=== PATIENT | female | born 1950 | race Caucasian/White ===

== ENCOUNTER 2024-07-31 23:57 | Inpatient (IN) | payer OTHER, SELFPAY ==
[2024-07-31 16:47] VITALS: BP 148/82
[2024-07-31 17:56] VITALS: BP 138/76
[2024-07-31 18:16] LABS: % Basophils 0.8 % (0-2); % Immature Granulocytes 0.4 % (0-0.5); % Lymphocytes 12.9 % (20.5-51.1); % Neutrophils 70.9 % (42.2-75.2); Absolute Basophils 0.1 10^3/uL (0-0.2); Absolute Eosinophils 0.1 10^3/uL (0-0.7); Absolute Lymphocytes 1.1 10^3/uL (1.2-3.4); Absolute Monocytes 1.2 10^3/uL (0.1-0.6); Absolute Neutrophils 5.9 10^3/uL (1.4-6.5); Hemoglobin 11.8 g/dL (12.0-16.0); Mean Corp Hgb Conc. 33.7 g/dL (33.0-37.0); Mean Corpuscular Hgb 29.7 pg (27.0-31.0); Mean Corpuscular Volume 88.2 fL (81.0-99.0); Mean Platelet Volume 8.5 fL (7.4-10.4); Nucleated Red Blood Cells % 0 %; Platelet Count 343 10^3/uL (130-400); Red Blood Cell Count 3.97 10^6/uL (4.20-5.40); Red Cell Dist. Width 13.3 % (11.5-14.5); White Blood Cell Count 8.3 10^3/uL (4.8-10.8)
[2024-07-31 18:31] LABS: ALT (SGPT) 24 U/L (0-35); AST (SGOT) 48 U/L (14-36); Albumin 4.3 g/dl (3.5-5.0); Alkaline Phosphatase 66 U/L (38-126); Blood Urea Nitrogen 20 mg/dl (7-17); Calcium 9.6 mg/dl (8.4-10.2); Carbon Dioxide 26 mmol/L (22-30); Chloride 102 mmol/L (98-107); Glucose 104 mg/dl (70-99); Potassium 4.1 mmol/L (3.5-5.1); Sodium 140 mmol/L (135-145); Total Bilirubin 0.6 mg/dl (0.2-1.3); Total Protein 7.7 g/dl (6.3-8.2); eGFR > 60.00
--- NOTE | 2024-07-31 19:35 | ED.GENMED ---
History of Present Illness
General
Chief Complaint: Skin Problem
Source: patient
Time Seen by Provider: 07/31/24 19:13
History of Present Illness
History of Present Illness:
74-year-old female presents to the emergency room complaining of right arm swelling, rash. Patient was sent to the emergency room from her primary care doctor's office. Patient states the right arm swelling began sometime in June. She
thought the swelling initially was related to exposure to poison martir or poison oak but it has not gone away. Patient's noticed some redness extending now onto her chest and into her axilla. Also has some redness of discomfort in the left lower
ankle. Patient denies any fever chills. Patient is right-hand dominant. She takes no prescription medications. She had her tonsils out as a child but denies any other significant surgical history.
Phy Exam
Physical Exam
Physical Exam:
General: Awake, Alert, Oriented X3. No acute distress, appears stated age
Vitals: Mildly tachycardic
Head: Atraumatic
Eyes: Pupils equal, EOMI
Throat: Airway intact, no exudates
Neck: Trachea midline
Lungs: Clear and equal b/l
Heart: Regular rate, no murmurs
Abd: Soft, Nontender, No pulsatile mass
Neuro: Nonfocal
Skin: Warm, dry, no rash
Extremities: pulses equal b/l, no edema, woody induration and erythema noted right upper extremity from the fingers up to the axilla. There is lacy erythema noted around the axilla and right upper chest only. Right lower extremity has a small
healed ulceration noted the ankle region with some surrounding erythema but no significant swelling. Left arm appears completely normal in contrast to the right.
Sepsis
Sepsis Screening
Sepsis Assessment: Sepsis Ruled Out
Sepsis Screen
Sepsis Screen: Sepsis Ruled Out
Date: 08/01/24
Time: 00:49
Course
Orders/Labs/Results
Orders:
Orders
07/31/24 17:56
CBC/With Diff [Complete Blood Count/With Diff] Urgent
Comprehensive Metabolic Panel Urgent
07/31/24 19:33
US Periph Venous UPPER Ext RT Urgent
Comment:
Reason For Exam: swelling, redness pain r arm
07/31/24 19:34
CR Chest - 2 Views Urgent
Comment:
Reason For Exam: right upper ext swelling
07/31/24 21:55
CT Chest With Iv Contrast Urgent
Comment:
Reason For Exam: r effusion, r arm lymphedema
07/31/24 21:56
CeFAZolin 2 GRAM [Ancef] 2 grams in 10 ml IV NOW
Abnormal Lab Results
07/31/24
17:56
RBC 3.97 L 10^6/uL
(4.20-5.40)
Hgb 11.8 L g/dL
(12.0-16.0)
Hct 35.0 L %
(37.0-47.0)
Absolute Lymphs (auto) 1.1 L 10^3/uL
(1.2-3.4)
Absolute Monos (auto) 1.2 H 10^3/uL
(0.1-0.6)
Lymphocytes % 12.9 L %
(20.5-51.1)
Monocytes % 14.0 H %
(1.7-9.3)
BUN 20 H mg/dl
(7-17)
Creatinine 0.5 L mg/dL
(0.6-1.0)
Glucose 104 H mg/dl
(70-99)
AST 48 H U/L
(14-36)
07/31/24 17:56
07/31/24 17:56
Vital Signs
Initial and Last Documented VS:
Initial Vital Signs
Temp Pulse Resp BP Pulse Ox
97.6 F 104 16 148/82 95
07/31/24 16:47 07/31/24 16:47 07/31/24 16:47 07/31/24 16:47 07/31/24 16:47
Last Documented Vital Signs
Temp Pulse Resp BP Pulse Ox
97.9 F 85 20 129/65 96
08/01/24 00:43 08/01/24 00:43 08/01/24 00:43 08/01/24 00:43 08/01/24 00:43
MDM/Problems Addressed
Differential Diagnosis Includes:
cellulitis, lymphedema, upper ext dvt
MDM/Problems Addressed:
Patient presents with significant edema, erythema right arm. Ultrasound shows no evidence of DVT. Given this obstruction of venous flow I suspect there is some obstruction of lymphatic flow. Chest x-ray shows a right pleural effusion. Therefore
CT obtained which shows extensive edema of both the visualized portion of the right arm and chest wall. No significant lymphadenopathy noted. Imaging suggestive of some sort of malignant process. Patient given Ancef for possible cellulitis and
will require hospitalization for further evaluation and delineation of the cause of her symptoms.
*Radiology
Radiology exam reviewed: preliminary read by ED provider (Reperfusion noted on my review of the patient's chest x-ray) and radiology read reviewed
*Pulse Oximetry
Patient hypoxic: no
*Critical Care Note
Total Time (30-74mins, 75-104mins- exclusive of procedures): Not Applicable
ED Attending Note
-
Portions of this chart may have been created with voice recognition software.� Occasional wrong word or��sound alike� substitutions may have occurred due to the inherent limitations of voice recognition software.
Discharge Plan
Departure
Patient Disposition: Admit
Date of Disposition: 07/31/24
Time of Disposition: 23:25
Admit to: Med/Surg
Presentation/result/management discussed w/ accepting MD/DO: Hospitalist
Condition: Fair
Discharge Problem:
Lymphedema of right arm, Cellulitis
Interventions
Interventions:
*Risk Screen - Suicide Last Done: 07/31/24 21:00
*General Assessment Last Done: 07/31/24 21:00
*Neglect/Abuse Screening Last Done: 07/31/24 21:00
ED- Fall Risk Assessment Last Done: 07/31/24 21:00
*ED COVID-19 Vaccine History Last Done: 07/31/24 21:00
ED- Cardiac Assessment Last Done: 07/31/24 21:55
ED- Neurological Assessment Last Done: 07/31/24 21:55
ED- Pulmonary Assessment Last Done: 07/31/24 21:55
ED-Skin Assessment Last Done: 07/31/24 22:43
[2024-07-31 21:00] VITALS: BP 145/77; BP 150/73
[2024-07-31 21:02] VITALS: BP 145/77
[2024-07-31 21:46] VITALS: BP 150/73
[2024-07-31] MEDS: ANCEF 10 IV (22:07)
[2024-07-31 22:45] VITALS: BP 126/81
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
[2024-08-01 00:43] VITALS: BP 129/65
[2024-08-01 02:45] VITALS: BMI 26.3
[2024-08-01] MEDS: ANCEF 10 IV ×3 (05:54→21:46)
[2024-08-01 06:02] VITALS: BP 106/61
[2024-08-01 07:02] LABS: Hematocrit 32.6 % (37.0-47.0); Hemoglobin 10.9 g/dL (12.0-16.0); Mean Corp Hgb Conc. 33.4 g/dL (33.0-37.0); Mean Corpuscular Hgb 30.8 pg (27.0-31.0); Mean Corpuscular Volume 92.1 fL (81.0-99.0); Platelet Count 311 10^3/uL (130-400); Red Blood Cell Count 3.54 10^6/uL (4.20-5.40); Red Cell Dist. Width 13.4 % (11.5-14.5)
[2024-08-01 07:05] LABS: INR 1.08
[2024-08-01 07:15] VITALS: BP 115/66
[2024-08-01 07:35] LABS: Blood Urea Nitrogen 17 mg/dl (7-17); Calcium 9.1 mg/dl (8.4-10.2); Carbon Dioxide 27 mmol/L (22-30); Chloride 104 mmol/L (98-107); Estimated Creatinine Clearance 74 ml/min; Glucose 103 mg/dl (70-99); Potassium 4.4 mmol/L (3.5-5.1); Sodium 139 mmol/L (135-145); eGFR > 60.00
--- NOTE | 2024-08-01 11:49 | CM ---
CM reviewed medical records. Patient lives independently alone. Patient does not have a history of VN at this time. Patient does not have a history of SNF. Patient reports not having seen a PCP is quite some time. Patient has medication coverage,
but not currently on any medications.
PLAN: Home vs. Home with VN
--- NOTE | 2024-08-01 13:58 | W.PN.HOSP.TC ---
Today's Communication/Plan
-
Assessment / Plan
Assessment / Plan
Imaging
DVT study
IMPRESSION:
Limited evaluation of the secondary to extensive edema and skin thickening . Internal jugular vein and cephalic veins appear patent. The additional upper extremity veins are not well visualized.
There is bilateral cervical lymphadenopathy measuring up to 2.9 cm bilaterally.
Incidentally noted 2.0 x 2.0 x 1.2 cm nodule in the right hemithyroid consistent with TI-RADS 3. Recommend nonemergent dedicated thyroid ultrasound for further evaluation.
CXR
IMPRESSION:
Limited evaluation of the secondary to extensive edema and skin thickening . Internal jugular vein and cephalic veins appear patent. The additional upper extremity veins are not well visualized.
There is bilateral cervical lymphadenopathy measuring up to 2.9 cm bilaterally.
Incidentally noted 2.0 x 2.0 x 1.2 cm nodule in the right hemithyroid consistent with TI-RADS 3. Recommend nonemergent dedicated thyroid ultrasound for further evaluation.
Chest CT
IMPRESSION:
1. Significant body wall edema involving the visualized portion of the right upper extremity, right axilla, right chest wall, and right breast.
2. Pathologic lymphadenopathy within the right axilla, left axilla, mediastinum, lower neck, and both supraclavicular regions.
3. Overall, findings may be related to severe cellulitis/infectious process, however given the pronounced lymphadenopathy, findings are more likely to represent malignant process such as lymphoma or metastatic disease.
4. Small right pleural effusion. Mild right basilar airspace consolidation, which may be related to subsegmental atelectasis or pneumonia.
5. Bilateral breast skin thickening, raising concern for infiltrative breast carcinoma. Breasts are incompletely imaged. Mammographic workup is suggested.
6. Right thyroid nodule. Consider further workup with nonemergent thyroid ultrasound.
Physical Exam
NAD, resting comfortably in bed
Scleral anicteric
Moist mucous membranes
No JVD
CTA bilateral
Normal S1-S2 no murmurs
Soft nontender nondistended bowel sounds active
No peripheral pitting edema
RLE erythema
RUE/Chest well erythematous, hard, brawny
Moves extremities spontaneously
AAOx3
Assessment and Plan
RLE cellulitis
-Continue ancef, tgransition to Keflex in the next 24hours, complete 7day course
Adenopathy with RUE/Chest wall swelling
-COnsern for malignacy
-Does not appear to be a rash
-Julio C need lymphnode bx. IR states earliest they can complete is next week, they have recommened it to be done as an outpatient
-Will need mammogram
Both can be done as an outpatient
?Murmur, was not able to elicit, will await 2d echo
-Await Bcx for at least 24hours
-Extremely low clinical suspicion for Endocarditis
--She is not septic, no fever, nontoxic appearing
Anticipated Discharge: Within 24 hours
Subjective/Interval History
-
Date of Service: August 01, 2024
Seen and examined. No new complaints. No acute overnight events.
States right lower extremity erythema improving
Believes right upper extremity chest wall erythema/swelling related to a rash from poison martir that has been ongoing for 1 to 2 months.
Objective Data
-
Labs:
Laboratory Results
08/01/24
05:48
WBC 7.0
Hgb 10.9 L
Hct 32.6 L
Plt Count 311
PT 14.0
INR 1.08
Sodium 139
Potassium 4.4
Chloride 104
Carbon Dioxide 27
BUN 17
Creatinine 0.5 L
Glucose 103 H
Calcium 9.1
Vital Signs:
Vital Signs
Temp Pulse Resp BP Pulse Ox
97.7 F 87 17 115/66 94
08/01/24 07:15 08/01/24 07:15 10/24/24 07:15 08/01/24 07:15 08/01/24 07:15
[2024-08-01 15:59] VITALS: BP 142/75
[2024-08-01] MEDS: LOVENOX 40 MG SC (17:12)
[2024-08-01 23:29] VITALS: BP 111/57
[2024-08-02] MEDS: ANCEF 10 IV (05:15)
[2024-08-02 06:00] VITALS: BMI 26.9
[2024-08-02 07:30] VITALS: BP 123/61
--- NOTE | 2024-08-02 09:14 | PN.CDI ---
CDI
- -
CDI:
Physician Documentation Request
Admit Date: 07/31/24 23:57
Dear Doctor Samir,
Patient admitted for cellulitis.
Selected Entries
08/01/24
13:49 08/01/24
16:32
Is this a pressure-related injury? [Present on admission Bilateral Buttock] Yes Yes
Pressure injury appearance [Present on admission Bilateral Buttock] [place] wound bed
Warm [place] wound bed
Warm
Pressure injury appearance comment [Present on admission Bilateral Buttock] 75% pink 25%
granulation. 75% pink, 25%
granulation
Pressure injury stage [Present on admission Bilateral Buttock] Stage 2 Stage 2
Surrounding Skin - [Present on admission Bilateral Buttock] Local erythema
Warm Local erythema
Warm
Physician documentation of the type and location of wounds is required for compliant documentation. Based on the above clinical findings and your assessment, please provide the following in your progress note:
1. Location of the ulcer/wound, including laterality.
2. Type (etiology) of ulcer/wound:
- Diabetic ulcer
- Arterial (ischemic) ulcer
- Traumatic wound
- Venous stasis ulcer
- Pressure (decubitus) ulcer
- Non-healing surgical wound
- Other
- Unable to determine
3. For a non-pressure ulcer, please indicate the depth/severity:
- Limited to the breakdown of skin
- With fat layer exposed
- With necrosis of muscle
- With necrosis of bone
- Other
- Unable to determine
4. If a pressure ulcer, please also include the stage* of the ulcer:
- Stage 1 - Skin intact, non-blanchable redness
- Stage 2 - Partial thickness loss of dermis, includes intact or open blister
- Stage 3 - Full thickness tissue not including bone, tendon or muscle
- Stage 4 - Full thickness tissue loss, including exposed bone, tendon or muscle
- Unstageable - Full thickness loss in which the base of the ulcer is covered by slough (yellow, taylor, pelletier, green or brown) and/or eschar (taylor, brown or black) in the wound bed.
- Unable to determine
Use of terms such as suspected, likely, concern for, or probable (associated with a specific diagnosis that is being evaluated, monitored, or treated as if it exists) are acceptable and can be coded in the inpatient setting, when documented at the
time of discharge.
Thank you,
Sammi Flynn RN, BSN
CDI Specialist
Available via [place] text
Please use your independent medical judgment in providing your response.
*Source: National Pressure Ulcer Advisory Panel (NPUAP)
--- NOTE | 2024-08-02 13:51 | CM ---
Chart reviewed and patient is for discharge to home today, no needs.
Plan; Home no needs.
[2024-08-02 15:06] VITALS: BP 133/66
--- NOTE | 2024-08-02 15:47 | W.PN.HOSP.TC ---
Today's Communication/Plan
-
dc home
More than 30 minutes spent in discharge including
Final examination of the patient
Summarizing hospital stay
Instructions for continuing care to all relevant caregivers
Preparation of discharge records, prescriptions, and referral forms
Total time spent (in minutes): 42mins
I also called her pcp and provided an updated with ct findings and 2d echo report. infomred her that i spoke with IR. they need a script from the PCP rosio to schedule an appointment for outpatient bx.
Assessment / Plan
Assessment / Plan
Imaging
DVT study
IMPRESSION:
Limited evaluation of the secondary to extensive edema and skin thickening . Internal jugular vein and cephalic veins appear patent. The additional upper extremity veins are not well visualized.
There is bilateral cervical lymphadenopathy measuring up to 2.9 cm bilaterally.
Incidentally noted 2.0 x 2.0 x 1.2 cm nodule in the right hemithyroid consistent with TI-RADS 3. Recommend nonemergent dedicated thyroid ultrasound for further evaluation.
CXR
IMPRESSION:
Limited evaluation of the secondary to extensive edema and skin thickening . Internal jugular vein and cephalic veins appear patent. The additional upper extremity veins are not well visualized.
There is bilateral cervical lymphadenopathy measuring up to 2.9 cm bilaterally.
Incidentally noted 2.0 x 2.0 x 1.2 cm nodule in the right hemithyroid consistent with TI-RADS 3. Recommend nonemergent dedicated thyroid ultrasound for further evaluation.
Chest CT
IMPRESSION:
1. Significant body wall edema involving the visualized portion of the right upper extremity, right axilla, right chest wall, and right breast.
2. Pathologic lymphadenopathy within the right axilla, left axilla, mediastinum, lower neck, and both supraclavicular regions.
3. Overall, findings may be related to severe cellulitis/infectious process, however given the pronounced lymphadenopathy, findings are more likely to represent malignant process such as lymphoma or metastatic disease.
4. Small right pleural effusion. Mild right basilar airspace consolidation, which may be related to subsegmental atelectasis or pneumonia.
5. Bilateral breast skin thickening, raising concern for infiltrative breast carcinoma. Breasts are incompletely imaged. Mammographic workup is suggested.
6. Right thyroid nodule. Consider further workup with nonemergent thyroid ultrasound.
2d echo
CONCLUSIONS
1. Left ventricle: Normal size and function with an estimated ejection
fraction of 55-60%
2. Right ventricle: Normal
3. Atria: Normal
4. Mitral valve: Normal
5. Aortic valve: Normal
6. Tricuspid valve: Mild tricuspid regurgitation with estimated pulmonary
artery systolic pressures of 30-35 mmHg
7. No prior studies for comparison
Physical Exam
NAD, resting comfortably in bed
Scleral anicteric
Moist mucous membranes
No JVD
CTA bilateral
Normal S1-S2 no murmurs
Soft nontender nondistended bowel sounds active
No peripheral pitting edema
RLE erythema
RUE/Chest well erythematous, hard, brawny
Moves extremities spontaneously
AAOx3
Assessment and Plan
RLE cellulitis
-Continue ancef, transition to Keflex, complete 7day course
Adenopathy with RUE/Chest wall swelling
-Concern for malignacy
-Does not appear to be a rash
-Will need lymphnode bx. IR states earliest they can complete is next week, they have recommended it to be done as an outpatient
-Will need mammogram
Both can be done as an outpatient
?Murmur, was not able to elicit
-Bcx NGTD
-2d ehco without evidence of Veg and valves appear normal aprt from osme tricuspid regurg
-No clinical suspicion for Endocarditis
--She is not septic, no fever, nontoxic appearing
Anticipated Discharge: Today
Subjective/Interval History
-
Date of Service: August 02, 2024
seen and examined. no new complaints. no acute overnight events
feeling better
i informed her that i spoke with Dr. Destiney Hoang her PCP. She is aware of the CT results findings including the possiblity for maligancy needing a lymph node bx and mammo.
Objective Data
-
Vital Signs:
Vital Signs
Temp Pulse Resp BP Pulse Ox
98.2 F 89 18 133/66 98
08/02/24 15:06 08/02/24 15:06 08/02/24 15:06 08/02/24 15:06 08/02/24 15:06
I&O
08/01/24 08/02/24 08/03/24
06:59 06:59 06:59
Intake Total 570 / 570
Balance 570 / 570
--- NOTE | 2024-08-04 14:19 | W.DCSUMMARY ---
Addendum entered and electronically signed by Cesario Dawson MD 08/04/24 14:21:
b/l buttock
stage 2 pressure injury
pink wound bed warm
on arrival
Original Note:
Discharge Summary
Discharge Data
Date of Admission: 07/31/24
Date of Discharge: 08/04/24
-
Pending Results: No
Hospital Course
Presented with RLE redness and swelling, started on antibiotics for cellulitis. Also, noted to have right upper extremity and chest wall swelling. CTChest and RUE DVT study obtained, report as below. There is concern that this RUE/Right chest wall
swelling is related to cancer. Biopsy is recommended and an appointment will need to be made with interventional radiology. Additionally, Mammogram is needed. Complete 5more days of antibiotics. Blood cultures thus far no growth.
Outpatient PCP follow up
Outpatient IR follow up for biopsy
CTChest
IMPRESSION:
1. Significant body wall edema involving the visualized portion of the right upper extremity, right axilla, right chest wall, and right breast.
2. Pathologic lymphadenopathy within the right axilla, left axilla, mediastinum, lower neck, and both supraclavicular regions.
3. Overall, findings may be related to severe cellulitis/infectious process, however given the pronounced lymphadenopathy, findings are more likely to represent malignant process such as lymphoma or metastatic disease.
4. Small right pleural effusion. Mild right basilar airspace consolidation, which may be related to subsegmental atelectasis or pneumonia.
5. Bilateral breast skin thickening, raising concern for infiltrative breast carcinoma. Breasts are incompletely imaged. Mammographic workup is suggested.
6. Right thyroid nodule. Consider further workup with nonemergent thyroid ultrasound.
CXR
IMPRESSION:
Small/moderate right pleural effusion with adjacent airspace opacity, likely atelectasis however pneumonia with parapneumonic effusion could appear similar
RUE DVT Study
IMPRESSION:
Limited evaluation of the secondary to extensive edema and skin thickening . Internal jugular vein and cephalic veins appear patent. The additional upper extremity veins are not well visualized.
There is bilateral cervical lymphadenopathy measuring up to 2.9 cm bilaterally.
Incidentally noted 2.0 x 2.0 x 1.2 cm nodule in the right hemithyroid consistent with TI-RADS 3. Recommend nonemergent dedicated thyroid ultrasound for further evaluation.
2d echo
CONCLUSIONS
1. Left ventricle: Normal size and function with an estimated ejection
fraction of 55-60%
2. Right ventricle: Normal
3. Atria: Normal
4. Mitral valve: Normal
5. Aortic valve: Normal
6. Tricuspid valve: Mild tricuspid regurgitation with estimated pulmonary
artery systolic pressures of 30-35 mmHg
7. No prior studies for comparison
Discharge Plan
-
Patient Disposition: Home (Routine Discharge)
Discharge Diagnosis/Procedures: Right lower extremity cellulitis
Diet: As tolerated
Activity: As tolerated
Activity Restrictions/Additional Instructions:
Presented with RLE redness and swelling, started on antibiotics for cellulitis. Also, noted to have right upper extremity and chest wall swelling. CTChest and RUE DVT study obtained, report as below. There is concern that this RUE/Right chest wall
swelling is related to cancer. Biopsy is recommended and an appointment will need to be made with interventional radiology. Additionally, Mammogram is needed. Complete 5more days of antibiotics. Blood cultures thus far no growth.
Outpatient PCP follow up
Outpatient IR follow up for biopsy
CTChest
IMPRESSION:
1. Significant body wall edema involving the visualized portion of the right upper extremity, right axilla, right chest wall, and right breast.
2. Pathologic lymphadenopathy within the right axilla, left axilla, mediastinum, lower neck, and both supraclavicular regions.
3. Overall, findings may be related to severe cellulitis/infectious process, however given the pronounced lymphadenopathy, findings are more likely to represent malignant process such as lymphoma or metastatic disease.
4. Small right pleural effusion. Mild right basilar airspace consolidation, which may be related to subsegmental atelectasis or pneumonia.
5. Bilateral breast skin thickening, raising concern for infiltrative breast carcinoma. Breasts are incompletely imaged. Mammographic workup is suggested.
6. Right thyroid nodule. Consider further workup with nonemergent thyroid ultrasound.
CXR
IMPRESSION:
Small/moderate right pleural effusion with adjacent airspace opacity, likely atelectasis however pneumonia with parapneumonic effusion could appear similar
RUE DVT Study
IMPRESSION:
Limited evaluation of the secondary to extensive edema and skin thickening . Internal jugular vein and cephalic veins appear patent. The additional upper extremity veins are not well visualized.
There is bilateral cervical lymphadenopathy measuring up to 2.9 cm bilaterally.
Incidentally noted 2.0 x 2.0 x 1.2 cm nodule in the right hemithyroid consistent with TI-RADS 3. Recommend nonemergent dedicated thyroid ultrasound for further evaluation.
2d echo
CONCLUSIONS
1. Left ventricle: Normal size and function with an estimated ejection
fraction of 55-60%
2. Right ventricle: Normal
3. Atria: Normal
4. Mitral valve: Normal
5. Aortic valve: Normal
6. Tricuspid valve: Mild tricuspid regurgitation with estimated pulmonary
artery systolic pressures of 30-35 mmHg
7. No prior studies for comparison
Instructions: Cellulitis (skin infection) in adults - Discharge instructions
Referrals:
Destiney Hoang MD [Family Provider] -
Prescriptions:
New
cephalexin 500 mg capsule
500 mg PO QID 5 Days Qty: 20 0RF
Discharge Orders:
Discharge Patient (As Directed); Ordered 08/02/24
Ordered By: Cesario Dawson
Discharge Date and Time
Discharge Date/Time: 08/02/24 15:42
Print Language: LAO
== END 2024-08-02 15:42 | disposition home or self-care (01) | DRG 598 ==
LOC: 4 WEST ACU 23:57
PROVIDERS: Emergency Medicine; Physician Assistant Medical; ADMITTING PHYSICIAN Hospitalist; ATTENDING PHYSICIAN Hospitalist; EMERGENCY PHYSICIAN Emergency Medicine; FAMILY PHYSICIAN Hospitalist
DX: C50.911 Malignant neoplasm of unspecified site of right female breast (principal); L03.115 Cellulitis of right lower limb; I89.0 Lymphedema, not elsewhere classified; L89.312 Pressure ulcer of right buttock, stage 2; L89.322 Pressure ulcer of left buttock, stage 2
CPT/HCPCS: 71046; 71260; 80048; 80053; 85025; 85027; 85610; 87040; 93306; 93971; 96374; 99285; Q9967

== ENCOUNTER → 2024-08-13 13:27 | Outpatient (REF) | payer OTHER, SELFPAY ==
[2024-08-13 13:50] VITALS: BP 124/72; BP_SYST 102
== END ==
LOC: RADI 13:27
PROVIDERS: ATTENDING PHYSICIAN Hospitalist
DX: C77.0 Secondary and unspecified malignant neoplasm of lymph nodes of head, face and neck (principal); C80.1 Malignant (primary) neoplasm, unspecified
CPT/HCPCS: 88305; 38505; 76942; 88333; 88341; 88342; 88360

== ENCOUNTER → 2024-08-16 10:04 | Outpatient (REF) | payer OTHER, SELFPAY | LOC: WDC 10:04 | PROVIDERS: ATTENDING PHYSICIAN Hospitalist | DX: N64.59 Other signs and symptoms in breast (principal) | CPT/HCPCS: 76642; 77062; 77066 ==

== ENCOUNTER 2024-08-24 20:02 | Inpatient (IN) | payer OTHER, SELFPAY ==
[2024-08-24] VITALS (7 sets, daily range): BP systolic 121–161; BP diastolic 53–78; BMI 28.3
[2024-08-24 17:03] LABS: ALT (SGPT) 33 U/L (0-35); AST (SGOT) 66 U/L (14-36); Albumin 3.7 g/dl (3.5-5.0); Alkaline Phosphatase 65 U/L (38-126); Blood Urea Nitrogen 25 mg/dl (7-17); Calcium 9.2 mg/dl (8.4-10.2); Carbon Dioxide 27 mmol/L (22-30); Chloride 100 mmol/L (98-107); Glucose 114 mg/dl (70-99); Potassium 4.4 mmol/L (3.5-5.1); Sodium 139 mmol/L (135-145); Total Bilirubin 0.4 mg/dl (0.2-1.3); Total Protein 7.2 g/dl (6.3-8.2); eGFR > 60.00
[2024-08-24 17:15] LABS: D-Dimer 3.02 ug/mlFEU (0.00-0.50); NT-proBNP 77.9 pg/ml; Troponin I < 0.012 ng/ml
--- NOTE | 2024-08-24 17:18 | ED.GENMED ---
History of Present Illness
General
Chief Complaint: Breathing Problem
Source: patient
Time Seen by Provider: 08/24/24 17:07
History of Present Illness
History of Present Illness:
74-year-old female presents to the emergency room complaining of shortness of breath and cough. Patient has been experiencing the symptoms for the past week or so. She is also noted some swelling in her lower extremities. Patient was recently
hospitalized for swelling and erythema of her right upper extremity. 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 Patient denies
any fever. Cough is productive of white mucus.
Phy Exam
Physical Exam
Physical Exam:
General: Awake, Alert, Oriented X3. No acute distress.
Vitals: unremarkable
Head: Atraumatic
Eyes: Pupils equal, EOMI
Throat: Airway intact, no exudates
Neck: Trachea midline
Lungs: Coarse breath sounds bilaterally
Heart: Regular rate, no murmurs
Abd: Soft, Nontender, No pulsatile mass
Neuro: Nonfocal
Skin: Warm, dry, no rash
Extremities: pulses equal b/l, no edema
Scores
Heart Failure Risk
Heart Failure Risk Score: Not Applicable
Course
Orders/Labs/Results
Orders:
Orders
08/24/24 16:16
Electrocardiogram (*1) Urgent
Reason for Study: Shortness of Breath
EKG- Treatment ONCE
08/24/24 16:38
Comprehensive Metabolic Panel Urgent
D-Dimer Urgent
NT-proBNP Urgent
Troponin I Urgent
08/24/24 17:17
Complete Blood Count/With Diff Urgent
08/24/24 17:22
CR Chest - 2 Views Urgent
Comment:
Reason For Exam: shortness of breath, cough
08/24/24 18:12
CT Abd/pelvis W Iv Cont Urgent
Comment:
Reason For Exam: abd discomfort, lower ext edema
08/24/24 19:25
Admit/Transfer Patient As Directed
Co-Sign Provider:
Level of Care: Inpatient admission
Assign to:: Medical/Surgical
Physician / Group: ana yen
Diagnosis: right plueral effusion, anasarca,recent poor diff carcinoma l clavicle
Reason for Hospitalization: right plueral effusion, anasarca,recent poor diff carcinoma l clavicle
Expected length of stay greater than two midnights?: Yes
ELOS- Estimated Length of Stay in days: 3
I certify the patient meets the requirements for IP care: Yes
08/24/24 19:29
PRN Pain Medication Management As Directed
May give lesser potent ordered pain med per pt: Yes
preference::
Protocol:: Medication orders for pain may be administered in a
manner that supports deferring to patient preference
when the pt is:
- Requesting an ordered lesser potent pain medication.
Least to most potent pain medications are defined
as: acetaminophen < NSAID < tramadol < opioids
(morphine, oxycodone, hydromorphone).
- Requesting a lesser dose of the same medication IF
ORDERED.
- Requesting a less intrusive route of administration
if both routes are prescribed by the provider (PO <
IV).
Abnormal Lab Results
08/24/24 08/24/24
16:38 17:17
RBC 3.78 L 10^6/uL
(4.20-5.40)
Hgb 11.5 L g/dL
(12.0-16.0)
Hct 34.8 L %
(37.0-47.0)
Absolute Neuts (auto) 6.6 H 10^3/uL
(1.4-6.5)
Absolute Lymphs (auto) 0.8 L 10^3/uL
(1.2-3.4)
Absolute Monos (auto) 1.1 H 10^3/uL
(0.1-0.6)
Neutrophils % 76.9 H %
(42.2-75.2)
Lymphocytes % 9.2 L %
(20.5-51.1)
Monocytes % 12.4 H %
(1.7-9.3)
D-Dimer 3.02 H ug/mlFEU
(0.00-0.50)
BUN 25 H mg/dl
(7-17)
Glucose 114 H mg/dl
(70-99)
AST 66 H U/L
(14-36)
08/24/24 17:17
08/24/24 16:38
Vital Signs
Initial and Last Documented VS:
Initial Vital Signs
Temp Pulse Resp BP Pulse Ox
97.7 F 99 16 149/72 93
08/24/24 16:12 08/24/24 16:12 08/24/24 16:12 08/24/24 16:12 08/24/24 16:12
Last Documented Vital Signs
Temp Pulse Resp BP Pulse Ox
97.7 F 95 33 137/71 99
08/24/24 16:12 08/24/24 17:30 08/24/24 17:30 08/24/24 17:16 08/24/24 18:30
MDM/Problems Addressed
Differential Diagnosis Includes:
pneumonia, chf, effusion, viral URI
MDM/Problems Addressed:
Patient presents with significant shortness of breath particularly with minimal exertion. Labs show normal white count, normal hemoglobin, chemistries are unremarkable. Chest x-ray shows large right pleural effusion. Patient will require
hospitalization for thoracentesis and further workup. Effusion likely related to recently diagnosed poorly differentiated carcinoma found in an enlarged lymph node.
*Radiology
Radiology exam reviewed: radiology read reviewed
*Pulse Oximetry
Patient hypoxic: no
*EKG
Interpreted by ED Provider?: Yes
Interpretation: normal
Heart Rate: 99
Rate: normal
Rhythm: sinus
Ernest: normal axis
Interval: normal interval
QRS Pattern: normal QRS
Ischemia: no ischemia
*Highway Painter Helper Interpretation
Rate: normal
Interpretation: normal
Rhythm: sinus
*Critical Care Note
Total Time (30-74mins, 75-104mins- exclusive of procedures): Not Applicable
ED Attending Note
-
Portions of this chart may have been created with voice recognition software.� Occasional wrong word or��sound alike� substitutions may have occurred due to the inherent limitations of voice recognition software.
Discharge Plan
Departure
Patient Disposition: Admit
Date of Disposition: 08/24/24
Time of Disposition: 18:13
Admit to: Med/Surg
Presentation/result/management discussed w/ accepting MD/DO: Hospitalist
Condition: Fair
Discharge Problem:
Hypoxia, Pleural effusion on right, Lower extremity lymphadenopathy
Interventions
Interventions:
*Risk Screen - Suicide Last Done: 08/24/24 16:15
*Neglect/Abuse Screening Last Done: 08/24/24 16:15
*ED COVID-19 Vaccine History Last Done: 08/24/24 16:15
ED- Cardiac Assessment Last Done: 08/24/24 17:31
ED- Pulmonary Assessment Last Done: 08/24/24 17:31
[2024-08-24 17:23] LABS: % Basophils 0.7 % (0-2); % Eosinophils 0.6 % (0-6); % Immature Granulocytes 0.2 % (0-0.5); % Lymphocytes 9.2 % (20.5-51.1); % Monocytes 12.4 % (1.7-9.3); % Neutrophils 76.9 % (42.2-75.2); Absolute Basophils 0.1 10^3/uL (0-0.2); Absolute Eosinophils 0.1 10^3/uL (0-0.7); Absolute Lymphocytes 0.8 10^3/uL (1.2-3.4); Absolute Monocytes 1.1 10^3/uL (0.1-0.6); Absolute Neutrophils 6.6 10^3/uL (1.4-6.5); Hematocrit 34.8 % (37.0-47.0); Hemoglobin 11.5 g/dL (12.0-16.0); Mean Corpuscular Hgb 30.4 pg (27.0-31.0); Mean Corpuscular Volume 92.1 fL (81.0-99.0); Mean Platelet Volume 8.4 fL (7.4-10.4); Nucleated Red Blood Cells % 0 %; Platelet Count 384 10^3/uL (130-400); Red Blood Cell Count 3.78 10^6/uL (4.20-5.40); Red Cell Dist. Width 13.6 % (11.5-14.5); White Blood Cell Count 8.5 10^3/uL (4.8-10.8)
--- NOTE | 2024-08-24 18:31 | HPS.HSE ---
Family Physician
-
Family Physician: Destiney Hoang MD
Chief Complaint
-
Shortness breath cough x 1 week, swelling to right arm x 1 month, swelling right upper extremity, left upper extremity bilateral breasts, partial for the back, abdomen, bilateral legs since July.
History of Present Illness
74-year-old female complaining of shortness of breath and cough over the past week. Patient reported she had swelling of her right lower extremity that was treated IV antibiotics transition to oral Keflex 4 times daily x 5 days In the hospital
from 07/31- patient finished on 08/09/2024. She reports she also had swelling in the entire right arm and lymph nodes. She had outpatient left supraclavicular node biopsy showing poorly differentiated carcinoma on 08/13/2024 she reports she
has swelling still to the entire right upper extremity extending onto her upper posterior scapula, entire left arm, entire abdomen lower flanks and buttocks and entire lower legs for the past several weeks. She was due to have a CT abdomen pelvis
with contrast on 09/02/2024 before seeing oncology. She does state that her sister of cervical cancer at age 36 with a diagnosis at age 30.
The patient denies fever, chills, chest pain, palpitations, abdominal pain, nausea, vomiting, diarrhea, urinary symptoms. Her past medical history includes spinal cord injury/TBI 1990, fibromyalgia, neuropathy, hypertension, hypoglycemia
Medical History
Past Medical History
Past Medical History: Reports Other
Additional Past Medical History:
spinal cord injury/TBI 1990
fibromyalgia
neuropathy
hypertension
hypoglycemia
Recent right lower extremity cellulitis treated ast dose Keflex
Past Surgical History: Reports Tonsilectomy
Social History
Tobacco: Non-smoker
Alcohol: None
Drug: None
Personal: Single
Living: Alone
Employment: Retired
Family History
Family History: Other (Sister history of ovarian cancer Dx age 30 and age 36)
Allergies / Home Medications
Allergies reflects when Allergies were last updated in [facility].
Home Medications with original date entered in [facility]
Allergy/Medication List:
Allergies
Allergy/AdvReac Type Severity Reaction Status Date / Time
Sulfa (Sulfonamide AdvReac yeast Verified 07/31/24 16:52
Antibiotics) infections
Tetracyclines AdvReac yeast Verified 07/31/24 16:52
infections
Home Medications
No Meds [No Current Medications] 08/13/24
Review of Systems
-
History Source: Patient
A 12 point ROS was completed and negative except as noted: Yes
Constitutional: Denies Fever or Chills
EENT: Denies Sore Throat or Runny Nose
Respiratory: Reports Cough and Trouble Breathing (Shortness of breath)
Cardiac: Denies Chest Pain, Diaphoresis, Palpitations or Syncope
Abdomen/GI: Denies Abdominal Pain, Nausea, Vomiting, Diarrhea, Constipated, Bloody Stools, Black Stools or Anorexia
: Denies Dysuria, Frequency, Flank Pain, Incontinence, Difficulty Voiding or Urgency
Musculoskeletal: Reports Edema (Edema to bilateral upper extremities right greater than left, bilateral breasts, abdomen, flanks, buttocks and lower legs-Dx anasarca); Denies Joint Pain
Skin: Denies Itching or Rash
Neurological: Denies Dizzy, Headache or Weakness
Endocrine: Reports No Symptoms
Hematologic/Lymphatic: Reports No Symptoms
Psych: Reports Calm
Physical Exam
Vital Signs
Vital Signs
Temp Pulse Resp BP Pulse Ox
97.7 F 99 16 149/72 93
08/24/24 16:12 08/24/24 16:12 08/24/24 16:12 08/24/24 16:12 08/24/24 16:12
Physical Exam
General: Comfortable and Conversant; No Pain, Fever or Chills
HEENT: NormoCephalic, Anicteric, Moist mucous membranes, PERRLA, [place] Conjunctivae and No Ptosis
Respiratory: Other (Diminished breath sounds right lower lobe right middle lobe, left CTA); No Wheezes, Rales or Rhonchi
Cardiac: S1/S2, Regular Rhythm and Peripheral Edema (Bilateral +2 up to thighs ,buttocks, abdomen bilateral arms); No Murmur, Rub or Gallop
Breast: Other (Bilateral breast edematous)
GI: Non Tender, Normal Bowel Sounds and Other (Edema entire abdomen around to bilateral flanks)
Rectal: Deferred by Provider
Genito-urinary: Deferred by me
Musculoskeletal: No Clubbing, No Cyanosis and Other (Edema to bilateral upper extremities right greater than left, bilateral breasts, abdomen, flanks, buttocks and lower legs-Dx anasarca)
Skin: Warm and Dry; No Rash
Neuro: AO x 3, No Motor Deficits, Nonfocal/grossly intact, Cranial Nerves Intact and No Sensory Deficits; No Slurred Speech, Facial Droop, Tremors or Sedated
Hematologic/Lymphatic: Lymphadenopathy (Supraclavicular bilateral, right axilla)
Psych: Calm
Laboratory Results
-
08/24/24 17:17
08/24/24 16:38
Laboratory Results
Total Bilirubin 0.4 mg/dl (0.2-1.3) 08/24/24 16:38
AST 66 U/L (14-36) H 08/24/24 16:38
ALT 33 U/L (0-35) 08/24/24 16:38
Alkaline Phosphatase 65 U/L (38-126) 08/24/24 16:38
Troponin I < 0.012 ng/ml 08/24/24 16:38
Impression/Plan
-
Impression/plan:
Admit to MedSurg
#Recurrent LARGE Right-sided PLEURAL EFFUSION concern for Cancer
#Hx of Right pleural effusion small�moderate 08/04/2024
#Recent Dx of poorly differentiated carcinoma to lymph nodes in right supraclavicular area on 08/16/2024
93% RA
-Consult IR for thoracentesis with fluid analysis
-Monitor pulse oximetry, O2 supplement
-Follow CBC, BMP
#Left supraclavicular node biopsy with METASTATIC POORLY DIFFERENTIATED CARCINOMA
-follow up with Oncology as Outpt
#Anasarca likely due to Cancer
-Edema to bilateral arms, breast, abdomen, buttocks and lower extremities since July 2024
-BNP 79, Albumin 3.7, creat 0.6
2D echo EF 55 to 60%, mild TR, estimated pulmonary arterial pressure 30/35 mmHg
-
CT abdomen pelvis with IV contrast:
1. Large right pleural effusion. Progressed.
2. Findings suggesting moderate volume overload or third spacing. Progressed.
3. Bilateral too small to characterize hypodense renal lesions likely benign cysts. New.
4. Mild retroperitoneal and left inguinal lymphadenopathy. Nonspecific. Clinical and laboratory correlation recommended. This could further be evaluated by PET imaging if indicated clinically.
5. Moderate T12 and mild L1 compression fractures.
#Right upper extremity edema including Right axilla, Right chest wall and Right Breast concerning for Cancer given recent Dx poorly differentiated carcinoma to lymph nodes from left supraclavicular node biopsy on 08/16/2024
#Patient reports lymphedema Right arm and Breast in June 2024
-Patient had right upper extremity DVT that was negative July admission
-follow up with Oncology as Outpt
CT chest 07/31/2024
1. Significant body wall edema involving the visualized portion of the right upper extremity, right axilla, right chest wall, and right breast.
2. Pathologic lymphadenopathy within the right axilla, left axilla, mediastinum, lower neck, and both supraclavicular regions.
3. Overall, findings may be related to severe cellulitis/infectious process, however given the pronounced lymphadenopathy, findings are more likely to represent malignant process such as lymphoma or metastatic disease.
4. Small right pleural effusion. Mild right basilar airspace consolidation, which may be related to subsegmental atelectasis or pneumonia.
5. Bilateral breast skin thickening, raising concern for infiltrative breast carcinoma. Breasts are incompletely imaged. Mammographic workup is suggested.
6. Right thyroid nodule. Consider further workup with nonemergent thyroid ultrasound.
#Right Breast hypoechoic/Anechoic FOCUS 1.3 x 1.1 x 1.1 cm.likely fluid collection difficult to evaluate due to marked edema per radiology
#Bilateral breast marked edema unclear etiology concerning for Cancer
-Consider MRI breast per radiology if additional imaging needed
-follow up with Oncology as Outpt
08/16/2024
MAMMOGRAM: There is marked diffuse skin thickening and edema involving both breasts, right greater than left. There is no discrete mass. Benign-appearing calcifications are noted.
ULTRASOUND: Imaging was performed in the areas of concern bilaterally. There is diffuse skin thickening and edema within the breast tissue bilaterally. On the right at the 12:00 position there is a
hypoechoic/anechoic focus measuring 1.3 x 1.1 x 1.1 cm. This is likely a fluid collection but difficult to evaluate due to the marked edema.
IMPRESSION: Both mammographically and by ultrasound there is diffuse marked edema. Etiology is not certain however given bilateral nature this is likely systemic as opposed to a breast prosthesis.
If additional imaging is needed breast MRI can be considered.
#Right lower extremity cellulitis inpatient 08/04/2024
-Patient was treated in hospital IV antibiotics transition to oral Keflex 4 times daily finished on 08/09/2024
#Hypotension hx
137/71
-No medication reported
#Neuropathy hx
-No medication reported
#Spinal cord injury/TBI 1990
#Fibromyalgia
-No medication reported
#Hypoglycemia
BS 116
dvt proph
sq lovenox
Full code
--- NOTE | 2024-08-24 20:55 | W.PN.UPDATE ---
Update Note
Progress Note Update
This is an addendum to the H&P written by Amber Roy on 08/24/2024. Patient seen and examined independently with FLOOR LAYER APPRENTICE.
74-year-old female past medical history of fibromyalgia, spinal cord injury/TBI, neuropathy, recent bilateral breast thickening, upper body edema/pathologic lymphadenopathy in the right axilla, left axilla mediastinum and lower neck and
supraclavicular regions for which she was recently admitted initially thought to be secondary to severe cellulitis/underlying breast malignancy. Patient was treated with antibiotics and underwent biopsy of left supraclavicular lymph node which
showed poorly differentiated metastatic carcinoma. She has yet to follow-up with oncology.
She presents today with shortness of breath and underwent CT scan of abdomen pelvis which showed large right pleural effusion which has progressed. This is concerning for metastatic pleural effusion likely from underlying breast malignancy. IR
consulted for thoracentesis. Patient will need follow-up with [facility] as planned for further PET scan/MRI of breast and treatment.
[2024-08-24] MEDS: LOVENOX 40 MG SC (22:27)
[2024-08-24] MEDS: ROBITUSSIN 200 MG PO (22:27)
[2024-08-24 22:38] LABS: LDH 373 U/L (120-246)
--- NOTE | 2024-08-24 22:59 | W.PN.UPDATE ---
Update Note
Progress Note Update
RN confirmed that patient would like to be full code. Personally spoke with patient who confirmed she wishes to be Full Code at this time. Code status updated.
[2024-08-25 04:22] LABS: % Basophils 0.8 % (0-2); % Eosinophils 1.5 % (0-6); % Immature Granulocytes 0.5 % (0-0.5); % Lymphocytes 6.5 % (20.5-51.1); % Monocytes 14.4 % (1.7-9.3); % Neutrophils 76.3 % (42.2-75.2); Absolute Basophils 0.1 10^3/uL (0-0.2); Absolute Eosinophils 0.1 10^3/uL (0-0.7); Absolute Lymphocytes 0.6 10^3/uL (1.2-3.4); Absolute Monocytes 1.2 10^3/uL (0.1-0.6); Absolute Neutrophils 6.4 10^3/uL (1.4-6.5); Mean Corp Hgb Conc. 32.4 g/dL (33.0-37.0); Mean Corpuscular Hgb 31.1 pg (27.0-31.0); Mean Platelet Volume 8.6 fL (7.4-10.4); Nucleated Red Blood Cells % 0 %; Platelet Count 358 10^3/uL (130-400); Red Blood Cell Count 3.54 10^6/uL (4.20-5.40); Red Cell Dist. Width 13.6 % (11.5-14.5); White Blood Cell Count 8.4 10^3/uL (4.8-10.8)
[2024-08-25 04:37] LABS: ALT (SGPT) 36 U/L (0-35); AST (SGOT) 63 U/L (14-36); Albumin 3.3 g/dl (3.5-5.0); Alkaline Phosphatase 56 U/L (38-126); Blood Urea Nitrogen 24 mg/dl (7-17); Calcium 8.9 mg/dl (8.4-10.2); Carbon Dioxide 29 mmol/L (22-30); Chloride 102 mmol/L (98-107); Estimated Creatinine Clearance 84 ml/min; Glucose 104 mg/dl (70-99); Potassium 4.5 mmol/L (3.5-5.1); Sodium 140 mmol/L (135-145); Total Bilirubin 0.4 mg/dl (0.2-1.3); Total Protein 6.5 g/dl (6.3-8.2); eGFR > 60.00
[2024-08-25 06:00] VITALS: BMI 27.9
[2024-08-25] MEDS: ROBITUSSIN 200 MG PO (06:28)
[2024-08-25 07:45] VITALS: BP 119/62
--- NOTE | 2024-08-25 10:50 | W.PN.HOSP.TC ---
Today's Communication/Plan
-
IR consult for thoracentesis
Oncology consult
Assessment / Plan
Assessment / Plan
74-year-old female past medical history of fibromyalgia, spinal cord injury/TBI, neuropathy, recent bilateral breast thickening, upper body edema/pathologic lymphadenopathy in the right axilla, left axilla mediastinum and lower neck and
supraclavicular regions for which she was recently admitted initially thought to be secondary to severe cellulitis/underlying breast malignancy. Patient was treated with antibiotics and underwent biopsy of left supraclavicular lymph node which
showed poorly differentiated metastatic carcinoma. She has yet to follow-up with oncology.
She presents today with shortness of breath and underwent CT scan of abdomen pelvis which showed large right pleural effusion which has progressed. This is concerning for metastatic pleural effusion likely from underlying breast malignancy. IR
consulted for thoracentesis. Patient will need follow[facility] as planned for further PET scan/MRI of breast and treatment.
CXR 08/24/24
IMPRESSION:
Large right pleural effusion. Significantly progressed.
Abdomen/Pelvis CT 08/24/24
IMPRESSION: Large right pleural effusion. Progressed.
Findings suggesting moderate volume overload or third spacing. Progressed.
Bilateral too small to characterize hypodense renal lesions likely benign cysts. New.
Mild retroperitoneal and left inguinal lymphadenopathy. Nonspecific. Clinical and laboratory correlation recommended. This could further be evaluated by PET imaging if indicated clinically.
Moderate T12 and mild L1 compression fractures.
#Recurrent LARGE Right-sided PLEURAL EFFUSION concern for malignant pleural effusion
#Hx of Right pleural effusion small�moderate 08/04/2024
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
-Left supraclavicular node biopsy with METASTATIC POORLY DIFFERENTIATED CARCINOMA
-patient has not yet followed up with Oncology as outpatient
-Consult IR for thoracentesis with fluid analysis
-will also obtain Oncology consult here so patient is plugged in for outpatient evaluation
-eventual PET, possible MRI outpatient - F/U Onc recs
#Anasarca likely due to Cancer
#Patient reports lymphedema Right arm and Breast in June 2024
-Edema to bilateral arms, breast, abdomen, buttocks and lower extremities since July 2024
-Patient had right upper extremity DVT that was negative October admission
2D echo EF 55 to 60%, mild TR, estimated pulmonary arterial pressure 30/35 mmHg
#Hypotension hx
137/71
-No medication reported
#Neuropathy hx
-No medication reported
#Spinal cord injury/TBI 1990
#Fibromyalgia
-No medication reported
#Hypoglycemia
BS 116
dvt proph
sq lovenox
Full code
51 minutes spent on patient care
Anticipated Discharge: 24 - 48 hours
Subjective/Interval History
-
Date of Service: August 25, 2024
short of breath but able to converse, feels better sitting up
Objective Data
-
Labs:
Laboratory Results
08/25/24 08/25/24
04:05 04:05
WBC 8.4
Hgb 11.0 L
Hct Cancelled 34.0 L
Plt Count 358
Sodium 140
Potassium 4.5
Chloride 102
Carbon Dioxide 29
BUN 24 H
Creatinine 0.6
Glucose 104 H
Calcium 8.9
Total Bilirubin 0.4
AST 63 H
ALT 36 H
Alkaline Phosphatase 56
Vital Signs:
Vital Signs
Temp Pulse Resp BP Pulse Ox
97.5 F 87 18 119/62 99
08/25/24 07:45 08/25/24 07:45 08/25/24 07:45 08/25/24 07:45 08/25/24 07:45
I&O
08/24/24 08/25/24 08/26/24
06:59 06:59 06:59
Intake Total 240 / 240
Balance 240 / 240
Review of Systems
-
History Source: Patient
All other systems: Reviewed and negative
Physical Exam
-
General: Other (mildly tachypneic but conversant)
HEENT: PERRLA
Respiratory: Decreased Breath Sounds (right lower lung)
Cardiac: Regular Rhythm and S1/S2
GI: Soft and Nontender
Musculoskeletal: Other (edema right upper extremity; b/l LE)
Skin: Warm and Dry; Negative Rash
Neuro: AO x 3
Psych: Calm
Data Reviewed
-
Diagnostic Radiology: Report Reviewed by me
Labs: Labs Reviewed by me
[2024-08-25 11:35] VITALS: BP 116/54; PULSE 96; O2SAT 97
[2024-08-25 13:05] VITALS: BP 120/91; BP_SYST 98
[2024-08-25 15:01] LABS: Body Fluid pH 7.57
[2024-08-25 15:12] LABS: Body Fluid Mononuclear 78.7 %; Body Fluid Polymorphonuclear 21.3 %; Body Fluid WBC 362 /CUMM
[2024-08-25 15:17] LABS: Body Fluid Second Tech JMK
--- NOTE | 2024-08-25 15:24 | CM ---
Met with patient at the bedside; initial assessment completed
Pharmacy verified: [facility] @ [address], [place]
Daughter, Emilie Chacon is the primary contact
Patient verified demographics listed on the face sheet; however, she reported that she is currently staying at a friend's home in their guest room in [place]
Once she enters the home she has 6 steps up to the guest bedroom and bath; bathroom has walk-in shower with grab bar and shower chair
PLOF: reported she was independent with ADLs; was using a 4 prong cane with ambulation; PT left a RW at her bedside; up until yesterday she was driving
Friends will provide transport
Agreeable to home health services if recommended
Discharge plan to be determined pending hospital course
[2024-08-25 15:35] VITALS: BP 101/60
[2024-08-25 15:38] LABS: Body Fluid Amylase 49 U/L; Body Fluid Glucose 107 mg/dl; Body Fluid LDH 837 U/L; Body Fluid Protein 4.9 g/dl; Body Fluid Triglycerides < 30 mg/dl
--- NOTE | 2024-08-25 16:25 | W.PN.IRAD.PR ---
Procedure Note
-
Right thoracentesis performed with return 1150cc thin yellow pleural fluid, samples sent for analysis.
[2024-08-25] MEDS: LOVENOX 40 MG SC (17:27)
[2024-08-25 23:30] VITALS: BP 111/55
[2024-08-26 07:08] VITALS: BP 114/57
[2024-08-26 08:18] LABS: % Basophils 0.7 % (0-2); % Eosinophils 2.8 % (0-6); % Immature Granulocytes 0.1 % (0-0.5); % Lymphocytes 8.8 % (20.5-51.1); % Monocytes 16.2 % (1.7-9.3); % Neutrophils 71.4 % (42.2-75.2); Absolute Basophils 0.1 10^3/uL (0-0.2); Absolute Eosinophils 0.2 10^3/uL (0-0.7); Absolute Lymphocytes 0.6 10^3/uL (1.2-3.4); Absolute Monocytes 1.1 10^3/uL (0.1-0.6); Absolute Neutrophils 4.8 10^3/uL (1.4-6.5); Hematocrit 33.9 % (37.0-47.0); Hemoglobin 10.8 g/dL (12.0-16.0); Mean Corp Hgb Conc. 31.9 g/dL (33.0-37.0); Mean Corpuscular Hgb 30.5 pg (27.0-31.0); Mean Corpuscular Volume 95.8 fL (81.0-99.0); Mean Platelet Volume 8.7 fL (7.4-10.4); Nucleated Red Blood Cells % 0 %; Platelet Count 330 10^3/uL (130-400); Red Blood Cell Count 3.54 10^6/uL (4.20-5.40); Red Cell Dist. Width 13.6 % (11.5-14.5); White Blood Cell Count 6.8 10^3/uL (4.8-10.8)
[2024-08-26 09:21] LABS: ALT (SGPT) 31 U/L (0-35); AST (SGOT) 56 U/L (14-36); Albumin 3.1 g/dl (3.5-5.0); Alkaline Phosphatase 53 U/L (38-126); Blood Urea Nitrogen 28 mg/dl (7-17); Calcium 8.8 mg/dl (8.4-10.2); Carbon Dioxide 28 mmol/L (22-30); Chloride 103 mmol/L (98-107); Estimated Creatinine Clearance 84 ml/min; Glucose 106 mg/dl (70-99); Potassium 4.2 mmol/L (3.5-5.1); Sodium 139 mmol/L (135-145); Total Bilirubin 0.2 mg/dl (0.2-1.3); Total Protein 6.1 g/dl (6.3-8.2); eGFR > 60.00
--- NOTE | 2024-08-26 11:50 | WOUNDNOTE ---
[facility] RN note: Patient admitted with R pleural effusion, s/p thoracentesis.
See H&P for complete history.
PMH: Spinal cord injury 1990, fibromyalgia, Lymphedema R arm and breast.
Wound Location and type/assessment: Patient admitted with: Multiple stage 2 PI's on buttocks, L is largest one that bleeds easily upon cleaning. Suspect patient sits allot at home, lives by self. Using air chair cushion, offered air overlay to
patient, she states can spare the expense. Nurse Karyn at bedside reports patient turns self in bed. Heels intact, protective foams in use.
Appetite: Good.
Pressure redistribution devices in place: Accumax, air overlay if patient becomes difficult to turn. Air cushion,
Plan: Local wound care, silicone foam applied. Continue offloading and encourage protein in diet.
Will confirm orders with hospitalist and updated nurse.
Updated care plan and will follow as needed.
Note to case management of equipment requested for discharge: VN for wound care.
Recommend follow up at wound care center upon discharge.
--- NOTE | 2024-08-26 12:23 | CON.ONC ---
Impression
Impression
Carcinoma, unknown primary
Profound edema and skin thickening right hemithorax
Symptomatic pleural effusion, cytology pending
Plan
Plan
The pathology is suggestive of a m�llerian origin. She does admit to some fullness in the vaginal area, although personal review of her CT scans does not suggest an abnormality there. Will proceed with ultrasound including transvaginal. I have
requested additional staining for breast cancer, as well as PD-1 and HER2. If necessary, we will send the biopsy for an unknown primary panel.
Patient History
History of Present Illness
Consult from Dr. Ramírez regarding metastatic cancer
This 74-year-old woman was admitted with progressive shortness of breath and weakness. She was found to have a large right pleural effusion, which was tapped for 1150 cc. Her breathing has improved. She was discharged only a couple of weeks ago
following admission here for progressive edema, predominantly involving the right upper extremity. She was found to have lymphadenopathy, the biopsy has yielded a carcinoma without an apparent primary. Estrogen and progesterone receptors were
negative. The pathologist is leaning towards a possible m�llerian origin. CT scans have failed to reveal a possible primary, there are no apparent visible abnormalities in the pelvis. The report did not mention pelvic organs, but I do not even
see them on my own review. The patient specifically denies any prior gynecologic surgery. However, her sister did of ovarian cancer at a young age. Mammography and ultrasonography of the breasts were both interpreted as category 2.
Past-Medical/Surgical History
Past Medical History: Reports Other
Additional Past Medical History:
spinal cord injury/TBI 1990
fibromyalgia
neuropathy
hypertension
hypoglycemia
Recent right lower extremity cellulitis treated ast dose Keflex
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
Social History
Tobacco: Non-smoker
Alcohol: None
Drug: None
Personal: Single
Living: Alone
Employment: Retired
Family History
Family History: Other (Sister history of ovarian cancer Dx age 30 and age 36)
Patient Medication
�Medication �Instructions �Recorded �Confirmed �Last Taken �Type
No Meds [No Current Medications] 08/13/24 08/24/24 Unknown History
Active Medications
Generic Name Dose Route Start Last Admin
Trade Name Freq PRN Reason Stop Dose Admin
Enoxaparin Sodium 40 mg 08/24/24 22:00 08/25/24 17:27
Enoxaparin Sodium 40 Mg/0.4 Ml Syringe SC 09/21/24 21:59 40 mg
QPM CHERRI Administration
Guaifenesin 200 mg 08/24/24 22:00 08/25/24 06:28
Guaifenesin Oral Solution (200 Mg/10 Ml) Cup PO 09/21/24 21:59 200 mg
Q4HPRN PRN Administration
cough
Review of Systems
-
All Other Systems: Reviewed and Negative
Physical Exam
-
Physical examination shows the patient to be in no acute distress.
HEENT exam is unremarkable.
There are no palpable nodes, but the left supraclavicular fossa feels somewhat firm; examination on the right is limited due to her skin problems.
There is profound edema and reddish skin thickening over large areas of her right shoulder, upper extremity, and breast.
Chest reveals diminished breath sounds on the right.
The heart is regular with no murmur or gallop.
The abdomen is soft and nontender with no organomegaly or masses.
Extremities are unremarkable with the exception of the right upper.
Neurologic is grossly intact.
Labs
Lab Results
WBC 6.8 10^3/uL (4.8-10.8) 08/26/24 08:03
RBC 3.54 10^6/uL (4.20-5.40) L 08/26/24 08:03
Hgb 10.8 g/dL (12.0-16.0) L 08/26/24 08:03
Hct 33.9 % (37.0-47.0) L 08/26/24 08:03
MCV 95.8 fL (81.0-99.0) 08/26/24 08:03
MCH 30.5 pg (27.0-31.0) 08/26/24 08:03
MCHC 31.9 g/dL (33.0-37.0) L 08/26/24 08:03
RDW 13.6 % (11.5-14.5) 08/26/24 08:03
Plt Count 330 10^3/uL (130-400) 08/26/24 08:03
MPV 8.7 fL (7.4-10.4) 08/26/24 08:03
Abs Immat Gran (auto) 0.0 10^3/uL (0-0.05) 08/26/24 08:03
Absolute Neuts (auto) 4.8 10^3/uL (1.4-6.5) 08/26/24 08:03
Absolute Lymphs (auto) 0.6 10^3/uL (1.2-3.4) L 08/26/24 08:03
Absolute Monos (auto) 1.1 10^3/uL (0.1-0.6) H 08/26/24 08:03
Absolute Eos (auto) 0.2 10^3/uL (0-0.7) 08/26/24 08:03
Absolute Basos (auto) 0.1 10^3/uL (0-0.2) 08/26/24 08:03
Immature Gran % 0.1 % (0-0.5) 08/26/24 08:03
Neutrophils % 71.4 % (42.2-75.2) 08/26/24 08:03
Lymphocytes % 8.8 % (20.5-51.1) L 08/26/24 08:03
Monocytes % 16.2 % (1.7-9.3) H 08/26/24 08:03
Eosinophils % 2.8 % (0-6) 08/26/24 08:03
Basophils % 0.7 % (0-2) 08/26/24 08:03
Creatinine 0.5 mg/dL (0.6-1.0) L 08/26/24 08:03
Vital Signs
Vital Signs
Temp Pulse Resp BP Pulse Ox
97.5 F 80 18 114/57 97
08/26/24 07:08 08/26/24 07:08 08/26/24 07:08 08/26/24 07:08 08/26/24 09:00
--- NOTE | 2024-08-26 14:38 | W.PN.HOSP.TC ---
Today's Communication/Plan
-
Transvag US
Onc recs
Assessment / Plan
Assessment / Plan
74-year-old female past medical history of fibromyalgia, spinal cord injury/TBI, neuropathy, recent bilateral breast thickening, upper body edema/pathologic lymphadenopathy in the right axilla, left axilla mediastinum and lower neck and
supraclavicular regions for which she was recently admitted initially thought to be secondary to severe cellulitis/underlying breast malignancy. Patient was treated with antibiotics and underwent biopsy of left supraclavicular lymph node which
showed poorly differentiated metastatic carcinoma. She has yet to follow-up with oncology.
She presents today with shortness of breath and underwent CT scan of abdomen pelvis which showed large right pleural effusion which has progressed. This is concerning for metastatic pleural effusion likely from underlying breast malignancy. IR
consulted for thoracentesis. Patient will need follow[facility]up with [facility] as planned for further PET scan/MRI of breast and treatment.
CXR 08/24/24
IMPRESSION:
Large right pleural effusion. Significantly progressed.
Abdomen/Pelvis CT 08/24/24
IMPRESSION: Large right pleural effusion. Progressed.
Findings suggesting moderate volume overload or third spacing. Progressed.
Bilateral too small to characterize hypodense renal lesions likely benign cysts. New.
Mild retroperitoneal and left inguinal lymphadenopathy. Nonspecific. Clinical and laboratory correlation recommended. This could further be evaluated by PET imaging if indicated clinically.
Moderate T12 and mild L1 compression fractures.
#Recurrent LARGE Right-sided PLEURAL EFFUSION concern for malignant pleural effusion
#Hx of Right pleural effusion small�moderate 08/04/2024
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
-Left supraclavicular node biopsy with METASTATIC POORLY DIFFERENTIATED CARCINOMA
-patient has not yet followed up with Oncology as outpatient
- IR for thoracentesis with fluid analysis - 08/25
-will also obtain Oncology consult here so patient is plugged in for outpatient evaluation
-eventual PET, possible MRI outpatient - F/U Onc recs
-Transvag US
#Anasarca likely due to Cancer
#Patient reports lymphedema Right arm and Breast in June 2024
-Edema to bilateral arms, breast, abdomen, buttocks and lower extremities since July 2024
-Patient had right upper extremity DVT that was negative October admission
2D echo EF 55 to 60%, mild TR, estimated pulmonary arterial pressure 30/35 mmHg
#Neuropathy hx
-No medication reported
#Spinal cord injury/TBI 1990
#Fibromyalgia
-No medication reported
dvt proph
sq lovenox
Full code
53 minutes spent on patient care
Anticipated Discharge: 24 - 48 hours
Subjective/Interval History
-
Date of Service: August 26, 2024
No acute events overnight
Objective Data
-
Labs:
Laboratory Results
08/26/24
08:03
WBC 6.8
Hgb 10.8 L
Hct 33.9 L
Plt Count 330
Sodium 139
Potassium 4.2
Chloride 103
Carbon Dioxide 28
BUN 28 H
Creatinine 0.5 L
Glucose 106 H
Calcium 8.8
Total Bilirubin 0.2
AST 56 H
ALT 31
Alkaline Phosphatase 53
Vital Signs:
Vital Signs
Temp Pulse Resp BP Pulse Ox
97.5 F 80 18 114/57 96
08/26/24 07:08 08/26/24 07:08 08/26/24 07:08 08/26/24 07:08 08/26/24 13:33
I&O
08/25/24 08/26/24 08/27/24
06:59 06:59 06:59
Intake Total 240 / 240 120 / 120
Balance 240 / 240 120 / 120
Review of Systems
-
History Source: Patient
All other systems: Not reviewed unless documented
[2024-08-26 15:29] VITALS: BP 118/54
[2024-08-26] MEDS: LOVENOX 40 MG SC (16:30)
[2024-08-26 23:19] VITALS: BP 122/61
[2024-08-27 08:15] VITALS: BP 124/75
[2024-08-27 09:06] LABS: % Basophils 0.8 % (0-2); % Immature Granulocytes 0.3 % (0-0.5); % Lymphocytes 10.8 % (20.5-51.1); % Monocytes 15.1 % (1.7-9.3); Absolute Basophils 0.1 10^3/uL (0-0.2); Absolute Eosinophils 0.1 10^3/uL (0-0.7); Absolute Lymphocytes 0.7 10^3/uL (1.2-3.4); Absolute Monocytes 0.9 10^3/uL (0.1-0.6); Absolute Neutrophils 4.3 10^3/uL (1.4-6.5); Hematocrit 35.6 % (37.0-47.0); Hemoglobin 11.1 g/dL (12.0-16.0); Mean Corp Hgb Conc. 31.2 g/dL (33.0-37.0); Mean Corpuscular Hgb 29.8 pg (27.0-31.0); Mean Corpuscular Volume 95.7 fL (81.0-99.0); Nucleated Red Blood Cells % 0 %; Platelet Count 340 10^3/uL (130-400); Red Blood Cell Count 3.72 10^6/uL (4.20-5.40); Red Cell Dist. Width 13.6 % (11.5-14.5); White Blood Cell Count 6.1 10^3/uL (4.8-10.8)
[2024-08-27 09:17] VITALS: O2SAT 93
[2024-08-27 09:47] VITALS: PULSE 83; O2SAT 93
--- NOTE | 2024-08-27 10:02 | W.PN.ONC ---
Today's Communication / Plan
-
Clinical picture concerning for inflammatory breast cancer
Will ask Dr. Chong to see and consider punch biopsy.
Her2, PDL1 pending from node biopsy; cytology pending from thoracentesis
tumor markers pending - CEA, CA125, CA27-29
TV US negative for obvious ARB[employer]CTOR malignany
Impression
Impression
Carcinoma, unknown primary (s/p node biopsy)
Profound edema and skin thickening right breast, shoulder, arm
Symptomatic pleural effusion, cytology pending
Plan
Plan
Clinical picture concerning for inflammatory breast cancer
Will ask Dr. Chong to see and consider punch biopsy.
Her2, PDL1 pending from node biopsy; cytology pending from thoracentesis
tumor markers pending - CEA, CA125, CA27-29
TV US negative for obvious [employer] malignany
Subjective/Objective
Subjective/Objective
Still w/ KAUFFMAN, but improved s/p thoracentesis
Vital Signs:
Vital Signs
Temp Pulse Resp BP Pulse Ox
98.1 F 71 20 124/75 97
08/27/24 08:15 08/27/24 08:15 08/27/24 08:15 08/27/24 08:15 08/27/24 08:15
Alert, oriented, no conversational dyspnea
Marked right arm swelling w/ peau d'orange
Right breast swelling, induration/erythema
Skin erythema spreads from breast up to involve right shoulder
1+ LE edema bilaterally
Affect appropriate, though a bit tangential
Lab Results:
Laboratory Data
WBC 6.1 10^3/uL (4.8-10.8) 08/27/24 08:38
Hgb 11.1 g/dL (12.0-16.0) L 08/27/24 08:38
Plt Count 340 10^3/uL (130-400) 08/27/24 08:38
eGFR > 60.00 08/26/24 08:03
Orders
Orders
Orders From Last 24 Hours
08/27/24 09:38
Add On- LAB Routine
08/27/24 10:01
Breast Surgery Consult Routine
[2024-08-27 10:07] LABS: ALT (SGPT) 32 U/L (0-35); AST (SGOT) 57 U/L (14-36); Albumin 3.1 g/dl (3.5-5.0); Alkaline Phosphatase 53 U/L (38-126); Blood Urea Nitrogen 26 mg/dl (7-17); Calcium 8.9 mg/dl (8.4-10.2); Carbon Dioxide 29 mmol/L (22-30); Chloride 102 mmol/L (98-107); Estimated Creatinine Clearance 84 ml/min; Glucose 114 mg/dl (70-99); Potassium 4.5 mmol/L (3.5-5.1); Sodium 139 mmol/L (135-145); Total Bilirubin 0.3 mg/dl (0.2-1.3); Total Protein 6.3 g/dl (6.3-8.2); eGFR > 60.00
[2024-08-27 12:41] LABS: CEA 14.8 ng/ml
--- NOTE | 2024-08-27 13:49 | W.PN.HOSP.TC ---
Today's Communication/Plan
-
cxr in am
considering punch bx
Assessment / Plan
Assessment / Plan
74-year-old female past medical history of fibromyalgia, spinal cord injury/TBI, neuropathy, recent bilateral breast thickening, upper body edema/pathologic lymphadenopathy in the right axilla, left axilla mediastinum and lower neck and
supraclavicular regions for which she was recently admitted initially thought to be secondary to severe cellulitis/underlying breast malignancy. Patient was treated with antibiotics and underwent biopsy of left supraclavicular lymph node which
showed poorly differentiated metastatic carcinoma. She has yet to follow-up with oncology.
She presents today with shortness of breath and underwent CT scan of abdomen pelvis which showed large right pleural effusion which has progressed. This is concerning for metastatic pleural effusion likely from underlying breast malignancy. IR
consulted for thoracentesis. Patient will need follow-up with [facility] as planned for further PET scan/MRI of breast and treatment.
CXR 08/24/24
IMPRESSION:
Large right pleural effusion. Significantly progressed.
Abdomen/Pelvis CT 08/24/24
IMPRESSION: Large right pleural effusion. Progressed.
Findings suggesting moderate volume overload or third spacing. Progressed.
Bilateral too small to characterize hypodense renal lesions likely benign cysts. New.
Mild retroperitoneal and left inguinal lymphadenopathy. Nonspecific. Clinical and laboratory correlation recommended. This could further be evaluated by PET imaging if indicated clinically.
Moderate T12 and mild L1 compression fractures.
#Recurrent LARGE Right-sided PLEURAL EFFUSION concern for malignant pleural effusion
#Hx of Right pleural effusion small�moderate 08/04/2024
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
� Clinical picture concerning for inflammatory breast cancer
-Left supraclavicular node biopsy with METASTATIC POORLY DIFFERENTIATED CARCINOMA
-patient has not yet followed up with Oncology as outpatient
- IR for thoracentesis with fluid analysis - 08/25; # shortness of breath�x-ray of the morning
-will also obtain Oncology consult here so patient is plugged in for outpatient evaluation
-eventual PET, possible MRI outpatient - F/U Onc recs
-Transvag US unremarkable
� Considering punch biopsy
#Anasarca likely due to Cancer
#Patient reports lymphedema Right arm and Breast in June 2024
-Edema to bilateral arms, breast, abdomen, buttocks and lower extremities since July 2024
-Patient had right upper extremity DVT that was negative July admission
2D echo EF 55 to 60%, mild TR, estimated pulmonary arterial pressure 30/35 mmHg
#Neuropathy hx
-No medication reported
#Spinal cord injury/TBI 1990
#Fibromyalgia
-No medication reported
dvt proph
sq lovenox
Full code
52 minutes spent on patient care
Anticipated Discharge: 24 - 48 hours
Subjective/Interval History
-
Date of Service: August 27, 2024
Some shortness of breath upon ambulation
Objective Data
-
Labs:
Laboratory Results
08/27/24
08:38
WBC 6.1
Hgb 11.1 L
Hct 35.6 L
Plt Count 340
Sodium 139
Potassium 4.5
Chloride 102
Carbon Dioxide 29
BUN 26 H
Creatinine 0.6
Glucose 114 H
Calcium 8.9
Total Bilirubin 0.3
AST 57 H
ALT 32
Alkaline Phosphatase 53
Vital Signs:
Vital Signs
Temp Pulse Resp BP Pulse Ox
98.1 F 71 20 124/75 97
08/27/24 08:15 08/27/24 08:15 08/27/24 08:15 08/27/24 08:15 08/27/24 08:15
I&O
08/26/24 08/27/24 08/28/24
06:59 06:59 06:59
Intake Total 120 / 120 360 / 360
Balance 120 / 120 360 / 360
Review of Systems
-
History Source: Patient
All other systems: Not reviewed unless documented
Data Reviewed
-
Diagnostic Radiology: Report Reviewed by me
Labs: Labs Reviewed by me
--- NOTE | 2024-08-27 14:23 | PN.CDI ---
CDI
- -
CDI:
Physician Documentation Request
Admit Date: 08/24/24 20:02
Dear Doctor Tabby,
Patient presented to ED complaining of shortness of breath and cough.
Presenting respiratory rate 16-33
Documented vital signs show patient on 6L until 08/26
ED nursing assessment 'respiratory pattern: labored, tachypnea, dyspnea on exertion'
Please clarify which of the following accurately represents the patient's respiratory status:
Acute respiratory failure - please indicate type
Hypoxia
Other
Additional information for Respiratory Failure:
Recognized criteria for Respiratory Failure (Source: [facility] Hospitalist Aug 2013)
ABGs: (1 or more) Symptoms Please indicate type if known
1. p)2 <60 or RA SPO2 <91% on RA 1. Tachypnea, SOB, dyspnea Hypoxic
2. pCO2 50 and pH <7.35 2. Use of accessory muscles Hypercapnic
3. pO2 decrease of pCO2 increase by 3. Pallor or cyanosis Hypoxic and Hypercapnic
10 mmHg from baseline if known 4. Anxiety or restlessness
5. Unable to speak in full sentences
Supplemental O2 of > 40% (5LPM) Intubation is not required
Use of terms such as suspected, likely, concern for, or probable (associated with a specific diagnosis that is being evaluated, monitored, or treated as if it exists) are acceptable and can be coded in the inpatient setting, when documented at the
time of discharge.
Thank you,
Nurys Villanueva RN, BSN
CDI Specialist
tiger text
Please use your independent medical judgment in providing your response.
--- NOTE | 2024-08-27 14:29 | PN.CDI ---
CDI
- -
CDI:
Physician Documentation Request
Admit Date: 08/24/24 20:02
Dear Doctor Tabby,
08/26 WOCN note states ' Multiple stage 2 PI's on buttocks, L largest one that bleeds easily upon cleaning. Suspect patient sits alot at home, lives by self'
Physician documentation of the type and location of wounds is required for compliant documentation. Based on the above clinical findings and your assessment, please provide the following in your progress note:
1. Location of the ulcer/wound, including laterality.
2. Type (etiology) of ulcer/wound:
- Traumatic wound
- Pressure (decubitus) ulcer
- Other
Use of terms such as suspected, likely, concern for, or probable (associated with a specific diagnosis that is being evaluated, monitored, or treated as if it exists) are acceptable and can be coded in the inpatient setting, when documented at the
time of discharge.
Thank you,
Nurys Villanueva RN, BSN
CDI Specialist
tiger text
Please use your independent medical judgment in providing your response.
*Source: National Pressure Ulcer Advisory Panel (NPUAP)
[2024-08-27 15:18] LABS: CA 125 2240 U/mL (0-35)
[2024-08-27 15:50] VITALS: BP 121/69
[2024-08-27] MEDS: LOVENOX 40 MG SC (16:40)
--- NOTE | 2024-08-27 19:23 | CON.GS ---
Consultation
-
Date/Time Consultation Requested: 08/27/24 1001H
Date/Time Consultation Performed: 08/27/24 1924H
Requesting Provider: Thalia Benito MD
Performing Provider: Arlette
Reason for Consultation: Consider breast skin biopsy
Medical History
-
Chief Complaint: edema right breast and arm
History of Present Illness:
74 Y/O nulliparous female with a history of menses age 14, menopause 50, prior benign biopsy left breast 1984, father with breast ca (ca all over, but he didn't from it) presented with hypoxia and found
to have malignant pleural effusion for which she underwent thoracentesis and is feeling better. She reports that her right breast was swollen for 'some time'. She also has such generalized swelling
that she was having trouble ambulating. 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
Past Medical History
Past Medical History: Reviewed & Noncontributory
Past Surgical History: Other (left breast lumpectomy 1984, benign disease)
Social History
Tobacco: Non-Smoker
Alcohol: None
Drug: None
Personal:
Family History
Family History: Other (sister cervical ca; father supposed breast ca)
Allergies / Home Medications
Allergy/AdvReac Type Severity Reaction Status Date / Time
Sulfa (Sulfonamide AdvReac yeast Verified 07/31/24 16:52
Antibiotics) infections
Tetracyclines AdvReac yeast Verified 07/31/24 16:52
infections
�Medication �Instructions �Recorded �Confirmed �Type
No Meds [No Current Medications] 08/13/24 08/24/24 History
Review of Systems
-
All other systems: Negative unless noted
Respiratory: Trouble Breathing (improved after thoracentesis)
Musculoskeletal: Edema (generalized anasarca)
Skin: Other (right chest, breast and arm with lymphedema)
A 10 point review of systems was completed, and was negative except as per HPI.
Physical Exam
Vital Signs
Temp Pulse Resp BP Pulse Ox
97.8 F 85 18 121/69 98
08/27/24 15:50 08/27/24 15:50 08/27/24 15:50 08/27/24 15:50 08/27/24 15:50
Body Mass Index (BMI) 27.9
Lab Results
08/27/24 08:38
08/27/24 08:38
WBC 6.1 10^3/uL (4.8-10.8) 08/27/24 08:38
Hgb 11.1 g/dL (12.0-16.0) L 08/27/24 08:38
Hct 35.6 % (37.0-47.0) L 08/27/24 08:38
Plt Count 340 10^3/uL (130-400) 08/27/24 08:38
Abs Immat Gran (auto) 0.0 10^3/uL (0-0.05) 08/27/24 08:38
Neutrophils % 71.0 % (42.2-75.2) 08/27/24 08:38
Physical Exam
General: Well Developed
HEENT: Normocephalic and Anicteric
Respiratory: Clear
Cardiac: S1/S2
Breast: Other (right breast with woody edema, lymphedema RUE, unable to palpate axilla)
GI: Soft and Non Tender
Musculoskeletal: Edema
Skin: Warm and Dry
Neuro: Awake and Alert
Psych: Calm
Data Reviewed
-
Radiology: Image Personally Visualized and interpreted and Report Reviewed by me
Ultrasound: Image Personally Visualized and interpreted and Report Reviewed by me
Medical Tests (Nuc Med, Echo etc): Image Personally Visualized and interpreted and Report Reviewed by me
Labs: Labs Reviewed by me
Critical Care Time (in minutes): 40mins
Total Time Spent with Patient (in minutes): 40mins
Assessment / Plan
-
74 Y/O female with metastatic carcinoma. I've been asked to evaluate for punch biopsy of the skin of her breast to rule out inflammatory carcinoma.
That could be entertained, but with tissue is woody and so taunt that this would have to be performed in the OR for hemostasis and there will be an
issue getting even small area to close with sutures. Will discuss with team if this would change therapy in anyway. The patient was advised this was
being considered and she will have to think about agreeing to it if it made a difference in her treatment or outcome.
Clinically, this looks more like neglected carcinoma with extension to skin as opposed to inflammatory breast ca which is a clinical diagnosis.
Discussed with Dr. Boateng who will pass on to rounding Medical Oncologist in the am.
[2024-08-27 23:26] VITALS: BP 127/73
[2024-08-28 06:00] VITALS: BMI 27.9
[2024-08-28 07:35] VITALS: BP 120/61
--- NOTE | 2024-08-28 07:39 | W.PN.ONC2 ---
Addendum entered and electronically signed by Deangelo Solorzano MD 08/28/24 07:54:
Laboratory Tests
08/27/24
08:38
Carcinoembryonic Ag 14.8
CA 27-29 Pending
CA 125 Antigen 2240 H
Original Note:
Today's Communication / Plan
-
As ER/AZ negative, not a candidate for [place] or AI. Will need systemic chemotherapy based on final pathology once back. Doubt punch biopsy of right chest wall adds additional new information. Discussed with Dr. Chong.
Outpt F/U with oncology to review treatment options and completion of staging (bone scan).
Impression
Impression
Metastatic Breast vs Unk Primary ER/AZ NEG Carcinoma, (s/p node biopsy)
Profound edema and skin thickening right breast, shoulder, arm
Symptomatic pleural effusion, cytology pending
Plan
Plan
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
Her2, PDL1 pending from node biopsy; cytology pending from thoracentesis
tumor markers above.
TV US negative for obvious CRA malignany
Subjective/Objective
Chief Complaint
ACS Oncology F/U
Subjective
No c/o.
Vital Signs:
Vital Signs
Temp Pulse Resp BP Pulse Ox
98.5 F 85 16 127/73 98
08/27/24 23:26 08/27/24 23:26 08/27/24 23:26 08/27/24 23:26 08/27/24 23:26
Lab Results:
Laboratory Data
WBC 6.1 10^3/uL (4.8-10.8) 08/27/24 08:38
Hgb 11.1 g/dL (12.0-16.0) L 08/27/24 08:38
Plt Count 340 10^3/uL (130-400) 08/27/24 08:38
eGFR > 60.00 08/27/24 08:38
Physical Exam
Breast: right breast engorged with woody edema, lymphedema RUE, innumerable cutaneous nodules
Cardiology: S1 and S2
Extremities: Edema
[2024-08-28 08:06] VITALS: BMI 27.9
[2024-08-28 09:06] LABS: Hematocrit 35.8 % (37.0-47.0); Hemoglobin 11.5 g/dL (12.0-16.0); Mean Corp Hgb Conc. 32.1 g/dL (33.0-37.0); Mean Corpuscular Hgb 30.8 pg (27.0-31.0); Platelet Count 340 10^3/uL (130-400); Red Blood Cell Count 3.73 10^6/uL (4.20-5.40); Red Cell Dist. Width 13.5 % (11.5-14.5)
[2024-08-28 09:32] LABS: ALT (SGPT) 34 U/L (0-35); AST (SGOT) 58 U/L (14-36); Albumin 3.2 g/dl (3.5-5.0); Alkaline Phosphatase 53 U/L (38-126); Blood Urea Nitrogen 28 mg/dl (7-17); Carbon Dioxide 31 mmol/L (22-30); Chloride 100 mmol/L (98-107); Estimated Creatinine Clearance 84 ml/min; Glucose 130 mg/dl (70-99); Potassium 4.3 mmol/L (3.5-5.1); Sodium 140 mmol/L (135-145); Total Bilirubin 0.3 mg/dl (0.2-1.3); Total Protein 6.4 g/dl (6.3-8.2); eGFR > 60.00
--- NOTE | 2024-08-28 12:20 | CM ---
Pt seen bedside.
Discussed current skilled rehab recommendation. Pt agreeable to SNF
[facility]. Referrals completed, pending bed availability
Provided advanced directive as pt requested
Will need prior auth
Pt cont. on 2L O2. Pt does not use home O2.
Plan: SNF; pending bed availability and auth approval once initiated
--- NOTE | 2024-08-28 14:02 | W.PN.HOSP.TC ---
Addendum entered and electronically signed by Alberto Mcnair MD 08/28/24 16:41:
Multiple stage 2 PI's on buttocks
Acute hypoxic respiratory failure
Original Note:
Today's Communication/Plan
-
Repeat thoracentesis
Wean O2 as tolerated; goal O2 greater than 92%
Assessment / Plan
Assessment / Plan
74-year-old female past medical history of fibromyalgia, spinal cord injury/TBI, neuropathy, recent bilateral breast thickening, upper body edema/pathologic lymphadenopathy in the right axilla, left axilla mediastinum and lower neck and
supraclavicular regions for which she was recently admitted initially thought to be secondary to severe cellulitis/underlying breast malignancy. Patient was treated with antibiotics and underwent biopsy of left supraclavicular lymph node which
showed poorly differentiated metastatic carcinoma. She has yet to follow-up with oncology.
She presents today with shortness of breath and underwent CT scan of abdomen pelvis which showed large right pleural effusion which has progressed. This is concerning for metastatic pleural effusion likely from underlying breast malignancy. IR
consulted for thoracentesis. Patient will need [facility] with [facility] as planned for further PET scan/MRI of breast and treatment.
CXR 08/24/24
IMPRESSION:
Large right pleural effusion. Significantly progressed.
Abdomen/Pelvis CT 08/24/24
IMPRESSION: Large right pleural effusion. Progressed.
Findings suggesting moderate volume overload or third spacing. Progressed.
Bilateral too small to characterize hypodense renal lesions likely benign cysts. New.
Mild retroperitoneal and left inguinal lymphadenopathy. Nonspecific. Clinical and laboratory correlation recommended. This could further be evaluated by PET imaging if indicated clinically.
Moderate T12 and mild L1 compression fractures.
#Recurrent LARGE Right-sided PLEURAL EFFUSION concern for malignant pleural effusion
#Hx of Right pleural effusion small�moderate 08/04/2024
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
� Clinical picture concerning for inflammatory breast cancer
-Left supraclavicular node biopsy with METASTATIC POORLY DIFFERENTIATED CARCINOMA
-patient has not yet followed up with Oncology as outpatient
- IR for thoracentesis with fluid analysis - 08/25 -preliminary positive for malignancy;
-Repeat x-ray showing increased pleural effusion�repeat thoracentesis
- Oncology consult here so patient is plugged in for outpatient evaluation
-eventual PET, possible MRI outpatient - F/U Onc recs
-Transvag US unremarkable
�Wean O2, possibly will go on O2 upon discharge
#Anasarca likely due to Cancer
#Patient reports lymphedema Right arm and Breast in June 2024
-Edema to bilateral arms, breast, abdomen, buttocks and lower extremities since July 2024
-Patient had right upper extremity DVT that was negative October admission
2D echo EF 55 to 60%, mild TR, estimated pulmonary arterial pressure 30/35 mmHg
#Neuropathy hx
-No medication reported
#Spinal cord injury/TBI 1990
#Fibromyalgia
-No medication reported
dvt proph
sq lovenox
Full code
53 minutes spent on patient care
Anticipated Discharge: 24 - 48 hours
Subjective/Interval History
-
Date of Service: August 28, 2024
sob worsened, cxr with increased pleural effusion
Objective Data
-
Labs:
Laboratory Results
08/28/24
08:42
WBC 6.0
Hgb 11.5 L
Hct 35.8 L
Plt Count 340
Sodium 140
Potassium 4.3
Chloride 100
Carbon Dioxide 31 H
BUN 28 H
Creatinine 0.6
Glucose 130 H
Calcium 9.0
Total Bilirubin 0.3
AST 58 H
ALT 34
Alkaline Phosphatase 53
Vital Signs:
Vital Signs
Temp Pulse Resp BP Pulse Ox
98.3 F 85 18 120/61 96
08/28/24 07:35 08/28/24 07:35 08/28/24 07:35 08/28/24 07:35 08/28/24 10:33
I&O
08/27/24 08/28/24 08/29/24
06:59 06:59 06:59
Intake Total 360 / 360 740 / 740
Balance 360 / 360 740 / 740
Review of Systems
-
History Source: Patient
All other systems: Not reviewed unless documented
Physical Exam
-
General: Other (mildly tachypneic but conversant)
HEENT: PERRLA
Respiratory: Decreased Breath Sounds (right lower lung)
Cardiac: Regular Rhythm and S1/S2
GI: Soft and Nontender
Musculoskeletal: Other (edema right upper extremity; b/l LE)
Skin: Warm and Dry; Negative Rash
Neuro: AO x 3
Psych: Calm
Data Reviewed
-
Diagnostic Radiology: Report Reviewed by me
Labs: Labs Reviewed by me
[2024-08-28 14:15] VITALS: BP 130/64; BP_SYST 87
[2024-08-28 14:43] VITALS: BP 112/67; BP_SYST 9
[2024-08-28 14:55] VITALS: BP 108/57
[2024-08-28 15:25] VITALS: BP 111/66
--- NOTE | 2024-08-28 15:34 | PTCARENOTE ---
pt back from IR s/p thoracentesis. pt back to room. no complains at this time. plan of care ongoing.
[2024-08-28] MEDS: LOVENOX 40 MG SC (17:12)
[2024-08-28 23:10] VITALS: BP 105/61
[2024-08-29 01:25] LABS: CA 27-29 673.9 U/mL (<=39.0)
[2024-08-29 06:00] VITALS: BMI 27.4
[2024-08-29 07:05] VITALS: BP 105/51
[2024-08-29 08:07] LABS: Hematocrit 34.7 % (37.0-47.0); Hemoglobin 10.9 g/dL (12.0-16.0); Mean Corp Hgb Conc. 31.4 g/dL (33.0-37.0); Mean Corpuscular Hgb 30.1 pg (27.0-31.0); Mean Corpuscular Volume 95.9 fL (81.0-99.0); Platelet Count 318 10^3/uL (130-400); Red Blood Cell Count 3.62 10^6/uL (4.20-5.40); Red Cell Dist. Width 13.5 % (11.5-14.5); White Blood Cell Count 5.9 10^3/uL (4.8-10.8)
[2024-08-29 08:28] LABS: ALT (SGPT) 31 U/L (0-35); AST (SGOT) 57 U/L (14-36); Albumin 2.7 g/dl (3.5-5.0); Alkaline Phosphatase 46 U/L (38-126); Blood Urea Nitrogen 28 mg/dl (7-17); Calcium 8.6 mg/dl (8.4-10.2); Carbon Dioxide 32 mmol/L (22-30); Chloride 100 mmol/L (98-107); Estimated Creatinine Clearance 83 ml/min; Glucose 125 mg/dl (70-99); Potassium 4.5 mmol/L (3.5-5.1); Sodium 136 mmol/L (135-145); Total Bilirubin 0.3 mg/dl (0.2-1.3); Total Protein 5.8 g/dl (6.3-8.2); eGFR > 60.00
--- NOTE | 2024-08-29 11:25 | CM ---
Addendum entered by Shaun Childs 08/29/24 13:42:
Per daughter, she would like to move forward w/ [facility] at d/c for SNF
Per daughter, she understands depending on tx course per OP oncology appt, rehab may d/c pt home due to inability to accommodate tx.
CM updated [facility] and will confirm bed availability closer to d/c
Will obtain auth closer to d/c
Hospitalist updated
Plan: [facility]; pending bed and auth closer to d/c
Original Note:
Pt seen bedside.
Discussed possible SNF acceptances from [facility], [facility] and [facility]
Pt had concerns of facilities being able to take her to her follow up OP oncology appt. Per pt she is requesting CM to speak w/ her daughter who is also soon to be her POA.
CM spoke w/ pt's daughter, Emilie re SNF recommendation. Emilie discussed pt's need to see oncology and determine treatment options. ENMA stated oncology is recommending for pt to see oncology OP to establish treatment options. CM discussed SNF referrals
sent yesterday and possible interest to accept following additional info on treatment and d/c goal. ENMA stated the facility would be able to take pt to appt but unsure of if depending on the treatment course if facility would be able to accommodate.
Per Emilie, she will discuss referred facilities w/ her and determine which is preferred.
Emilie requested call from hospitalist, EN[facility] TT hospitalist to make aware.
CM discussed HC agency being unable to come to home per records. Per Emilie, pt lives w/ her and her . Emilie stated that no one is home from 8a-8p and pt would need to be able to go up and down the stairs and answer the door. Emilie stated pt has
to be more independent in the home. ENMA discussed [employer] and private duty caregivers as an option if she feels pt needs more support in the home following rehab.
CM spoke w/ [facility]. Discussed pt's daughter's concerns. Per [facility], SNF can take pt to appt however, depending on tx course and if pt needs to start tx immediately, she is unsure if SNF can accept. Xenia will discuss w/ her accounts payable administrator re
this and follow up.
[facility] spoke w/ [facility]. Discussed pt's daughter's concerns. Per [facility], bed can be offered at both SNFs. Pt can be taken to her OP oncology appt, however, unsure if facility would be able to accommodate depending on tx course. At this
time it is unsure if pt can wait to follow up OP w/ oncology after rehab or begin tx after rehab.
Plan: SNF; pending acceptance and auth approval
[2024-08-29 12:39] VITALS: O2SAT 97
[2024-08-29 12:43] VITALS: O2SAT 96
--- NOTE | 2024-08-29 13:38 | W.PN.HOSP.TC ---
Today's Communication/Plan
-
Monitor respiratory status
Assessment / Plan
Assessment / Plan
74-year-old female past medical history of fibromyalgia, spinal cord injury/TBI, neuropathy, recent bilateral breast thickening, upper body edema/pathologic lymphadenopathy in the right axilla, left axilla mediastinum and lower neck and
supraclavicular regions for which she was recently admitted initially thought to be secondary to severe cellulitis/underlying breast malignancy. Patient was treated with antibiotics and underwent biopsy of left supraclavicular lymph node which
showed poorly differentiated metastatic carcinoma. She has yet to follow-up with oncology.
She presents today with shortness of breath and underwent CT scan of abdomen pelvis which showed large right pleural effusion which has progressed. This is concerning for metastatic pleural effusion likely from underlying breast malignancy. IR
consulted for thoracentesis. Patient will need [facility] as planned for further PET scan/MRI of breast and treatment.
CXR 08/24/24
IMPRESSION:
Large right pleural effusion. Significantly progressed.
Abdomen/Pelvis CT 08/24/24
IMPRESSION: Large right pleural effusion. Progressed.
Findings suggesting moderate volume overload or third spacing. Progressed.
Bilateral too small to characterize hypodense renal lesions likely benign cysts. New.
Mild retroperitoneal and left inguinal lymphadenopathy. Nonspecific. Clinical and laboratory correlation recommended. This could further be evaluated by PET imaging if indicated clinically.
Moderate T12 and mild L1 compression fractures.
#Recurrent LARGE Right-sided PLEURAL EFFUSION concern for malignant pleural effusion
#Hx of Right pleural effusion small�moderate 08/04/2024
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
� Clinical picture concerning for inflammatory breast cancer
-Left supraclavicular node biopsy with METASTATIC POORLY DIFFERENTIATED CARCINOMA
-patient has not yet followed up with Oncology as outpatient
- IR for thoracentesis with fluid analysis - 08/25 -preliminary positive for malignancy;
-Repeat x-ray showing increased pleural effusion�repeat thoracentesis 08/28
� Monitor respiratory status, may need additional thoracentesis/Pleurx in the near future
- Oncology consult here so patient is plugged in for outpatient evaluation
-eventual PET, possible MRI outpatient - F/U Onc recs
-Transvag US unremarkable
�Wean O2, possibly will go on O2 upon discharge
#Anasarca likely due to Cancer
#Patient reports lymphedema Right arm and Breast in June 2024
-Edema to bilateral arms, breast, abdomen, buttocks and lower extremities since July 2024
-Patient had right upper extremity DVT that was negative October admission
2D echo EF 55 to 60%, mild TR, estimated pulmonary arterial pressure 30/35 mmHg
#Neuropathy hx
-No medication reported
#Spinal cord injury/TBI 1990
#Fibromyalgia
-No medication reported
dvt proph
sq lovenox
Full code
Anticipated Discharge: 24 - 48 hours
Subjective/Interval History
-
Date of Service: August 29, 2024
Continue coughing after thoracentesis yesterday although now feeling better
Objective Data
-
Labs:
Laboratory Results
08/29/24
07:24
WBC 5.9
Hgb 10.9 L
Hct 34.7 L
Plt Count 318
Sodium 136
Potassium 4.5
Chloride 100
Carbon Dioxide 32 H
BUN 28 H
Creatinine 0.6
Glucose 125 H
Calcium 8.6
Total Bilirubin 0.3
AST 57 H
ALT 31
Alkaline Phosphatase 46
Vital Signs:
Vital Signs
Temp Pulse Resp BP Pulse Ox
97.4 F 82 20 105/51 98
08/29/24 07:05 08/29/24 07:05 08/29/24 07:05 08/29/24 07:05 08/29/24 10:22
I&O
08/28/24 08/29/24 08/30/24
06:59 06:59 06:59
Intake Total 740 / 740 1360 / 1360
Balance 740 / 740 1360 / 1360
Review of Systems
-
History Source: Patient
All other systems: Not reviewed unless documented
Physical Exam
-
General: No Apparent Distress
HEENT: PERRLA
Respiratory: Decreased Breath Sounds (right lower lung)
Cardiac: Regular Rhythm and S1/S2
GI: Soft and Nontender
Musculoskeletal: Other (edema right upper extremity; b/l LE)
Skin: Warm and Dry; Negative Rash
Neuro: AO x 3
Psych: Calm
Data Reviewed
-
Diagnostic Radiology: Report Reviewed by me
Labs: Labs Reviewed by me
[2024-08-29 15:21] VITALS: BP 102/54
[2024-08-29 15:59] VITALS: BMI 27.4
[2024-08-29] MEDS: LOVENOX 40 MG SC (17:11)
[2024-08-29 23:42] VITALS: BP 119/61
[2024-08-30 06:51] VITALS: BMI 28.0
[2024-08-30 07:08] LABS: Hematocrit 35.4 % (37.0-47.0); Hemoglobin 11.1 g/dL (12.0-16.0); Mean Corp Hgb Conc. 31.4 g/dL (33.0-37.0); Mean Corpuscular Hgb 29.8 pg (27.0-31.0); Mean Corpuscular Volume 94.9 fL (81.0-99.0); Mean Platelet Volume 9.1 fL (7.4-10.4); Platelet Count 327 10^3/uL (130-400); Red Blood Cell Count 3.73 10^6/uL (4.20-5.40); Red Cell Dist. Width 13.5 % (11.5-14.5); White Blood Cell Count 6.3 10^3/uL (4.8-10.8)
[2024-08-30 07:33] LABS: ALT (SGPT) 37 U/L (0-35); AST (SGOT) 64 U/L (14-36); Albumin 2.9 g/dl (3.5-5.0); Alkaline Phosphatase 51 U/L (38-126); Blood Urea Nitrogen 29 mg/dl (7-17); Calcium 8.6 mg/dl (8.4-10.2); Carbon Dioxide 29 mmol/L (22-30); Chloride 99 mmol/L (98-107); Estimated Creatinine Clearance 84 ml/min; Glucose 101 mg/dl (70-99); Potassium 4.6 mmol/L (3.5-5.1); Sodium 136 mmol/L (135-145); Total Bilirubin 0.3 mg/dl (0.2-1.3); Total Protein 6.1 g/dl (6.3-8.2); eGFR > 60.00
[2024-08-30 07:41] VITALS: BP 112/47
--- NOTE | 2024-08-30 10:31 | CM ---
Per hospitalist, pt can d/c to SNF today
Family selected [facility] for SNF. Per [facility], bed is available today
Auth obtained and approved starting today, 08/30 with [facility] 09/03. SNF to call post acute team to review [phone])
Auth ref # [id number]
[facility] and hospitalist updated w/ auth approval. Hospitalist to call daughter today as requested
Spoke w/ daughter, Emilie re d/c plan today to SNF. Emilie agreeable for pt to d/c today. Per Emilie pt's OP oncology appt is scheduled for 09/06 but will try and push appt up to 09/03. CM advised Emilie to inform SNF of appt once pt admits.
Pt will transport via ambulance. Transport forms on chart
IMM reviewed, pt given copy. Copy placed in chart
[facility]-SNF
Report: [phone]

Plan: D/c to [facility] SNF via ambulance
--- NOTE | 2024-08-30 10:50 | W.PN.HOSP.TC ---
Addendum entered and electronically signed by Alberto Mcnair MD 08/30/24 16:39:
[id number]
Original Note:
Today's Communication/Plan
-
F/u Onc, PCP outpatient
monitor respiratory status outpatient
Assessment / Plan
Assessment / Plan
74-year-old female past medical history of fibromyalgia, spinal cord injury/TBI, neuropathy, recent bilateral breast thickening, upper body edema/pathologic lymphadenopathy in the right axilla, left axilla mediastinum and lower neck and
supraclavicular regions for which she was recently admitted initially thought to be secondary to severe cellulitis/underlying breast malignancy. Patient was treated with antibiotics and underwent biopsy of left supraclavicular lymph node which
showed poorly differentiated metastatic carcinoma. She has yet to follow-up with oncology.
She presents today with shortness of breath and underwent CT scan of abdomen pelvis which showed large right pleural effusion which has progressed. This is concerning for metastatic pleural effusion likely from underlying breast malignancy. IR
consulted for thoracentesis. Patient will need [facility] with [facility] as planned for further PET scan/MRI of breast and treatment.
CXR 08/24/24
IMPRESSION:
Large right pleural effusion. Significantly progressed.
Abdomen/Pelvis CT 08/24/24
IMPRESSION: Large right pleural effusion. Progressed.
Findings suggesting moderate volume overload or third spacing. Progressed.
Bilateral too small to characterize hypodense renal lesions likely benign cysts. New.
Mild retroperitoneal and left inguinal lymphadenopathy. Nonspecific. Clinical and laboratory correlation recommended. This could further be evaluated by PET imaging if indicated clinically.
Moderate T12 and mild L1 compression fractures.
#Recurrent LARGE Right-sided PLEURAL EFFUSION concern for malignant pleural effusion
#Hx of Right pleural effusion small�moderate 08/04/2024
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
� Clinical picture concerning for inflammatory breast cancer
-Left supraclavicular node biopsy with METASTATIC POORLY DIFFERENTIATED CARCINOMA
-patient has not yet followed up with Oncology as outpatient
- IR for thoracentesis with fluid analysis - 08/25 -preliminary positive for malignancy;
-Repeat x-ray showing increased pleural effusion�repeat thoracentesis 08/28
�Improved respiratory status s/p thora; may need additional thoracentesis/Pleurx in the future
- Oncology consult here so patient is plugged in for outpatient evaluation - has appt set up
-eventual PET, possible MRI outpatient - F/U Onc recs
-Transvag US unremarkable
�Weaned off o2
#Anasarca likely due to Cancer
#Patient reports lymphedema Right arm and Breast in June 2024
-Edema to bilateral arms, breast, abdomen, buttocks and lower extremities since July 2024
-Patient had right upper extremity DVT that was negative October admission
2D echo EF 55 to 60%, mild TR, estimated pulmonary arterial pressure 30/35 mmHg
#Neuropathy hx
-No medication reported
#Spinal cord injury/TBI 1990
#Fibromyalgia
-No medication reported
dvt proph
sq lovenox
Full code
More than 30 minutes spent in discharge including
Final examination of the patient
Summarizing hospital stay
Instructions for continuing care to all relevant caregivers
Preparation of discharge records, prescriptions, and referral forms
Total time spent (35 in minutes):
Anticipated Discharge: Today
Subjective/Interval History
-
Date of Service: August 30, 2024
No acute events overnight
Objective Data
-
Labs:
Laboratory Results
08/30/24
06:01
WBC 6.3
Hgb 11.1 L
Hct 35.4 L
Plt Count 327
Sodium 136
Potassium 4.6
Chloride 99
Carbon Dioxide 29
BUN 29 H
Creatinine 0.5 L
Glucose 101 H
Calcium 8.6
Total Bilirubin 0.3
AST 64 H
ALT 37 H
Alkaline Phosphatase 51
Vital Signs:
Vital Signs
Temp Pulse Resp BP Pulse Ox
98.2 F 83 20 112/47 94
08/30/24 07:41 08/30/24 07:41 08/30/24 07:41 08/30/24 07:41 08/30/24 10:22
I&O
08/29/24 08/30/24 08/31/24
06:59 06:59 06:59
Intake Total 1360 / 1360
Balance 1360 / 1360
Review of Systems
-
History Source: Patient
All other systems: Not reviewed unless documented
Physical Exam
-
General: No Apparent Distress
HEENT: PERRLA
Cardiac: Regular Rhythm and S1/S2
GI: Soft and Nontender
Musculoskeletal: Edema, Right Lower Extrem, Edema, Left Lower Extrem and Other (edema right upper extremity; b/l LE)
Skin: Warm and Dry; Negative Rash
Neuro: AO x 3
Psych: Calm
Data Reviewed
-
Diagnostic Radiology: Image personally visualized and interpreted
CT Scan: Image personally visualized and interpreted and Report Reviewed by me
Labs: Labs Reviewed by me
--- NOTE | 2024-08-30 10:57 | W.DS.TRANS ---
DC Summary - [facility]
-
Discharge Instructions:
Discharge Diagnosis/Procedures
#Recurrent LARGE Right-sided PLEURAL EFFUSION
concern for malignant pleural effusion
#Hx of Right pleural effusion small�moderate
#Recent Diagnosis of poorly differentiated
carcinoma to lymph nodes in right
supraclavicular area on 08/16/2024
Activity As tolerated
Blood Work cbc, cmp in 3-5 days
Instructions:
Stand-Alone Forms:
Changes to Home Medications: Yes
Discharge Medications:
DC Medications w/original date entered in Priori Data
guaifenesin 100 mg/5 mL oral liquid 200 mg (10 mL) PO Q4HPRN PRN cough #0 mL 08/30/24
Home Medication Changes
guaifenesin 100 mg/5 mL oral liquid 200 mg (10 mL) PO Q4HPRN PRN cough #0 mL 08/30/24
Pending Results: No
--- NOTE | 2024-08-30 13:30 | PTCARENOTE ---
Patient's peripheral IV removed. Report called to RN at [facility]. Patient left via ambulance on stretcher with staff. Copies of records sent with ambulance crew.
== END 2024-08-30 14:05 | DRG 840 ==
LOC: 4 EAST ACU 20:02
PROVIDERS: Clinical Nurse Specialist Family Health; Radiology Vascular & Interventional Radiology; ADMITTING PHYSICIAN Hospitalist; ATTENDING PHYSICIAN Internal Medicine; CONSULT PHYSICIAN Surgery; EMERGENCY PHYSICIAN Emergency Medicine; FAMILY PHYSICIAN Hospitalist; OTHER PHYSICIAN Internal Medicine Hematology & Oncology
PROC: 0W993ZX Drainage of Right Pleural Cavity, Percutaneous Approach, Diagnostic (ICD-10-PCS; 2024-08-25)
DX: C77.0 Secondary and unspecified malignant neoplasm of lymph nodes of head, face and neck (principal); J96.01 Acute respiratory failure with hypoxia; J91.0 Malignant pleural effusion; C50.919 Malignant neoplasm of unspecified site of unspecified female breast; L89.302 Pressure ulcer of unspecified buttock, stage 2
CPT/HCPCS: 88305; 32555; 71045; 71046; 74177; 76830; 80053; 82150; 82378; 82945; 83615; 83880; 83986; 84157; 84478; 84484; 85025; 85027; 85379; 86300; 86304; 87015; 87070; 87102; 87116; 87205; 87206; 88112; 89051; 93005; 97116; 97163; 97167; 97530; 97535; 99285; Q9967

== ENCOUNTER 2024-09-15 15:39 | Inpatient (IN) | payer OTHER, SELFPAY ==
[2024-09-15] VITALS (10 sets, daily range): BP systolic 110–127; BP diastolic 57–74; BMI 30.1; BMI 29.1
[2024-09-15 12:06] LABS: % Basophils 0.6 % (0-2); % Eosinophils 1.9 % (0-6); % Immature Granulocytes 0.6 % (0-0.5); % Lymphocytes 6.7 % (20.5-51.1); % Monocytes 13.8 % (1.7-9.3); % Neutrophils 76.4 % (42.2-75.2); Absolute Basophils 0.1 10^3/uL (0-0.2); Absolute Eosinophils 0.2 10^3/uL (0-0.7); Absolute Immature Granulocytes 0.1 10^3/uL (0-0.05); Absolute Lymphocytes 0.5 10^3/uL (1.2-3.4); Absolute Monocytes 1.1 10^3/uL (0.1-0.6); Absolute Neutrophils 5.9 10^3/uL (1.4-6.5); Hematocrit 35.4 % (37.0-47.0); Hemoglobin 11.3 g/dL (12.0-16.0); Mean Corp Hgb Conc. 31.9 g/dL (33.0-37.0); Mean Corpuscular Hgb 30.2 pg (27.0-31.0); Mean Corpuscular Volume 94.7 fL (81.0-99.0); Mean Platelet Volume 8.7 fL (7.4-10.4); Nucleated Red Blood Cells % 0 %; Platelet Count 352 10^3/uL (130-400); Red Blood Cell Count 3.74 10^6/uL (4.20-5.40); Red Cell Dist. Width 14.5 % (11.5-14.5); White Blood Cell Count 7.8 10^3/uL (4.8-10.8)
[2024-09-15 12:14] LABS: ALT (SGPT) 30 U/L (0-35); AST (SGOT) 74 U/L (14-36); Albumin 3.3 g/dl (3.5-5.0); Alkaline Phosphatase 56 U/L (38-126); Blood Urea Nitrogen 25 mg/dl (7-17); Calcium 9.1 mg/dl (8.4-10.2); Carbon Dioxide 30 mmol/L (22-30); Chloride 101 mmol/L (98-107); Estimated Creatinine Clearance 87 ml/min; Glucose 116 mg/dl (70-99); Magnesium 2.3 mg/dl (1.6-2.3); Potassium 4.4 mmol/L (3.5-5.1); Sodium 136 mmol/L (135-145); Total Bilirubin 0.4 mg/dl (0.2-1.3); Total Protein 6.7 g/dl (6.3-8.2); eGFR > 60.00
[2024-09-15 12:23] LABS: NT-proBNP 41.8 pg/ml
--- NOTE | 2024-09-15 13:23 | ED.GENMED ---
History of Present Illness
General
Chief Complaint: Breathing Problem
Source: patient and family
Time Seen by Provider: 09/15/24 10:46
History of Present Illness
History of Present Illness:
History taken via patient and daughter. This is 74-year-old female with a history of breast cancer and metastatic cancer to the lymph nodes. Patient has a history of lymphedema and history of pleural effusion. She presents with increased
shortness of breath and hypoxia. She felt very short of breath while at physical therapy. She has an appointment this week with oncology. The patient states in the recent past she had to have a thoracentesis. Daughter states that last time this
that she may get a catheter if she needs to be drained more than 3 times.
Past History
Past History
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
Phy Exam
Physical Exam
Physical Exam:
CONSTITUTIONAL Patient alert and oriented to person, place and time. Vital signs reviewed.
HEAD atraumatic, normocephalic.
EYES eyelids normal to inspection, Extraocular muscles intact, Conjunctiva normal, Sclera normal.
NECK normal range of motion, Trachea midline, no jugular venous distention.
RESPIRATORY CHEST No respiratory distress noted, Chest expansion equal, diminished breath sounds right greater than left.
CARDIOVASCULAR regular rate and rhythm, Heart sounds normal.
ABDOMEN abdomen nontender, Bowel sounds normal. No distention.
BACK normal inspection, no obvious deformities
UPPER EXTREMITY range of motion normal, Motor strength normal, no cyanosis, significant edema noted to the right upper extremity. Left upper extremity not edematous
LOWER EXTREMITY range of motion normal, Motor strength normal, no cyanosis, edema bilaterally. Edema up through the abdomen as well
NEURO Speech normal, No focal motor deficits, Randolph coma scale 15, Memory normal, Cranial Nerves intact to screening exam.
SKIN skin warm, dry, and normal in color.
Scores
Heart Failure Risk
Heart Failure Risk Score: Not Applicable
Course
Orders/Labs/Results
Orders:
Orders
09/15/24 11:32
CR Chest - 2 Views Urgent
Comment:
Reason For Exam: SOB, edema
09/15/24 11:50
Complete Blood Count/With Diff Urgent
Comprehensive Metabolic Panel Urgent
Magnesium Urgent
NT-proBNP Urgent
09/15/24 14:14
Consult Interventional Radiology [IRAD CONSULT] Urgent
Consulting Provider: Farrukh Corrales
Was physician already notified: Yes
Reason for Consult/Procedure: large right-sided plueral effusion
Acknowledgement that appropriate orders are entered: Yes
09/15/24 14:38
Electrocardiogram (*1) Urgent
Reason for Study: Shortness of Breath
EKG- Treatment ONCE
Abnormal Lab Results
09/15/24
11:50
RBC 3.74 L 10^6/uL
(4.20-5.40)
Hgb 11.3 L g/dL
(12.0-16.0)
Hct 35.4 L %
(37.0-47.0)
MCHC 31.9 L g/dL
(33.0-37.0)
Abs Immat Gran (auto) 0.1 H 10^3/uL
(0-0.05)
Absolute Lymphs (auto) 0.5 L 10^3/uL
(1.2-3.4)
Absolute Monos (auto) 1.1 H 10^3/uL
(0.1-0.6)
Immature Gran % 0.6 H %
(0-0.5)
Neutrophils % 76.4 H %
(42.2-75.2)
Lymphocytes % 6.7 L %
(20.5-51.1)
Monocytes % 13.8 H %
(1.7-9.3)
BUN 25 H mg/dl
(7-17)
Creatinine 0.5 L mg/dL
(0.6-1.0)
Glucose 116 H mg/dl
(70-99)
AST 74 H U/L
(14-36)
Albumin 3.3 L g/dl
(3.5-5.0)
09/15/24 11:50
09/15/24 11:50
Vital Signs
Initial and Last Documented VS:
Initial Vital Signs
Temp Pulse Resp BP Pulse Ox
98.8 F 88 20 119/61 90
09/15/24 10:23 09/15/24 10:23 09/15/24 10:23 09/15/24 10:23 09/15/24 10:23
Last Documented Vital Signs
Temp Pulse Resp BP Pulse Ox
98.8 F 88 24 119/59 95
09/15/24 10:23 09/15/24 12:45 09/15/24 12:45 09/15/24 12:00 09/15/24 12:45
MDM/Problems Addressed
MDM/Problems Addressed:
Lymphedema, pleural effusion, metastatic cancer
*Radiology
Radiology exam reviewed: preliminary read by ED provider (Large right pleural effusion)
*Pulse Oximetry
Patient hypoxic: yes
*Green Building Engineer Interpretation
Rate: normal
Interpretation: normal
Rhythm: sinus
*Critical Care Note
Total Time (30-74mins, 75-104mins- exclusive of procedures): Not Applicable
Data Reviewed
Review of Other/Old Records Reveals: Operative Reports (Prior interventional radiology report reviewed) and Discharge Summary (August 2024 discharge summary)
Source: patient and family
Prescriptions/Medications Considered But Not Given:
Consider antibiotics but no fever or leukocytosis
Patient Management
Discussion with other providers: Hospitalist
Escalation/DeEscalation of care consider admission/obs:
74-year-old female who presents with hypoxia. Found to have massive pleural effusion. Unfortunately has significant lymphedema as well. Admit for thoracentesis
ED Attending Note
-
Portions of this chart may have been created with voice recognition software.� Occasional wrong word or��sound alike� substitutions may have occurred due to the inherent limitations of voice recognition software.
Discharge Plan
Departure
Patient Disposition: Admit
Date of Disposition: 09/15/24
Time of Disposition: 13:23
Admit to: Telemetry
Presentation/result/management discussed w/ accepting MD/DO: Hospitalist
Discharge Problem:
Pleural effusion
Prescriptions:
No Action
guaifenesin 100 mg/5 mL Liquid
200 mg PO Q4HPRN PRN (Reason: cough) Qty: 0 0RF
acetaminophen [Tylenol] 325 mg Tablet
650 mg PO Q4HPRN PRN (Reason: mild pain)
magnesium hydroxide [Milk of Magnesia] 400 mg/5 mL Suspension
2,400 mg PO DAILYPRN PRN (Reason: if no bm on 3d day)
bisacodyl [Dulcolax (bisacodyl)] 10 mg Suppository
10 mg OR DAILYPRN PRN (Reason: if no bm aftr mom)
Fleet Enema Extra 19-7 gram/197 mL Enema
118 ml OR DAILYPRN PRN (Reason: if no bm aftr dulcolax)
Referrals:
Akin Glover I., DO [Family Provider] -
Interventions
Interventions:
*Risk Screen - Suicide Last Done: 09/15/24 10:23
*General Assessment Last Done: 09/15/24 10:23
*Neglect/Abuse Screening Last Done: 09/15/24 10:23
ED- Fall Risk Assessment Last Done: 09/15/24 10:23
*ED COVID-19 Vaccine History Last Done: 09/15/24 12:59
ED- Cardiac Assessment Last Done: 09/15/24 11:25
ED- Pulmonary Assessment Last Done: 09/15/24 11:25
Discharge Date and Time
Print Language: TURKISH
--- NOTE | 2024-09-15 14:03 | HPS.HSE ---
Family Physician
-
Family Physician: Akin Glover
Chief Complaint
-
Shortness of breath/cough
History of Present Illness
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
neuropathy who presented to [facility] ED for evaluation of increased shortness of breath and cough over past couple of days. Patient states she has been at [facility] for rehab since previous discharge 08/30/2024, for past several days she has
had increased shortness of breath with exertion and at rest and increased dry cough. Patient states yesterday with PT she became hypoxic into the 70s and facility placed on 2Liters O2, when she woke this morning she stated she could tell with
shortness of breath and cough she needed to come to ED for evaluation. Patient denies any fever, chills, chest pain, nausea, vomiting, constipation, diarrhea or urinary symptoms.
Medical History
Past Medical History
Past Medical History: Reports Other
Additional Past Medical History:
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
recurrent right-sided pleural effusion
Anasarca
hypertension
hypoglycemia
fibromyalgia
neuropathy
spinal cord injury/TBI 1990
Recent right lower extremity cellulitis treated 1 last dose Keflex
Past Surgical History: Reports Other
Additional Past Surgical History:
tonsilectomy
Social History
Tobacco: Non-smoker
Alcohol: None
Drug: None
Personal:
Living: Alone
Employment: Retired
Family History
Family History: Other (Sister: Ovarian cancer, at age 36)
Allergies / Home Medications
Allergies reflects when Allergies were last updated in [facility].
Home Medications with original date entered in [employer]
Allergy/Medication List:
Allergies
Allergy/AdvReac Type Severity Reaction Status Date / Time
Sulfa (Sulfonamide AdvReac yeast Verified 09/15/24 10:22
Antibiotics) infections
Tetracyclines AdvReac yeast Verified 09/15/24 10:22
infections
Home Medications
guaifenesin 100 mg/5 mL oral liquid 200 mg (10 mL) PO Q4HPRN PRN cough #0 mL 08/30/24
acetaminophen 325 mg tablet (Tylenol) 650 mg PO Q4HPRN PRN mild pain 09/15/24
bisacodyl 10 mg rectal suppository (Dulcolax (bisacodyl)) 10 mg IA DAILYPRN PRN if no bm aftr mom 09/15/24
magnesium hydroxide 400 mg/5 mL oral suspension (Milk of Magnesia) 2,400 mg PO DAILYPRN PRN if no bm on 3d day 09/15/24
sodium phosphates 19 gram-7 gram/197 mL enema (Fleet Enema Extra) 118 ml IA DAILYPRN PRN if no bm aftr dulcolax 09/15/24
Review of Systems
-
History Source: Patient
Constitutional: Reports No Symptoms
EENT: Reports No Symptoms
Respiratory: Reports Cough and Trouble Breathing (shortness of breath)
Cardiac: Reports No Symptoms
Abdomen/GI: Reports No Symptoms
: Reports No Symptoms
Musculoskeletal: Reports Edema (right sided lymphedema, bilateral lower extremity edema)
Skin: Reports No Symptoms
Neurological: Reports No Symptoms
Endocrine: Reports No Symptoms
Hematologic/Lymphatic: Reports No Symptoms
Psych: Reports No Symptoms
Physical Exam
Vital Signs
Vital Signs
Temp Pulse Resp BP Pulse Ox
98.8 F 88 24 119/59 95
09/15/24 10:23 09/15/24 12:45 09/15/24 12:45 09/15/24 12:00 09/15/24 12:45
Physical Exam
General: Well Developed, Well Nourished, No Apparent Distress and Conversant
HEENT: NormoCephalic, Moist mucous membranes, Atraumatic, PERRLA, [place] Conjunctivae, Nose Appears Normal and Ears Appear Normal
Respiratory: Clear, Non Labored Respirations and Decreased Breath Sounds (absent lung sounds on right middle and lower lobe)
Cardiac: S1/S2 and Regular Rhythm; No Murmur, Rub or Gallop
Breast: Deferred by me
GI: Soft, Non Tender, Non Distended and Normal Bowel Sounds; No Organomegaly
Rectal: Deferred by Provider
Genito-urinary: Deferred by me
Musculoskeletal: No Clubbing, No Cyanosis and No Edema
Skin: Warm and IV/Catheter Site; No Rash
Neuro: Awake, AO x 3 and Nonfocal/grossly intact
Hematologic/Lymphatic: No Lymphadenopathy
Psych: Calm and Intact Judgment/Insight
Laboratory Results
-
09/15/24 11:50
09/15/24 11:50
Laboratory Results
Total Bilirubin 0.4 mg/dl (0.2-1.3) 09/15/24 11:50
AST 74 U/L (14-36) H 09/15/24 11:50
ALT 30 U/L (0-35) 09/15/24 11:50
Alkaline Phosphatase 56 U/L (38-126) 09/15/24 11:50
Data Reviewed
-
Diagnostic Radiology: Report Reviewed by me (CXR: Progressive massive right pleural effusion.)
Lab Data: Labs Reviewed by me
Impression/Plan
-
IMPRESSION/PLAN:
#Recurrent malignant LARGE Right-sided PLEURAL EFFUSION concern for malignant pleural effusion
#Hx of Right pleural effusion small�moderate 08/04/2024
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
CXR: Progressive massive right pleural effusion.
hypoxic on room air
- Admit to telemetry
- Consult IR
- Titrate O2 to maintain SpO2 >94%
- Oncology follow up outpatient
#Anasarca
edema to right upper extremity, breast, and bilateral lower extremities (patient reports present since 07/2024)
#hypertension
stable
#hypoglycemia
Glucose 116
#fibromyalgia
#neuropathy
no current medications
#spinal cord injury/TBI 1990
#Recent right lower extremity cellulitis treated 1 last dose Keflex
Code Status: Full code
DVT Prophylaxis: Lovenox Sq
--- NOTE | 2024-09-15 15:30 | W.PN.UPDATE ---
Update Note
Progress Note Update
This note serves as an addendum to the H&P by resp therapist KELLY Miranda Watts
HPI
74F from [facility] for rehab since previous discharge 08/30/2024 HX recurrent right-sided pleural effusion, HX breast CA with metastatic to the lymph nodes, HTN, hypoglycemia, fibromyalgia and neuropathy seen at ER:
- evaluation of increased shortness of breath and cough over past couple of days
- increased shortness of breath with exertion and at rest and increased dry cough.
- Patient report hypoxic into the 70s and facility placed on 2Liters O2,
ROS: denies any fever, chills, chest pain, nausea, vomiting, constipation, diarrhea or urinary symptoms.
PHX; see above
Vital Signs
Temp Pulse Resp BP Pulse Ox
98.8 F 88 24 119/59 95
09/15/24 10:23 09/15/24 12:45 09/15/24 12:45 09/15/24 12:00 09/15/24 12:45
PE
Gen: alert , distress with transfer , orthopnic on lying 30 supine
HEENT: anicteric
Neck: supple
Lungs: Decreased AE of Rt chest mid to lower
Cor: RRR S1 S2
Abdomen: soft , distended
WEBSITE PROJECT MANAGER: AAO3 , NFND
MS: Brawny indurated edema of Rt UEx
Psych: appropriate
Abnormal Lab Results
09/15/24
11:50
RBC 3.74 L
Hgb 11.3 L
Hct 35.4 L
MCHC 31.9 L
Abs Immat Gran (auto) 0.1 H
Absolute Lymphs (auto) 0.5 L
Absolute Monos (auto) 1.1 H
Immature Gran % 0.6 H
Neutrophils % 76.4 H
Lymphocytes % 6.7 L
Monocytes % 13.8 H
BUN 25 H
Creatinine 0.5 L
Glucose 116 H
AST 74 H
Albumin 3.3 L
CXR: Progressive massive right pleural effusion.
ASSESSMENT & PLAN
Symptomatic recurrent malignant progressive large Rt -sided pleural effusion
Asso. acute hypoxic RI on RA
08/25/24: POS for poorly differentia CA cell in Rt Pleural fluid
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
HX Right pleural effusion small�moderate 08/04/2024
- Titrate O2 to maintain SpO2 >94%
- Oncology follow up outpatient
- IR consult for Rt sided Thoracentesis
Anasarca: edema to right upper extremity, breast, and bilateral lower extremities (patient reports present since 07/2024)
Benign HTN
- stable
Chr condition :
Fibromyalgia
Neuropathy - Not on any current medications
Spinal cord injury/TBI 1990
Recent right lower extremity cellulitis treated 1 last dose Keflex
DVT Px: LMWH
full code
IP TLM
[2024-09-15] MEDS: LOVENOX 40 MG SC (18:23)
[2024-09-15] MEDS: DESENEX/MITRAZOL/ZEASORB 1 APPLIC TOPICAL (20:50)
[2024-09-16] VITALS (9 sets, daily range): BP systolic 91–119; BP diastolic 52–64; BMI 29.0
[2024-09-16 05:37] LABS: Hematocrit 35.1 % (37.0-47.0); Hemoglobin 10.7 g/dL (12.0-16.0); Mean Corp Hgb Conc. 30.5 g/dL (33.0-37.0); Mean Corpuscular Hgb 29.6 pg (27.0-31.0); Mean Platelet Volume 8.9 fL (7.4-10.4); Platelet Count 341 10^3/uL (130-400); Red Blood Cell Count 3.62 10^6/uL (4.20-5.40); Red Cell Dist. Width 14.5 % (11.5-14.5); White Blood Cell Count 6.5 10^3/uL (4.8-10.8)
[2024-09-16 06:01] LABS: ALT (SGPT) 28 U/L (0-35); AST (SGOT) 68 U/L (14-36); Albumin 3.1 g/dl (3.5-5.0); Alkaline Phosphatase 50 U/L (38-126); Blood Urea Nitrogen 25 mg/dl (7-17); Carbon Dioxide 32 mmol/L (22-30); Chloride 101 mmol/L (98-107); Estimated Creatinine Clearance 86 ml/min; Glucose 99 mg/dl (70-99); Potassium 4.7 mmol/L (3.5-5.1); Sodium 138 mmol/L (135-145); Total Bilirubin 0.4 mg/dl (0.2-1.3); Total Protein 6.7 g/dl (6.3-8.2); eGFR > 60.00
[2024-09-16] MEDS: DESENEX/MITRAZOL/ZEASORB 1 APPLIC TOPICAL (08:04)
--- NOTE | 2024-09-16 11:10 | W.PN.HOSP.TC ---
Today's Communication/Plan
-
Oncology consult , d/w goal of care, prognosis
Consult pulmonary to consider pleural catheter, SOB
Assessment / Plan
Assessment / Plan
Physical Exam
General: in respiratory distress while ambulating
HEENT: Normocephalic, Moist mucous membranes, Atraumatic, PERRLA, Show Low Conjunctivae, Nose Appears Normal and Ears Appear Normal
Respiratory: no air on right side.
Cardiac: S1/S2
GI: Soft, Non Tender, Non Distended and Normal Bowel Sounds;
Genito-urinary: clear urine
Musculoskeletal: edema and swelling RUE, edema in both LE
Skin: Warm and IV/Catheter Site;
Neuro: Awake, AO x 3, she followed commands.
Psych: Calm and Intact Judgment/Insight
#Recurrent malignant LARGE Right-sided PLEURAL EFFUSION concern for malignant pleural effusion
#Hx of Right pleural effusion small�moderate 08/04/2024
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
CXR on admission: Progressive massive right pleural effusion.
hypoxic on room air
For thoracentesis , can benefit from catheter, pt wants to d/w oncology and pulmonary
- Titrate O2 to maintain SpO2 >94%
# Metastatic breast cancer. ER/MS negative
Primary oncologist Dr Benito
She will need to d/w oncology goal of care
# chronic anemia
#Anasarca
Edema to right upper extremity, breast, and bilateral lower extremities (patient reports present since 07/2024)
#hypertension
stable
#hypoglycemia
Glucose 116
#fibromyalgia
#neuropathy
no current medications
#spinal cord injury/TBI 1990
#Recent right lower extremity cellulitis treated , finished Tx.
Total time spent to see the patient on the floor, examine the patient, review data and lab results, discuss treatment plan with patient, nursing staff around 55 minutes.
Anticipated Discharge: 24 - 48 hours
Subjective/Interval History
-
Date of Service: September 16, 2024
She feels sob upon mild exertion
No chest pain
Objective Data
-
Labs:
Laboratory Results
09/16/24
05:01
WBC 6.5
Hgb 10.7 L
Hct 35.1 L
Plt Count 341
Sodium 138
Potassium 4.7
Chloride 101
Carbon Dioxide 32 H
BUN 25 H
Creatinine 0.6
Glucose 99
Calcium 9.0
Total Bilirubin 0.4
AST 68 H
ALT 28
Alkaline Phosphatase 50
Vital Signs:
Vital Signs
Temp Pulse Resp BP Pulse Ox
96.8 F L 92 18 112/57 99
09/16/24 08:26 09/16/24 08:59 09/16/24 08:59 09/16/24 08:59 09/16/24 08:52
--- NOTE | 2024-09-16 13:45 | CON.PUL ---
Consultation
Consultation Request
Date/Time Consultation Requested: 09/16/24
Date/Time Consultation Performed: 09/16/24
Performing Provider: Earl
Reason for Consultation: SOB
Medical History
-
History of Present Illness:
Patient is a 74-year-old female with previous history of recurrent right-sided malignant pleural effusion, metastatic breast cancer, hypertension, fibromyalgia, neuropathy presenting to ER for evaluation of increased shortness of breath and cough
for the past few days. She was recently discharged on 1121 with large right-sided pleural effusion and underwent thoracentesis at that time. She was notably hypoxemic into the 70s at the facility and placed on 2 L. Chest x-ray demonstrating
recurrent right-sided pleural effusion. She underwent thoracentesis today and notes improvement in SOB.
Past Medical History
Past Medical History: Other (see list below)
Social History
Tobacco: Non-smoker
Alcohol: None
Drug: None
Family History
Family History: Reviewed & Not Pertinent
Allergies / Home Medications
Allergies
Allergy/AdvReac Type Severity Reaction Status Date / Time
Sulfa (Sulfonamide AdvReac yeast Verified 09/15/24 10:22
Antibiotics) infections
Tetracyclines AdvReac yeast Verified 09/15/24 10:22
infections
Home Medications
�Medication �Instructions �Recorded �Confirmed �Last Taken �Type
guaifenesin 100 mg/5 mL oral liquid 200 mg (10 mL) PO Q4HPRN PRN cough 08/30/24 09/15/24 Unknown Rx
#0 mL
acetaminophen 325 mg tablet 650 mg PO Q4HPRN PRN mild pain 09/15/24 09/15/24 Unknown History
(Tylenol)
bisacodyl 10 mg rectal suppository 10 mg RI DAILYPRN PRN if no bm 09/15/24 09/15/24 Unknown History
(Dulcolax (bisacodyl)) aftr mom
magnesium hydroxide 400 mg/5 mL 2,400 mg PO DAILYPRN PRN if no bm 09/15/24 09/15/24 Unknown History
oral suspension (Milk of Magnesia) on 3d day
sodium phosphates 19 gram-7 118 ml RI DAILYPRN PRN if no bm 09/15/24 09/15/24 Unknown History
gram/197 mL enema (Fleet Enema aftr dulcolax
Extra)
Review of Systems
-
History Source: Patient
All other systems: Negative unless noted
Vitals / Labs / Diagnostic Testing
Vital Signs
Temp Pulse Resp BP Pulse Ox
98.0 F 65 18 119/60 99
09/16/24 11:11 09/16/24 11:11 09/16/24 11:11 09/16/24 11:11 09/16/24 11:11
Lab Data
09/16/24 05:01
09/16/24 05:01
Diagnostic Testing:
Physical Exam
-
HEENT: Normocephalic, Anicteric and Moist Mucous Membranes
Cardiovascular: S1/S2, Regular Rhythm and Peripheral Edema (RUE and B/L LEs)
Respiratory: Clear and Non-Labored Respirations
GI: Soft, Non Distended and Non Tender
Neurology: Awake, Alert, Oriented and No Motor Deficits
Skin: Warm, Dry and Good Color
General: Comfortable and Other (NAD)
Assessment
-
Patient is a 74-year-old female with previous history of recurrent right-sided malignant pleural effusion, metastatic breast cancer, hypertension, fibromyalgia, neuropathy presenting to ER for evaluation of increased shortness of breath and cough
for the past few days. She was recently discharged on 1121 with large right-sided pleural effusion and underwent thoracentesis at that time. She was notably hypoxemic into the 70s at the facility and placed on 2 L. Chest x-ray demonstrating
recurrent right-sided pleural effusion. We are consulted for eval 09/16/24.
Recurrent R pleural effusion s/p thora 09/16/24
Progressive SOB
Conditions present prior to admission
Recurrent right-sided malignant pleural effusion + CytoPath on 08/26/24
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
Diffuse anasarca
Hypertension
Fibromyalgia
Neuropathy
Spinal cord injury/TBI 1990
Recent history of right lower extremity cellulitis treated with outpatient Keflex
Plan
No oxygen was needed on admission, currently saturating >90% on RA
Prior history of lung disease is noted including recurrent malignant effusion
CXR/CT obtained indicating recurrrence
Other imaging reviewed
s/p thora 09/16/24, prior thora on 08/26/24 with + cytopath
We discussed ASEPT placement but her fluid reaccumulation may take weeks as before
Can be placed as OP as well, which we can arrange
Prior ECHO results are reviewed indicating preserved function
This is unlikely to resolve with diuresis
She has appt with Dr Benito on Mon and would like to keep her appt
We can plan to repeat her CXR in AM to evaluate her fluid
If negative, can discharge for OP FU--will discuss with care team
Will need outpatient pulmonary evaluation in our office for PFTs and 6MWT
Reviewed with patient
We will follow
Diagnostic Data
Chest X-Ray: 09/16/24- No pneumothorax post right thoracentesis.
09/15/24- Progressive massive right pleural effusion.
CT Scan: AP 08/24/24- Large right pleural effusion. Progressed. Findings suggesting moderate volume overload or third spacing. Progressed. Bilateral too small to characterize hypodense renal lesions likely benign cysts. New. Mild retroperitoneal
and left inguinal lymphadenopathy. Nonspecific. Clinical and laboratory correlation recommended. This could further be evaluated by PET imaging if indicated clinically. Moderate T12 and mild L1 compression fractures.
CHEST 07/31/24- 1. Significant body wall edema involving the visualized portion of the right upper extremity, right axilla, right chest wall, and right breast.
2. Pathologic lymphadenopathy within the right axilla, left axilla, mediastinum, lower neck, and both supraclavicular regions.
3. Overall, findings may be related to severe cellulitis/infectious process, however given the pronounced lymphadenopathy, findings are more likely to represent malignant process such as lymphoma or metastatic disease.
4. Small right pleural effusion. Mild right basilar airspace consolidation, which may be related to subsegmental atelectasis or pneumonia.
5. Bilateral breast skin thickening, raising concern for infiltrative breast carcinoma. Breasts are incompletely imaged. Mammographic workup is suggested.
6. Right thyroid nodule. Consider further workup with nonemergent thyroid ultrasound.
Echo: 08/01/24- 1. Left ventricle: Normal size and function with an estimated ejection fraction of 55-60%
2. Right ventricle: Normal
3. Atria: Normal
4. Mitral valve: Normal
5. Aortic valve: Normal
6. Tricuspid valve: Mild tricuspid regurgitation with estimated pulmonary artery systolic pressures of 30-35 mmHg
7. No prior studies for comparison
PFT's:
Reports and relevant images were personally reviewed.
Total time spent on this consultation __75__ minutes which includes review of history, physical exam, medications, laboratory data, personal review of imaging, extensive review of outpatient records, discussion with care team and respiratory therapy.
--- NOTE | 2024-09-16 16:07 | CM ---
Alert awake oriented patient who was at [facility] prior to admission.She is newly dx with cancer.Requested MD consult oncology Dr Benito to see pt here. Spoke with pt and dgt Emilie both requesting to return to [facility] PT at mo,. Will need auth.
She has new oxygen here in .She uses a cane.After dc from [facility] she will be living at [address] [place] [address] in [place]. Will need PT OT evals.
Never had [facility]
PCP Dr Destiney Hoang
PLAN Return to [facility] after auth
[2024-09-16] MEDS: LOVENOX 40 MG SC (17:38)
--- NOTE | 2024-09-16 17:51 | CON.ONC ---
Impression
Impression
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
Malignant pleural effusion
BRCA2 mutation
Plan
Plan
Agree with plan for imaging in the morning to reassess pleural effusion.
Patient follows as an outpatient with Dr. Benito, who usually rounds on Tuesdays. Patient looking to discuss therapeutic options with her.
Discussed with patient that she would be a candidate for drugs targeted to the BRCA mutation but this may not be Dr. Benito's choice for first-line of therapy.
Patient hopeful that she might not need Pleurx if systemic therapy suspected to work well enough.
Thank you for consultation, will follow along with you.
Patient History
History of Present Illness
74-year-old woman who presented in late July with right arm rash and swelling. She went to the emergency room and was diagnosed with cellulitis and lymphedema of the right arm. She was hospitalized and started on antibiotics. CT of the chest
showed significant edema involving her right upper extremity, axilla, chest wall and breast. Also noted were pathologic axillary and cervical she adenopathy, small right pleural effusion and bilateral breast thickening. Underwent cervical lymph
node biopsy on August 13 which showed poorly differentiated, triple negative breast cancer, PD-L1 of 8. Since then, she has been hospitalized at least once with symptomatic pleural effusion, cytology consistent with metastatic cancer. She was
seen in the office on September 06 with plan to test PD-L1 on the cellblock from pleural fluid and to send blood for [id number] liquid biopsy testing. She came to the ED today with recurrent shortness of breath noted to have recurrent pleural
effusion. She has undergone thoracentesis for 2 L, breathing improved. Patient has been seen by pulmonary with plan to repeat chest x-ray in the morning and if no significant reaccumulation, discharged to home with plan for outpatient Pleurx
catheter placement. [id number] has now been resulted showing BRCA2 mutation. Currently breathing comfortably. Denies pain.
Past-Medical/Surgical History
Past medical history:
Hypoglycemia, spinal cord injury
Past surgical history:
Cervical lymph node biopsy social:
Social:
Former smoker, quit in 1979.
Family history:
Sister with cervical or ovarian cancer
Father with prostate, liver, and breast cancer
Patient Medication
�Medication �Instructions �Recorded �Confirmed �Last Taken �Type
guaifenesin 100 mg/5 mL oral liquid 200 mg (10 mL) PO Q4HPRN PRN cough 08/30/24 09/15/24 Unknown Rx
#0 mL
acetaminophen 325 mg tablet 650 mg PO Q4HPRN PRN mild pain 09/15/24 09/15/24 Unknown History
(Tylenol)
bisacodyl 10 mg rectal suppository 10 mg NJ DAILYPRN PRN if no bm 09/15/24 09/15/24 Unknown History
(Dulcolax (bisacodyl)) aftr mom
magnesium hydroxide 400 mg/5 mL 2,400 mg PO DAILYPRN PRN if no bm 09/15/24 09/15/24 Unknown History
oral suspension (Milk of Magnesia) on 3d day
sodium phosphates 19 gram-7 118 ml NJ DAILYPRN PRN if no bm 09/15/24 09/15/24 Unknown History
gram/197 mL enema (Fleet Enema aftr dulcolax
Extra)
Active Medications
Generic Name Dose Route Start Last Admin
Trade Name Freq PRN Reason Stop Dose Admin
Acetaminophen 650 mg 09/15/24 17:00
Acetaminophen 325 Mg Tablet PO 10/13/24 16:59
Q4HPRN PRN
mild pain/SANDOVAL/temp> 100.4F
Enoxaparin Sodium 40 mg 09/15/24 18:00 09/16/24 17:38
Enoxaparin Sodium 40 Mg/0.4 Ml Syringe SC 10/13/24 17:59 40 mg
QPM CHERRI Administration
Guaifenesin 200 mg 09/15/24 17:00
Guaifenesin Oral Solution (200 Mg/10 Ml) Cup PO 10/13/24 16:59
Q4HPRN PRN
cough
Miconazole Nitrate 0 applic 09/15/24 20:00 09/16/24 08:04
Miconazole Powder Bottle TOPICAL 10/13/24 19:59 1 applic
BID CHERRI Administration
Sodium Chloride 0 flush 09/15/24 18:00
Sodium Chloride 0.9% (Flush) Syringe IV 10/13/24 17:59
PER PROTOCOL CHERRI
Review of Systems
-
History Source: Patient
All Other Systems: Reviewed and Negative
Physical Exam
-
General: No Apparent Distress and Appears Chronically Ill
HEENT: Moist Mucous Membranes; Negative Jaundice
Cardiology: Normal Sinus Rhythm, S1 and S2
Pulmonary: Clear
GI: Soft and Other (non-tender)
Extremities: Edema (Lymphedema right arm. Skin thickening and erythema right breast and upper chest)
Neurology: Non Focal
Skin: Warm and Dry
Hematologic / Lymphatic: Lymphadenopathy (Left cervical adenopathy)
Psych: Calm and Intact Judgement/Insight
Labs
Lab Results
WBC 6.5 10^3/uL (4.8-10.8) 09/16/24 05:01
RBC 3.62 10^6/uL (4.20-5.40) L 09/16/24 05:01
Hgb 10.7 g/dL (12.0-16.0) L 09/16/24 05:01
Hct 35.1 % (37.0-47.0) L 09/16/24 05:01
MCV 97.0 fL (81.0-99.0) 09/16/24 05:01
MCH 29.6 pg (27.0-31.0) 09/16/24 05:01
MCHC 30.5 g/dL (33.0-37.0) L 09/16/24 05:01
RDW 14.5 % (11.5-14.5) 09/16/24 05:01
Plt Count 341 10^3/uL (130-400) 09/16/24 05:01
MPV 8.9 fL (7.4-10.4) 09/16/24 05:01
Abs Immat Gran (auto) 0.1 10^3/uL (0-0.05) H 09/15/24 11:50
Absolute Neuts (auto) 5.9 10^3/uL (1.4-6.5) 09/15/24 11:50
Absolute Lymphs (auto) 0.5 10^3/uL (1.2-3.4) L 09/15/24 11:50
Absolute Monos (auto) 1.1 10^3/uL (0.1-0.6) H 09/15/24 11:50
Absolute Eos (auto) 0.2 10^3/uL (0-0.7) 09/15/24 11:50
Absolute Basos (auto) 0.1 10^3/uL (0-0.2) 09/15/24 11:50
Immature Gran % 0.6 % (0-0.5) H 09/15/24 11:50
Neutrophils % 76.4 % (42.2-75.2) H 09/15/24 11:50
Lymphocytes % 6.7 % (20.5-51.1) L 09/15/24 11:50
Monocytes % 13.8 % (1.7-9.3) H 09/15/24 11:50
Eosinophils % 1.9 % (0-6) 09/15/24 11:50
Basophils % 0.6 % (0-2) 09/15/24 11:50
Creatinine 0.6 mg/dL (0.6-1.0) 09/16/24 05:01
Vital Signs
Vital Signs
Temp Pulse Resp BP Pulse Ox
97.7 F 92 18 113/52 99
09/16/24 15:00 09/16/24 15:00 09/16/24 15:00 09/16/24 15:00 09/16/24 15:00
[2024-09-17] VITALS (7 sets, daily range): BP systolic 98–117; BP diastolic 55–60; PULSE 80; O2SAT 96–99
[2024-09-17 05:31] LABS: Hematocrit 36.1 % (37.0-47.0); Hemoglobin 11.2 g/dL (12.0-16.0); Mean Corpuscular Hgb 30.1 pg (27.0-31.0); Mean Platelet Volume 8.8 fL (7.4-10.4); Platelet Count 340 10^3/uL (130-400); Red Blood Cell Count 3.72 10^6/uL (4.20-5.40); Red Cell Dist. Width 14.2 % (11.5-14.5)
[2024-09-17] MEDS: DESENEX/MITRAZOL/ZEASORB TOPICAL ×2 (05:40→20:55)
[2024-09-17 05:57] LABS: ALT (SGPT) 29 U/L (0-35); AST (SGOT) 67 U/L (14-36); Alkaline Phosphatase 51 U/L (38-126); Blood Urea Nitrogen 28 mg/dl (7-17); Calcium 8.9 mg/dl (8.4-10.2); Carbon Dioxide 34 mmol/L (22-30); Chloride 99 mmol/L (98-107); Estimated Creatinine Clearance 85 ml/min; Glucose 105 mg/dl (70-99); Potassium 4.7 mmol/L (3.5-5.1); Sodium 136 mmol/L (135-145); Total Bilirubin 0.4 mg/dl (0.2-1.3); Total Protein 6.2 g/dl (6.3-8.2); eGFR > 60.00
[2024-09-17] MEDS: DESENEX/MITRAZOL/ZEASORB 1 APPLIC TOPICAL (08:13)
--- NOTE | 2024-09-17 08:58 | W.PN.PUL3 ---
Today's Communication / Plan
-
CXR showing reaccumulation already, will obtain chest US in AM to evaluate pocket size
She is going to discuss case with Dr Benito before deciding on ASEPT placement
She will let me know what she decides and we can plan accordingly
Assessment
-
Patient is a 74-year-old female with previous history of recurrent right-sided malignant pleural effusion, metastatic breast cancer, hypertension, fibromyalgia, neuropathy presenting to ER for evaluation of increased shortness of breath and cough
for the past few days. She was recently discharged on 1121 with large right-sided pleural effusion and underwent thoracentesis at that time. She was notably hypoxemic into the 70s at the facility and placed on 2 L. Chest x-ray demonstrating
recurrent right-sided pleural effusion. We are consulted for eval 09/16/24.
Recurrent R pleural effusion s/p thora 09/16/24
Progressive SOB
Conditions present prior to admission
Recurrent right-sided malignant pleural effusion + CytoPath on 08/26/24
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
Diffuse anasarca
Hypertension
Fibromyalgia
Neuropathy
Spinal cord injury/TBI 1990
Recent history of right lower extremity cellulitis treated with outpatient Keflex
Plan
No oxygen was needed on admission, currently saturating >90% on RA
Prior history of lung disease is noted including recurrent malignant effusion
CXR/CT obtained indicating recurrrence
Other imaging reviewed
s/p thora 09/16/24, prior thora on 08/26/24 with + cytopath
We discussed ASEPT placement but her fluid reaccumulation may take weeks as before
Can be placed as OP as well, which we can arrange
Repeat CXR showing reaccumulation this AM, but pocket still may be too small for placement
I will order a chest US for AM if she is willing to stay
She is going to discuss her care with Dr Benito and then decide regarding ASEPT placement
Prior ECHO results are reviewed indicating preserved function
This is unlikely to resolve with diuresis
She has appt with Dr Benito on Mon and would like to keep her appt
We can plan to repeat her CXR in AM to evaluate her fluid
If negative, can discharge for OP FU--will discuss with care team
Will need outpatient pulmonary evaluation in our office for PFTs and 6MWT
Reviewed with patient
Diagnostic Data
Chest X-Ray: 09/16/24- No pneumothorax post right thoracentesis.
09/15/24- Progressive massive right pleural effusion.
CT Scan: AP 08/24/24- Large right pleural effusion. Progressed. Findings suggesting moderate volume overload or third spacing. Progressed. Bilateral too small to characterize hypodense renal lesions likely benign cysts. New. Mild retroperitoneal
and left inguinal lymphadenopathy. Nonspecific. Clinical and laboratory correlation recommended. This could further be evaluated by PET imaging if indicated clinically. Moderate T12 and mild L1 compression fractures.
CHEST 07/31/24- 1. Significant body wall edema involving the visualized portion of the right upper extremity, right axilla, right chest wall, and right breast.
2. Pathologic lymphadenopathy within the right axilla, left axilla, mediastinum, lower neck, and both supraclavicular regions.
3. Overall, findings may be related to severe cellulitis/infectious process, however given the pronounced lymphadenopathy, findings are more likely to represent malignant process such as lymphoma or metastatic disease.
4. Small right pleural effusion. Mild right basilar airspace consolidation, which may be related to subsegmental atelectasis or pneumonia.
5. Bilateral breast skin thickening, raising concern for infiltrative breast carcinoma. Breasts are incompletely imaged. Mammographic workup is suggested.
6. Right thyroid nodule. Consider further workup with nonemergent thyroid ultrasound.
Echo: 08/01/24- 1. Left ventricle: Normal size and function with an estimated ejection fraction of 55-60%
2. Right ventricle: Normal
3. Atria: Normal
4. Mitral valve: Normal
5. Aortic valve: Normal
6. Tricuspid valve: Mild tricuspid regurgitation with estimated pulmonary artery systolic pressures of 30-35 mmHg
7. No prior studies for comparison
PFT's:
Reports and relevant images were personally reviewed.
Total time spent on this encounter __50__ minutes which includes review of history, physical exam, medications, laboratory data, personal review of imaging, extensive review of outpatient records, discussion with care team and respiratory therapy.
Subjective Data
-
Date of Service:
Date of Service: September 17, 2024
Chief Complaint: Pulmonary Follow Up
Subjective:
No changes overnight, remains stable on RA
No new complaints
Objective Data
Data Reviewed
Vital Signs / I&O / Oxygen:
Vital Signs
Temp Pulse Resp BP Pulse Ox
98.2 F 78 17 107/56 99
09/17/24 07:56 09/17/24 07:56 09/17/24 07:56 09/17/24 07:56 09/17/24 07:56
Intake and Output
09/16/24 09/17/24 09/18/24
06:59 06:59 06:59
Intake Total 480 / 480 120 / 120
Balance 480 / 480 120 / 120
SaO2 99
Nasal Cannula flow liters per 5
minute
Physical Exam
General: Comfortable and Other (NAD)
HEENT: Normocephalic, Anicteric and Moist Mucous Membranes
Cardiovascular: S1-S2, Regular Rhythm and Peripheral Edema (diffuse, RUE/bilateral LEs)
Respiratory: Clear, Non-Labored Respirations and Other (decreased at R base)
GI: Soft, Non Distended and Non Tender
Neurology: Awake, Alert, Oriented and No Motor Deficits
Skin: Warm, Dry and Good Color
Labs/Micro/Reports
Lab Data
09/17/24 04:57
09/17/24 04:57
--- NOTE | 2024-09-17 11:07 | W.PN.HOSP.TC ---
Addendum entered and electronically signed by Clau Olsen MD 09/17/24 14:36:
Addendum
Patient requires light weight wheelchair with seat cushion and elevating leg rest due to ambulatory dysfunction.
Patient is unable to self propel. She has a caregiver who can propel her. Patient is in need of a rolling walker due to weakness. Patient requires a safe lift mechanism for armchair due to right upper extremity lymphedema and weakness
Addendum entered and electronically signed by Clau Olsen MD 09/17/24 14:13:
- Patient needs a commode due to confinement to one level of the home environment and there is no toilet on the same level.
- Patient is in need of oxygen at 2 liters/minute via nasal cannula continuously due to pulse oximetry of 88% on room air at rest. Oxygen will help to improve hypoxemia. Patient is mobile within the home. DuoNeb therapy has been tried and is
ineffective in treating hypoxemia related symptoms. Oxygen is needed to improve symptoms.
- Patient is in need of a semi-electric hospital bed with foam mattress due to the need to elevate head of bed above 30 degrees to prevent aspiration
and to facilitate frequent repositioning to prevent bed ulcers and pressure points.
Original Note:
Today's Communication/Plan
-
pending further discussion about Pl effusion and prognosis.
Assessment / Plan
Assessment / Plan
Physical Exam
General: in respiratory distress while ambulating
HEENT: Normocephalic, Moist mucous membranes, Atraumatic, PERRLA, [place] Conjunctivae, Nose Appears Normal and Ears Appear Normal
Respiratory: no air on right side.
Cardiac: S1/S2
GI: Soft, Non Tender, Non Distended and Normal Bowel Sounds;
Genito-urinary: clear urine
Musculoskeletal: edema and swelling RUE, edema in both LE
Skin: Warm and IV/Catheter Site;
Neuro: Awake, AO x 3, she followed commands.
Psych: Calm and Intact Judgment/Insight
#Recurrent malignant LARGE Right-sided PLEURAL EFFUSION concern for malignant pleural effusion
#Hx of Right pleural effusion small�moderate 08/04/2024
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
CXR on admission: Progressive massive right pleural effusion.
not hypoxic on room air
For thoracentesis , s/p ultrasound-guided thoracentesis, yielding 2000 cc of clear yellow pleural fluid on 09/16. Order chest x ray today and seem fluid is building back up. I feel that she should get a Pleurx before discharge.. Will ask Oncology and
pulmonary to assist.
- Titrate O2 to maintain SpO2 >94%
# Metastatic breast cancer. ER/GA negative
Primary oncologist Dr Benito
She will need to d/w oncology goal of care
# chronic anemia
# Moderate to severe protein calorie malnutrition. I think anasarca is contributing to her weight more than actual muscle bulk.
#Anasarca
Edema to right upper extremity, breast, and bilateral lower extremities (patient reports present since 07/2024)
#hypertension
stable
#hypoglycemia
Glucose 116
#fibromyalgia
#neuropathy
no current medications
#spinal cord injury/TBI 1990
#Recent right lower extremity cellulitis treated , finished Tx.
Total time spent to see the patient on the floor, examine the patient, review data and lab results, discuss treatment plan with patient, nursing staff around 55 minutes.
Anticipated Discharge: > 48 hours
Subjective/Interval History
-
Date of Service: September 17, 2024
No chest pain
No sob
Objective Data
-
Labs:
Laboratory Results
09/17/24
04:57
WBC 6.0
Hgb 11.2 L
Hct 36.1 L
Plt Count 340
Sodium 136
Potassium 4.7
Chloride 99
Carbon Dioxide 34 H
BUN 28 H
Creatinine 0.6
Glucose 105 H
Calcium 8.9
Total Bilirubin 0.4
AST 67 H
ALT 29
Alkaline Phosphatase 51
Vital Signs:
Vital Signs
Temp Pulse Resp BP Pulse Ox
98.4 F 68 17 117/58 97
09/17/24 11:02 09/17/24 11:02 09/17/24 11:02 09/17/24 11:02 09/17/24 11:02
I&O
09/16/24 09/17/24 09/18/24
06:59 06:59 06:59
Intake Total 480 / 480 120 / 120
Balance 480 / 480 120 / 120
--- NOTE | 2024-09-17 11:18 | W.PN.ONC ---
Today's Communication / Plan
-
Discussed starting olaparib (parp inhibitor, oral) for treatment of mTNBC with BRCA2 mutation
Will seek insurance approval and drug delivery from specialty pharmacy
Literature provided, consent forms signed, and will be scanned into her office chart
May take a week or so to get drug, to be started as outpt.
Treatment will hopefully decrease pleural fluid accumulation, though it may take time
She's reluctant to accept Pleurx catheter, if so, would try to arrange outpatient prn thoracenteses before she becomes so symptomatic.
Impression
Impression
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
Malignant pleural effusion
BRCA2 mutation
Plan
Plan
Discussed starting olaparib (parp inhibitor, oral) for treatment of mTNBC with BRCA2 mutation
Will seek insurance approval and drug delivery from specialty pharmacy
Literature provided, consent forms signed, and will be scanned into her office chart
May take a week or so to get drug, to be started as outpt.
Treatment will hopefully decrease pleural fluid accumulation, though it may take time
She's reluctant to accept Pleurx catheter, if so, would try to arrange outpatient prn thoracenteses before she becomes so symptomatic.
Subjective/Objective
Subjective/Objective
feeling better s/p thora yesterday, reluctant to accept pleurx
Vital Signs:
Vital Signs
Temp Pulse Resp BP Pulse Ox
98.4 F 68 17 117/58 97
09/17/24 11:02 09/17/24 11:02 09/17/24 11:02 09/17/24 11:02 09/17/24 11:02
Lab Results:
Laboratory Data
WBC 6.0 10^3/uL (4.8-10.8) 09/17/24 04:57
Hgb 11.2 g/dL (12.0-16.0) L 09/17/24 04:57
Plt Count 340 10^3/uL (130-400) 09/17/24 04:57
eGFR > 60.00 09/17/24 04:57
--- NOTE | 2024-09-17 12:52 | VNURNOTE ---
Home Health Liaison met with patient and daughter Christel on speakerphone to discuss [facility] nurse/therapy, visits, schedule and homebound status. Patient and daughter agreeable and understand that visits at home will be 2-3 x per week to assess and
teach medical management.
[facility] brochure provided with contact information. Patient and daughter aware that [facility] will contact them for start of care in 1-2 days after discharge from . Liaison encouraged daughter to investigate/set up companions for home assistance.
[employer] list emailed to her at [email or web address]. DME pending Rx. Daughter requests to use [facility] co phone # [phone]/ .
[facility] referral completed in [facility].
--- NOTE | 2024-09-17 13:59 | PN.CDI ---
Addendum entered and electronically signed by Clau Olsen MD 09/17/24 14:18:
hypoxia only
Original Note:
CDI
- -
CDI:
Physician Documentation Request
Admit Date: 09/15/24 15:39
Dear Doctor Pretty,
Patient admitted for recurrent malignant large right pleural effusion
H&P states hypoxic on room air.
Documented vital signs show patient is on 5-6L from 09/15-09/17
Presenting respiratory rates recorded 20-24
ED chart states 'She presents with increased shortness of breath and hypoxia. She felt very short of breath while at physical therapy'
Please clarify which of the following accurately represents the patient's respiratory status:
Acute respiratory failure- please indicate type
Hypoxia
Other
Additional information for Respiratory Failure:
Recognized criteria for Respiratory Failure (Source: [facility] Hospitalist Aug 2013)
ABGs: (1 or more) Symptoms Please indicate type if known
1. p)2 <60 or RA SPO2 <91% on RA 1. Tachypnea, SOB, dyspnea Hypoxic
2. pCO2 50 and pH <7.35 2. Use of accessory muscles Hypercapnic
3. pO2 decrease of pCO2 increase by 3. Pallor or cyanosis Hypoxic and Hypercapnic
10 mmHg from baseline if known 4. Anxiety or restlessness
5. Unable to speak in full sentences
Supplemental O2 of > 40% (5LPM) Intubation is not required
Use of terms such as suspected, likely, concern for, or probable (associated with a specific diagnosis that is being evaluated, monitored, or treated as if it exists) are acceptable and can be coded in the inpatient setting, when documented at the
time of discharge.
Thank you,
Nurys Villanueva RN, BSN
CDI Specialist
tiger text
Please use your independent medical judgment in providing your response.
--- NOTE | 2024-09-17 14:15 | CM ---
Spoke with dgt Willie plan of dc changed . No longer SNF.Dgt requested home with VN , hospital bed, WC, Rollator, possible Oxygen..
notified of requests.
Dgt Willie requested [facility] . CM called [facility] they do not accept pts insurance.
Dgt informed she requested [facility] . Marquita Jarrett notified of referral.
Pt will be moving [address] [facility] [place] [address]. Admission changed address in computer.
Awaiting home oxygen test.
Willie requested [facility] [phone].
Oncology involved.
Explained private care givers need to be set up by family.[employer] list given.
Dgt said some one will be with pt till care givers established.
PLAN Home with [facility] and DME
--- NOTE | 2024-09-17 14:41 | VNURNOTE ---
DME Rx and paperwork faxed to [facility]. . DME: hospital bed, 2L 02 continuous, RW, lightweight wc, commode, safe lift mechanism. Informed patient's daughter Emilie that DME co will contact her regarding delivery and cost if not
covered by insurance. She is familiar with [facility] and verbalized understanding.
[2024-09-17] MEDS: LOVENOX 40 MG SC (18:02)
[2024-09-18 06:26] LABS: Hematocrit 34.6 % (37.0-47.0); Hemoglobin 10.7 g/dL (12.0-16.0); Mean Corp Hgb Conc. 30.9 g/dL (33.0-37.0); Mean Corpuscular Volume 96.9 fL (81.0-99.0); Platelet Count 330 10^3/uL (130-400); Red Blood Cell Count 3.57 10^6/uL (4.20-5.40); White Blood Cell Count 6.2 10^3/uL (4.8-10.8)
[2024-09-18 06:54] LABS: ALT (SGPT) 29 U/L (0-35); AST (SGOT) 63 U/L (14-36); Albumin 2.8 g/dl (3.5-5.0); Alkaline Phosphatase 52 U/L (38-126); Blood Urea Nitrogen 25 mg/dl (7-17); Calcium 8.7 mg/dl (8.4-10.2); Carbon Dioxide 32 mmol/L (22-30); Chloride 99 mmol/L (98-107); Estimated Creatinine Clearance 85 ml/min; Glucose 105 mg/dl (70-99); Potassium 4.6 mmol/L (3.5-5.1); Sodium 135 mmol/L (135-145); Total Bilirubin 0.2 mg/dl (0.2-1.3); Total Protein 5.9 g/dl (6.3-8.2); eGFR > 60.00
[2024-09-18 08:25] VITALS: BP 117/57
[2024-09-18 08:35] LABS: Glucose - Point of Care 113 mg/dl (70-99)
--- NOTE | 2024-09-18 09:31 | W.PN.ONC2 ---
Today's Communication / Plan
-
Await U/S and PleurX decision.
Impression
Impression
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
Malignant pleural effusion
BRCA2 mutation
Plan
Plan
Discussed starting olaparib (parp inhibitor, oral) for treatment of mTNBC with BRCA2 mutation
Will seek insurance approval and drug delivery from specialty pharmacy
Literature provided, consent forms signed, and will be scanned into her office chart
May take a week or so to get drug, to be started as outpt.
Treatment will hopefully decrease pleural fluid accumulation, though it may take time
She's reluctant to accept Pleurx catheter, if so, would try to arrange outpatient prn thoracenteses before she becomes so symptomatic.
Subjective/Objective
Chief Complaint
ACS Heme ONC
Subjective
Breathing okay. For U/U this AM to see if there is recurrence of her pleural effusion which might suggest benefit from getting a PleurX catheter. She is reluctant.
Vital Signs:
Vital Signs
Temp Pulse Resp BP Pulse Ox
97 F 93 20 117/57 96
09/18/24 08:25 09/18/24 08:25 09/18/24 08:25 09/18/24 08:25 09/18/24 08:25
Lab Results:
Laboratory Data
WBC 6.2 10^3/uL (4.8-10.8) 09/18/24 05:46
Hgb 10.7 g/dL (12.0-16.0) L 09/18/24 05:46
Plt Count 330 10^3/uL (130-400) 09/18/24 05:46
eGFR > 60.00 09/18/24 05:46
[2024-09-18] MEDS: DESENEX/MITRAZOL/ZEASORB 1 APPLIC TOPICAL ×2 (09:51→20:49)
--- NOTE | 2024-09-18 10:48 | W.PN.PUL3 ---
Today's Communication / Plan
-
Agreeable to ASEPT placement, IR consult placed
Chest US seems too small today, can recheck in next 24-48 hours for placement
We discussed expectations with home care/outpatient FU
Will arrange OP FU for next steps pending placement
Assessment
-
Patient is a 74-year-old female with previous history of recurrent right-sided malignant pleural effusion, metastatic breast cancer, hypertension, fibromyalgia, neuropathy presenting to ER for evaluation of increased shortness of breath and cough
for the past few days. She was recently discharged on 1121 with large right-sided pleural effusion and underwent thoracentesis at that time. She was notably hypoxemic into the 70s at the facility and placed on 2 L. Chest x-ray demonstrating
recurrent right-sided pleural effusion. We are consulted for eval 09/16/24.
Recurrent R pleural effusion s/p thora 09/16/24
Progressive SOB
Conditions present prior to admission
Recurrent right-sided malignant pleural effusion + CytoPath on 08/26/24
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
Diffuse anasarca
Hypertension
Fibromyalgia
Neuropathy
Spinal cord injury/TBI 1990
Recent history of right lower extremity cellulitis treated with outpatient Keflex
Plan
No oxygen was needed on admission, currently saturating >90% on RA
Prior history of lung disease is noted including recurrent malignant effusion
CXR/CT obtained indicating recurrrence
Other imaging reviewed
s/p thora 09/16/24, prior thora on 08/26/24 with + cytopath
She is now agreeable to ASEPT placement, will consult IRAD
Repeat CXR showing reaccumulation this AM, but pocket still may be too small for placement
Chest US seems small as well
Can reimage in next 24-48 hours to determine best timing
Prior ECHO results are reviewed indicating preserved function
This is unlikely to resolve with diuresis
She has appt with Dr Benito on Mon and would like to keep her appt
We can plan to repeat her CXR in AM to evaluate her fluid
If negative, can discharge for OP FU--will discuss with care team
Will need outpatient pulmonary evaluation in our office for PFTs and 6MWT
Reviewed with patient
Diagnostic Data
Chest X-Ray: 09/16/24- No pneumothorax post right thoracentesis.
09/15/24- Progressive massive right pleural effusion.
CT Scan: AP 08/24/24- Large right pleural effusion. Progressed. Findings suggesting moderate volume overload or third spacing. Progressed. Bilateral too small to characterize hypodense renal lesions likely benign cysts. New. Mild retroperitoneal
and left inguinal lymphadenopathy. Nonspecific. Clinical and laboratory correlation recommended. This could further be evaluated by PET imaging if indicated clinically. Moderate T12 and mild L1 compression fractures.
CHEST 07/31/24- 1. Significant body wall edema involving the visualized portion of the right upper extremity, right axilla, right chest wall, and right breast.
2. Pathologic lymphadenopathy within the right axilla, left axilla, mediastinum, lower neck, and both supraclavicular regions.
3. Overall, findings may be related to severe cellulitis/infectious process, however given the pronounced lymphadenopathy, findings are more likely to represent malignant process such as lymphoma or metastatic disease.
4. Small right pleural effusion. Mild right basilar airspace consolidation, which may be related to subsegmental atelectasis or pneumonia.
5. Bilateral breast skin thickening, raising concern for infiltrative breast carcinoma. Breasts are incompletely imaged. Mammographic workup is suggested.
6. Right thyroid nodule. Consider further workup with nonemergent thyroid ultrasound.
Echo: 08/01/24- 1. Left ventricle: Normal size and function with an estimated ejection fraction of 55-60%
2. Right ventricle: Normal
3. Atria: Normal
4. Mitral valve: Normal
5. Aortic valve: Normal
6. Tricuspid valve: Mild tricuspid regurgitation with estimated pulmonary artery systolic pressures of 30-35 mmHg
7. No prior studies for comparison
PFT's:
Reports and relevant images were personally reviewed.
Total time spent on this encounter __50__ minutes which includes review of history, physical exam, medications, laboratory data, personal review of imaging, extensive review of outpatient records, discussion with care team and respiratory therapy.
Subjective Data
-
Date of Service:
Date of Service: September 18, 2024
Chief Complaint: Pulmonary Follow Up
Subjective:
No new events ON, stable on RA
She is now agreeable to ASEPT placement
Objective Data
Data Reviewed
Vital Signs / I&O / Oxygen:
Vital Signs
Temp Pulse Resp BP Pulse Ox
97 F 93 20 117/57 96
09/18/24 08:25 09/18/24 08:25 09/18/24 08:25 09/18/24 08:25 09/18/24 08:25
Intake and Output
09/17/24 09/18/24 09/19/24
06:59 06:59 06:59
Intake Total 480 / 480 1200 / 1200
Balance 480 / 480 1200 / 1200
SaO2 96
Nasal Cannula flow liters per 2
minute
Physical Exam
General: Comfortable and Other (NAD)
HEENT: Normocephalic, Anicteric and Moist Mucous Membranes
Cardiovascular: S1-S2, Regular Rhythm and Peripheral Edema (diffuse, RUE/bilateral LEs)
Respiratory: Clear, Non-Labored Respirations and Other (decreased at R base)
GI: Soft, Non Distended and Non Tender
Neurology: Awake, Alert, Oriented and No Motor Deficits
Skin: Warm, Dry and Good Color
Labs/Micro/Reports
Lab Data
09/18/24 05:46
09/18/24 05:46
--- NOTE | 2024-09-18 11:29 | W.PN.HOSP.TC ---
Today's Communication/Plan
-
f/w pulmonary recommendations
Assessment / Plan
Assessment / Plan
Physical Exam
General: in respiratory distress while ambulating
HEENT: Normocephalic, Moist mucous membranes, Atraumatic, PERRLA, [place] Conjunctivae, Nose Appears Normal and Ears Appear Normal
Respiratory: no air on right side.
Cardiac: S1/S2
GI: Soft, Non Tender, Non Distended and Normal Bowel Sounds;
Genito-urinary: clear urine
Musculoskeletal: edema and swelling RUE, edema in both LE
Skin: Warm and IV/Catheter Site;
Neuro: Awake, AO x 3, she followed commands.
Psych: Calm and Intact Judgment/Insight
#Recurrent malignant LARGE Right-sided PLEURAL EFFUSION concern for malignant pleural effusion
#Hx of Right pleural effusion small�moderate 08/04/2024
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
CXR on admission: Progressive massive right pleural effusion.
not hypoxic on room air
For thoracentesis , s/p ultrasound-guided thoracentesis, yielding 2000 cc of clear yellow pleural fluid on 09/16.
Chest US is resulted, will d/w Dr Elliott
# Metastatic breast cancer. ER/RI negative
Primary oncologist Dr Benito
d/w oncology, trial of olaparib in OP.
# chronic anemia
# Moderate to severe protein calorie malnutrition. I think anasarca is contributing to her weight more than actual muscle bulk.
#Anasarca
Edema to right upper extremity, breast, and bilateral lower extremities (patient reports present since 07/2024)
#hypertension
stable
#hypoglycemia
Glucose 116
#fibromyalgia
#neuropathy
no current medications
#spinal cord injury/TBI 1990
#Recent right lower extremity cellulitis treated , finished Tx.
Total time spent to see the patient on the floor, examine the patient, review data and lab results, discuss treatment plan with patient, nursing staff around 55 minutes.
Anticipated Discharge: 24 - 48 hours
Subjective/Interval History
-
Date of Service: September 18, 2024
No chest pain or sob
Objective Data
-
Labs:
Laboratory Results
09/18/24
05:46
WBC 6.2
Hgb 10.7 L
Hct 34.6 L
Plt Count 330
Sodium 135
Potassium 4.6
Chloride 99
Carbon Dioxide 32 H
BUN 25 H
Creatinine 0.5 L
Glucose 105 H
Calcium 8.7
Total Bilirubin 0.2
AST 63 H
ALT 29
Alkaline Phosphatase 52
Vital Signs:
Vital Signs
Temp Pulse Resp BP Pulse Ox
97 F 93 20 117/57 96
09/18/24 08:25 09/18/24 08:25 09/18/24 08:25 09/18/24 08:25 09/18/24 08:25
I&O
09/17/24 09/18/24 09/19/24
06:59 06:59 06:59
Intake Total 480 / 480 1200 / 1200
Balance 480 / 480 1200 / 1200
[2024-09-18 15:10] VITALS: BP 110/54
[2024-09-18 16:09] VITALS: BMI 29.0
[2024-09-18] MEDS: LOVENOX 40 MG SC (18:03)
[2024-09-18 23:35] VITALS: BP 114/63
--- NOTE | 2024-09-19 03:57 | DOWNTIME ---
There was a [employer] Client Purchasing Manager/Sales Downtime on 09/19/2024 from 0200 to 09/19/2024 at 0325 . Downtime documentation of patient's care, including medication administrations, has been reconciled in the electronic record per guidelines. Refer to the
patient's paper chart under the miscellaneous tab to see printed paper medication records and downtime forms.
[2024-09-19 08:09] VITALS: BP 114/54
[2024-09-19] MEDS: DESENEX/MITRAZOL/ZEASORB 1 APPLIC TOPICAL ×2 (09:10→20:39)
--- NOTE | 2024-09-19 09:13 | W.PN.ONC2 ---
Today's Communication / Plan
-
Asept
OP olaparib once insurance auth & drug delivered
OP follow up with Dr. Benito 09/25 4pm
Impression
Impression
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
Malignant pleural effusion
BRCA2 mutation
Moderate to severe protein calorie malnutrition
Plan
Plan
olaparib (parp inhibitor, oral) for treatment of mTNBC with BRCA2 mutation insurance auth & drug delivery pending
Treatment will hopefully decrease pleural fluid accumulation, though it may take time
Agree with asept placement
Subjective/Objective
Subjective
no new complaints
Vital Signs:
Vital Signs
Temp Pulse Resp BP Pulse Ox
98.0 F 87 18 114/54 97
09/19/24 08:09 09/19/24 08:09 09/19/24 08:09 09/19/24 08:09 09/19/24 08:09
Lab Results:
Laboratory Data
WBC 6.2 10^3/uL (4.8-10.8) 09/18/24 05:46
Hgb 10.7 g/dL (12.0-16.0) L 09/18/24 05:46
Plt Count 330 10^3/uL (130-400) 09/18/24 05:46
eGFR > 60.00 09/18/24 05:46
Physical Exam
Lymphedema right arm. Skin thickening and erythema right breast and upper chest
L cervical adenopathy
HEENT: Moist Mucous Membranes; No Jaundice
Cardiology: S1 and S2
Pulmonary: Clear
GI: Soft
Extremities: Pulses Present
Neuro: Non Focal
[2024-09-19 09:35] VITALS: BP 129/61; O2SAT 98
--- NOTE | 2024-09-19 10:56 | W.PN.HOSP.TC ---
Today's Communication/Plan
-
.
Assessment / Plan
Assessment / Plan
Physical Exam
General: in respiratory distress while ambulating
HEENT: Normocephalic, Moist mucous membranes, Atraumatic, PERRLA, [place] Conjunctivae, Nose Appears Normal and Ears Appear Normal
Respiratory: no air on right side.
Cardiac: S1/S2
GI: Soft, Non Tender, Non Distended and Normal Bowel Sounds;
Genito-urinary: clear urine
Musculoskeletal: edema and swelling RUE, edema in both LE
Skin: Warm and IV/Catheter Site;
Neuro: Awake, AO x 3, she followed commands.
Psych: Calm and Intact Judgment/Insight
#Recurrent malignant LARGE Right-sided PLEURAL EFFUSION concern for malignant pleural effusion
#Hx of Right pleural effusion small�moderate 08/04/2024
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
CXR on admission: Progressive massive right pleural effusion.
not hypoxic on room air
For thoracentesis , s/p ultrasound-guided thoracentesis, yielding 2000 cc of clear yellow pleural fluid on 09/16.
Chest US is resulted, will d/w Dr Elliott
# Metastatic breast cancer. ER/CO negative
Primary oncologist Dr Benito
d/w oncology, trial of olaparib in OP.
# chronic anemia
# Moderate to severe protein calorie malnutrition. I think anasarca is contributing to her weight more than actual muscle bulk.
#Anasarca
Edema to right upper extremity, breast, and bilateral lower extremities (patient reports present since 07/2024)
#hypertension
stable
#hypoglycemia
Glucose 116
#fibromyalgia
#neuropathy
no current medications
#spinal cord injury/TBI 1990
#Recent right lower extremity cellulitis treated , finished Tx.
Total time spent to see the patient on the floor, examine the patient, review data and lab results, discuss treatment plan with patient, nursing staff around 45 minutes.
Anticipated Discharge: > 48 hours
Subjective/Interval History
-
Date of Service: September 19, 2024
No chest pain
No sob
No nausea
Objective Data
-
Vital Signs:
Vital Signs
Temp Pulse Resp BP Pulse Ox
98.0 F 87 18 114/54 97
09/19/24 08:09 09/19/24 08:09 09/19/24 08:09 09/19/24 08:09 09/19/24 08:09
I&O
09/18/24 09/19/24 09/20/24
06:59 06:59 06:59
Intake Total 1200 / 1200 1020 / 1020
Balance 1200 / 1200 1020 / 1020
--- NOTE | 2024-09-19 12:10 | W.PN.PUL3 ---
Today's Communication / Plan
-
Repeat Chest US in AM
IRad consult for ASEPT placement
Home o2 eval--likely will need set up
PT/OT, encouraged OOB
Assessment
-
Patient is a 74-year-old female with previous history of recurrent right-sided malignant pleural effusion, metastatic breast cancer, hypertension, fibromyalgia, neuropathy presenting to ER for evaluation of increased shortness of breath and cough
for the past few days. She was recently discharged on 1121 with large right-sided pleural effusion and underwent thoracentesis at that time. She was notably hypoxemic into the 70s at the facility and placed on 2 L. Chest x-ray demonstrating
recurrent right-sided pleural effusion. We are consulted for eval 09/16/24.
Recurrent R pleural effusion s/p thora 09/16/24
Progressive SOB
Conditions present prior to admission
Recurrent right-sided malignant pleural effusion + CytoPath on 08/26/24
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
Diffuse anasarca
Hypertension
Fibromyalgia
Neuropathy
Spinal cord injury/TBI 1990
Recent history of right lower extremity cellulitis treated with outpatient Keflex
Plan
No oxygen was needed on admission, currently saturating >90% on RA
Prior history of lung disease is noted including recurrent malignant effusion
CXR/CT obtained indicating recurrrence
Other imaging reviewed
s/p thora 09/16/24, prior thora on 08/26/24 with + cytopath
She is now agreeable to ASEPT placement, will consult IRAD
Repeat CXR showing reaccumulation this AM, but pocket still may be too small for placement
Chest US seems small as well
Can reimage in next 24-48 hours to determine best timing
Prior ECHO results are reviewed indicating preserved function
This is unlikely to resolve with diuresis
She has appt with Dr Benito on Mon and would like to keep her appt
We can plan to repeat her CXR in AM to evaluate her fluid
If negative, can discharge for OP FU--will discuss with care team
Will need outpatient pulmonary evaluation in our office for PFTs and 6MWT
Reviewed with patient
Diagnostic Data
Chest X-Ray: 09/16/24- No pneumothorax post right thoracentesis.
09/15/24- Progressive massive right pleural effusion.
CT Scan: AP 08/24/24- Large right pleural effusion. Progressed. Findings suggesting moderate volume overload or third spacing. Progressed. Bilateral too small to characterize hypodense renal lesions likely benign cysts. New. Mild retroperitoneal
and left inguinal lymphadenopathy. Nonspecific. Clinical and laboratory correlation recommended. This could further be evaluated by PET imaging if indicated clinically. Moderate T12 and mild L1 compression fractures.
CHEST 07/31/24- 1. Significant body wall edema involving the visualized portion of the right upper extremity, right axilla, right chest wall, and right breast.
2. Pathologic lymphadenopathy within the right axilla, left axilla, mediastinum, lower neck, and both supraclavicular regions.
3. Overall, findings may be related to severe cellulitis/infectious process, however given the pronounced lymphadenopathy, findings are more likely to represent malignant process such as lymphoma or metastatic disease.
4. Small right pleural effusion. Mild right basilar airspace consolidation, which may be related to subsegmental atelectasis or pneumonia.
5. Bilateral breast skin thickening, raising concern for infiltrative breast carcinoma. Breasts are incompletely imaged. Mammographic workup is suggested.
6. Right thyroid nodule. Consider further workup with nonemergent thyroid ultrasound.
Echo: 08/01/24- 1. Left ventricle: Normal size and function with an estimated ejection fraction of 55-60%
2. Right ventricle: Normal
3. Atria: Normal
4. Mitral valve: Normal
5. Aortic valve: Normal
6. Tricuspid valve: Mild tricuspid regurgitation with estimated pulmonary artery systolic pressures of 30-35 mmHg
7. No prior studies for comparison
PFT's:
Reports and relevant images were personally reviewed.
Total time spent on this encounter __35__ minutes which includes review of history, physical exam, medications, laboratory data, personal review of imaging, extensive review of outpatient records, discussion with care team and respiratory therapy.
Subjective Data
-
Date of Service:
Date of Service: September 19, 2024
Chief Complaint: Pulmonary Follow Up
Subjective:
No new complaints, stable on low O2
No events ON
Objective Data
Data Reviewed
Vital Signs / I&O / Oxygen:
Vital Signs
Temp Pulse Resp BP Pulse Ox
98.0 F 87 18 114/54 97
09/19/24 08:09 09/19/24 08:09 09/19/24 08:09 09/19/24 08:09 09/19/24 08:09
Intake and Output
09/18/24 09/19/24 09/20/24
06:59 06:59 06:59
Intake Total 1200 / 1200 1020 / 1020
Balance 1200 / 1200 1020 / 1020
SaO2 97
Nasal Cannula flow liters per 2
minute
Physical Exam
General: Comfortable and Other (NAD)
HEENT: Normocephalic, Anicteric and Moist Mucous Membranes
Cardiovascular: S1-S2, Regular Rhythm and Peripheral Edema (diffuse, RUE/bilateral LEs)
Respiratory: Clear, Non-Labored Respirations and Other (decreased at R base)
GI: Soft, Non Distended and Non Tender
Neurology: Awake, Alert, Oriented and No Motor Deficits
Skin: Warm, Dry and Good Color
Labs/Micro/Reports
Lab Data
09/18/24 05:46
09/18/24 05:46
--- NOTE | 2024-09-19 14:11 | PN.CDI ---
Addendum entered and electronically signed by Clau Olsen MD 09/19/24 14:49:
Severe Malnutrition is present and is a clinical diagnosis + muscle loss over temporal severity-severe
Original Note:
CDI
- -
CDI:
Physician Documentation Request
Admit Date: 09/15/24 15:39
Dear Doctor Pretty,
09/17-09/19 progress notes contain a diagnosis of 'Moderate to severe protein calorie malnutrition. I think anasarca is contributing to her weight more than actual muscle bulk'
RD note and assessment 09/18 states 'Met with patient. Patient eats a 'clean'diet. It is high in vegetable, pea protein, some animal protein, no caffeine and no while sugar, no alcohol. Appetite is normally good. Her weight is variable due to fluid
retention/loss. She has no concerns with chewing or swallowing.... Assessment - muscle loss over temporal severity-severe'
To ensure the quality of the medical record, based on the above information and the recognized standards for malnutrition , could you please verify in your progress notes which of the following responses best reflects the patient's nutritional
status:
Severe Malnutrition is/was present and is a clinical diagnosis (please provide additional support in the medical record)
Moderate Malnutrition is/was present and is a clinical diagnosis (please provide additional support in the medical record)
No nutritional deficiency
Other (please specify)
[place] Criteria ([employer] Hospitalist 2017)
2 or more criteria must be present for either
non severe or severe malnutrition
Note that the criteria differs related to the
presence of an acute or chronic illness
Acute Illness Chronic Illness
Energy Intake Non Severe: <75% for >7 days Non Severe: <75% for >1 month
Severe: <50% for >5 days Severe: <75% for >1 month
Weight Loss Non Severe: 1-2% over 1 week Non Severe: 5% over 1 month
5% over 1 month 7.5% over 3 months
7.5% over 3 months 10% over 6 months
1 year N/A 20% over 1 year
Severe: >2% over 1 week Severe: >5% over 1 month
>5% over 1 month >7.5% over 3 months
>7.5% over 3 months >10% over 6 months
1 year N/A >20% over 1 year
Body Fat Non Severe: Mild Decrease Non Severe: Mild Loss
Severe: Moderate Decrease Severe: Severe Loss
Muscle Mass Non Severe: Mild Decrease Non Severe: Mild Loss
Severe: Moderate Decrease Severe: Severe Loss
Fluid Accumulation Non Severe: Mild Accumulation Non Severe: Mild Accumulation
Severe: Moderate to severe Severe: Moderate to severe
accumulation accumulation
Reduced Pile Driver Operator Barge Mounted Strength Non Severe: N/A Non Severe: N/A
Severe: Measurably reduced Severe: Measurably reduced
Use of terms such as suspected, likely, concern for, or probable (associated with a specific diagnosis that is being evaluated, monitored, or treated as if it exists) are acceptable and can be coded in the inpatient setting, when documented at the
time of discharge.
Thank you,
Nurys Villanueva RN, BSN
CDI Specialist
tiger text
Please use your independent medical judgment in providing your response.
--- NOTE | 2024-09-19 14:34 | WOUNDNOTE ---
LEFT MEDIAL LEG
--- NOTE | 2024-09-19 14:35 | WOUNDNOTE ---
BUTTOCK SKIN FOLDS
--- NOTE | 2024-09-19 14:55 | WOUNDNOTE ---
[facility] RN note: Patient admitted with SOB/pleural effusion, newly diagnosed with breast cancer with cutaneous involvement.
See H&P for complete history.
PMH: Per Physician note: Recurrent malignant LARGE Right-sided PLEURAL EFFUSION concern for malignant pleural effusion
Hx of Right pleural effusion small�moderate 08/04/2024, Recent Diagnosis of poorly differentiated carcinoma to lymph nodes in right supraclavicular area on 08/16/2024, CXR on admission: Progressive massive right pleural effusion, chronic anemia,
moderate to severe protein calorie malnutrition, anasarca, HTN, fibromyalgia, Recent right lower extremity cellulitis treated , finished Tx.
Wound Location and type/assessment: Patient admitted with malignant skin changes to right breast, axilla and back. Skin is tender and tight and patient unable to lift arm during assessment. No drainage noted. Dry skin, with some fissures and
raised patches noted anterior and posterior arm. Fungal appearing skin also noted. Patient declines use of pain medication at this time. Desenex currently ordered for fungal appearing skin. Patient also admitted with multiple scattered open stage 2
PI of buttocks. These wounds appeared to have improved since prior admission. Patient reports open blister on left leg that is now open and draining. Patient wearing tubi-emergency specialist to right leg and stopped wearing tubi-emergency specialist on left when blister appeared.
Patient with + palpable left pedal pulse. Patient is able to stand with cane and pivot self but is limited by pain, especially of right arm. Bilateral heels are intact.
Appetite: Fair, protein calorie malnutrition as ordered.
Pressure redistribution devices in place: Versa Care Air, air cushion to chair
Plan: Will recommend Aquaphor to dry skin on arm/back as tolerated. Continue with Desenex powder BID. Local wound care provided to buttocks and and left medial leg wound. Tubi emergency specialist to left lower leg. Instructed patient to change position in
chair/bed frequently. Will confirm orders with hospitalist and update nurse.
Updated care plan and will follow as needed.
Note to case management of equipment requested for discharge:
Recommend follow up at wound care center upon discharge.
[2024-09-19] MEDS: HYDROPHOR 1 APPLIC TOPICAL (15:37)
--- NOTE | 2024-09-19 15:55 | CM ---
Pt [place] be [place] [address] [place] [id number].
Awaiting home oxygen test.
Emilie requested [facility] [phone].
Pt had thoracentesis. IR consulted Possible Acept cath at [place].
Oncology involved.
Explained private care givers need to be set up by family.nanny caregiver list given.
Dgt said some one will be with pt till care givers established.
PLAN Home with [facility] and DME
[2024-09-19 16:03] VITALS: BP 104/55
[2024-09-19] MEDS: LOVENOX 40 MG SC (18:11)
[2024-09-19 23:34] VITALS: BP 115/57
[2024-09-20 07:15] VITALS: BP 127/61
--- NOTE | 2024-09-20 08:10 | W.PN.HOSP.TC ---
Today's Communication/Plan
-
Chest US, possible ASEPT placement today
follow pulm/IR recs
eventual home O2 eval
Assessment / Plan
Assessment / Plan
Physical Exam
General: no significant distress
HEENT: Normocephalic, Moist mucous membranes, Atraumatic, PERRLA, [place] Conjunctivae, Nose Appears Normal and Ears Appear Normal
Respiratory: decreased breath sounds
Cardiac: S1/S2
GI: Soft, Non Tender, Non Distended and Normal Bowel Sounds;
Genito-urinary: clear urine
Musculoskeletal: edema and swelling RUE, edema in both LE
Skin: Warm and IV/Catheter Site;
Neuro: Awake, AO x 3, she followed commands.
Psych: Calm and Intact Judgment/Insight
Assessment:
#Recurrent malignant LARGE Right-sided PLEURAL EFFUSION concern for malignant pleural effusion
#Hx of Right pleural effusion small�moderate 08/04/2024
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
CXR on admission: Progressive massive right pleural effusion.
not hypoxic on room air
s/p ultrasound-guided thoracentesis 09/16, yielding 2000 cc of clear yellow pleural fluid on 09/16.
Awaiting todays Chest US to determine plan for possible ASEPT.
Follow pulmonary consult
#Metastatic breast cancer. ER/[place] negative
Primary oncologist Dr Benito
d/w oncology, trial of olaparib in OP.
#chronic anemia
#Moderate to severe protein calorie malnutrition. I think anasarca is contributing to her weight more than actual muscle bulk.
#Anasarca
Edema to right upper extremity, breast, and bilateral lower extremities (patient reports present since 07/2024)
#hypertension (essential)
stable
#hypoglycemia
Glucose 116
#fibromyalgia
#neuropathy
no current medications
#spinal cord injury/TBI 1990
#Recent right lower extremity cellulitis treated , finished Tx.
DVT ppx: Lovenox
Code: Full
Total time spent to see the patient on the floor, examine the patient, review data and lab results, discuss treatment plan with patient, nursing staff around 42 minutes.
Anticipated Discharge: Within 24 hours
Subjective/Interval History
-
Date of Service: September 20, 2024
no complaints
denies SOB
96% on RA
Objective Data
-
Vital Signs:
Vital Signs
Temp Pulse Resp BP Pulse Ox
97.5 F 88 18 127/61 96
09/20/24 07:15 09/20/24 07:15 09/20/24 07:15 09/20/24 07:15 09/20/24 07:15
I&O
09/19/24 09/20/24 09/21/24
06:59 06:59 06:59
Intake Total 1020 / 1020 960 / 960
Balance 1020 / 1020 960 / 960
Data Reviewed
-
Total Time Spent with Patient (in minutes): 42
Labs: Labs Reviewed by me
[2024-09-20] MEDS: HYDROPHOR 1 APPLIC TOPICAL (08:57)
[2024-09-20] MEDS: DESENEX/MITRAZOL/ZEASORB 1 APPLIC TOPICAL (08:58)
--- NOTE | 2024-09-20 10:24 | W.PN.PUL3 ---
Today's Communication / Plan
-
Not amenable for ASEPT placement, discussed case with care team
We will move forward with OP FU and interval thoracentesis if needed
Discharge planning per team otherwise
To follow up as OP for next steps
Assessment
-
Patient is a 74-year-old female with previous history of recurrent right-sided malignant pleural effusion, metastatic breast cancer, hypertension, fibromyalgia, neuropathy presenting to ER for evaluation of increased shortness of breath and cough
for the past few days. She was recently discharged on 1121 with large right-sided pleural effusion and underwent thoracentesis at that time. She was notably hypoxemic into the 70s at the facility and placed on 2 L. Chest x-ray demonstrating
recurrent right-sided pleural effusion. We are consulted for eval 09/16/24.
Recurrent R pleural effusion s/p thora 09/16/24
Progressive SOB
Conditions present prior to admission
Recurrent right-sided malignant pleural effusion + CytoPath on 08/26/24
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
Diffuse anasarca
Hypertension
Fibromyalgia
Neuropathy
Spinal cord injury/TBI 1990
Recent history of right lower extremity cellulitis treated with outpatient Keflex
Plan
No oxygen was needed on admission, currently saturating >90% on RA
Prior history of lung disease is noted including recurrent malignant effusion
CXR/CT obtained indicating recurrence
Other imaging reviewed
s/p thora 09/16/24, prior thora on 08/26/24 with + cytopath
She is now agreeable to ASEPT placement, IR consulted
Evaluation today showing patient unable to lift arm for placement, and skin with malodorous/rash (concern for infection)
ASEPT aborted, can perform thoras as OP when indicated
Discussed plan of care with team
Prior ECHO results are reviewed indicating preserved function
This is unlikely to resolve with diuresis
She has appt with Dr [place] on Wed and would like to keep her appt
Further OP management for cancer per [place]
Will need outpatient pulmonary evaluation in our office for PFTs and 6MWT
Reviewed with patient
Discharge planning per team
Diagnostic Data
Chest X-Ray: 09/16/24- No pneumothorax post right thoracentesis.
09/15/24- Progressive massive right pleural effusion.
CT Scan: AP 08/24/24- Large right pleural effusion. Progressed. Findings suggesting moderate volume overload or third spacing. Progressed. Bilateral too small to characterize hypodense renal lesions likely benign cysts. New. Mild retroperitoneal
and left inguinal lymphadenopathy. Nonspecific. Clinical and laboratory correlation recommended. This could further be evaluated by PET imaging if indicated clinically. Moderate T12 and mild L1 compression fractures.
CHEST 07/31/24- 1. Significant body wall edema involving the visualized portion of the right upper extremity, right axilla, right chest wall, and right breast.
2. Pathologic lymphadenopathy within the right axilla, left axilla, mediastinum, lower neck, and both supraclavicular regions.
3. Overall, findings may be related to severe cellulitis/infectious process, however given the pronounced lymphadenopathy, findings are more likely to represent malignant process such as lymphoma or metastatic disease.
4. Small right pleural effusion. Mild right basilar airspace consolidation, which may be related to subsegmental atelectasis or pneumonia.
5. Bilateral breast skin thickening, raising concern for infiltrative breast carcinoma. Breasts are incompletely imaged. Mammographic workup is suggested.
6. Right thyroid nodule. Consider further workup with nonemergent thyroid ultrasound.
Echo: 08/01/24- 1. Left ventricle: Normal size and function with an estimated ejection fraction of 55-60%
2. Right ventricle: Normal
3. Atria: Normal
4. Mitral valve: Normal
5. Aortic valve: Normal
6. Tricuspid valve: Mild tricuspid regurgitation with estimated pulmonary artery systolic pressures of 30-35 mmHg
7. No prior studies for comparison
PFT's:
Reports and relevant images were personally reviewed.
Total time spent on this encounter __35__ minutes which includes review of history, physical exam, medications, laboratory data, personal review of imaging, extensive review of outpatient records, discussion with care team and respiratory therapy.
Subjective Data
-
Date of Service:
Date of Service: September 20, 2024
Chief Complaint: Pulmonary Follow Up
Subjective:
No events ON, remains stable on Ra
No new complaints
Objective Data
Data Reviewed
Vital Signs / I&O / Oxygen:
Vital Signs
Temp Pulse Resp BP Pulse Ox
97.5 F 88 18 127/61 96
09/20/24 07:15 09/20/24 07:15 09/20/24 07:15 09/20/24 07:15 09/20/24 07:15
Intake and Output
09/19/24 09/20/24 09/21/24
06:59 06:59 06:59
Intake Total 1020 / 1020 960 / 960
Balance 1020 / 1020 960 / 960
SaO2 96
Nasal Cannula flow liters per 2
minute
Physical Exam
General: Comfortable and Other (NAD)
HEENT: Normocephalic, Anicteric and Moist Mucous Membranes
Cardiovascular: S1-S2, Regular Rhythm and Peripheral Edema (diffuse, RUE/bilateral LEs)
Respiratory: Clear, Non-Labored Respirations and Other (decreased at R base)
GI: Soft, Non Distended and Non Tender
Neurology: Awake, Alert, Oriented and No Motor Deficits
Skin: Warm, Dry, Good Color and Rash (diffuse on R side, malodorous)
Labs/Micro/Reports
Lab Data
09/18/24 05:46
09/18/24 05:46
[2024-09-20 15:15] VITALS: BP 107/60
--- NOTE | 2024-09-20 16:40 | CM ---
Pt will be moving [address] [place] [address]
Emilie dgt requested [facility] [phone].DME has been delivered to home.
Pt had thoracentesis in past. IR consulted Possible Acept cath at ne.
Oncology involved.
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
Dgt said some one will be with pt till care givers established.
PLAN Home with [facility] and DME
[2024-09-20] MEDS: LOVENOX 40 MG SC (18:06)
[2024-09-20] MEDS: DESENEX/MITRAZOL/ZEASORB TOPICAL (20:44)
[2024-09-21 00:09] VITALS: BP 114/53
[2024-09-21 08:00] VITALS: BP 114/56
[2024-09-21] MEDS: HYDROPHOR 1 APPLIC TOPICAL (08:27)
[2024-09-21] MEDS: DESENEX/MITRAZOL/ZEASORB TOPICAL ×2 (08:29→20:16)
[2024-09-21 12:37] LABS: Urine Albumin Trace (Neg - Trace); Urine Bilirubin Negative (Negative); Urine Character Very Cloudy (Clear); Urine Color Yellow; Urine Glucose Negative (Negative); Urine Ketone Negative (Negative); Urine Leukocyte Negative (Negative); Urine Nitrite Negative (Negative); Urine Occult Blood Negative (Negative); Urine Specific Gravity 1.015 (<1.030); Urine Urobilinogen Negative (Neg - 1+)
--- NOTE | 2024-09-21 13:28 | W.PN.HOSP.TC ---
Today's Communication/Plan
-
Trial of Tramadol for pain
Chest x ray on Monday for possible thoracentesis
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
Assessment / Plan
Assessment / Plan
Physical Exam
General: no significant distress
HEENT: Normocephalic, Moist mucous membranes, Atraumatic, PERRLA, [place] Conjunctivae, Nose Appears Normal and Ears Appear Normal
Respiratory: decreased breath sounds
Cardiac: S1/S2
GI: Soft, Non Tender, Non Distended and Normal Bowel Sounds;
Genito-urinary: clear urine
Musculoskeletal: edema and swelling RUE, edema in both LE
Skin: Warm and IV/Catheter Site;
Neuro: Awake, AO x 3, she followed commands.
Psych: Calm and Intact Judgment/Insight
Assessment:
#Recurrent malignant LARGE Right-sided PLEURAL EFFUSION concern for malignant pleural effusion
#Hx of Right pleural effusion small�moderate 08/04/2024
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
CXR on admission: Progressive massive right pleural effusion.
not hypoxic on room air
s/p ultrasound-guided thoracentesis 09/16, yielding 2000 cc of clear yellow pleural fluid on 09/16.
Repeat chest US did not show enough fluid to place ASEPT catheter
# Skin changes around the right shoulder
Scaling, flaking skin, redness, no itching, possible cancer involvement.
#Metastatic breast cancer. ER/[place] negative
Primary oncologist Dr Benito
d/w oncology, trial of olaparib in OP.
# Pain in right arm
d/w pt, c/w PRN Tylenol, agreed to try Tramadol.
#chronic anemia of malignancy
#Moderate to severe protein calorie malnutrition. I think anasarca is contributing to her weight more than actual muscle bulk.
#Anasarca
Edema to right upper extremity, breast, and bilateral lower extremities (patient reports present since 07/2024)
#hypertension (essential)
stable
#hypoglycemia
Resolved.
#fibromyalgia
#neuropathy
#spinal cord injury/TBI 1990
#Recent right lower extremity cellulitis treated , finished Tx.
DVT ppx: Lovenox
Code: Full
Total time spent to see the patient on the floor, examine the patient, review data and lab results, discuss treatment plan with patient, nursing staff around 57 minutes.
Anticipated Discharge: 24 - 48 hours
Subjective/Interval History
-
Date of Service: September 21, 2024
She reports right arm pain at times, would like to try pain medicine
No fevers
No worsening sob
Objective Data
-
Vital Signs:
Vital Signs
Temp Pulse Resp BP Pulse Ox
97.0 F 84 16 114/56 98
09/21/24 08:00 09/21/24 08:00 09/21/24 08:00 09/21/24 08:00 09/21/24 08:00
I&O
09/20/24 09/21/24 09/22/24
06:59 06:59 06:59
Intake Total 960 / 960 1200 / 1200
Balance 960 / 960 1200 / 1200
[2024-09-21 16:00] VITALS: BP 112/56
--- NOTE | 2024-09-21 16:29 | W.PN.PUL3 ---
Today's Communication / Plan
-
KRYSTEN catheter on hold will be addressed in the outpatient setting
Agree with chest x-ray on Monday and if there is rapid recommendation thoracentesis prior to discharge
Will see again on Monday
Assessment
-
Patient is a 74-year-old female with previous history of recurrent right-sided malignant pleural effusion, metastatic breast cancer, hypertension, fibromyalgia, neuropathy presenting to ER for evaluation of increased shortness of breath and cough
for the past few days. She was recently discharged on 1121 with large right-sided pleural effusion and underwent thoracentesis at that time. She was notably hypoxemic into the 70s at the facility and placed on 2 L. Chest x-ray demonstrating
recurrent right-sided pleural effusion. We are consulted for eval 09/16/24.
Recurrent R pleural effusion s/p thora 09/16/24
Progressive SOB
Conditions present prior to admission
Recurrent right-sided malignant pleural effusion + CytoPath on 08/26/24
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
Diffuse anasarca
Hypertension
Fibromyalgia
Neuropathy
Spinal cord injury/TBI 1990
Recent history of right lower extremity cellulitis treated with outpatient Keflex
Plan
No oxygen was needed on admission, currently saturating >90% on RA
Recurrent malignant effusion
CXR/CT obtained indicating recurrence
Other imaging reviewed
s/p thora 09/16/24, prior thora on 08/26/24 with + cytopath
She is now agreeable to ASEPT placement, IR consulted
Evaluation today showing patient unable to lift arm for placement, and skin with malodorous/rash (concern for infection)
ASEPT aborted, can perform thoras as OP when indicated
Chest x-ray to be repeated in the short-term, if enlarging pleural effusion and symptoms agree with thoracentesis and then discharge.
Prior ECHO results are reviewed indicating preserved function
This is unlikely to resolve with diuresis
She has appt with Dr Benito on Mon and would like to keep her appt
Further OP management for cancer per [place]
Will need outpatient pulmonary evaluation in our office for PFTs and 6MWT
Reviewed with patient
Discharge planning per team
Diagnostic Data
Chest X-Ray: 09/16/24- No pneumothorax post right thoracentesis.
09/15/24- Progressive massive right pleural effusion.
CT Scan: AP 08/24/24- Large right pleural effusion. Progressed. Findings suggesting moderate volume overload or third spacing. Progressed. Bilateral too small to characterize hypodense renal lesions likely benign cysts. New. Mild retroperitoneal
and left inguinal lymphadenopathy. Nonspecific. Clinical and laboratory correlation recommended. This could further be evaluated by PET imaging if indicated clinically. Moderate T12 and mild L1 compression fractures.
CHEST 07/31/24- 1. Significant body wall edema involving the visualized portion of the right upper extremity, right axilla, right chest wall, and right breast.
2. Pathologic lymphadenopathy within the right axilla, left axilla, mediastinum, lower neck, and both supraclavicular regions.
3. Overall, findings may be related to severe cellulitis/infectious process, however given the pronounced lymphadenopathy, findings are more likely to represent malignant process such as lymphoma or metastatic disease.
4. Small right pleural effusion. Mild right basilar airspace consolidation, which may be related to subsegmental atelectasis or pneumonia.
5. Bilateral breast skin thickening, raising concern for infiltrative breast carcinoma. Breasts are incompletely imaged. Mammographic workup is suggested.
6. Right thyroid nodule. Consider further workup with nonemergent thyroid ultrasound.
Echo: 08/01/24- 1. Left ventricle: Normal size and function with an estimated ejection fraction of 55-60%
2. Right ventricle: Normal
3. Atria: Normal
4. Mitral valve: Normal
5. Aortic valve: Normal
6. Tricuspid valve: Mild tricuspid regurgitation with estimated pulmonary artery systolic pressures of 30-35 mmHg
7. No prior studies for comparison
PFT's:
Reports and relevant images were personally reviewed.
Subjective Data
-
Date of Service:
Date of Service: September 21, 2024
Chief Complaint: Pulmonary Follow Up
Subjective:
No new pulmonary complaints
Review of Systems
General: Fever (n) and Pain
Cardiopulmonary: Dyspnea and Dyspnea on Exertion
Objective Data
Data Reviewed
Vital Signs / I&O / Oxygen:
Vital Signs
Temp Pulse Resp BP Pulse Ox
97.0 F 84 16 114/56 98
09/21/24 08:00 09/21/24 08:00 09/21/24 08:00 09/21/24 08:00 09/21/24 08:00
Intake and Output
09/20/24 09/21/24 09/22/24
06:59 06:59 06:59
Intake Total 960 / 960 1200 / 1200
Balance 960 / 960 1200 / 1200
SaO2 98
Nasal Cannula flow liters per 2
minute
Physical Exam
General: Comfortable and Other (NAD)
HEENT: Normocephalic, Anicteric and Moist Mucous Membranes
Cardiovascular: S1-S2, Regular Rhythm and Peripheral Edema (diffuse, RUE/bilateral LEs)
Respiratory: Clear, Non-Labored Respirations and Other (decreased at R base)
GI: Soft, Non Distended and Non Tender
Neurology: Awake, Alert, Oriented and No Motor Deficits
Skin: Warm, Dry, Good Color and Rash (diffuse on R side, malodorous)
Labs/Micro/Reports
Lab Data
09/18/24 05:46
09/18/24 05:46
[2024-09-21] MEDS: LOVENOX 40 MG SC (18:12)
[2024-09-21] MEDS: ULTRAM 25 MG PO (22:22)
[2024-09-21 23:20] VITALS: BP 111/59
[2024-09-22 07:55] VITALS: BP 110/57
[2024-09-22] MEDS: HYDROPHOR 1 APPLIC TOPICAL (08:50)
[2024-09-22] MEDS: DESENEX/MITRAZOL/ZEASORB TOPICAL ×2 (08:50→20:16)
--- NOTE | 2024-09-22 09:46 | W.PN.HOSP.TC ---
Today's Communication/Plan
-
Chest x ray in am
Assessment / Plan
Assessment / Plan
Physical Exam
General: no significant distress
HEENT: Normocephalic, Moist mucous membranes, Atraumatic, PERRLA, [place] Conjunctivae, Nose Appears Normal and Ears Appear Normal
Respiratory: decreased breath sounds
Cardiac: S1/S2
GI: Soft, Non Tender, Non Distended and Normal Bowel Sounds;
Genito-urinary: clear urine
Musculoskeletal: edema and swelling RUE, edema in both LE
Skin: Warm and IV/Catheter Site;
Neuro: Awake, AO x 3, she followed commands.
Psych: Calm and Intact Judgment/Insight
Assessment:
#Recurrent malignant LARGE Right-sided PLEURAL EFFUSION concern for malignant pleural effusion
#Hx of Right pleural effusion small�moderate 08/04/2024
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
CXR on admission: Progressive massive right pleural effusion.
s/p ultrasound-guided thoracentesis 09/16, yielding 2000 cc of clear yellow pleural fluid on 09/16.
Repeat chest US did not show enough fluid to place ASEPT catheter
Chest x ray in am, she might need thoracentesis before discharge
# Skin changes around the right shoulder/ right side of trunk
Scaling, flaking skin, hardening, redness, no itching, likely due to cancer involvement.
#Metastatic breast cancer. ER/[place] negative
Primary oncologist Dr Benito
d/w oncology, trial of olaparib in OP.
# Pain in right arm
d/w pt, c/w PRN Tylenol, agreed to try Tramadol.
#chronic anemia of malignancy
#Moderate to severe protein calorie malnutrition. I think anasarca is contributing to her weight more than actual muscle bulk.
#Anasarca
Edema to right upper extremity, breast, and bilateral lower extremities (patient reports present since 07/2024)
#hypertension (essential)
stable
#hypoglycemia
Resolved.
#fibromyalgia
#neuropathy
#spinal cord injury/TBI 1990
#Recent right lower extremity cellulitis treated , finished Tx.
DVT ppx: Lovenox
Code: Full
Total time spent to see the patient on the floor, examine the patient, review data and lab results, discuss treatment plan with patient, nursing staff around 45 minutes.
Anticipated Discharge: > 48 hours
Subjective/Interval History
-
Date of Service: September 22, 2024
tramadol helped with right arm pain
Objective Data
-
Vital Signs:
Vital Signs
Temp Pulse Resp BP Pulse Ox
97.9 F 86 18 110/57 97
09/22/24 07:55 09/22/24 07:55 09/22/24 07:55 09/22/24 07:55 09/22/24 07:55
I&O
09/21/24 09/22/24 09/23/24
06:59 06:59 06:59
Intake Total 1200 / 1200 820 / 820
Balance 1200 / 1200 820 / 820
[2024-09-22 15:29] VITALS: BP 112/58
[2024-09-22 15:56] VITALS: BP 126/61; PULSE 86; O2SAT 97
[2024-09-22] MEDS: LOVENOX 40 MG SC (17:51)
[2024-09-22] MEDS: ULTRAM 25 MG PO (22:02)
[2024-09-22 23:20] VITALS: BP 111/58
[2024-09-23 07:43] VITALS: BP 120/66
--- NOTE | 2024-09-23 09:10 | W.PN.PUL.V3 ---
Today's Communication / Plan
-
Chest x-ray with increasing pleural effusion
Interventional radiology consulted for repeat thoracentesis
Eventual Pleurx/Asept catheter placement
Outpatient oncological follow-up
Assessment
-
Patient is a 74-year-old female with previous history of recurrent right-sided malignant pleural effusion, metastatic breast cancer, hypertension, fibromyalgia, neuropathy presenting to ER for evaluation of increased shortness of breath and cough
for the past few days. She was recently discharged on 1121 with large right-sided pleural effusion and underwent thoracentesis at that time. She was notably hypoxemic into the 70s at the facility and placed on 2 L. Chest x-ray demonstrating
recurrent right-sided pleural effusion. We are consulted for eval 09/16/24.
Recurrent malignant R pleural effusion s/p thora 09/16/24 as well as 08/26/2024
Progressive SOB
Conditions present prior to admission:
Recurrent right-sided malignant pleural effusion + CytoPath on 08/26/24-poorly differentiated carcinoma-morphology similar to those of previous left supraclavicular lymph node biopsy
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
Diffuse anasarca
Hypertension
Fibromyalgia
Neuropathy
Spinal cord injury/TBI 1990
Recent history of right lower extremity cellulitis treated with outpatient Keflex
Plan
Respiratory status still somewhat tenuous
Supplemental oxygen as needed
Assess discharge supplemental oxygen needs prior to discharge
Aspiration precautions
Incentive spirometry
Chest x-ray 09/23/2024-moderate to large right pleural effusion significantly increased since prior exam on 09/17/2024
Repeat [id number]. Szekely consulted interventional radiology-call placed as well as consult
She is now agreeable to ASEPT placement, IR consulted
Subsequent evaluation showing patient unable to lift arm for placement, and skin with malodorous/rash (concern for infection)
ASEPT aborted, can perform thoras as OP when indicated
Gentle diuresis
Prior echocardiograms with preserved function
Pleural effusion unlikely to resolve with diuresis
DVT prophylaxis-on Lovenox
She has appt with Dr Benito on Mon and would like to keep her appt
Further OP management for cancer per [place]
Will need outpatient pulmonary evaluation in our office for PFTs and 6MWT
Diagnostic Data
Chest X-Ray: 09/16/24- No pneumothorax post right thoracentesis.
09/15/24- Progressive massive right pleural effusion.
CT Scan: AP 08/24/24- Large right pleural effusion. Progressed. Findings suggesting moderate volume overload or third spacing. Progressed. Bilateral too small to characterize hypodense renal lesions likely benign cysts. New. Mild retroperitoneal
and left inguinal lymphadenopathy. Nonspecific. Clinical and laboratory correlation recommended. This could further be evaluated by PET imaging if indicated clinically. Moderate T12 and mild L1 compression fractures.
CHEST 07/31/24- 1. Significant body wall edema involving the visualized portion of the right upper extremity, right axilla, right chest wall, and right breast.
2. Pathologic lymphadenopathy within the right axilla, left axilla, mediastinum, lower neck, and both supraclavicular regions.
3. Overall, findings may be related to severe cellulitis/infectious process, however given the pronounced lymphadenopathy, findings are more likely to represent malignant process such as lymphoma or metastatic disease.
4. Small right pleural effusion. Mild right basilar airspace consolidation, which may be related to subsegmental atelectasis or pneumonia.
5. Bilateral breast skin thickening, raising concern for infiltrative breast carcinoma. Breasts are incompletely imaged. Mammographic workup is suggested.
6. Right thyroid nodule. Consider further workup with nonemergent thyroid ultrasound.
Echo: 08/01/24- 1. Left ventricle: Normal size and function with an estimated ejection fraction of 55-60%
2. Right ventricle: Normal
3. Atria: Normal
4. Mitral valve: Normal
5. Aortic valve: Normal
6. Tricuspid valve: Mild tricuspid regurgitation with estimated pulmonary artery systolic pressures of 30-35 mmHg
7. No prior studies for comparison
PFT's:
Reports and relevant images were personally reviewed.
Subjective Data
-
Date of Service:
Date of Service: September 23, 2024
Chief Complaint: Pulmonary Follow Up and Dyspnea Follow Up
Subjective:
Feels about the same, some shortness of breath with minimal exertion, no chest pain, out of bed in chair, no abdominal pain
Review of Systems
General: Other (Per HPI)
Objective Data
Data Reviewed
Vital Signs / I&O:
Vital Signs
Temp Pulse Resp BP Pulse Ox
97.8 F 86 16 120/66 98
09/23/24 07:43 09/23/24 07:43 09/23/24 07:43 09/23/24 07:43 09/23/24 07:43
Intake and Output
09/22/24 09/23/24 09/24/24
06:59 06:59 06:59
Intake Total 820 / 820 960 / 960
Balance 820 / 820 960 / 960
SaO2: 98
Nasal Cannula flow liters per minute: 2
Physical Exam
General: Respiratory Distress (n), Comfortable and Other (NAD)
HEENT: Normocephalic, Anicteric and Moist Mucous Membranes
Cardiovascular: S1-S2, Regular Rhythm and Peripheral Edema (diffuse, RUE/bilateral LEs)
Respiratory: Clear (Diminished breath sounds at the base), Non-Labored Respirations, Accessory Resp Muscle Use (n) and Other (decreased at R base)
GI: Soft, Non Distended and Non Tender
Neurology: Awake, Alert and No Motor Deficits
Skin: Warm, Dry, Cyanosis (n) and Rash (diffuse on R side, malodorous)
Labs/Micro/Reports
Lab Data
09/18/24 05:46
09/18/24 05:46
[2024-09-23 11:44] LABS: COVID-19 Antigen Negative (Negative)
--- NOTE | 2024-09-23 12:33 | W.PN.HOSP.TC ---
Today's Communication/Plan
-
IRAD for thora
covid negative
Assessment / Plan
Assessment / Plan
Physical Exam
General: no significant distress
HEENT: Normocephalic, Moist mucous membranes, Atraumatic, PERRLA, [place] Conjunctivae, Nose Appears Normal and Ears Appear Normal
Respiratory: decreased breath sounds R>L
Cardiac: S1/S2
GI: Soft, Non Tender, Non Distended and Normal Bowel Sounds;
Genito-urinary: clear urine
Musculoskeletal: edema and swelling RUE, edema in both LE
Skin: Warm and IV/Catheter Site;
Neuro: Awake, AO x 3, she followed commands.
Psych: Calm and Intact Judgment/Insight
Assessment:
#Recurrent malignant LARGE Right-sided PLEURAL EFFUSION concern for malignant pleural effusion
#Hx of Right pleural effusion small�moderate 08/04/2024
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
CXR on admission: Progressive massive right pleural effusion.
s/p ultrasound-guided thoracentesis 09/16, yielding 2000 cc of clear yellow pleural fluid on 09/16.
Repeat chest US did not show enough fluid to place ASEPT catheter
Chest x ray on 09/23/24-Moderate to large right pleural effusion, significantly increasing since examination of September 17, 2024.
Pulm c/s IRAD consulted for therapeutic thoracentesis
Pulm following.
#COVID exposure (roommate positive for COVID)
COVID day 1 negative.
COVID day 3 and 5 testing ordered
# Skin changes around the right shoulder/ right side of trunk
Scaling, flaking skin, hardening, redness, no itching, likely due to cancer involvement.
#Metastatic breast cancer. ER/[place] negative
Primary oncologist Dr Benito
d/w oncology, trial of olaparib in OP.
# Pain in right arm
d/w pt, c/w PRN Tylenol, agreed to try Tramadol.
#chronic anemia of malignancy
#Moderate to severe protein calorie malnutrition. I think anasarca is contributing to her weight more than actual muscle bulk.
#Anasarca
Edema to right upper extremity, breast, and bilateral lower extremities (patient reports present since 07/2024)
#hypertension (essential)
stable
#hypoglycemia
Resolved.
#fibromyalgia
#neuropathy
#spinal cord injury/TBI 1990
#Recent right lower extremity cellulitis treated , finished Tx.
DVT ppx: Lovenox
Code: Full
Anticipated Discharge: Within 24 hours
Subjective/Interval History
-
Date of Service: September 23, 2024
states feeling sob
Objective Data
-
Vital Signs:
Vital Signs
Temp Pulse Resp BP Pulse Ox
97.8 F 86 16 120/66 98
09/23/24 07:43 09/23/24 07:43 09/23/24 07:43 09/23/24 07:43 09/23/24 09:10
I&O
09/22/24 09/23/24 09/24/24
06:59 06:59 06:59
Intake Total 820 / 820 960 / 960
Balance 820 / 820 960 / 960
[2024-09-23 12:41] VITALS: BP 121/57; BP_SYST 96
[2024-09-23 13:02] VITALS: BP 103/53
[2024-09-23] MEDS: HYDROPHOR 1 APPLIC TOPICAL (14:27)
[2024-09-23] MEDS: DESENEX/MITRAZOL/ZEASORB 1 APPLIC TOPICAL (14:27)
--- NOTE | 2024-09-23 16:01 | CM ---
Pt had thoracentesis today.
Pt continues with oxygen supp need.
Pt will be moving [address] [place] [id number]
Emilie umana requested [facility] [phone].DME has been delivered to home.
IR consulted Possible A[place]pt cath [place].
Oncology involved.
Dgt said some one will be with pt till care givers established.
PLAN Home with [facility] and DME Possible asept cath
[2024-09-23 16:10] VITALS: BP 101/54
--- NOTE | 2024-09-23 16:22 | W.PN.ONC2 ---
Today's Communication / Plan
-
awaiting drug assistance program for olaparib
Impression
Impression
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
Malignant pleural effusion
BRCA2 mutation
Moderate to severe protein calorie malnutrition
Plan
Plan
olaparib (parp inhibitor, oral) for treatment of mTNBC with BRCA2 mutation insurance auth & drug delivery pending
Treatment will hopefully decrease pleural fluid accumulation, though it may take time
prn thoracentesis -Subsequent evaluation by pulmonology showing patient unable to lift arm for Asept placement, and skin with malodorous/rash
Subjective/Objective
Subjective
no new complaints
Vital Signs:
Vital Signs
Temp Pulse Resp BP Pulse Ox
98.1 F 95 16 101/54 100
09/23/24 16:10 09/23/24 16:10 09/23/24 16:10 09/23/24 16:10 09/23/24 16:10
Lab Results:
Laboratory Data
WBC 6.2 10^3/uL (4.8-10.8) 09/18/24 05:46
Hgb 10.7 g/dL (12.0-16.0) L 09/18/24 05:46
Plt Count 330 10^3/uL (130-400) 09/18/24 05:46
eGFR > 60.00 09/18/24 05:46
[2024-09-23] MEDS: LOVENOX 40 MG SC (17:14)
[2024-09-23] MEDS: DESENEX/MITRAZOL/ZEASORB TOPICAL (19:18)
[2024-09-23] MEDS: ULTRAM 25 MG PO (22:07)
[2024-09-23 23:50] VITALS: BP 111/54
[2024-09-24 07:55] VITALS: BP 120/54
[2024-09-24] MEDS: DESENEX/MITRAZOL/ZEASORB 1 APPLIC TOPICAL (08:45)
[2024-09-24] MEDS: HYDROPHOR 1 APPLIC TOPICAL (08:45)
--- NOTE | 2024-09-24 09:49 | W.PN.PUL.V3 ---
Today's Communication / Plan
-
Wean oxygen
Repeat thoracentesis when fluid reaccumulate's-follow symptomatically-if shortness of breath or exam change in chest x-ray and repeat thoracentesis as clinically indicated
Assessment
-
Patient is a 74-year-old female with previous history of recurrent right-sided malignant pleural effusion, metastatic breast cancer, hypertension, fibromyalgia, neuropathy presenting to ER for evaluation of increased shortness of breath and cough
for the past few days. She was recently discharged on 1121 with large right-sided pleural effusion and underwent thoracentesis at that time. She was notably hypoxemic into the 70s at the facility and placed on 2 L. Chest x-ray demonstrating
recurrent right-sided pleural effusion. We are consulted for eval 09/16/24.
Recurrent malignant R pleural effusion s/p thora 09/16/24 as well as 08/26/2024 and again on 09/23/2024
Progressive SOB
Protein calorie malnutrition
Conditions present prior to admission:
Recurrent right-sided malignant pleural effusion + CytoPath on 08/26/24-poorly differentiated carcinoma-morphology similar to those of previous left supraclavicular lymph node biopsy
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
Diffuse anasarca
Hypertension
Fibromyalgia
Neuropathy
Spinal cord injury/TBI 1990
Recent history of right lower extremity cellulitis treated with outpatient Keflex
Plan
Respiratory status improved after repeat thoracentesis
Supplemental oxygen as needed
Assess discharge supplemental oxygen needs prior to discharge
Aspiration precautions
Incentive spirometry
Chest x-ray 09/23/2024-moderate to large right pleural effusion significantly increased since prior exam on 09/17/2024
Repeat thoracentesis-09/23/24--1.4 L serous pleural fluid
She is now agreeable to ASEPT placement, however, unable to lift arm and malodorous and thus catheter not placed at this time-hopefully in the future she is willing and catheter can be placed
Reviewed with patient that she will undoubtedly have recurrent fairly rapid pleural fluid reaccumulation requiring repetitive right-sided thoracenteses-can be done as an outpatient
Pleurx/asept catheter can be placed in the outpatient setting as well
Gentle diuresis
Prior echocardiograms with preserved function
Pleural effusion unlikely to resolve with diuresis
DVT prophylaxis-on Lovenox
She has appt with Dr Benito on Mon and would like to keep her appt
Dr. Benito saw patient 09/24/2024-start Olaparib as soon as drug is available
Will need outpatient pulmonary evaluation in our office for PFTs and 6MWT
Diagnostic Data
Chest X-Ray: 09/16/24- No pneumothorax post right thoracentesis.
09/15/24- Progressive massive right pleural effusion.
CT Scan: AP 08/24/24- Large right pleural effusion. Progressed. Findings suggesting moderate volume overload or third spacing. Progressed. Bilateral too small to characterize hypodense renal lesions likely benign cysts. New. Mild retroperitoneal
and left inguinal lymphadenopathy. Nonspecific. Clinical and laboratory correlation recommended. This could further be evaluated by PET imaging if indicated clinically. Moderate T12 and mild L1 compression fractures.
CHEST 07/31/24- 1. Significant body wall edema involving the visualized portion of the right upper extremity, right axilla, right chest wall, and right breast.
2. Pathologic lymphadenopathy within the right axilla, left axilla, mediastinum, lower neck, and both supraclavicular regions.
3. Overall, findings may be related to severe cellulitis/infectious process, however given the pronounced lymphadenopathy, findings are more likely to represent malignant process such as lymphoma or metastatic disease.
4. Small right pleural effusion. Mild right basilar airspace consolidation, which may be related to subsegmental atelectasis or pneumonia.
5. Bilateral breast skin thickening, raising concern for infiltrative breast carcinoma. Breasts are incompletely imaged. Mammographic workup is suggested.
6. Right thyroid nodule. Consider further workup with nonemergent thyroid ultrasound.
Echo: 08/01/24- 1. Left ventricle: Normal size and function with an estimated ejection fraction of 55-60%
2. Right ventricle: Normal
3. Atria: Normal
4. Mitral valve: Normal
5. Aortic valve: Normal
6. Tricuspid valve: Mild tricuspid regurgitation with estimated pulmonary artery systolic pressures of 30-35 mmHg
7. No prior studies for comparison
PFT's:
Reports and relevant images were personally reviewed.
Subjective Data
-
Date of Service:
Date of Service: September 24, 2024
Chief Complaint: Pulmonary Follow Up and Dyspnea Follow Up
Subjective:
Placed into isolation because roommate was COVID positive, no complaints of increasing shortness of breath, feels relief after thoracentesis, no chest pain or abdominal pain
Review of Systems
General: Other (Per HPI)
Objective Data
Data Reviewed
Vital Signs / I&O:
Vital Signs
Temp Pulse Resp BP Pulse Ox
98.6 F 88 17 120/54 97
09/24/24 07:55 09/24/24 07:55 09/24/24 07:55 09/24/24 07:55 09/24/24 07:55
Intake and Output
09/23/24 09/24/24 09/25/24
06:59 06:59 06:59
Intake Total 960 / 960 1020 / 1020
Balance 960 / 960 1020 / 1020
SaO2: 97
Nasal Cannula flow liters per minute: 2
Physical Exam
General: Respiratory Distress (n), Comfortable and Other (NAD)
HEENT: Normocephalic, Anicteric and Moist Mucous Membranes
Cardiovascular: Regular Rhythm and Peripheral Edema (diffuse, RUE/bilateral LEs)
Respiratory: Clear (Diminished breath sounds at the right base), Non-Labored Respirations, Accessory Resp Muscle Use (n) and Other (decreased at R base)
GI: Soft, Non Distended and Non Tender
Neurology: Awake, Alert and No Motor Deficits
Skin: Warm, Dry, Cyanosis (n) and Rash (diffuse on R side, malodorous)
Labs/Micro/Reports
Lab Data
09/18/24 05:46
09/18/24 05:46
--- NOTE | 2024-09-24 10:11 | W.PN.ONC ---
Today's Communication / Plan
-
will start olaparib as soon as drug is available
mgmt of recurrent effusion per primary team/pulmonary
Impression
Impression
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
Malignant pleural effusion
BRCA2 mutation
Moderate to severe protein calorie malnutrition
Plan
Plan
olaparib (parp inhibitor, oral) for treatment of mTNBC with BRCA2 mutation insurance auth & drug delivery pending
Treatment will hopefully decrease pleural fluid accumulation, though it may take time
prn thoracentesis -Subsequent evaluation by pulmonology showing patient unable to lift arm for Asept placement, and skin with malodorous/rash
Subjective/Objective
Subjective/Objective
feeling better following thoracentesis yesterday
Vital Signs:
Vital Signs
Temp Pulse Resp BP Pulse Ox
98.6 F 88 17 120/54 97
09/24/24 07:55 09/24/24 07:55 09/24/24 07:55 09/24/24 07:55 09/24/24 09:49
Lab Results:
Laboratory Data
WBC 6.2 10^3/uL (4.8-10.8) 09/18/24 05:46
Hgb 10.7 g/dL (12.0-16.0) L 09/18/24 05:46
Plt Count 330 10^3/uL (130-400) 09/18/24 05:46
eGFR > 60.00 09/18/24 05:46
--- NOTE | 2024-09-24 12:16 | W.PN.HOSP.TC ---
Today's Communication/Plan
-
HOME O2 EVAL pending
start dispo
OOB/PT
covid exposure-repeat testing in am
Assessment / Plan
Assessment / Plan
Physical Exam
General: no significant distress
HEENT: Normocephalic, Moist mucous membranes, Atraumatic, [place] Conjunctivae, Nose Appears Normal and Ears Appear Normal
Respiratory: decreased breath sounds , oxygen 2L NC
Cardiac: S1/S2
GI: Soft, Non Tender, Non Distended and Normal Bowel Sounds;
Genito-urinary: clear urine
Musculoskeletal: edema and swelling RUE, edema in both LE
Skin: Warm and IV/Catheter Site;
Neuro: Awake, AO x 3, she followed commands.
Psych: Calm and Intact Judgment/Insight
Assessment:
#Recurrent malignant LARGE Right-sided PLEURAL EFFUSION concern for malignant pleural effusion
#Hx of Right pleural effusion small�moderate 08/04/2024
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
CXR on admission: Progressive massive right pleural effusion.
s/p ultrasound-guided thoracentesis 09/16, yielding 2000 cc of clear yellow pleural fluid on 09/16.
Repeat chest US did not show enough fluid to place ASEPT catheter
Chest x ray on 09/23/24-Moderate to large right pleural effusion, significantly increasing since examination of September 17, 2024.
s/p repeat thoracetnesis with 1400cc fluid removed on 09/23
Home o2 eval pending
Pulm following.
#COVID exposure (roommate positive for COVID)
COVID day 1 negative.
COVID day 3 and 5 testing ordered
# Skin changes around the right shoulder/ right side of trunk
Scaling, flaking skin, hardening, redness, no itching, likely due to cancer involvement.
#Metastatic breast cancer. ER/[place] negative
Primary oncologist Dr Val[place]
d/w oncology, trial of olaparib in OP.
# Pain in right arm
d/w pt, c/w PRN Tylenol, agreed to try Tramadol.
#chronic anemia of malignancy
#Moderate to severe protein calorie malnutrition. I think anasarca is contributing to her weight more than actual muscle bulk.
#Anasarca
Edema to right upper extremity, breast, and bilateral lower extremities (patient reports present since 07/2024)
#hypertension (essential)
stable
#hypoglycemia
Resolved.
#fibromyalgia
#neuropathy
#spinal cord injury/TBI 1990
#Recent right lower extremity cellulitis treated , finished Tx.
DVT ppx: Lovenox
Code: Full
PT/OT-Home VN. Home o2 eval pending. Start disposition.
Anticipated Discharge: Within 24 hours
Subjective/Interval History
-
Date of Service: September 24, 2024
states of mild back discomfort
remains on 2L oxygen
Objective Data
-
Vital Signs:
Vital Signs
Temp Pulse Resp BP Pulse Ox
98.6 F 88 17 120/54 97
09/24/24 07:55 09/24/24 07:55 09/24/24 07:55 09/24/24 07:55 09/24/24 09:49
I&O
09/23/24 09/24/24 09/25/24
06:59 06:59 06:59
Intake Total 960 / 960 1020 / 1020
Balance 960 / 960 1020 / 1020
[2024-09-24] MEDS: ULTRAM 25 MG PO ×2 (13:41→22:05)
[2024-09-24 15:04] VITALS: BP 116/54
[2024-09-24 15:53] VITALS: O2SAT 100
[2024-09-24] MEDS: LOVENOX 40 MG SC (17:54)
[2024-09-24] MEDS: DESENEX/MITRAZOL/ZEASORB TOPICAL (19:51)
[2024-09-24 23:45] VITALS: BP 138/68
[2024-09-25 07:10] VITALS: BP 121/57
--- NOTE | 2024-09-25 07:35 | W.PN.ONC2 ---
Today's Communication / Plan
-
Awaiting PARP inhibitor [LYNPARZA� (olaparib)]. Ordered. Awaiting delivery
Impression
Impression
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
Malignant pleural effusion
Germline BRCA2 mutation
Moderate to severe protein calorie malnutrition
Plan
Plan
olaparib (parp inhibitor, oral) for treatment of mTNBC with BRCA2 mutation insurance auth & drug delivery pending
Treatment will hopefully decrease pleural fluid accumulation, though it may take time
prn thoracentesis -Subsequent evaluation by pulmonology showing patient unable to lift arm for Asept placement, and skin with malodorous/rash
Subjective/Objective
Chief Complaint
Oncology F/U
Subjective
+ sore throat.
Vital Signs:
Vital Signs
Temp Pulse Resp BP Pulse Ox
99.0 F 99 18 138/68 93
09/24/24 23:45 09/24/24 23:45 09/24/24 23:45 09/24/24 23:45 09/24/24 23:45
Lab Results:
Laboratory Data
WBC 6.2 10^3/uL (4.8-10.8) 09/18/24 05:46
Hgb 10.7 g/dL (12.0-16.0) L 09/18/24 05:46
Plt Count 330 10^3/uL (130-400) 09/18/24 05:46
eGFR > 60.00 09/18/24 05:46
[2024-09-25] MEDS: DESENEX/MITRAZOL/ZEASORB TOPICAL ×2 (07:37→21:03)
[2024-09-25] MEDS: HYDROPHOR 1 APPLIC TOPICAL (07:37)
--- NOTE | 2024-09-25 09:51 | W.PN.PUL.V3 ---
Today's Communication / Plan
-
Wean oxygen
Monitor for pleural fluid reaccumulation
Check COVID
Consider Paxlovid if positive
Assessment
-
Patient is a 74-year-old female with previous history of recurrent right-sided malignant pleural effusion, metastatic breast cancer, hypertension, fibromyalgia, neuropathy presenting to ER for evaluation of increased shortness of breath and cough
for the past few days. She was recently discharged on 1121 with large right-sided pleural effusion and underwent thoracentesis at that time. She was notably hypoxemic into the 70s at the facility and placed on 2 L. Chest x-ray demonstrating
recurrent right-sided pleural effusion. We are consulted for eval 09/16/24.
Recurrent malignant R pleural effusion s/p thora 09/16/24 as well as 08/26/2024 and again on 09/23/2024
Progressive SOB
Protein calorie malnutrition
Conditions present prior to admission:
Recurrent right-sided malignant pleural effusion + CytoPath on 08/26/24-poorly differentiated carcinoma-morphology similar to those of previous left supraclavicular lymph node biopsy
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
Diffuse anasarca
Hypertension
Fibromyalgia
Neuropathy
Spinal cord injury/TBI 1990
Recent history of right lower extremity cellulitis treated with outpatient Keflex
Plan
Respiratory status improved after repeat thoracentesis
Supplemental oxygen as needed
Assess discharge supplemental oxygen needs prior to discharge
Aspiration precautions
Incentive spirometry-encouraged
Chest x-ray 09/23/2024-moderate to large right pleural effusion significantly increased since prior exam on 09/17/2024
Repeat thoracentesis-09/23/24--1.4 L serous pleural fluid
She is now agreeable to ASEPT placement, however, unable to lift arm and malodorous and thus catheter not placed at this time-hopefully in the future she is willing and catheter can be placed
Reviewed with patient that she will undoubtedly have recurrent fairly rapid pleural fluid reaccumulation requiring repetitive right-sided thoracenteses-can be done as an outpatient
Pleurx/asept catheter can be placed in the outpatient setting as well
Respiratory precautions-was in the room with someone that turned positive for COVID
Recheck COVID test-has 'sore throat'
Consider Paxlovid if positive
Gentle diuresis
Prior echocardiograms with preserved function
Pleural effusion unlikely to resolve with diuresis
DVT prophylaxis-on Lovenox
She has appt with Dr Benito on Mon and would like to keep her appt
Dr. Benito saw patient 09/24/2024-start Olaparib as soon as drug is available-ordered awaiting delivery
Will need outpatient pulmonary evaluation in our office for PFTs and 6MWT
Diagnostic Data
Chest X-Ray: 09/16/24- No pneumothorax post right thoracentesis.
09/15/24- Progressive massive right pleural effusion.
CT Scan: AP 08/24/24- Large right pleural effusion. Progressed. Findings suggesting moderate volume overload or third spacing. Progressed. Bilateral too small to characterize hypodense renal lesions likely benign cysts. New. Mild retroperitoneal
and left inguinal lymphadenopathy. Nonspecific. Clinical and laboratory correlation recommended. This could further be evaluated by PET imaging if indicated clinically. Moderate T12 and mild L1 compression fractures.
CHEST 07/31/24- 1. Significant body wall edema involving the visualized portion of the right upper extremity, right axilla, right chest wall, and right breast.
2. Pathologic lymphadenopathy within the right axilla, left axilla, mediastinum, lower neck, and both supraclavicular regions.
3. Overall, findings may be related to severe cellulitis/infectious process, however given the pronounced lymphadenopathy, findings are more likely to represent malignant process such as lymphoma or metastatic disease.
4. Small right pleural effusion. Mild right basilar airspace consolidation, which may be related to subsegmental atelectasis or pneumonia.
5. Bilateral breast skin thickening, raising concern for infiltrative breast carcinoma. Breasts are incompletely imaged. Mammographic workup is suggested.
6. Right thyroid nodule. Consider further workup with nonemergent thyroid ultrasound.
Echo: 08/01/24- 1. Left ventricle: Normal size and function with an estimated ejection fraction of 55-60%
2. Right ventricle: Normal
3. Atria: Normal
4. Mitral valve: Normal
5. Aortic valve: Normal
6. Tricuspid valve: Mild tricuspid regurgitation with estimated pulmonary artery systolic pressures of 30-35 mmHg
7. No prior studies for comparison
PFT's:
Reports and relevant images were personally reviewed.
Subjective Data
-
Date of Service:
Date of Service: September 25, 2024
Chief Complaint: Pulmonary Follow Up and Dyspnea Follow Up
Subjective:
No complaints of worsening shortness of breath, no chest pain or abdominal pain
Review of Systems
General: Other (Per HPI)
Objective Data
Data Reviewed
Vital Signs / I&O:
Vital Signs
Temp Pulse Resp BP Pulse Ox
99.3 F 95 18 121/57 98
09/25/24 07:10 09/25/24 07:10 09/25/24 07:10 09/25/24 07:10 09/25/24 07:10
Intake and Output
09/24/24 09/25/24 09/26/24
06:59 06:59 06:59
Intake Total 1020 / 1020 930 / 930
Output Total 400 / 400
Balance 1020 / 1020 530 / 530
SaO2: 98
Nasal Cannula flow liters per minute: 2
Physical Exam
General: Respiratory Distress (n), Comfortable and Other (NAD)
HEENT: Normocephalic, Anicteric and Moist Mucous Membranes
Cardiovascular: Regular Rhythm and Peripheral Edema (diffuse, RUE/bilateral LEs)
Respiratory: Clear (Diminished breath sounds at the right base), Non-Labored Respirations, Accessory Resp Muscle Use (n) and Other (decreased at R base)
GI: Soft, Non Distended and Non Tender
Neurology: Awake, Alert and No Motor Deficits
Skin: Warm, Dry, Cyanosis (n) and Rash (diffuse on R side, malodorous)
Labs/Micro/Reports
Lab Data
09/18/24 05:46
09/18/24 05:46
[2024-09-25 10:19] LABS: COVID-19 Antigen Positive (Negative)
--- NOTE | 2024-09-25 11:21 | W.PN.HOSP.TC ---
Today's Communication/Plan
-
Dispo-COVID +. Monitor overnight. Pulm recs. Star paxlovid.
Assessment / Plan
Assessment / Plan
Physical Exam
General: no significant distress
HEENT: Normocephalic, Moist mucous membranes, Atraumatic, [place] Conjunctivae, Nose Appears Normal and Ears Appear Normal
Respiratory: decreased breath sounds , oxygen 2L NC
Cardiac: S1/S2
GI: Soft, Non Tender, Non Distended and Normal Bowel Sounds;
Genito-urinary: clear urine
Musculoskeletal: edema and swelling RUE, edema in both LE
Skin: Warm and IV/Catheter Site;
Neuro: Awake, AO x 3, she followed commands.
Psych: Calm and Intact Judgment/Insight
Assessment:
#Recurrent malignant LARGE Right-sided PLEURAL EFFUSION concern for malignant pleural effusion
#Hx of Right pleural effusion small�moderate 08/04/2024
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
CXR on admission: Progressive massive right pleural effusion.
s/p ultrasound-guided thoracentesis 09/16, yielding 2000 cc of clear yellow pleural fluid on 09/16.
Repeat chest US did not show enough fluid to place ASEPT catheter
Chest x ray on 09/23/24-Moderate to large right pleural effusion, significantly increasing since examination of September 17, 2024.
s/p repeat thoracentesis with 1400cc fluid removed on 09/23
Home o2 eval and did not qualify for home oxygenation. Stable on room air.
Pulm following.
# Acute asymptomatic COVID-19 infection
Remains on room air. COVID exposure.
Not a candidate for steroids or remdesivir.
lozenges
Not on statin or sulfa drugs. Start paxlovid.
# Skin changes around the right shoulder/ right side of trunk
Scaling, flaking skin, hardening, redness, no itching, likely due to cancer involvement.
#Metastatic breast cancer. ER/CT negative
Primary oncologist Dr Benito
d/w oncology, trial of olaparib in OP.
# Pain in right arm
d/w pt, c/w PRN Tylenol, agreed to try Tramadol.
#chronic anemia of malignancy
#Moderate to severe protein calorie malnutrition. I think anasarca is contributing to her weight more than actual muscle bulk.
#Anasarca
Edema to right upper extremity, breast, and bilateral lower extremities (patient reports present since 07/2024)
#hypertension (essential)
stable
#hypoglycemia
Resolved.
#fibromyalgia
#neuropathy
#spinal cord injury/TBI 1990
#Recent right lower extremity cellulitis treated , finished Tx.
DVT ppx: Lovenox
Code: Full
PT/OT-SNF. However patient refusing SNF. wants to go home with VN.
Dispo-COVID +. Monitor overnight. Pulm recs. Star paxlovid.
Anticipated Discharge: Within 24 hours
Subjective/Interval History
-
Date of Service: September 25, 2024
complains of sore throat
on room air
Objective Data
-
Vital Signs:
Vital Signs
Temp Pulse Resp BP Pulse Ox
99.3 F 95 18 121/57 98
09/25/24 07:10 09/25/24 07:10 09/25/24 07:10 09/25/24 07:10 09/25/24 09:51
I&O
09/24/24 09/25/24 09/26/24
06:59 06:59 06:59
Intake Total 1020 / 1020 930 / 930
Output Total 400 / 400
Balance 1020 / 1020 530 / 530
Data Reviewed
-
Total Time Spent with Patient (in minutes): 55
[2024-09-25] MEDS: PAXLOVID 2X150 MG-100 MG DOSE PACK 1 DOSE PO ×2 (12:13→21:11)
[2024-09-25] MEDS: ANESTHETIC LOZENGE 1 LOZENGE PO (12:14)
[2024-09-25 12:30] LABS: Hematocrit 33.3 % (37.0-47.0); Hemoglobin 10.6 g/dL (12.0-16.0); Mean Corp Hgb Conc. 31.8 g/dL (33.0-37.0); Mean Corpuscular Hgb 29.9 pg (27.0-31.0); Mean Corpuscular Volume 94.1 fL (81.0-99.0); Mean Platelet Volume 8.8 fL (7.4-10.4); Platelet Count 329 10^3/uL (130-400); Red Blood Cell Count 3.54 10^6/uL (4.20-5.40); Red Cell Dist. Width 14.2 % (11.5-14.5); White Blood Cell Count 5.6 10^3/uL (4.8-10.8)
[2024-09-25 12:51] LABS: Blood Urea Nitrogen 21 mg/dl (7-17); Calcium 8.8 mg/dl (8.4-10.2); Chloride 96 mmol/L (98-107); Estimated Creatinine Clearance 85 ml/min; Glucose 118 mg/dl (70-99); Potassium 4.4 mmol/L (3.5-5.1); Sodium 131 mmol/L (135-145); eGFR > 60.00
[2024-09-25 12:55] LABS: Absolute Neutrophils -Man Diff 3.5 10^3/uL (1.4-6.5); Atypical Lymphocytes 7 %; Band Neutrophils 1 % (0-3); Eosinophils 5 % (0-6); Lymphocytes 19 % (20-51); Monocytes 6 % (2-9); Segmented Neutrophils 62 % (42-75)
[2024-09-25 12:56] LABS: Platelets Checked Yes
[2024-09-25 12:57] LABS: Normal RBC Morphology Yes; Total Cells Counted 100
[2024-09-25 13:01] LABS: Carbon Dioxide 32 mmol/L (22-30)
[2024-09-25 15:10] VITALS: BP 111/68
[2024-09-25] MEDS: LOVENOX 40 MG SC (17:31)
[2024-09-25 23:40] VITALS: BP 118/60
[2024-09-25] MEDS: ULTRAM 25 MG PO (23:49)
[2024-09-26] MEDS: ANESTHETIC LOZENGE 1 LOZENGE PO ×3 (03:13→13:53)
[2024-09-26 07:30] VITALS: BP 112/59
[2024-09-26] MEDS: DESENEX/MITRAZOL/ZEASORB TOPICAL ×2 (08:56→20:19)
[2024-09-26] MEDS: PAXLOVID 2X150 MG-100 MG DOSE PACK 1 DOSE PO ×2 (09:12→20:19)
[2024-09-26] MEDS: HYDROPHOR 1 APPLIC TOPICAL (09:13)
--- NOTE | 2024-09-26 10:23 | W.PN.PUL.V3 ---
Today's Communication / Plan
-
Wean oxygen
Isolation continues
Plaxlovid initiated
If increased shortness of breath and obtain chest x-ray and thoracentesis if pleural fluid reaccumulate's
Pulmonary will sign off-please call with questions
Assessment
-
Patient is a 74-year-old female with previous history of recurrent right-sided malignant pleural effusion, metastatic breast cancer, hypertension, fibromyalgia, neuropathy presenting to ER for evaluation of increased shortness of breath and cough
for the past few days. She was recently discharged on 1121 with large right-sided pleural effusion and underwent thoracentesis at that time. She was notably hypoxemic into the 70s at the facility and placed on 2 L. Chest x-ray demonstrating
recurrent right-sided pleural effusion. We are consulted for eval 09/16/24.
Recurrent malignant R pleural effusion s/p thora 09/16/24 as well as 08/26/2024 and again on 09/23/2024
Progressive SOB
Protein calorie malnutrition
C + 09/25/2024ovid
Conditions present prior to admission:
Recurrent right-sided malignant pleural effusion + CytoPath on 08/26/24-poorly differentiated carcinoma-morphology similar to those of previous left supraclavicular lymph node biopsy
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
Diffuse anasarca
Hypertension
Fibromyalgia
Neuropathy
Spinal cord injury/TBI 1990
Recent history of right lower extremity cellulitis treated with outpatient Keflex
Plan
Respiratory status improved after repeat thoracentesis-now sore throat from viral infection
Supplemental oxygen as needed
Assess discharge supplemental oxygen needs prior to discharge
Aspiration precautions
Incentive spirometry-encouraged
Chest x-ray 09/23/2024-moderate to large right pleural effusion significantly increased since prior exam on 09/17/2024
Repeat thoracentesis-09/23/24--1.4 L serous pleural fluid
She is now agreeable to ASEPT placement, however, unable to lift arm and malodorous and thus catheter not placed at this time-hopefully in the future she is willing and catheter can be placed
Reviewed with patient that she will undoubtedly have recurrent fairly rapid pleural fluid reaccumulation requiring repetitive right-sided thoracenteses-can be done as an outpatient
Pleurx/asept catheter can be placed in the outpatient setting as well
Respiratory precautions-was in the room with someone that turned positive for COVID
Recheck COVID test-positive 09/25/2024
Plaxlovid initiated
Gentle diuresis
Prior echocardiograms with preserved function
Pleural effusion unlikely to resolve with diuresis
DVT prophylaxis-on Lovenox
She has appt with Dr Benito on Mon and would like to keep her appt
Dr. Benito saw patient 09/24/2024-start Olaparib as soon as drug is available-ordered awaiting delivery
If increased shortness of breath obtain chest x-ray and if pleural fluid reaccumulation as expected and repeat thoracentesis-pulmonary will sign off for now-please call with questions
Will need outpatient pulmonary evaluation in our office for PFTs and 6MWT
Diagnostic Data
Chest X-Ray: 09/16/24- No pneumothorax post right thoracentesis.
09/15/24- Progressive massive right pleural effusion.
CT Scan: AP 08/24/24- Large right pleural effusion. Progressed. Findings suggesting moderate volume overload or third spacing. Progressed. Bilateral too small to characterize hypodense renal lesions likely benign cysts. New. Mild retroperitoneal
and left inguinal lymphadenopathy. Nonspecific. Clinical and laboratory correlation recommended. This could further be evaluated by PET imaging if indicated clinically. Moderate T12 and mild L1 compression fractures.
CHEST 07/31/24- 1. Significant body wall edema involving the visualized portion of the right upper extremity, right axilla, right chest wall, and right breast.
2. Pathologic lymphadenopathy within the right axilla, left axilla, mediastinum, lower neck, and both supraclavicular regions.
3. Overall, findings may be related to severe cellulitis/infectious process, however given the pronounced lymphadenopathy, findings are more likely to represent malignant process such as lymphoma or metastatic disease.
4. Small right pleural effusion. Mild right basilar airspace consolidation, which may be related to subsegmental atelectasis or pneumonia.
5. Bilateral breast skin thickening, raising concern for infiltrative breast carcinoma. Breasts are incompletely imaged. Mammographic workup is suggested.
6. Right thyroid nodule. Consider further workup with nonemergent thyroid ultrasound.
Echo: 08/01/24- 1. Left ventricle: Normal size and function with an estimated ejection fraction of 55-60%
2. Right ventricle: Normal
3. Atria: Normal
4. Mitral valve: Normal
5. Aortic valve: Normal
6. Tricuspid valve: Mild tricuspid regurgitation with estimated pulmonary artery systolic pressures of 30-35 mmHg
7. No prior studies for comparison
PFT's:
Reports and relevant images were personally reviewed.
Subjective Data
-
Date of Service:
Date of Service: September 26, 2024
Chief Complaint: Pulmonary Follow Up and Dyspnea Follow Up
Subjective:
Complains of a sore throat, some cough, no increased shortness of breath
Review of Systems
General: Other (Per HPI)
Objective Data
Data Reviewed
Vital Signs / I&O:
Vital Signs
Temp Pulse Resp BP Pulse Ox
100.1 F 90 20 112/59 98
09/26/24 07:30 09/26/24 07:30 09/26/24 07:30 09/26/24 07:30 09/26/24 07:30
Intake and Output
09/25/24 09/26/24 09/27/24
06:59 06:59 06:59
Intake Total 930 / 930 1740 / 1740
Output Total 400 / 400
Balance 530 / 530 1740 / 1740
SaO2: 98
Nasal Cannula flow liters per minute: 2
Physical Exam
General: Respiratory Distress (n), Comfortable and Other (NAD)
HEENT: Normocephalic, Anicteric and Moist Mucous Membranes
Cardiovascular: Regular Rhythm and Peripheral Edema (diffuse, RUE/bilateral LEs)
Respiratory: Clear (Diminished breath sounds at the right base), Non-Labored Respirations, Accessory Resp Muscle Use (n) and Other (decreased at R base)
GI: Soft, Non Distended and Non Tender
Neurology: Awake, Alert and No Motor Deficits
Skin: Warm, Dry, Cyanosis (n) and Rash (diffuse on R side, malodorous)
Labs/Micro/Reports
Lab Data
09/25/24 12:01
09/25/24 12:01
--- NOTE | 2024-09-26 11:06 | W.PN.HOSP.TC ---
Today's Communication/Plan
-
IRAD for thoracentesis
Cont paxlovid
Assessment / Plan
Assessment / Plan
Physical Exam
General: no significant distress
HEENT: Normocephalic, Moist mucous membranes, Atraumatic, [place] Conjunctivae, Nose Appears Normal and Ears Appear Normal
Respiratory: decreased breath sounds , oxygen 2L NC
Cardiac: S1/S2
GI: Soft, Non Tender, Non Distended and Normal Bowel Sounds;
Genito-urinary: clear urine
Musculoskeletal: edema and swelling RUE, edema in both LE
Skin: Warm and IV/Catheter Site;
Neuro: Awake, AO x 3, she followed commands.
Psych: Calm and Intact Judgment/Insight
Assessment:
#Recurrent malignant LARGE Right-sided PLEURAL EFFUSION concern for malignant pleural effusion
#Hx of Right pleural effusion small�moderate 08/04/2024
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
CXR on admission: Progressive massive right pleural effusion.
s/p ultrasound-guided thoracentesis 09/16, yielding 2000 cc of clear yellow pleural fluid on 09/16.
Repeat chest US did not show enough fluid to place ASEPT catheter
Chest x ray on 09/23/24-Moderate to large right pleural effusion, significantly increasing since examination of September 17, 2024.
s/p repeat thoracentesis with 1400cc fluid removed on 09/23
Home o2 eval and did not qualify for home oxygenation. Stable on room air.
CXR 09/26 with recurrent pleural effusion-plan for therapeutic thoracentesis today. IRAD informed.
Pulm following.
# Acute asymptomatic COVID-19 infection
Remains on room air. COVID exposure.
Not a candidate for steroids or remdesivir.
lozenges
Not on statin or sulfa drugs. Started paxlovid. Complete course.
# Skin changes around the right shoulder/ right side of trunk
Scaling, flaking skin, hardening, redness, no itching, likely due to cancer involvement.
#Metastatic breast cancer. ER/IA negative
Primary oncologist Dr Benito
d/w oncology, trial of olaparib in OP.
# Pain in right arm
d/w pt, c/w PRN Tylenol, agreed to try Tramadol.
#chronic anemia of malignancy
#Moderate to severe protein calorie malnutrition. I think anasarca is contributing to her weight more than actual muscle bulk.
#Anasarca
Edema to right upper extremity, breast, and bilateral lower extremities (patient reports present since 07/2024)
#hypertension (essential)
stable
#hypoglycemia
Resolved.
#fibromyalgia
#neuropathy
#spinal cord injury/TBI 1990
#Recent right lower extremity cellulitis treated , finished Tx.
DVT ppx: Lovenox
Code: Full
PT/OT-SNF. However patient once again refusing SNF. wants to go home with VN. Updated daughter over the phone who is also refusing SNF and wants to be patient be discharged home with VNA. Daughter was not happy with previous detention of
[facility]. Recommended to consider different SNF but they refused.
Anticipated Discharge: 24 - 48 hours
Subjective/Interval History
-
Date of Service: September 26, 2024
states of sore throat
using oxygen for comfort
Objective Data
-
Vital Signs:
Vital Signs
Temp Pulse Resp BP Pulse Ox
100.1 F 90 20 112/59 98
09/26/24 07:30 09/26/24 07:30 09/26/24 07:30 09/26/24 07:30 09/26/24 10:23
I&O
09/25/24 09/26/24 09/27/24
06:59 06:59 06:59
Intake Total 930 / 930 1739 / 1739
Output Total 400 / 400
Balance 530 / 530 0 / 1739
Data Reviewed
-
Total Time Spent with Patient (in minutes): 55
[2024-09-26 14:57] VITALS: PULSE 80
--- NOTE | 2024-09-26 15:07 | CM ---
CM just received a call from patient's daughter. She has reconsidered taking mother home and requested that SNF referrals be sent to [facility] and [facility]
Referrals sent via [facility] as requested
Plan: discharge to SNF when medically stable pending bed availability
@ 10:45 AM: CM reviewed chart; and noted that patient tested positive for Covid on 09/25; also PT recommended SNF
Spoke via phone with patient's daughter, Emilie, explained that PT recommended SNF when patient was medically stable for discharge; daughter reported that she preferred that her mother go home with home health aides and home health services from [facility];
and asked to speak with Attending. Attending was notified and provided daughter's contact information.
During the call, Daughter reported that family will transport home; and will have DME in place in patient's apartment at time of discharge
[2024-09-26 15:20] VITALS: BP 108/58
[2024-09-26] MEDS: ULTRAM 50 MG PO (15:45)
[2024-09-26] MEDS: LOVENOX 40 MG SC (17:04)
[2024-09-26 23:50] VITALS: BP 110/59
[2024-09-27] MEDS: ANESTHETIC LOZENGE 1 LOZENGE PO ×2 (01:27→09:36)
[2024-09-27 07:51] VITALS: BP 107/48
[2024-09-27] MEDS: HYDROPHOR TOPICAL (09:15)
[2024-09-27] MEDS: DESENEX/MITRAZOL/ZEASORB TOPICAL ×2 (09:15→20:59)
[2024-09-27] MEDS: PAXLOVID 2X150 MG-100 MG DOSE PACK 1 DOSE PO ×2 (09:31→20:59)
--- NOTE | 2024-09-27 10:05 | CM ---
Addendum entered by Geno Lugo 09/27/24 14:47:
Authorization approved starting tomorrow, 09/28 - 10/03/24. Next review 10/03, #
Case # [id number]
Addendum entered by Geno Lugo 09/27/24 13:38:
Authorization from /[facility] pending; Case # [id number]
Plan: Discharge to [facility] tomorrow pending Authorization approval
Report # [id number]

Addendum entered by Geno Lugo 09/27/24 13:37:
Authorization from [facility] pending; Case # [id number]
Addendum entered by Geno Lugo 09/27/24 10:10:
Per Attending, will discharge tomorrow
Plan: Discharge to [facility] on Monday via ambulance
Report # [phone]

Original Note:
SNF Referral to [facility] was accepted; spoke with daughter, Emilie, she is agreeable with site
Plan: Discharge to [facility] when medically stable pending bed availability
[2024-09-27 12:00] VITALS: BP 113/53; PULSE 81; O2SAT 97
--- NOTE | 2024-09-27 12:14 | W.PN.HOSP.TC ---
Addendum entered and electronically signed by Jamey Garza MD 09/27/24 12:19:
Mild hyponatremia likely secondary to decreased p.o. intake versus SIADH
Repeat labs
Original Note:
Today's Communication/Plan
-
IRAD for thora
plan for SNF tentatively tomm
Assessment / Plan
Assessment / Plan
Physical Exam
General: no significant distress
HEENT: Normocephalic, Moist mucous membranes, Atraumatic, [place] Conjunctivae, Nose Appears Normal and Ears Appear Normal
Respiratory: decreased breath sounds , oxygen 2L NC
Cardiac: S1/S2
GI: Soft, Non Tender, Non Distended and Normal Bowel Sounds;
Genito-urinary: clear urine
Musculoskeletal: edema and swelling RUE, edema in both LE
Skin: Warm and IV/Catheter Site;
Neuro: Awake, AO x 3, she followed commands.
Psych: Calm and Intact Judgment/Insight
Assessment:
#Recurrent malignant LARGE Right-sided PLEURAL EFFUSION concern for malignant pleural effusion
#Hx of Right pleural effusion small�moderate 08/04/2024
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
CXR on admission: Progressive massive right pleural effusion.
s/p ultrasound-guided thoracentesis 09/16, yielding 2000 cc of clear yellow pleural fluid on 09/16.
Repeat chest US did not show enough fluid to place ASEPT catheter
Chest x ray on 09/23/24-Moderate to large right pleural effusion, significantly increasing since examination of September 17, 2024.
s/p repeat thoracentesis with 1400cc fluid removed on 09/23
Home o2 eval and did not qualify for home oxygenation. Stable on room air.
CXR 09/26 with recurrent pleural effusion-plan for therapeutic thoracentesis. IRAD informed.
Pulm following.
# Acute asymptomatic COVID-19 infection
Remains on room air. COVID exposure.
Not a candidate for steroids or remdesivir.
lozenges
Not on statin or sulfa drugs. Started paxlovid. Complete course.
# Skin changes around the right shoulder/ right side of trunk
Scaling, flaking skin, hardening, redness, no itching, likely due to cancer involvement.
#Metastatic breast cancer. ER/SD negative
Primary oncologist Dr Benito
d/w oncology, trial of olaparib in OP.
# Pain in right arm
d/w pt, c/w PRN Tylenol, agreed to try Tramadol.
#chronic anemia of malignancy
#Moderate to severe protein calorie malnutrition. I think anasarca is contributing to her weight more than actual muscle bulk.
#Anasarca
Edema to right upper extremity, breast, and bilateral lower extremities (patient reports present since 07/2024)
#hypertension (essential)
stable
#hypoglycemia
Resolved.
#fibromyalgia
#neuropathy
#spinal cord injury/TBI 1990
#Recent right lower extremity cellulitis treated , finished Tx.
DVT ppx: Lovenox
Code: Full
PT/OT-SNF. Patient and daughter finally agreed for SNF.
Anticipated Discharge: Within 24 hours
Subjective/Interval History
-
Date of Service: September 27, 2024
states of sore throat and cough
Objective Data
-
Vital Signs:
Vital Signs
Temp Pulse Resp BP Pulse Ox
97.8 F 63 17 107/48 95
09/27/24 07:51 09/27/24 07:51 09/27/24 07:51 09/27/24 07:51 09/27/24 07:51
I&O
09/26/24 09/27/24 09/28/24
06:59 06:59 06:59
Intake Total 1740 / 1740 1220 / 1220
Balance 1739 / 1740 1220 / 1220
[2024-09-27 13:29] LABS: Blood Urea Nitrogen 17 mg/dl (7-17); Calcium 8.7 mg/dl (8.4-10.2); Carbon Dioxide 36 mmol/L (22-30); Chloride 94 mmol/L (98-107); Estimated Creatinine Clearance 85 ml/min; Glucose 103 mg/dl (70-99); Potassium 3.8 mmol/L (3.5-5.1); Sodium 131 mmol/L (135-145); eGFR > 60.00
[2024-09-27 14:56] VITALS: BP 114/69
[2024-09-27 15:40] VITALS: BP 105/52; BP_SYST 91
[2024-09-27 15:59] VITALS: BP 103/46; BP_SYST 86
[2024-09-27] MEDS: LOVENOX 40 MG SC (17:29)
[2024-09-27] MEDS: ULTRAM 50 MG PO (18:13)
[2024-09-27 23:30] VITALS: BP 124/66
[2024-09-28] MEDS: ANESTHETIC LOZENGE 1 LOZENGE PO (01:27)
[2024-09-28 08:54] VITALS: BP 121/50
[2024-09-28] MEDS: DESENEX/MITRAZOL/ZEASORB TOPICAL ×2 (09:10→22:40)
[2024-09-28] MEDS: HYDROPHOR 1 APPLIC TOPICAL (09:11)
[2024-09-28] MEDS: PAXLOVID 2X150 MG-100 MG DOSE PACK 1 DOSE PO ×2 (09:13→22:39)
--- NOTE | 2024-09-28 11:20 | W.PN.HOSP.TC ---
Today's Communication/Plan
-
weekly cbc while on chemo
dc to snf
Assessment / Plan
Assessment / Plan
Physical Exam
General: no significant distress
HEENT: Normocephalic, Moist mucous membranes, Atraumatic, [place] Conjunctivae, Nose Appears Normal and Ears Appear Normal
Respiratory: decreased breath sounds , oxygen 2L NC
Cardiac: S1/S2
GI: Soft, Non Tender, Non Distended and Normal Bowel Sounds;
Genito-urinary: clear urine
Musculoskeletal: edema and swelling RUE, edema in both LE
Skin: Warm and IV/Catheter Site;
Neuro: Awake, AO x 3, she followed commands.
Psych: Calm and Intact Judgment/Insight
Assessment:
#Recurrent malignant LARGE Right-sided PLEURAL EFFUSION concern for malignant pleural effusion
#Hx of Right pleural effusion small�moderate 08/04/2024
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
CXR on admission: Progressive massive right pleural effusion.
s/p ultrasound-guided thoracentesis 09/16, yielding 2000 cc of clear yellow pleural fluid on 09/16.
Repeat chest US did not show enough fluid to place ASEPT catheter
Chest x ray on 09/23/24-Moderate to large right pleural effusion, significantly increasing since examination of September 17, 2024.
s/p repeat thoracentesis with 1400cc fluid removed on 09/23
Home o2 eval and did not qualify for home oxygenation. Stable on room air.
CXR 09/26 with recurrent pleural effusion-plan for therapeutic thoracentesis. IRAD status post thoracentesis with 850 cc of fluid removed on 09/27.
Pulm following.
# Acute asymptomatic COVID-19 infection
Remains on room air. COVID exposure.
Not a candidate for steroids or remdesivir.
lozenges
Not on statin or sulfa drugs. Started paxlovid. Complete course. Interaction of paxlovid and olaparib- Start chemo on monday after completion of covid therapy.
# Skin changes around the right shoulder/ right side of trunk
Scaling, flaking skin, hardening, redness, no itching, likely due to cancer involvement.
#Metastatic breast cancer. ER/LA negative
Primary oncologist Dr Benito
d/w oncology, trial of olaparib in OP. And discussed with Dr. Britton on 09/28/2024 and patient can start chemotherapy regimen as prescribed by her oncologist.
# Pain in right arm
d/w pt, c/w PRN Tylenol, agreed to try Tramadol.
#chronic anemia of malignancy
#Moderate to severe protein calorie malnutrition. I think anasarca is contributing to her weight more than actual muscle bulk.
#Anasarca
Edema to right upper extremity, breast, and bilateral lower extremities (patient reports present since 07/2024)
#hypertension (essential)
stable
#hypoglycemia
Resolved.
#fibromyalgia
#neuropathy
#spinal cord injury/TBI 1990
#Recent right lower extremity cellulitis treated , finished Tx.
DVT ppx: Lovenox
Code: Full
PT/OT-SNF. Patient and daughter finally agreed for SNF.
Discussed with patient daughter over the phone in details.
More than 30 minutes spent in discharge including
Final examination of the patient
Summarizing hospital stay
Instructions for continuing care to all relevant caregivers
Preparation of discharge records, prescriptions, and referral forms
Total time spent (in minutes): 53
Anticipated Discharge: Today
Subjective/Interval History
-
Date of Service: September 28, 2024
states sore throat has improved
phelgm is clear
states breathing has improved
Objective Data
-
Vital Signs:
Vital Signs
Temp Pulse Resp BP Pulse Ox
98.1 F 78 18 121/50 94
09/28/24 08:54 09/28/24 08:54 09/28/24 08:54 09/28/24 08:54 09/28/24 08:54
I&O
09/27/24 09/28/24 09/29/24
06:59 06:59 06:59
Intake Total 1220 / 1220 960 / 960
Balance 1220 / 1220 960 / 960
[2024-09-28 16:23] VITALS: BP 107/51
[2024-09-28] MEDS: LOVENOX SC (18:02)
[2024-09-28] MEDS: ULTRAM 50 MG PO (18:16)
--- NOTE | 2024-09-28 20:00 | PTCARENOTE ---
Called [facility] at 1830 hrs to communicate nurse to nurse report. Call was answered by a person that identified herself as nursing labor crew supervisor Glendy, who stated that [facility] was not informed that this patient would transfer
09/28/24 and was not prepared to receive admission. She declined to receive report and stated that she would contact her admissions department and return phone call. No return call received. Ambulance transfer cancelled and handoff report given to
nightman.
[2024-09-28 23:56] VITALS: BP 118/54
[2024-09-29] MEDS: PAXLOVID 2X150 MG-100 MG DOSE PACK 1 DOSE PO (08:48)
[2024-09-29 08:50] VITALS: BP 110/65
[2024-09-29] MEDS: HYDROPHOR 1 APPLIC TOPICAL (09:02)
[2024-09-29] MEDS: DESENEX/MITRAZOL/ZEASORB TOPICAL (09:03)
--- NOTE | 2024-09-29 09:16 | CM ---
Received notification from attending that patient was never transferred last evening, as when RN called for report, he was advised that [facility] was not aware of an admission and therefore was unable to accept her.
Called Verenice in admissions who stated that she never had received authorization on Monday (It was sent through [facility]), CM had everything arranged. Verenice called the director at [facility] and confirmed that patient can go this morning. Report
# [phone]

[facility] will arrange for transfer.
Will speak with patient's daughter, Emilie to update.
Plan: Case management will continue to follow and assist with discharge planning. Transfer to [facility] today.
--- NOTE | 2024-09-29 11:08 | W.PN.HOSP.TC ---
Today's Communication/Plan
-
dc to SNF
Assessment / Plan
Assessment / Plan
Physical Exam
General: no significant distress
HEENT: Normocephalic, Moist mucous membranes, Atraumatic, Nose Appears Normal and Ears Appear Normal
Respiratory: decreased breath sounds , oxygen 2L NC
Cardiac: S1/S2
GI: Soft, Non Tender, Non Distended and Normal Bowel Sounds;
Genito-urinary: clear urine
Musculoskeletal: edema and swelling RUE, edema in both LE
Skin: Warm and IV/Catheter Site;
Neuro: Awake, AO x 3, she followed commands.
Psych: Calm and Intact Judgment/Insight
Assessment:
#Recurrent malignant LARGE Right-sided PLEURAL EFFUSION concern for malignant pleural effusion
#Hx of Right pleural effusion small�moderate 08/04/2024
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
CXR on admission: Progressive massive right pleural effusion.
s/p ultrasound-guided thoracentesis 09/16, yielding 2000 cc of clear yellow pleural fluid on 09/16.
Repeat chest US did not show enough fluid to place ASEPT catheter
Chest x ray on 09/23/24-Moderate to large right pleural effusion, significantly increasing since examination of September 17, 2024.
s/p repeat thoracentesis with 1400cc fluid removed on 09/23
Home o2 eval and did not qualify for home oxygenation. Stable on room air.
CXR 09/26 with recurrent pleural effusion-plan for therapeutic thoracentesis. IRAD status post thoracentesis with 850 cc of fluid removed on 09/27.
Pulm following.
# Acute asymptomatic COVID-19 infection
Remains on room air. COVID exposure.
Not a candidate for steroids or remdesivir.
lozenges
Not on statin or sulfa drugs. Started paxlovid. Complete course. Interaction of paxlovid and olaparib- Start chemo on monday after completion of covid therapy.
# Skin changes around the right shoulder/ right side of trunk
Scaling, flaking skin, hardening, redness, no itching, likely due to cancer involvement.
#Metastatic breast cancer. ER/LA negative
Primary oncologist Dr Benito
d/w oncology, trial of olaparib in OP. And discussed with Dr. Britton on 09/28/2024 and patient can start chemotherapy regimen as prescribed by her oncologist.
# Pain in right arm
d/w pt, c/w PRN Tylenol, agreed to try Tramadol.
#chronic anemia of malignancy
#Moderate to severe protein calorie malnutrition. I think anasarca is contributing to her weight more than actual muscle bulk.
#Anasarca
Edema to right upper extremity, breast, and bilateral lower extremities (patient reports present since 07/2024)
#hypertension (essential)
stable
#hypoglycemia
Resolved.
#fibromyalgia
#neuropathy
#spinal cord injury/TBI 1990
#Recent right lower extremity cellulitis treated , finished Tx.
DVT ppx: Lovenox
Code: Full
PT/OT-SNF. Patient and daughter finally agreed for SNF.
Discussed with patient daughter over the phone in details on 09/28/24 multiple times.
d/w with Dr. Britton on 09/28/24
More than 30 minutes spent in discharge including
Final examination of the patient
Summarizing hospital stay
Instructions for continuing care to all relevant caregivers
Preparation of discharge records, prescriptions, and referral forms
Total time spent (in minutes): 53
Anticipated Discharge: Today
Subjective/Interval History
-
Date of Service: September 29, 2024
remains afebrile
states of cough intermittent
Objective Data
-
Vital Signs:
Vital Signs
Temp Pulse Resp BP Pulse Ox
97.6 F 83 19 110/65 100
12/22/24 08:50 09/29/24 08:50 09/29/24 08:50 09/29/24 08:50 09/29/24 08:50
I&O
09/28/24 09/29/24 09/30/24
06:59 06:59 06:59
Intake Total 960 / 960 240 / 240
Balance 960 / 960 240 / 240
--- NOTE | 2024-09-29 11:16 | W.DCSUMMARY ---
Discharge Summary
Discharge Data
Date of Admission: 09/15/24
Date of Discharge: 09/29/24
-
Pending Results: No
Hospital Course
74-year-old female past medical history of breast cancer, chronic anemia of malignancy, anasarca, primary hypertension, fibromyalgia, neuropathy who presented with shortness of breath. Patient upon admission underwent chest x-ray which showed
massive right pleural effusion and underwent thoracentesis with 2 L of fluid was removed. Initial plan was to place ASEPT catheter however due to patient skin changes related to malignancy and inability to lift right arm it was not possible to
place a catheter. Plan will be for intermittent therapeutic thoracentesis. Patient was eval by pulmonary, interventional radiology and oncology. Patient was complaining of some sore throat and had COVID exposure and was found to have asymptomatic
COVID-19 infection. Patient was started on Paxlovid. Patient received multiple therapeutic thoracentesis in the hospital and will probably will require as needed thoracentesis with interventional radiology as outpatient. Per oncology patient to
be started on chemotherapy olaparib. Patient was eval by physical and Occupational Therapy with recommendation for SNF. Patient and daughter finally agreed to be discharged to nursing home facility. Patient daughter was updated throughout
hospitalization. Plan will be to start chemotherapy on Monday after completion of Paxlovid to avoid severe interaction.
Discharge Plan
-
Patient Disposition: Usp/SNF
Discharge Diagnosis/Procedures: Recurrent malignant right-sided pleural effusion status post thoracentesis
Acute hypoxic respiratory insufficiency
Skin changes related to breast cancer
Acute COVID-19 infection
Mild hyponatremia
Condition: Fair
Diet: Regular
Activity: With assistance and As tolerated
Driving Restrictions: Not until seen by your Dr
Blood Work: BMP in 3-5 days via primary doctor.
CBC q. 7 days following chemotherapy with results faxed over to [facility] patient oncologist
Activity Restrictions/Additional Instructions:
Wound Care Instructions Buttocks: clean with soap and water, skin prep periwound, silicone foam change q other day and prn drainage.
Left Medial Leg- Clean with normal saline or soap and water. Apply Xeroform gauze, 4x4 and wrap with paulo. Change daily and PRN drainage.
Right Axilla and back- Apply antifungal powder BID. Apply Aquaphor to dry areas as tolerated daily.
Continue with air cushion to chair
Air bed
Encourage frequent turning and repositioning
increase protein in diet
[place] tourist camp attendant to LE, re-apply daily
Follow up at wound care center call for an appointment.
Start the chemotherapy regimen olaparib on 09/30/24 after completion of Paxlovid therapy (you have 1 dose left for tonight).
Referrals:
Akin Glover I., DO [Family Provider] - in less than 1 week
Sandra Elliott, DO [Active] - in three to four weeks (PFTs)
Prescriptions:
New
tramadol 50 mg Tablet
50 mg PO Q6HPRN PRN (Reason: MOd-severe pain) 3 Days Qty: 12 0RF
Chloraseptic Sore Throat 6-10 mg Lozenge
1 carlos PO Q4HPRN PRN (Reason: sore throat) Qty: 18 0RF
olaparib 150 mg tablet
See Rx Instructions .ROUTE .COMPLEX Qty: 60 0RF
Rx Instructions:
As prescribed per your oncologist.
Paxlovid 300 mg (150 mg x 2)-100 mg tablets,dose pack
See Rx Instructions .ROUTE .COMPLEX Qty: 30 0RF
Rx Instructions:
take TWO 150 mg tablets of nirmatrelvir with ONE 100 mg tablet of ritonavir for 1 more dose tonight
Continued
guaifenesin 100 mg/5 mL Liquid
200 mg PO Q4HPRN PRN (Reason: cough) Qty: 0 0RF
acetaminophen [Tylenol] 325 mg Tablet
650 mg PO Q4HPRN PRN (Reason: mild pain)
magnesium hydroxide [Milk of Magnesia] 400 mg/5 mL Suspension
2,400 mg PO DAILYPRN PRN (Reason: if no bm on 3d day)
bisacodyl [Dulcolax (bisacodyl)] 10 mg Suppository
10 mg RI DAILYPRN PRN (Reason: if no bm aftr mom)
Fleet Enema Extra 19-7 gram/197 mL Enema
118 ml RI DAILYPRN PRN (Reason: if no bm aftr dulcolax)
Discharge Orders:
Discharge Patient (As Directed); Ordered 09/28/24
Ordered By: Jamey Garza
Discharge Date and Time
Print Language: LAO
[2024-09-29 12:29] VITALS: BP 100/50
== END 2024-09-29 13:15 | DRG 597 ==
LOC: 3 WEST ACU 15:39
PROVIDERS: Internal Medicine; Nurse Practitioner Family; Radiology Vascular & Interventional Radiology; ADMITTING PHYSICIAN Internal Medicine; ATTENDING PHYSICIAN Hospitalist; EMERGENCY PHYSICIAN Emergency Medicine; FAMILY PHYSICIAN Internal Medicine; OTHER PHYSICIAN Internal Medicine; OTHER PHYSICIAN Internal Medicine Hematology & Oncology; REFERRING PHYSICIAN Hospitalist
PROC: 0W993ZZ Drainage of Right Pleural Cavity, Percutaneous Approach (ICD-10-PCS; 2024-09-16)
DX: C50.919 Malignant neoplasm of unspecified site of unspecified female breast (principal); E43 Unspecified severe protein-calorie malnutrition; U07.1 COVID-19; J91.0 Malignant pleural effusion; C77.0 Secondary and unspecified malignant neoplasm of lymph nodes of head, face and neck; E87.1 Hypo-osmolality and hyponatremia; I10 Essential (primary) hypertension; I89.0 Lymphedema, not elsewhere classified; R09.02 Hypoxemia; G62.9 Polyneuropathy, unspecified; M79.7 Fibromyalgia; D63.0 Anemia in neoplastic disease; E16.2 Hypoglycemia, unspecified; Z79.899 Other long term (current) drug therapy; Z88.2 Allergy status to sulfonamides; Z88.1 Allergy status to other antibiotic agents; Z68.29 Body mass index [BMI] 29.0-29.9, adult; R60.0 Localized edema; Z87.891 Personal history of nicotine dependence; Z87.820 Personal history of traumatic brain injury; Z80.3 Family history of malignant neoplasm of breast; Z17.1 Estrogen receptor negative status [ER-]
CPT/HCPCS: 32555; 71045; 71046; 76604; 80048; 80053; 81003; 82962; 83735; 83880; 85025; 85027; 87811; 97116; 97163; 97167; 97530; 97535; 99285

== ENCOUNTER 2024-10-10 04:24 | Inpatient (IN) | payer OTHER, SELFPAY ==
[2024-10-10] VITALS (25 sets, daily range): BP systolic 82–137; BP diastolic 48–79; BMI 28.6; BMI 29.2
[2024-10-10] MEDS: TYLENOL 650 MG PO (00:11)
[2024-10-10 00:35] LABS: Hematocrit 33.5 % (37.0-47.0); Hemoglobin 11.2 g/dL (12.0-16.0); Mean Corp Hgb Conc. 33.4 g/dL (33.0-37.0); Mean Corpuscular Hgb 30.5 pg (27.0-31.0); Mean Corpuscular Volume 91.3 fL (81.0-99.0); Mean Platelet Volume 8.6 fL (7.4-10.4); Platelet Count 374 10^3/uL (130-400); Red Blood Cell Count 3.67 10^6/uL (4.20-5.40); Red Cell Dist. Width 14.2 % (11.5-14.5); White Blood Cell Count 29.2 10^3/uL (4.8-10.8)
[2024-10-10 00:41] LABS: ALT (SGPT) 24 U/L (0-35); AST (SGOT) 64 U/L (14-36); Albumin 3.5 g/dl (3.5-5.0); Alkaline Phosphatase 75 U/L (38-126); Blood Urea Nitrogen 17 mg/dl (7-17); Calcium 9.3 mg/dl (8.4-10.2); Carbon Dioxide 32 mmol/L (22-30); Chloride 95 mmol/L (98-107); Estimated Creatinine Clearance 85 ml/min; Glucose 119 mg/dl (70-99); Potassium 4.2 mmol/L (3.5-5.1); Sodium 133 mmol/L (135-145); Total Bilirubin 0.7 mg/dl (0.2-1.3); Total Protein 7.4 g/dl (6.3-8.2); eGFR > 60.00
[2024-10-10 00:42] LABS: Lactic Acid 1.7 mmol/L (0.7-2.0)
[2024-10-10 00:45] LABS: COVID-19 Antigen Positive (Negative)
--- NOTE | 2024-10-10 00:49 | ED.GENMED ---
History of Present Illness
General
Chief Complaint: Fever
Source: patient and family (Patient's cousin notes she came in for fever)
Exam Limitations: none
Time Seen by Provider: 10/10/24 00:13
Nursing documentation reviewed up to this point in time: agreed with
History of Present Illness
History of Present Illness:
74-year-old female presents Emergency Department due to fever, cough. She has stage IV breast cancer, is on oral chemotherapy and is getting paracentesis. Last paracentesis 2 weeks ago. She has productive cough for the past several days. Also
recently diagnosed with COVID.
Past History
Past History
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
ED Past Surgical History: Tonsilectomy
Social History
Tobacco: Non-smoker
Alcohol: None
Drug: None
Review of Systems
Review of Systems
Allergies reviewed?: Yes
All Other Systems: Not applicable
Constitutional: Reports fever and chills
EENT: Reports no symptoms
Respiratory: Reports cough
Cardiac: Reports no symptoms
ABD/GI: Reports no symptoms
: Reports no symptoms
Musculoskeletal: Reports no symptoms
Skin: Reports rash
Neurological: Reports no symptoms
Endocrine: Reports no symptoms
Hematologic/Lymphatic: Reports no symptoms
Psychiatric: Reports no symptoms
Phy Exam
Physical Exam
Physical Exam:
Physical Exam
General: Fever 101.9
Neck: supple. no meningeal signs. normal posterior pharynx
Heart: s1/s2 tachycardia, no murmur. equal radial
pulses.
HEENT: Pupils equal round reactive to light, EOMI
Lungs: no acute respiratory distress. clear bilaterally, cough
Abdomen: normal bowel sounds. not tender. no CVAT
Neuro: alert and oriented. no focal neurological deficits cranial nerves II through XII intact
Skin: , Erythema and lymphedema right arm and right breast
Psychiatric: well kept. interactive and cooperative
Extremities: no edema. no calf tenderness. negative homans. good distal pulses
Sepsis
Sepsis Screening
Sepsis Assessment: Sepsis
Sepsis Screen
Sepsis Screen: Sepsis
Date: 10/10/24
Time: 06:11
Course
Orders/Labs/Results
Orders:
Orders
10/10/24 00:01
Electrocardiogram (*1) Urgent
Reason for Study: Other
Other Reason for Exam: Possible Sepsis
Cardiac Monitoring- Treatment ONCE
IV Insert/Care/Rem.- Treatment PRN
O2 Therapy [RESP] Urgent
Titrate/Wean O2 to maintain O2 sat greater than (%): 93
Special Instructions: TO MAINTAIN CONTINUOUS O2 SATS > OR = 93%
Pulse Ox/cont/shift [RESP] Urgent
Quantity: 1
Special Instructions: CONTINUOUS
10/10/24 00:02
CR Chest - 2 Views Urgent
Comment:
Reason For Exam: suspected infection
10/10/24 00:09
Acetaminophen [Tylenol] 650 mg .ROUTE .STK-MED ONE
10/10/24 00:11
Acetaminophen [Tylenol] 650 mg PO NOW STA
10/10/24 00:17
COVID-19 Antigen Urgent
Source: Nasal Swab
Complete Blood Count/With Diff Urgent
Comprehensive Metabolic Panel Urgent
Lactic Acid Q4H
Comment: ON ICE, CANCEL 2ND ORDER IF FIRST LACTIC ACID LEVEL <2
Manual Differential Urgent
Influenza A+B Rapid Molecular Urgent
AMMON Source: Nasal Swab
Specimen Description:
10/10/24 00:22
Blood Culture Urgent
AMMON Source: Blood/Venous
Specimen Description:
10/10/24 02:04
Cefepime HCl [Maxipime] 1,000 mg IV NOW STA
10/10/24 02:10
Vancomycin [Vancocin] 2,000 mg 0.9% Sodium Chloride 500 ml [Nss] 500 ml IV NOW
10/10/24 02:11
Sterile Water [Sterile Water For Injection] 10 ml .ROUTE .STK-MED ONE
10/10/24 02:12
Blood Culture Q30M
AMMON Source: Blood/Venous
Specimen Description:
10/10/24 04:00
Flush (0.9% Sodium Chloride) [Flush (Nss)] See Dose Instructions IV PER PROTOCOL
10/10/24 04:03
Admit/Transfer Patient As Directed
Co-Sign Provider:
Level of Care: Inpatient admission
Assign to:: IMU- Intermediate Care
Physician / Group: Davis
Diagnosis: Pneumonia / Sepsis / Malignant Effusion
Reason for Hospitalization: Pneumonia / Sepsis / Malignant Effusion
Expected length of stay greater than two midnights?: Yes
ELOS- Estimated Length of Stay in days: 5
I certify the patient meets the requirements for IP care: Yes
PRN Pain Medication Management As Directed
May give lesser potent ordered pain med per pt: Yes
preference::
Protocol:: Medication orders for pain may be administered in a
manner that supports deferring to patient preference
when the pt is:
- Requesting an ordered lesser potent pain medication.
Least to most potent pain medications are defined
as: acetaminophen < NSAID < tramadol < opioids
(morphine, oxycodone, hydromorphone).
- Requesting a lesser dose of the same medication IF
ORDERED.
- Requesting a less intrusive route of administration
if both routes are prescribed by the provider (PO <
IV).
10/10/24 04:04
Code Status As Directed
Resuscitation Status: Full Code
10/10/24 05:34
0.9% Sodium Chloride 1000 ml [Nss] 1,000 ml IV 125 mls/hr
Acetaminophen [Tylenol] 650 mg PO Q4HPRN PRN
Albuterol Nebs [Ventolin Nebules] 2.5 mg INH R Q4HPRN PRN
Benzonatate [Tessalon Perles] 200 mg PO TIDPRN PRN
Morphine Sulfate 2 mg IV Q4HPRN PRN
Promethazine/Codeine [Phenergan with Codeine Syrup] 5 ml PO Q4HPRN PRN
Tramadol HCl [Ultram] 50 mg PO Q6HPRN PRN
10/10/24 05:34
Consult Notification Routine
Specialty to Notify: IRAD (Interventional Radiology)
Consult Notification Routine
Specialty to Notify: Infectious Disease
INFECTIOUS DISEASE CONSULT Routine
Consulting Provider: Rajni Zhao
Was physician already notified: No
Reason for consult: Sepsis, Pleural Effusion, ? COVID
IRAD CONSULT Routine
Consulting Provider: Samy Mccord
Was physician already notified: No
Reason for Consult/Procedure: R Pleural Effusion / Sepsis
Acknowledgement that appropriate orders are entered: Yes
Body Fluid Cell Count Routine
What is the Body Fluid: pleural fluid
Comment: post procedure
Fluid Culture with Gram Stain Routine
AMMON Source: Pleural Fluid
Specimen Description:
Comment: post procedure
Activity As Directed
Activity Level: Ambulate
With Assistance
Bladder Scan As Directed
Follow Bladder Retention/Intermittent Cath Algorithm?: Yes
PRN if no void in __ hours: 6
Frequency: Per Retention Algorithm
If Bladder Scan Result >: 400
then:: Straight cath
EKG with chest pain [ECG as needed] As Directed
ECG as needed for:: Chest Pain
I/O [Intake/ Output] As Directed
Frequency: Per unit guidelines
Precautions As Directed
Type of Precautions: Droplet
Straight Cath As Directed
Frequency: Per Retention Algorithm
Additional Instructions: straight cath as needed per acute urinary retention algorithm for 24 hrs
Additional Instructions: for bladder scan greater than 400 mL
Vital Signs As Directed
Frequency: Per unit guidelines
Weight As Directed
Frequency: Daily
Oxygen Therapy [O2 Therapy] [RESP] Routine
Titrate/Wean O2 to maintain O2 sat greater than (%): 94
Ot Eval And Treat Routine
PT Consult [Pt Eval And Treat] Routine
Activity Level: Ambulate
With Assistance
DX Deep Vein Thrombosis Video Routine
10/10/24 05:53
Basic Metabolic Panel IN AM
Complete Blood Count/No Diff IN AM
LFT [[id number]] IN AM
Blood Culture Q30M
AMMON Source: Blood/Venous
Specimen Description:
10/10/24 Breakfast
Clear Liquid
Piperacillin/Tazo 4.5 Gram [Zosyn] 4.5 gram in 100 ml IV Q6H
VANCOMYCIN Pharmacy to Dose [VANCOCIN Pharmacy to Dose] 1 each Pharmacy To Prepare [Call Pharmacy To Prepare] 0 ml IV PER PROTOCOL
10/10/24 08:00
Pantoprazole [Protonix IV] 40 mg IV DAILY
10/10/24 18:00
Enoxaparin Sodium [Lovenox] 40 mg SC QPM
Abnormal Lab Results
10/10/24
00:17
WBC 29.2 H 10^3/uL
(4.8-10.8)
RBC 3.67 L 10^6/uL
(4.20-5.40)
Hgb 11.2 L g/dL
(12.0-16.0)
Hct 33.5 L %
(37.0-47.0)
Abs Neuts (Manual) 27.1 H 10^3/uL
(1.4-6.5)
Segmented Neutrophils 77 H %
(42-75)
Band Neutrophils 16 H %
(0-3)
Lymphocytes (Manual) 1 L %
(20-51)
Sodium 133 L mmol/L
(135-145)
Chloride 95 L mmol/L
(98-107)
Carbon Dioxide 32 H mmol/L
(22-30)
Creatinine 0.5 L mg/dL
(0.6-1.0)
Glucose 119 H mg/dl
(70-99)
AST 64 H U/L
(14-36)
SARS-CoV-2 Antigen Positive A
(Negative)
10/10/24 00:17
10/10/24 00:17
Vital Signs
Initial and Last Documented VS:
Initial Vital Signs
BP
123/63
10/10/24 00:00
Last Documented Vital Signs
Temp Pulse Resp BP Pulse Ox
100.9 F H 95 24 114/58 94
10/10/24 01:51 10/10/24 05:00 10/10/24 05:00 10/10/24 05:00 10/10/24 05:00
MDM/Problems Addressed
Differential Diagnosis Includes:
Pneumonia, COVID, UTI
MDM/Problems Addressed:
74-year-old female with COVID, right-sided pneumonia. Admit to hospitalist.
Chronic conditions affecting care: Cancer
Acute Exacerbation and/or Progression of Chronic Illness: Cancer
*Radiology
Radiology exam reviewed: preliminary read by ED provider (Chest x-ray shows right-sided pulmonary effusion, cannot rule out pneumonia)
*Pulse Oximetry
Patient hypoxic: no
*Critical Care Note
Total Time (30-74mins, 75-104mins- exclusive of procedures): Not Applicable
Patient Management
Social determinants of health affecting care: Living situation and Strong social support
Discussion with other providers: Hospitalist
Escalation/DeEscalation of care consider admission/obs:
Admit indicated
ED Attending Note
-
Portions of this chart may have been created with voice recognition software.� Occasional wrong word or��sound alike� substitutions may have occurred due to the inherent limitations of voice recognition software.
Discharge Plan
Departure
Patient Disposition: Admit
Date of Disposition: 10/10/24
Time of Disposition: 02:03
Admit to: Telemetry
Presentation/result/management discussed w/ accepting MD/DO: Hospitalist
Patient with high blood pressure during this ER visit?: Yes
Condition: Fair
Covid-19: Confirmed COVID-19
Discharge Problem:
COVID, Breast cancer, Secondary and unspecified malignant neoplasm of lymph nodes of head, face and neck, Pneumonia
Interventions
Interventions:
*Risk Screen - Suicide Last Done: 10/10/24 00:02
*General Assessment Last Done: 10/10/24 00:02
*Neglect/Abuse Screening Last Done: 10/10/24 00:02
ED- Fall Risk Assessment Last Done: 10/10/24 01:52
*ED COVID-19 Vaccine History Last Done: 10/10/24 00:02
*Nursing Disposition Last Done: 10/10/24 05:30
ED- Neurological Assessment Last Done: 10/10/24 01:52
ED-Skin Assessment Last Done: 10/10/24 01:52
Discharge Date and Time
Discharge Date/Time: 10/10/24 05:31
[2024-10-10 01:10] LABS: Absolute Neutrophils -Man Diff 27.1 10^3/uL (1.4-6.5); Band Neutrophils 16 % (0-3); Lymphocytes 1 % (20-51); Monocytes 5 % (2-9); Normal RBC Morphology Yes; Platelets Checked Yes; Segmented Neutrophils 77 % (42-75); Toxic Granulation 1+
[2024-10-10 01:12] LABS: Nucleated Red Blood Cells 1 (-); Total Cells Counted 100
[2024-10-10 01:13] LABS: Vacuolated Segs 1+
[2024-10-10] MEDS: VANCOCIN 540 MG IV (02:14)
[2024-10-10] MEDS: MAXIPIME 1000 MG IV (02:14)
--- NOTE | 2024-10-10 04:08 | HPS.HSE ---
Family Physician
-
Family Physician: Akin Glover
Chief Complaint
-
Cough / SOB / Fever
History of Present Illness
Patient is a 74y F with PMH significant for recently diagnosed BRCA positive breast cancer with cutaneous involvement and malignant pleural effusion who presents to ED complaining of fevers, cough and SOB. Patient states that she has had cough
productive of clear mucus for the past few days. Today she noted fever at home and felt increasingly SOB which prompted her to present to the ED for evaluation.
Patient was most recently admitted 09/15 - 09/29 for SOB. She received thoracentesis multiple times for R pleural effusion - most recently on 09/27/24. Asept catheter was considered but could not be done due to cutaneous malignancy changes
overlying that area. Patient was incidentally noted to be COVID-19 positive during that hospitalization. She had no fever or significant cough at that time. She was treated with Paxlovid course x 5 days due to her multiple risk factors and plans
to begin chemotherapy regimen.
Patient started her regimen of olaparib on 10/02.
Medical History
Past Medical History
Past Medical History: Reports Other
Additional Past Medical History:
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
Hypertension
Peripheral Neuropathy
Spinal Cord Injury / TBI (1990)
Peripheral Neuropathy
Fibromyalgia
Past Surgical History: Reports Other
Additional Past Surgical History:
T&A
Left Subclavian Lymph Node Biopsy
Multiple Thoracenteses
Social History
Tobacco: Non-smoker
Alcohol: None
Drug: None
Personal:
Living: Alone
Employment: Retired
Family History
Family History: Other (Sister: Ovarian cancer, at age 36)
Allergies / Home Medications
Allergies reflects when Allergies were last updated in [facility].
Home Medications with original date entered in [facility]
Allergy/Medication List:
Allergies
Allergy/AdvReac Type Severity Reaction Status Date / Time
Sulfa (Sulfonamide AdvReac yeast Verified 10/10/24 00:07
Antibiotics) infections
Tetracyclines AdvReac yeast Verified 10/10/24 00:07
infections
Home Medications
guaifenesin 100 mg/5 mL oral liquid 200 mg (10 mL) PO Q4HPRN PRN cough #0 mL 08/30/24
acetaminophen 325 mg tablet (Tylenol) 650 mg PO Q4HPRN PRN mild pain 09/15/24
bisacodyl 10 mg rectal suppository (Dulcolax (bisacodyl)) 10 mg MI DAILYPRN PRN if no bm aftr mom 09/15/24
magnesium hydroxide 400 mg/5 mL oral suspension (Milk of Magnesia) 2,400 mg PO DAILYPRN PRN if no bm on 3d day 09/15/24
sodium phosphates 19 gram-7 gram/197 mL enema (Fleet Enema Extra) 118 ml MI DAILYPRN PRN if no bm aftr dulcolax 09/15/24
benzocaine 6 mg-menthol 10 mg lozenges (Chloraseptic Sore Throat) 1 carlos PO Q4HPRN PRN sore throat #18 ea 09/28/24
olaparib 150 mg tablet See Rx Instructions .Route .COMPLEX #60 tabs 09/28/24
tramadol 50 mg tablet 50 mg PO Q6HPRN PRN MOd-severe pain 3 days #12 tabs 09/28/24
Review of Systems
-
History Source: Patient
A 12 point ROS was completed and negative except as noted: Yes
Constitutional: Reports Fever, Fatigue and Chills
EENT: Denies Sore Throat
Respiratory: Reports Cough and Trouble Breathing; Denies Hemoptysis
Cardiac: Reports Chest Pain; Denies Diaphoresis or Palpitations
Abdomen/GI: Denies Abdominal Pain, Nausea, Vomiting or Diarrhea
: Denies Dysuria, Frequency or Flank Pain
Musculoskeletal: Reports Edema; Denies Joint Pain
Neurological: Denies Dizzy or Headache
Psych: Denies Depression or Anxiety
Physical Exam
Vital Signs
Vital Signs
Temp Pulse Resp BP Pulse Ox
100.9 F H 94 22 100/63 93
10/10/24 01:51 10/10/24 03:45 10/10/24 03:15 10/10/24 03:00 10/10/24 03:45
Physical Exam
General: Other (74y F in moderate distress due to cough / dyspnea.)
HEENT: Other (Dry MM. Neck supple.)
Respiratory: Other (Decreased BS over the R base - about 1/2 up. Scattered rales. No wheezing.)
Cardiac: S1/S2 and Tachycardia; No Murmur
GI: Soft, Non Tender, Non Distended and Normal Bowel Sounds
Musculoskeletal: Other (4+ pitting edema of bilateral LEs and the RUE.)
Skin: Other (Brawny edema / nodular skin changes of the RUE and R breast.)
Neuro: AO x 3
Laboratory Results
-
10/10/24 00:17
10/10/24 00:17
Laboratory Results
Lactic Acid Cancelled 10/10/24 04:15
Total Bilirubin 0.7 mg/dl (0.2-1.3) 10/10/24 00:17
AST 64 U/L (14-36) H 10/10/24 00:17
ALT 24 U/L (0-35) 10/10/24 00:17
Alkaline Phosphatase 75 U/L (38-126) 10/10/24 00:17
Impression/Plan
-
A/P: Patient is a 74y F with PMH significant for BRCA+ breast cancer with cutaneous involvement and malignant pleural effusion who presents to ED complaining of fever, cough and SOB.
Pneumonia / Infected Pleural Effusion
Sepsis secondary to the above
- Admit for further evaluation and treatment.
- Patient presents with marked leukocytosis, tachycardia, tachypnea and fever to 101.9 with abnormal CXR, cough and SOB.
- Cover with IV abx for now pending clinical improvement and culture data.
- Supportive care with IVFs, cough suppressants, etc.
- IR evaluation in the AM for thoracentesis - orders entered for cell count and cultures.
- Adjust abx regimen as needed based on available culture data.
- Hold oral chemotherapy agent acutely.
- Follow fever curve. Follow for clinical improvement.
- ID evaluation for additional recommendations.
COVID-19 Positive
- Unclear what to make of persistent COVID positivity.
- Initially COVID-19 positive (and asymptomatic at that time) on 09/25/24.
- ? if current testing is recurrent infection versus persistent positivity (which seems more likely).
- Completed course of Paxlovid 09/25 - 09/30.
- Maintain droplet precautions for now.
- ID eval as noted above.
BRCA+ Metastatic Breast Cancer
Cutaneous Changes secondary to the above
Malignant Right Pleural Effusion secondary to the above
- Hold olaparib acutely as noted above.
- IR eval for repeat thoracentesis.
- Continue supportive care including pain control measures.
Anemia of Chronic Disease
- Stable. Hgb is at / near recent baseline.
- Follow for any changes.
DVT Prophylaxis: Lovenox
Code Status: Full
--- NOTE | 2024-10-10 04:42 | EDRN ---
Patient placed on a bedpan and urinated, adjusted head of the bed as well, call mcnamara in reach.
--- NOTE | 2024-10-10 04:55 | EDRN ---
Report to MARIELA Juárez
--- NOTE | 2024-10-10 05:47 | PTCARENOTE ---
Pt received from ED RN. Admission being preformed at this time.
[2024-10-10 06:04] LABS: Hematocrit 32.3 % (37.0-47.0); Hemoglobin 10.3 g/dL (12.0-16.0); Mean Corp Hgb Conc. 31.9 g/dL (33.0-37.0); Mean Corpuscular Hgb 29.9 pg (27.0-31.0); Mean Corpuscular Volume 93.9 fL (81.0-99.0); Mean Platelet Volume 8.8 fL (7.4-10.4); Platelet Count 330 10^3/uL (130-400); Red Blood Cell Count 3.44 10^6/uL (4.20-5.40); Red Cell Dist. Width 14.4 % (11.5-14.5); White Blood Cell Count 26.1 10^3/uL (4.8-10.8)
[2024-10-10] MEDS: ZOSYN 100 IV ×2 (06:25→11:57)
[2024-10-10] MEDS: NSS 1000 IV ×2 (06:25→21:29)
[2024-10-10 06:41] LABS: ALT (SGPT) 21 U/L (0-35); AST (SGOT) 60 U/L (14-36); Albumin 3.1 g/dl (3.5-5.0); Alkaline Phosphatase 74 U/L (38-126); Blood Urea Nitrogen 19 mg/dl (7-17); Carbon Dioxide 31 mmol/L (22-30); Chloride 96 mmol/L (98-107); Direct Bilirubin 0.1 mg/dl (0.0-0.4); Estimated Creatinine Clearance 83 ml/min; Glucose 106 mg/dl (70-99); Potassium 3.8 mmol/L (3.5-5.1); Sodium 135 mmol/L (135-145); Total Bilirubin 0.7 mg/dl (0.2-1.3); Total Protein 6.8 g/dl (6.3-8.2); eGFR > 60.00
--- NOTE | 2024-10-10 06:44 | PTCARENOTE ---
pt received from ED RN. Admit completed. Pt on 3L NC , sat 98%, does have SOB with lying flat. b/l lungs coarse throughout. present on admit wounds documented. wounds care provided. blood cultures obtained. fluids at 125 ml/hr. call light in reach.
--- NOTE | 2024-10-10 08:37 | VNURNOTE ---
Chart reviewed. Patient is current with [facility] nursing, PT, OT, KEY MAKER. Will continue to follow hospital course and DC plans.
--- NOTE | 2024-10-10 08:38 | W.PN.HOSP.TC ---
Today's Communication/Plan
-
see bold
Assessment / Plan
Assessment / Plan
74y F with PMH significant for BRCA+ breast cancer with cutaneous involvement and malignant pleural effusion who presents to ED complaining of fever, cough and SOB.
Pneumonia / Infected Pleural Effusion
Sepsis secondary to the above
- Patient presents with marked leukocytosis, tachycardia, tachypnea and fever to 101.9 with abnormal CXR, cough and SOB.
- Status post thoracentesis draining 1400 cc of clear yellow pleural fluid /2, cultures pending
- Appreciate ID input, antibiotics changed to Vanco and cefepime
- Hold chemo, trend fever and white count, follow-up on blood cultures, pleural fluid cultures
COVID-19 Positive
- Initially COVID-19 positive (and asymptomatic at that time) on 09/25/24.
- ? if current testing is recurrent infection versus persistent positivity (which seems more likely).
- Completed course of Paxlovid 09/25 - 09/30.
- Appreciate ID input, no need for any further retroviral therapy
- COVID-positive debility likely from prolonged viral shedding in the context of underlying immunosuppression
- Continue isolation precautions
BRCA+ Metastatic Breast Cancer
Cutaneous Changes secondary to the above
Malignant Right Pleural Effusion secondary to the above
- Hold chemo/olaparib
- Status post thoracentesis draining 1400 cc of clear yellow pleural fluid 1/2
- Consult oncology, patient follows with Dr. Thalia Benito
Anemia of Chronic Disease
- Monitor hemoglobin
DVT Prophylaxis: Lovenox
Code Status: Full
Physical Exam
General: Appears chronically ill, no acute distress
HEENT: Normocephalic, Atraumatic, EOMI, MMM
Respiratory: Bibasilar crackles with diminished breath sounds at the bases
Cardiac: Normal S1/S2, Regular Rate and Rhythm
GI: Soft, Nontender, Nondistended, Normal Bowel Sounds
Extremities: No Clubbing, Cyanosis
Bilateral lower extremity edema noted
Severe right upper extremity lymphedema noted
Neuro: Nonfocal/Grossly Intact
Psych: Calm, Cooperative
Derm: Left calf wound dressed
Anticipated Discharge: > 48 hours
Subjective/Interval History
-
Date of Service: October 10, 2024
Objective Data
-
Labs:
Laboratory Results
10/10/24 10/10/24
00:17 05:53
WBC 29.2 H 26.1 H
Hgb 11.2 L 10.3 L
Hct 33.5 L 32.3 L
Plt Count 374 330
Sodium 133 L 135
Potassium 4.2 3.8
Chloride 95 L 96 L
Carbon Dioxide 32 H 31 H
BUN 17 19 H
Creatinine 0.5 L 0.6
Glucose 119 H 106 H
Calcium 9.3 9.0
Total Bilirubin 0.7 0.7
AST 64 H 60 H
ALT 24 21
Alkaline Phosphatase 75 74
Vital Signs:
Vital Signs
Temp Pulse Resp BP Pulse Ox
98.0 F 82 22 117/61 96
10/10/24 06:12 10/10/24 07:00 10/10/24 07:00 10/10/24 06:00 10/10/24 07:00
[2024-10-10] MEDS: PROTONIX IV 40 MG IV (08:39)
[2024-10-10] MEDS: NSS (PRESERVATIVE FREE) 10 ML IV (08:39)
--- NOTE | 2024-10-10 10:30 | PHA.VAN.IN ---
Assessment
- Assessment
Renal Function: Appears similar to baseline
Concomitant Antimicrobials: piperacillin/tazobactam
AUC Dosing Plan
- Dosing Variables
Dosing Weight (kg): 77
Dosing CrCl (ml/min): 83
Vd coefficient (L/kg): 0.7
- Empiric Dosing
Initial / Loading Dose: 2000mg - 10/10 02:14
Maintenance Regimen: Vanc 1000mg Q12H starting at 1800
Estimated AUC (mcg*h/mL): 525
Estimated Peak (mcg*h/mL): 31.7
Estimated Trough (mcg/ml): 14.2
Estimated Half Life (H): 9.5
- Monitoring
No levels ordered at this time: consider levels in next few days
Pharmacokinetics Vancomycin I
- -
Patient Age: 74
Patient Sex: Female
Vancomycin Day #: 1
Indication: Pulmonary/Respiratory
Requesting Provider: Dr. Cannon
Pertinent Antimicrobial Allergies:
sulfonamide antibiotics - yeast infections
tetracyclines - yeast infections
Height / Weight:
Height 5 ft 4 in
Actual Weight 77.1 kg
Pertinent Past Medical History: breast cancer
- Vital Signs / Lab Results
Temp Pulse Resp BP Pulse Ox
98.8 F 82 22 117/61 96
10/10/24 08:49 10/10/24 07:00 10/10/24 07:00 10/10/24 06:00 10/10/24 07:00
Lab Results - Hematology
10/10/24 10/10/24
00:17 05:53
WBC 29.2 H 26.1 H
Band Neutrophils 16 H
Lab Results - Chemistry
10/10/24 10/10/24
00:17 05:53
BUN 17 19 H
Creatinine 0.5 L 0.6
Estimated Creat Clear 85 83
Albumin 3.5 3.1 L
10/10/24 10/10/24
00:17 04:15
Lactic Acid 1.7 Cancelled
Microbiology Results
10/10/24 00:17 Influenza Types A & B (SAMMY) - Final
Nasal Swab Negative for Influenza A & B, NAAT
Negative results must be combined with clinical observations
and patient history.
Nucleic Acid Amplification test (NAAT)performed on the
[employer] platform.
[2024-10-10 11:58] LABS: Body Fluid Mononuclear 93.4 %; Body Fluid Polymorphonuclear 6.6 %; Body Fluid WBC 197 /CUMM
[2024-10-10 12:06] LABS: Body Fluid Second Tech AMA
--- NOTE | 2024-10-10 12:32 | WOUNDNOTE ---
[facility] RN NOTE: Reviewed chart and notes from current and previous admission. Patient declined assessment today and said she just wanted to rest after thoracentesis. Spoke to RN Bertha who confirmed silicone border foam to to buttocks and leg wound
that was dressed on block breaker operator. Patient agreeable to assessment at later time.
--- NOTE | 2024-10-10 13:18 | CM ---
Patient with Hx breast cancer receiving chemo. s/p thoracentesis today. O2 3L. Receiving IVF, IV Abx. Wound care nurse assessment pending. PT/OT Evals pending.
Received call from patient's daughter Emilie; the patient resides alone in a 3rd floor apartment in an elevator building, and her cousin Rose has recently been staying with her. Patient was recently discharged from [facility]. Daughter shares
that patient is undergoing an oral chemo regimen.
She is assisted with ADLs by the niece and BOAT CLEANING SUPERVISOR from [facility].
The patient is minimally ambulatory and walks using her quad cane or RW.
Other DME is home O2 concentrator/portable used continuously.
The patient is current with [facility] for SN/PT/OT and BOAT CLEANING SUPERVISOR.
Recent [facility], prior [facility]
PCP - Destiney Hoang
Pharmacy - [facility]
Daughter requests CM contact [facility] as she is working on getting patient accepted there.
Spoke with Peggy, Director Of Guidance, [facility] (ph [phone]); they need a referral faxed to [phone]. If they accept will need the DME Form- Documentation for Medical Eval. She is aware that wond care, PT/OT are pending.
Plan fax referral to [facility].
--- NOTE | 2024-10-10 13:43 | PTCARENOTE ---
Patient AAOx3, comfortable. Patient upset that chemo has been stopped. Per IR RN, 1400ml taken from right thoracentesis. Bandaid CDI. RUE with edema and rough skin, patient keeping it elevated. VSS. 1L NC sats 93%, c/o KAUFFMAN. NSR on monitor. Patient
making needs known. Will continue to monitor.
--- NOTE | 2024-10-10 14:29 | CON.ID ---
Consultation
-
Date/Time Consultation Requested: 10/10/2024 0534
Date/Time Consultation Performed: 10/10/2024 1400
Requesting Provider: Dr. Cannon
Performing Provider: Dr. Kraft
Reason for Consultation: Leukocytosis; Hx metastatic breast cancer with recurrent pleural effusion
Chief Complaint / Past History
History of Present Illness
Rukhsana Adhikari is a 74-year-old female with a significant past medical history of metastatic breast cancer being evaluated at the request of Dr. Moon in regards to leukocytosis and recent history of COVID-19. History is obtained from chart review, along
with patient interview.
The patient was admitted to [facility] from 09/15/24 through 09/29/2024. She tested positive for COVID-19 on 09/25 and was placed on a 5-day course of Paxlovid. Following discharge she started on her oral chemotherapy (Olaparib).
She presented back to the emergency room late last evening secondary to developing fevers and chills. She notes a temperature of 102 degrees at home. She additionally has had increased cough over the past several days, but notes only clear sputum.
She also reports some increasing shortness of breath.
Admission labs indicated a significant leukocytosis, and chest imaging revealed a large right pleural effusion with adjacent opacity, possibly pneumonia versus atelectasis. Since admission, she has undergone recurrent thoracentesis. Of note, prior
thoracentesis has revealed a malignant effusion.
At present, she reports generalized fatigue and weakness.
Past History
Additional Past Medical History:
Stage IV breast cancer
RUE lymphedema
Recurrent malignant pleural effusion
Anemia
Anasarca
HTN
Fibromyalgia
Neuropathy
Past Surgical History: Tonsilectomy
Allergy History:
Sulfa (Sulfonamide Antibiotics) Adverse Reaction (Verified 10/10/24 00:07)
yeast infections
Tetracyclines Adverse Reaction (Verified 10/10/24 00:07)
yeast infections
Medications Reviewed: Yes
Current Antibiotics:
Vancomycin
Zosyn 4.5 g IV every 6 hours
Social History
Tobacco: Non-Smoker
Alcohol: None
Drug: None
Personal:
Family History
Family History: Not Pertinent
Review of Systems
Vital Signs
Temp Pulse Resp BP Pulse Ox
97.5 F 80 24 108/54 100
10/10/24 12:00 10/10/24 13:00 10/10/24 13:00 10/10/24 12:00 10/10/24 12:00
Physical Exam
Physical Exam
Constitutional: No Acute Distress, Comfortable, Chronically Ill and Non-toxic
Eyes: No Conjunctival Hemorrhage and Sclera Anicteric
Oral: No Thrush and No Ulcers
Cardiovascular: Regular Rate and S1/S2; Negative S3/S4
Pulmonary: Coarse and Non Labored
Gastrointestinal: Soft, Non Distended and Normal Bowel Sounds
Extremities: Edema (Marked lymphedema of the right upper extremity) and Erythema (Right upper extremity (pale red))
Skin: Warm, Dry and Rash (Tissue texture changes noted of the right upper extremity extending onto the right chest wall and breast area); Negative Jaundice
Neurological: Awake and Alert
Psychological: Calm
Lab / Diagnostic Study Results
10/10/24 05:53
10/10/24 05:53
Total Counted 100 10/10/24 00:17
Abs Neuts (Manual) 27.1 10^3/uL (1.4-6.5) H 10/10/24 00:17
Segmented Neutrophils 77 % (42-75) H 10/10/24 00:17
Band Neutrophils 16 % (0-3) H 10/10/24 00:17
Lymphocytes (Manual) 1 % (20-51) L 10/10/24 00:17
Basophils (Manual) 1 % 10/10/24 00:17
Lactic Acid Cancelled 10/10/24 04:15
Microbiology Results
Micro:
10/10/24 10:45 Body Fluid Culture - Pending
Pleural Fluid Gram Stain - Pending
10/10/24 08:50 MRSA Screen - Pending
Nose
10/10/24 05:53 Blood Culture - Pending
Blood/Venous
10/10/24 02:12 Blood Culture - Pending
Blood/Venous
10/10/24 00:17 Influenza Types A & B (SAMMY) - Final
Nasal Swab Negative for Influenza A & B, NAAT
Negative results must be combined with clinical observations
and patient history.
Nucleic Acid Amplification test (NAAT)performed on the
[employer] platform.
10/10/24 00:22 Blood Culture - Pending
Blood/Venous
Imaging:
10/10/2024 CXR (2 view): A large right pleural effusion with adjacent opacity that may represent either atelectasis or pneumonia is noted. No pneumothorax. Cardiomediastinal silhouette is stable.
10/10/2024 CXR (portable): Following thoracentesis and recovery of 1400 cc of clear yellow pleural fluid, there is no visualized pneumothorax. A tiny right pleural effusion is appreciated.
Assessment / Plan
Fever
Marked leukocytosis
COVID-19
Stage IV breast cancer, recent initiation of Olaparib
Recurrent pleural effusion
Anemia
Anasarca
HTN
Fibromyalgia
Neuropathy
Recommendations:
Continue with empiric antibiotics.
Vanco to be dosed per levels.
Change Zosyn to cefepime.
Monitor white count and temperature curve.
Await pending cultures (blood, pleural)
Patient is status post 5-day course of Paxlovid. No indication at present to initiate additional antiviral therapy.
Repeat testing noted to be positive, and may indicate prolonged viral shedding in the context of underlying immunosuppression.
Continue with novel respiratory virus isolation practices.
Further recommendations as additional data is returned.
[2024-10-10] MEDS: MAXIPIME 2000 MG IV (17:02)
[2024-10-10] MEDS: STERILE WATER FOR INJECTION 10 ML IV (17:02)
[2024-10-10] MEDS: VANCOCIN 200 IV (17:02)
[2024-10-10] MEDS: LOVENOX 40 MG SC (17:03)
[2024-10-10] MEDS: ANESTHETIC LOZENGE 1 LOZENGE PO (17:21)
[2024-10-10] MEDS: ULTRAM 50 MG PO (21:28)
--- NOTE | 2024-10-10 23:14 | PTCARENOTE ---
Pt received from previous RN. Pt NSR on monitor. 95% on 2L. AAOx3. Productive cough. Call light in reach. Safe endearment maintained.
[2024-10-11] VITALS (15 sets, daily range): BP systolic 94–114; BP diastolic 47–62; PULSE 79–86; O2SAT 95–97
[2024-10-11] MEDS: NSS 1000 IV ×2 (05:22→14:53)
[2024-10-11] MEDS: MAXIPIME 2000 MG IV (05:23)
[2024-10-11] MEDS: STERILE WATER FOR INJECTION 10 ML IV (05:23)
[2024-10-11 05:50] LABS: Hematocrit 27.9 % (37.0-47.0); Hemoglobin 8.7 g/dL (12.0-16.0); Mean Corp Hgb Conc. 31.2 g/dL (33.0-37.0); Mean Corpuscular Hgb 29.4 pg (27.0-31.0); Mean Corpuscular Volume 94.3 fL (81.0-99.0); Mean Platelet Volume 8.9 fL (7.4-10.4); Platelet Count 259 10^3/uL (130-400); Red Blood Cell Count 2.96 10^6/uL (4.20-5.40); Red Cell Dist. Width 14.6 % (11.5-14.5); White Blood Cell Count 15.4 10^3/uL (4.8-10.8)
[2024-10-11 06:12] LABS: Blood Urea Nitrogen 21 mg/dl (7-17); Calcium 8.3 mg/dl (8.4-10.2); Carbon Dioxide 32 mmol/L (22-30); Chloride 99 mmol/L (98-107); Estimated Creatinine Clearance 84 ml/min; Glucose 105 mg/dl (70-99); Magnesium 1.9 mg/dl (1.6-2.3); Potassium 4.1 mmol/L (3.5-5.1); Sodium 133 mmol/L (135-145); eGFR > 60.00
[2024-10-11] MEDS: VANCOCIN 200 IV (06:33)
[2024-10-11] MEDS: PROTONIX IV 40 MG IV (08:37)
[2024-10-11] MEDS: NSS (PRESERVATIVE FREE) 10 ML IV (08:37)
--- NOTE | 2024-10-11 08:40 | W.PN.HOSP.TC ---
Today's Communication/Plan
-
Stable for telemetry
Assessment / Plan
Assessment / Plan
74y F with PMH significant for BRCA+ breast cancer with cutaneous involvement and malignant pleural effusion who presents to ED complaining of fever, cough and SOB.
Pneumonia / Infected Pleural Effusion
Sepsis secondary to the above
- Patient presents with marked leukocytosis, tachycardia, tachypnea and fever to 101.9 with abnormal CXR, cough and SOB.
- Status post thoracentesis draining 1400 cc of clear yellow pleural fluid 10/10, cultures pending
- Appreciate ID input, antibiotics changed to Vanco and cefepime
- Hold chemo, trend fever and white count, follow-up on blood cultures, pleural fluid cultures
COVID-19 Positive
- Initially COVID-19 positive (and asymptomatic at that time) on 09/25/24.
- ? if current testing is recurrent infection versus persistent positivity (which seems more likely).
- Completed course of Paxlovid 09/25 - 09/30.
- Appreciate ID input, no need for any further retroviral therapy
- COVID-positive debility likely from prolonged viral shedding in the context of underlying immunosuppression
- Continue isolation precautions
Chronic hypoxic respiratory failure on 2 L at baseline
� Requiring 2 L, her baseline
BRCA+ Metastatic Breast Cancer
Cutaneous Changes secondary to the above
Malignant Right Pleural Effusion secondary to the above
- Hold chemo/olaparib
- Status post thoracentesis draining 1400 cc of clear yellow pleural fluid 2
- Oncology following, patient follows with Dr. Thalia Benito
Anemia of Chronic Disease
- Monitor hemoglobin
Left calf wound
� Continue wound care
DVT Prophylaxis: Lovenox
Code Status: Full
Total time spent to see the patient on the floor, examine the patient, review data and lab results, discuss treatment plan with patient, nursing staff around 45 minutes.
Physical Exam
General: Appears chronically ill, no acute distress
HEENT: Normocephalic, Atraumatic, EOMI, MMM
Respiratory: Bibasilar crackles with diminished breath sounds at the bases
Cardiac: Normal S1/S2, Regular Rate and Rhythm
GI: Soft, Nontender, Nondistended, Normal Bowel Sounds
Extremities: No Clubbing, Cyanosis
Bilateral lower extremity edema noted
Severe right upper extremity lymphedema noted
Neuro: Nonfocal/Grossly Intact
Psych: Calm, Cooperative
Derm: Left calf wound dressed
Anticipated Discharge: > 48 hours
Subjective/Interval History
-
Date of Service: October 11, 2024
Reports cough and dyspnea with activity are mildly improved. No chest pain, no nausea or vomiting. Fever resolved.
Objective Data
-
Labs:
Laboratory Results
10/11/24
05:31
WBC 15.4 H
Hgb 8.7 L
Hct 27.9 L
Plt Count 259 D
Sodium 133 L
Potassium 4.1
Chloride 99
Carbon Dioxide 32 H
BUN 21 H
Creatinine 0.6
Glucose 105 H
Calcium 8.3 L
Vital Signs:
Vital Signs
Temp Pulse Resp BP Pulse Ox
98.2 F 81 20 96/47 98
10/11/24 03:06 10/11/24 03:00 10/11/24 03:00 10/11/24 02:00 10/11/24 03:35
--- NOTE | 2024-10-11 08:41 | CON.ONC ---
Impression
Impression
Metastatic BRCA mutant right breast cancer, with malignant pleural effusion and extensive skin and soft tissue involvement of the right chest and arm
Malignant pleural effusion
Fever, leukocytosis, ?pneumonia, +GPC in clusters in one anaerobic bottle
COVID-19
Anemia
Plan
Plan
Continue antibiotics per ID, monitor cultures
COVID precautions
Would hold olaparib in the setting of acute infection/illness, resume once clinically improved
anemia is a common side effect of olaparib, will check iron stores, B12, folate
PRN thoracenteses
Patient History
History of Present Illness
This is a 74 yo patient of [facility], with recently diagnosed BRCA mutant metastatic breast cancer, involving skin and soft tissues of the right breast, right chest and right arm and malignant pleural effusion. She had been hospitalized for 2 weeks in
mid September with shortness of breath, underwent multiple thoracenteses for right pleural effusion. She was not a candidate for KRYSTEN catheter secondary to malignant skin involvement at the chest wall. She tested positive for COVID during her
hospitalization and was treated with Paxlovid. She started olaparib on October 02, 2024.
She presented to the emergency room yesterday with fever at home and progressive cough and shortness of breath. Chest x-ray showed a large right pleural effusion with an adjacent opacity that may represent atelectasis or pneumonia. There is a
small left pleural effusion. Temperature at presentation was 101.9, and she has been afebrile now for the past 24 hours on antibiotics.
She underwent repeat thoracentesis yesterday, 1400 cc. She was found to have significant leukocytosis and was started on empiric antibiotics. Blood cultures are noted for gram-positive cocci in 1 anaerobic bottle. Testing for COVID is still
positive.
She's feeling a little better since admission, breathing more comfortably. She notes severe fatigue. She notes that her right arm swelling has slightly improved since starting olaparib one week ago.
Past-Medical/Surgical History
Her past medical history is as per the HPI, also includes hypoglycemia
Social history: she is a former smoker, quit in 1979. She is . She has a daughter, Emilie, involved in her care
Family history: Her sister had cervical or ovarian cancer, father had prostate, breast, and liver cancer
Patient Medication
�Medication �Instructions �Recorded �Confirmed �Last Taken �Type
guaifenesin 100 mg/5 mL oral liquid 200 mg (10 mL) PO Q4HPRN PRN cough 08/30/24 09/15/24 Unknown Rx
#0 mL
acetaminophen 325 mg tablet 650 mg PO Q4HPRN PRN mild pain 09/15/24 09/15/24 Unknown History
(Tylenol)
bisacodyl 10 mg rectal suppository 10 mg TN DAILYPRN PRN if no bm 09/15/24 09/15/24 Unknown History
(Dulcolax (bisacodyl)) aftr mom
magnesium hydroxide 400 mg/5 mL 2,400 mg PO DAILYPRN PRN if no bm 09/15/24 09/15/24 Unknown History
oral suspension (Milk of Magnesia) on 3d day
sodium phosphates 19 gram-7 118 ml TN DAILYPRN PRN if no bm 09/15/24 09/15/24 Unknown History
gram/197 mL enema (Fleet Enema aftr dulcolax
Extra)
benzocaine 6 mg-menthol 10 mg 1 carlos PO Q4HPRN PRN sore throat 09/28/24 Unknown Rx
lozenges (Chloraseptic Sore Throat) #18 ea
olaparib 150 mg tablet See Rx Instructions .Route 09/28/24 Unknown Rx
.COMPLEX #60 tabs
tramadol 50 mg tablet 50 mg PO Q6HPRN PRN MOd-severe 09/28/24 Unknown Rx
pain 3 days #12 tabs
nirmatrelvir 300 mg (150 mg See Rx Instructions PO .COMPLEX 09/29/24 Unknown Rx
x2)-ritonavir 100 mg tablet,dose #30 ea
pack (Paxlovid)
Active Medications
Generic Name Dose Route Start Last Admin
Trade Name Freq PRN Reason Stop Dose Admin
Acetaminophen 650 mg 10/10/24 05:34
Acetaminophen 325 Mg Tablet PO 11/07/24 05:33
Q4HPRN PRN
Mild Pain / Temp > 101
Albuterol Sulfate 2.5 mg 10/10/24 05:34
Albuterol Nebs 2.5 Mg/3 Ml Ampul INH
R Q4HPRN PRN
SOB
Protocol
Benzocaine/Menthol 1 lozenge 10/10/24 17:02 10/10/24 17:21
Benzocaine/Menthol Lozenge PO 11/07/24 17:01 1 lozenge
Q2HPRN PRN Administration
mouth/throat pain
Benzonatate 200 mg 10/10/24 05:34
Benzonatate 100 Mg Capsule PO 11/07/24 05:33
TIDPRN PRN
Cough
Cefepime HCl 2,000 mg 10/10/24 16:00 10/11/24 05:23
Cefepime Hcl 2,000 Mg/12.5 Ml Vial IV 2,000 mg
Q12H CHERRI Administration
Enoxaparin Sodium 40 mg 10/10/24 18:00 10/10/24 17:03
Enoxaparin Sodium 40 Mg/0.4 Ml Syringe SC 11/07/24 17:59 40 mg
QPM CHERRI Administration
Sodium Chloride 1,000 mls @ 125 mls/hr 10/10/24 05:34 10/11/24 05:22
Nss IV 1,000 mls
.Q8H CHERRI Administration
Vancomycin HCl 1 gram in 200 mls @ 200 mls/hr 10/10/24 18:00 10/11/24 06:33
Vancocin IV 200 mls
Q12H CHERRI Administration
Protocol
Morphine Sulfate 2 mg 10/10/24 05:34
Morphine 2 Mg/Ml Syringe IV 10/24/24 05:33
Q4HPRN PRN
Severe Pain
Pantoprazole Sodium 40 mg 10/10/24 08:00 10/11/24 08:37
Pantoprazole Sodium 40 Mg/10 Ml Vial IV 11/07/24 07:59 40 mg
DAILY CHERRI Administration
Promethazine HCl/Codeine 5 ml 10/10/24 05:34
Promethazine (6.25 Mg)/Codeine (10 Mg) Syrup 5 Ml Cup PO 11/07/24 05:33
Q4HPRN PRN
Cough
Sodium Chloride 0 flush 10/10/24 04:00
Sodium Chloride 0.9% (Flush) Syringe IV 11/07/24 03:59
PER PROTOCOL CHERRI
Sodium Chloride 10 ml 10/10/24 08:00 10/11/24 08:37
Sodium Chloride 0.9% (Preservative Free) 10 Ml Vial IV 11/07/24 07:59 10 ml
DAILY CHERRI Administration
Sterile Water 10 ml 10/10/24 15:00 10/11/24 05:23
Sterile Water For Injection 10 Ml Vial IV 11/07/24 14:59 10 ml
Q12H CHERRI Administration
Tramadol HCl 50 mg 10/10/24 05:34 10/10/24 21:28
Tramadol Hcl 50 Mg Tablet PO 11/07/24 05:33 50 mg
Q6HPRN PRN Administration
Moderate pain
Review of Systems
-
History Source: Patient
All Other Systems: Not reviewed unless documented
Physical Exam
-
General: No Apparent Distress, Comfortable, Conversant and Appears Chronically Ill
HEENT: Negative Jaundice
Pulmonary: Other (decreased)
Skin: Other (marked skin thickening/edema to right arm and right chest c/w malignant infilatration)
Psych: Calm and Intact Judgement/Insight
Labs
Lab Results
WBC 15.4 10^3/uL (4.8-10.8) H 10/11/24 05:31
RBC 2.96 10^6/uL (4.20-5.40) L 10/11/24 05:31
Hgb 8.7 g/dL (12.0-16.0) L 10/11/24 05:31
Hct 27.9 % (37.0-47.0) L 10/11/24 05:31
MCV 94.3 fL (81.0-99.0) 10/11/24 05:31
MCH 29.4 pg (27.0-31.0) 10/11/24 05:31
MCHC 31.2 g/dL (33.0-37.0) L 10/11/24 05:31
RDW 14.6 % (11.5-14.5) H 10/11/24 05:31
Plt Count 259 10^3/uL (130-400) D 10/11/24 05:31
MPV 8.9 fL (7.4-10.4) 10/11/24 05:31
Creatinine 0.6 mg/dL (0.6-1.0) 10/11/24 05:31
Vital Signs
Vital Signs
Temp Pulse Resp BP Pulse Ox
98.2 F 81 20 96/47 98
10/11/24 03:06 10/11/24 03:00 10/11/24 03:00 10/11/24 02:00 10/11/24 03:35
--- NOTE | 2024-10-11 09:08 | PHA.VAN.FU ---
Vancomycin Assessment / Plan
- Assessment
Renal Function: Stable
In the past 24 hrs, patient has been: Afebrile
Concomitant Antimicrobials: Cefepime Q12H
- Monitoring Plan
No level(s) ordered at this time: Consider levels in next few days
- Follow Up
Pharmacy will continue to follow.
Vancomycin Follow UP
- -
Patient Age: 74
Patient Sex: Female
Vancomycin Day #: 2
Indication: Pulmonary/Respiratory
Requesting Provider: Dr. Cannon
Pertinent Antimicrobial Allergies:
sulfonamide antibiotics - yeast infections
tetracyclines - yeast infections
Height / Weight:
Height 5 ft 4 in
Actual Weight 79.1 kg
Pertinent Past Medical History: breast cancer
- Vital Signs / Lab Results
Temp Pulse Resp BP Pulse Ox
98.2 F 81 20 96/47 98
10/11/24 03:06 10/11/24 03:00 10/11/24 03:00 10/11/24 02:00 10/11/24 03:35
Lab Results - Hematology
10/10/24 10/10/24 10/11/24
00:17 05:53 05:31
WBC 29.2 H 26.1 H 15.4 H
Band Neutrophils 16 H
Lab Results - Chemistry
10/10/24 10/10/24 10/11/24
00:17 05:53 05:31
BUN 17 19 H 21 H
Creatinine 0.5 L 0.6 0.6
Estimated Creat Clear 85 83 84
Albumin 3.5 3.1 L
10/10/24 10/10/24
00:17 04:15
Lactic Acid 1.7 Cancelled
Microbiology Results
10/10/24 05:53 Blood Culture - Preliminary
Blood/Venous No Growth in 24 hours- Final report to follow
10/10/24 00:22 Blood Culture - Preliminary
Blood/Venous No Growth in 24 hours- Final report to follow
10/10/24 10:45 Gram Stain - Preliminary
Pleural Fluid
10/10/24 02:12 Blood Culture - Preliminary
Blood/Venous Positive culture in progress
Gram Stain - Preliminary
10/10/24 00:17 Influenza Types A & B (SAMMY) - Final
Nasal Swab Negative for Influenza A & B, NAAT
Negative results must be combined with clinical observations
and patient history.
Nucleic Acid Amplification test (NAAT)performed on the
[employer] platform.
[2024-10-11 11:20] LABS: Total Iron Binding Capacity 133 ug/dl (265-497)
--- NOTE | 2024-10-11 11:59 | W.PN.ID1 ---
Date of Service
Date of Service: October 11, 2024
Today's Communication
Continue antibiotics. Narrow to cefazolin
Assessment / Plan
Fever
Marked leukocytosis
COVID-19
Blood culture with strep pyogenes
Stage IV breast cancer, recent initiation of Olaparib
Recurrent pleural effusion
Anemia
Anasarca
HTN
Fibromyalgia
Neuropathy
Recommendations:
Narrow antibiotics to cefazolin to treat recovered Strep pyogenes. Source likely the upper extremity / chest wall area.
Monitor white count and temperature curve.
Await pleural fluid culture. Prior effusions positive for malignancy
Patient is status post 5-day course of Paxlovid. No indication at present to initiate additional antiviral therapy.
Repeat testing noted to be positive, and may indicate prolonged viral shedding in the context of underlying immunosuppression.
Continue with novel respiratory virus isolation practices.
Further recommendations as additional data is returned.
Chief Complaint
-: Leukocytosis and Bacteremia
Subjective / Review of Systems
Patient seen and examined. Has continued to feel poorly. Still with some cough, although breathing is somewhat better now that she has undergone thoracentesis.
Afebrile x 24 hours
Vital Signs / Physical Exam
Vital Signs
Vital Signs
Temp Pulse Resp BP Pulse Ox
98.2 F 81 20 96/47 98
10/11/24 03:06 10/11/24 03:00 10/11/24 03:00 10/11/24 02:00 10/11/24 03:35
Physical Exam
Constitutional: Comfortable, Acutely Ill, Chronically Ill and Non-toxic
Eyes: No Conjunctival Hemorrhage and Sclera Anicteric
Oropharyngeal: Negative Thrush
Cardiovascular: S1/S2; Negative S3/S4
Pulmonary: Non Labored
Gastrointestinal: Soft, Non Tender and Non Distended
Skin: Other (Skin of right upper extremity and right thoracic wall thickened with a Peau d'orange texture.)
Neurological: Awake and Alert
Psychological: Calm
Objective Data
Lab Data
Lab Results
10/11/24 05:31
10/11/24 05:31
Estimated Creat Clear 84 ml/min 10/11/24 05:31
Lactic Acid Cancelled 10/10/24 04:15
Total Bilirubin 0.7 mg/dl (0.2-1.3) 10/10/24 05:53
AST 60 U/L (14-36) H 10/10/24 05:53
ALT 21 U/L (0-35) 10/10/24 05:53
Alkaline Phosphatase 74 U/L (38-126) 10/10/24 05:53
Most recent labs reviewed.
Micro Results:
10/10/24 10:45 Body Fluid Culture - Preliminary
Pleural Fluid No Growth After 18-24 Hours
Gram Stain - Preliminary
10/10/24 02:12 Blood Culture - Preliminary
Blood/Venous Streptococcus pyogenes
Gram Stain - Preliminary
10/10/24 05:53 Blood Culture - Preliminary
Blood/Venous No Growth in 24 hours- Final report to follow
10/10/24 00:22 Blood Culture - Preliminary
Blood/Venous No Growth in 24 hours- Final report to follow
10/10/24 08:50 MRSA Screen - Pending
Nose
10/10/24 00:17 Influenza Types A & B (SAMMY) - Final
Nasal Swab Negative for Influenza A & B, NAAT
Negative results must be combined with clinical observations
and patient history.
Nucleic Acid Amplification test (NAAT)performed on the
[employer] platform.
Imaging:
10/10/2024 CXR (2 view): A large right pleural effusion with adjacent opacity that may represent either atelectasis or pneumonia is noted. No pneumothorax. Cardiomediastinal silhouette is stable.
10/10/2024 CXR (portable): Following thoracentesis and recovery of 1400 cc of clear yellow pleural fluid, there is no visualized pneumothorax. A tiny right pleural effusion is appreciated.
[2024-10-11 12:03] LABS: Iron 30 ug/dl (37-170); Percent Saturation 22 % (20-50)
--- NOTE | 2024-10-11 12:45 | WOUNDNOTE ---
[facility] RN NOTE: Reviewed note and met with patient. Patient known from previous admission. Patient with left medial leg venous wound. No odor noted, scant amount of drainage and moderate erythema. Patient has + pedal pulse and would benefit from
compression but would like to hold off due to tenderness of wound. She reports pain is 'about the same' since prior admission. Patient declined to have left arm/breast assessed but said she liked using the Aquaphor on her skin and wound like staff
to apply. Patient declined assessment of buttocks and per chart review buttocks are covered with silicone border foam. Patient is on a Centrella Max Air and heels are off-loaded on pillows. Will follow as needed. RN updated, will confirm orders with
hospitalist.
--- NOTE | 2024-10-11 12:53 | WOUNDNOTE ---
LEFT MEDIAL LEG
--- NOTE | 2024-10-11 13:50 | PN.CDI ---
CDI
- -
CDI:
Physician Documentation Request
Admit Date: 10/10/24 04:24
Dear Doctor Do,
Please review the following and provide your response in the progress notes.
Clinical Indicators:
1/2 H+P
#Respiratory: Reports Cough and Trouble Breathing; Denies Hemoptysis
10/10/24 13:18 - Case Management Note
#...Other DME is home O2 concentrator/portable used continuously.
10/10/24 06:44 - Patient Care Note
#...Pt on 3L NC , sat 98%, does have SOB with lying flat.
10/10/24 23:14 - Patient Care Note
#...Pt NSR on monitor. 95% on 2L.
#...O2 2-3L during admission
Based on the above and your clinical assessment, please clarify(continuous home O2 use) which of the following accurately represents the patient's respiratory status:
Chronic respiratory failure
Acute on chronic respiratory failure
Hypoxia
Other(please specify)
Additional information for Respiratory Failure:
Recognized criteria for Respiratory Failure (Source: [facility] Aug 2013)
Symptoms Please indicate type if known
1. Tachypnea, SOB, dyspnea Hypoxic
2. Use of accessory muscles Hypercapnic
3. Pallor or cyanosis Hypoxic and Hypercapnic
4. Anxiety or restlessness
5. Unable to speak in full sentences
Supplemental O2 of > 40% (5LPM) Intubation is not required
Use of terms such as suspected, likely, concern for, or probable (associated with a specific diagnosis that is being evaluated, monitored, or treated as if it exists) are acceptable and can be coded in the inpatient setting, when documented at the
time of discharge.
Thank you,
Cate Quezada RN BSN CCDS
CDI Specialist
please contact via tiger text
Please use your independent medical judgment in providing your response.
[2024-10-11 14:19] LABS: Folate 14.4 ng/ml (2.76-20); Vitamin B12 966 pg/ml (239-931)
[2024-10-11] MEDS: HYDROPHOR 1 APPLIC TOPICAL (14:52)
[2024-10-11] MEDS: ANCEF 10 IV ×2 (14:52→23:00)
--- NOTE | 2024-10-11 16:50 | PTCARENOTE ---
pt being transferred to [address] [place] [address]. report given to recieving Ashlie khoury.
[2024-10-11] MEDS: LOVENOX 40 MG SC (17:03)
[2024-10-11] MEDS: ULTRAM 50 MG PO (20:56)
[2024-10-12 03:49] VITALS: BP 104/58
[2024-10-12] MEDS: ANCEF 10 IV ×3 (05:15→22:12)
[2024-10-12 06:00] VITALS: BMI 29.9
[2024-10-12 06:43] LABS: Hematocrit 28.3 % (37.0-47.0); Hemoglobin 9.3 g/dL (12.0-16.0); Mean Corp Hgb Conc. 32.9 g/dL (33.0-37.0); Mean Corpuscular Hgb 30.2 pg (27.0-31.0); Mean Corpuscular Volume 91.9 fL (81.0-99.0); Mean Platelet Volume 9.3 fL (7.4-10.4); Platelet Count 325 10^3/uL (130-400); Red Blood Cell Count 3.08 10^6/uL (4.20-5.40); Red Cell Dist. Width 14.5 % (11.5-14.5); White Blood Cell Count 8.7 10^3/uL (4.8-10.8)
--- NOTE | 2024-10-12 07:12 | W.PN.HOSP.TC ---
Today's Communication/Plan
-
see bold
Assessment / Plan
Assessment / Plan
74y F with PMH significant for BRCA+ breast cancer with cutaneous involvement and malignant pleural effusion who presents to ED complaining of fever, cough and SOB.
Pneumonia / Infected Pleural Effusion
Strep pyogenes bacteremia
Sepsis secondary to the above
- Patient presents with marked leukocytosis, tachycardia, tachypnea and fever to 101.9 with abnormal CXR, cough and SOB.
- Status post thoracentesis draining 1400 cc of clear yellow pleural fluid 10/10, fluid cultures negative to date
- Appreciate ID input, antibiotics changed to Ancef to cover for strep pyogenes, status post vancomycin and Zosyn
- Hold chemo, trend fever and white count
- PT recommends short-term rehab, case management notified 10/12, patient lives alone
COVID-19 Positive
- Initially COVID-19 positive (and asymptomatic at that time) on 09/25/24.
- ? if current testing is recurrent infection versus persistent positivity (which seems more likely).
- Completed course of Paxlovid 09/25 - 09/30.
- Appreciate ID input, no need for any further retroviral therapy
- COVID-positive debility likely from prolonged viral shedding in the context of underlying immunosuppression
- Continue isolation precautions
Chronic hypoxic respiratory failure on 2 L at baseline
� Requiring 2 L, her baseline
BRCA+ Metastatic Breast Cancer
Cutaneous Changes secondary to the above
Malignant Right Pleural Effusion secondary to the above
- Hold chemo/olaparib
- Status post thoracentesis draining 1400 cc of clear yellow pleural fluid 10/10
- Oncology following, patient follows with Dr. Thalia Benito
Anemia of Chronic Disease
- Patient's chemo/olaparib can cause anemia
- Trend hemoglobin, transfuse for hemoglobin less than 7.5
Left calf wound
� Continue wound care
Hyponatremia
� Monitor
DVT Prophylaxis: Lovenox
Code Status: Full
Total time spent to see the patient on the floor, examine the patient, review data and lab results, discuss treatment plan with patient, nursing staff around 40 minutes.
Physical Exam
General: Appears chronically ill, no acute distress
HEENT: Normocephalic, Atraumatic, EOMI, MMM
Respiratory: Bibasilar crackles with diminished breath sounds at the bases
Cardiac: Normal S1/S2, Regular Rate and Rhythm
GI: Soft, Nontender, Nondistended, Normal Bowel Sounds
Extremities: No Clubbing, Cyanosis
Bilateral lower extremity edema noted
Severe right upper extremity lymphedema noted
Neuro: Nonfocal/Grossly Intact
Psych: Calm, Cooperative
Derm: Left calf wound dressed
Anticipated Discharge: 24 - 48 hours
Subjective/Interval History
-
Date of Service: October 11, 2024
Patient reports shortness of breath is improved. Cough is the same. No fever. No nausea, no vomiting.
Objective Data
-
Labs:
Laboratory Results
10/11/24
05:31
WBC 15.4 H
Hgb 8.7 L
Hct 27.9 L
Plt Count 259 D
Sodium 133 L
Potassium 4.1
Chloride 99
Carbon Dioxide 32 H
BUN 21 H
Creatinine 0.6
Glucose 105 H
Calcium 8.3 L
Vital Signs:
Vital Signs
Temp Pulse Resp BP Pulse Ox
97.8 F 81 20 96/47 98
10/11/24 14:56 10/11/24 03:00 10/11/24 03:00 10/11/24 02:00 10/11/24 03:35
[2024-10-12 07:18] LABS: Blood Urea Nitrogen 18 mg/dl (7-17); Calcium 8.6 mg/dl (8.4-10.2); Carbon Dioxide 29 mmol/L (22-30); Chloride 101 mmol/L (98-107); Estimated Creatinine Clearance 84 ml/min; Glucose 88 mg/dl (70-99); Potassium 4.1 mmol/L (3.5-5.1); Sodium 135 mmol/L (135-145); eGFR > 60.00
[2024-10-12 07:30] VITALS: BP 115/65
[2024-10-12] MEDS: PROTONIX IV 40 MG IV (08:53)
[2024-10-12] MEDS: NSS (PRESERVATIVE FREE) 10 ML IV (08:53)
[2024-10-12] MEDS: HYDROPHOR 1 APPLIC TOPICAL (08:57)
[2024-10-12 11:45] VITALS: BP 120/58
--- NOTE | 2024-10-12 13:35 | W.PN.ID1 ---
Date of Service
Date of Service: October 12, 2024
Today's Communication
Continue cefazolin.
Ordered imaging LLE for DVT
Assessment / Plan
Fever - resolved
Marked leukocytosis - resolved
COVID-19
Blood culture with strep pyogenes
Stage IV breast cancer, recent initiation of Olaparib
Recurrent pleural effusion
Anemia
Anasarca
HTN
Fibromyalgia
Neuropathy
Recommendations:
LLE edema.
Ordered periph venous US to rule out DVT even though pt is on Lovenox.
Continue cefazolin to treat recovered Strep pyogenes. Source likely the upper extremity / chest wall area.
pleural fluid culture negative. Prior effusions positive for malignancy
Fever and leukocytosis resolved.
Patient is status post 5-day course of Paxlovid. No indication at present to initiate additional antiviral therapy.
Repeat testing noted to be positive, and may indicate prolonged viral shedding in the context of underlying immunosuppression.
Continue with novel respiratory virus isolation practices.
Chief Complaint
-: Leukocytosis and Bacteremia
Subjective / Review of Systems
Per nurse, she noted LLE edema.
No pain
Vital Signs / Physical Exam
Vital Signs
Vital Signs
Temp Pulse Resp BP Pulse Ox
98.0 F 102 16 120/58 93
10/12/24 11:45 10/12/24 11:45 10/12/24 11:45 10/12/24 11:45 10/12/24 11:45
Physical Exam
Constitutional: Comfortable, Chronically Ill and Non-toxic
Cardiovascular: Regular Rate and S1/S2; Negative S3/S4
Pulmonary: Non Labored
Gastrointestinal: Soft, Non Tender and Non Distended
Extremities: Edema (LLE >RLE) and Erythema (mild pink erythema LLE ankle up to groin)
Skin: Other (Skin of right upper extremity and right thoracic wall thickened with a Peau d'orange texture.)
Neurological: Awake and Alert
Psychological: Calm
Objective Data
Lab Data
Lab Results
10/12/24 05:34
10/12/24 05:34
Estimated Creat Clear 84 ml/min 10/12/24 05:34
Lactic Acid Cancelled 10/10/24 04:15
Total Bilirubin 0.7 mg/dl (0.2-1.3) 10/10/24 05:53
AST 60 U/L (14-36) H 10/10/24 05:53
ALT 21 U/L (0-35) 10/10/24 05:53
Alkaline Phosphatase 74 U/L (38-126) 10/10/24 05:53
Most recent labs reviewed.
Micro Results:
10/10/24 02:12 Blood Culture - Preliminary
Blood/Venous Streptococcus pyogenes
Gram Stain - Preliminary
10/10/24 10:45 Body Fluid Culture - Preliminary
Pleural Fluid No Growth After 48 Hours
Gram Stain - Preliminary
10/10/24 05:53 Blood Culture - Preliminary
Blood/Venous No Growth in 48 hours- Final report to follow
10/10/24 00:22 Blood Culture - Preliminary
Blood/Venous No Growth in 48 hours- Final report to follow
10/10/24 08:50 MRSA Screen - Final
Nose No Methicillin Resistant Staphylococcus aureus isolated.
10/10/24 00:17 Influenza Types A & B (SAMMY) - Final
Nasal Swab Negative for Influenza A & B, NAAT
Negative results must be combined with clinical observations
and patient history.
Nucleic Acid Amplification test (NAAT)performed on the
[employer] platform.
Imaging:
10/10/2024 CXR (2 view): A large right pleural effusion with adjacent opacity that may represent either atelectasis or pneumonia is noted. No pneumothorax. Cardiomediastinal silhouette is stable.
10/10/2024 CXR (portable): Following thoracentesis and recovery of 1400 cc of clear yellow pleural fluid, there is no visualized pneumothorax. A tiny right pleural effusion is appreciated.
--- NOTE | 2024-10-12 15:11 | CM ---
Addendum entered by Socorro Jordan 10/12/24 15:55:
Received call from Emilie, will review with family and call with options
Original Note:
Pt recs - SNF
Called and LM for daughter Emilie to discuss SNF options. Waiting for return call
Plan - snf when medically ready
[2024-10-12 16:24] VITALS: BP 98/63
[2024-10-12] MEDS: LOVENOX 40 MG SC (17:29)
[2024-10-12] MEDS: ANESTHETIC LOZENGE 1 LOZENGE PO (17:41)
[2024-10-12 19:52] VITALS: BP 104/52
[2024-10-12] MEDS: ULTRAM 50 MG PO (22:11)
[2024-10-12 23:25] VITALS: BP 110/56
[2024-10-13 03:40] VITALS: BP 118/58
[2024-10-13 06:00] VITALS: BMI 30.3
[2024-10-13] MEDS: ANCEF 10 IV (06:20)
[2024-10-13 06:42] LABS: Hematocrit 28.3 % (37.0-47.0); Hemoglobin 9.1 g/dL (12.0-16.0); Mean Corp Hgb Conc. 32.2 g/dL (33.0-37.0); Mean Corpuscular Hgb 29.8 pg (27.0-31.0); Mean Corpuscular Volume 92.8 fL (81.0-99.0); Mean Platelet Volume 8.9 fL (7.4-10.4); Platelet Count 338 10^3/uL (130-400); Red Blood Cell Count 3.05 10^6/uL (4.20-5.40); Red Cell Dist. Width 14.5 % (11.5-14.5); White Blood Cell Count 7.6 10^3/uL (4.8-10.8)
[2024-10-13 07:11] LABS: Blood Urea Nitrogen 14 mg/dl (7-17); Calcium 8.5 mg/dl (8.4-10.2); Carbon Dioxide 31 mmol/L (22-30); Chloride 103 mmol/L (98-107); Estimated Creatinine Clearance 84 ml/min; Glucose 94 mg/dl (70-99); Potassium 4.2 mmol/L (3.5-5.1); Sodium 137 mmol/L (135-145); eGFR > 60.00
[2024-10-13 07:50] VITALS: BP 144/72
--- NOTE | 2024-10-13 08:07 | W.PN.HOSP.TC ---
Today's Communication/Plan
-
see bold
Assessment / Plan
Assessment / Plan
74y F with PMH significant for BRCA+ breast cancer with cutaneous involvement and malignant pleural effusion who presents to ED complaining of fever, cough and SOB.
Strep pyogenes bacteremia
Acute left lower extremity cellulitis
Sepsis secondary to the above
Pneumonia / Infected Pleural Effusion ruled out
- Patient presents with marked leukocytosis, tachycardia, tachypnea and fever to 101.9 with abnormal CXR, cough and SOB.
- Status post thoracentesis draining 1400 cc of clear yellow pleural fluid /, fluid cultures negative to date
- Suspect patient's cough and shortness of breath were due to her recent coronavirus infection and malignant pleural effusion as repeat chest x-ray after her thoracentesis negative for pneumonia
- Left lower extremity Dopplers negative for DVT
- Appreciate ID input, antibiotics changed to Rocephin and clindamycin, s/p Ancef, s/p vancomycin and Zosyn
- Hold chemo, trend fever and white count
COVID-19 Positive
- Initially COVID-19 positive (and asymptomatic at that time) on 09/25/24.
- ? if current testing is recurrent infection versus persistent positivity (which seems more likely).
- Completed course of Paxlovid 09/25 - 09/30.
- Appreciate ID input, no need for any further retroviral therapy
- COVID-positive debility likely from prolonged viral shedding in the context of underlying immunosuppression
- Continue isolation precautions
Chronic hypoxic respiratory failure on 2 L at baseline
� Requiring 2 L, her baseline
BRCA+ Metastatic Breast Cancer
Cutaneous Changes secondary to the above
Malignant Right Pleural Effusion secondary to the above
- Hold chemo/olaparib
- Status post thoracentesis draining 1400 cc of clear yellow pleural fluid 1/2
- Oncology following, patient follows with Dr. Thalia Benito
Anemia of Chronic Disease
- Patient's chemo/olaparib can cause anemia
- Trend hemoglobin, transfuse for hemoglobin less than 7.5
Right lateral chest wall wound dressed
Left calf wound
� Continue wound care
Hyponatremia
� Monitor
DVT Prophylaxis: Lovenox
Code Status: Full
PT recommends short-term rehab, case management notified 10/12, patient lives alone
Total time spent to see the patient on the floor, examine the patient, review data and lab results, discuss treatment plan with patient, nursing staff around 50 minutes.
Physical Exam
General: Appears chronically ill, no acute distress
HEENT: Normocephalic, Atraumatic, EOMI, MMM
Respiratory: Bibasilar crackles with diminished breath sounds at the bases
Cardiac: Normal S1/S2, Regular Rate and Rhythm
GI: Soft, Nontender, Nondistended, Normal Bowel Sounds
Extremities: No Clubbing, Cyanosis
Bilateral lower extremity edema noted
Severe right upper extremity lymphedema noted
Neuro: Nonfocal/Grossly Intact
Psych: Calm, Cooperative
Derm: Left calf wound dressed
Right lateral chest wall wound dressed
Anticipated Discharge: 24 - 48 hours
Subjective/Interval History
-
Date of Service: October 13, 2024
Patient reports her cough and dyspnea with activity are the same. She has left lower extremity edema and erythema now, was not there previously. No fever, no vomiting.
Objective Data
-
Labs:
Laboratory Results
10/13/24
05:50
WBC 7.6
Hgb 9.1 L
Hct 28.3 L
Plt Count 338
Sodium 137
Potassium 4.2
Chloride 103
Carbon Dioxide 31 H
BUN 14
Creatinine 0.6
Glucose 94
Calcium 8.5
Vital Signs:
Vital Signs
Temp Pulse Resp BP Pulse Ox
98.9 F 81 16 118/58 96
10/13/24 03:40 10/13/24 03:40 10/13/24 03:40 10/13/24 03:40 10/13/24 03:40
I&O
10/12/24 10/13/24 10/14/24
06:59 06:59 06:59
Intake Total 1180 / 1180 1620 / 1620
Output Total 300 / 300 1350 / 1350
Balance 880 / 880 270 / 270
[2024-10-13] MEDS: PROTONIX IV 40 MG IV (08:11)
[2024-10-13] MEDS: NSS (PRESERVATIVE FREE) 10 ML IV (08:11)
[2024-10-13] MEDS: HYDROPHOR 1 APPLIC TOPICAL (08:15)
--- NOTE | 2024-10-13 08:29 | CM ---
Received message from pts daughter with options for SNF - [facility]
Referral sent in [facility]
Plan - SNF when bed obtained and medically ready for discharge
--- NOTE | 2024-10-13 09:15 | W.PN.ID1 ---
Date of Service
Date of Service: October 13, 2024
Today's Communication
Replace cefazolin with ceftriaxone.
Add short course clindamycin IV 900mg q6h as toxin inhibitor.
Assessment / Plan
LLE cellulitis (new)
Group A strep bacteremia
Fever - resolved
Marked leukocytosis - resolved
Recent COVID-19
Stage IV breast cancer, recent initiation of Olaparib
Recurrent pleural effusion
Anemia
Anasarca
HTN
Fibromyalgia
Neuropathy
Recommendations:
New LLE edema with increasing erythema and warmth concerning for cellulitis due to Group A Strep.
Periph venous US neg DVT.
Replace cefazolin with ceftriaxone.
Add short course clindamycin IV 900mg q6h as toxin inhibitor.
pleural fluid culture negative. Prior effusions positive for malignancy
Fever and leukocytosis resolved.
Patient is status post 5-day course of Paxlovid. No indication at present to initiate additional antiviral therapy.
Repeat testing noted to be positive, and may indicate prolonged viral shedding in the context of underlying immunosuppression.
Continue with novel respiratory virus isolation practices.
Chief Complaint
-: Leukocytosis, Cellulitis and Bacteremia
Subjective / Review of Systems
No diarrhea.
+ left leg discomfort, was very warm last night
Vital Signs / Physical Exam
Vital Signs
Vital Signs
Temp Pulse Resp BP Pulse Ox
98.9 F 81 16 118/58 96
10/13/24 03:40 10/13/24 03:40 10/13/24 03:40 10/13/24 03:40 10/13/24 03:40
Physical Exam
Constitutional: Comfortable and Chronically Ill
Eyes: No Conjunctival Hemorrhage and Sclera Anicteric
Extremities: Edema (LLE 3+ 3e3ma.) and Erythema (LLE increase erythema from blackwell up to inner thigh. + warmth)
Neurological: AO x 3
Objective Data
Lab Data
Lab Results
10/13/24 05:50
10/13/24 05:50
Estimated Creat Clear 84 ml/min 10/13/24 05:50
Lactic Acid Cancelled 10/10/24 04:15
Total Bilirubin 0.7 mg/dl (0.2-1.3) 10/10/24 05:53
AST 60 U/L (14-36) H 10/10/24 05:53
ALT 21 U/L (0-35) 10/10/24 05:53
Alkaline Phosphatase 74 U/L (38-126) 10/10/24 05:53
Most recent labs reviewed.
Micro Results:
10/10/24 10:45 Body Fluid Culture - Final
Pleural Fluid No Growth After 72 Hours
Gram Stain - Final
10/10/24 05:53 Blood Culture - Preliminary
Blood/Venous No Growth in 72 hours- Final report to follow
10/10/24 00:22 Blood Culture - Preliminary
Blood/Venous No Growth in 72 hours- Final report to follow
10/10/24 02:12 Blood Culture - Preliminary
Blood/Venous Streptococcus pyogenes
Gram Stain - Preliminary
10/10/24 08:50 MRSA Screen - Final
Nose No Methicillin Resistant Staphylococcus aureus isolated.
10/10/24 00:17 Influenza Types A & B (SAMMY) - Final
Nasal Swab Negative for Influenza A & B, NAAT
Negative results must be combined with clinical observations
and patient history.
Nucleic Acid Amplification test (NAAT)performed on the
[employer] platform.
Imaging:
10/12/24 peripheral vascular US LLE: No sonographic evidence for left lower extremity deep venous thrombosis. Severe diffuse subcutaneous edema throughout the left lower leg.
10/10/2024 CXR (2 view): A large right pleural effusion with adjacent opacity that may represent either atelectasis or pneumonia is noted. No pneumothorax. Cardiomediastinal silhouette is stable.
10/10/2024 CXR (portable): Following thoracentesis and recovery of 1400 cc of clear yellow pleural fluid, there is no visualized pneumothorax. A tiny right pleural effusion is appreciated.
Care Review
Plan reviewed with: Physician (Dr. Noreen Drummond)
[2024-10-13] MEDS: VISBIOME 2 CAP PO (10:42)
[2024-10-13] MEDS: STERILE WATER FOR INJECTION 20 ML IV (10:43)
[2024-10-13] MEDS: ROCEPHIN 2000 MG IV (10:43)
[2024-10-13 11:40] VITALS: BP 109/55
[2024-10-13] MEDS: ANESTHETIC LOZENGE 1 LOZENGE PO ×2 (12:04→17:58)
[2024-10-13] MEDS: CLEOCIN 50 IV ×3 (13:26→23:44)
[2024-10-13 15:45] VITALS: BP 121/56
[2024-10-13] MEDS: LOVENOX 40 MG SC (17:46)
[2024-10-13 20:14] VITALS: BP 121/67
[2024-10-13] MEDS: ULTRAM 50 MG PO (21:27)
[2024-10-13 23:29] VITALS: BP 119/53
[2024-10-14 03:42] VITALS: BP 120/56
--- NOTE | 2024-10-14 05:56 | W.PN.HOSP.TC ---
Today's Communication/Plan
-
cont abx as per ID
discharge planning SNF rehab
Assessment / Plan
Assessment / Plan
74y F with PMH significant for BRCA+ breast cancer with cutaneous involvement and malignant pleural effusion who presents to ED complaining of fever, cough and SOB.
Strep pyogenes bacteremia
Acute left lower extremity cellulitis
Sepsis secondary to the above
Pneumonia / Infected Pleural Effusion ruled out
- Patient presents with marked leukocytosis, tachycardia, tachypnea and fever to 101.9 with abnormal CXR, cough and SOB.
- Status post thoracentesis draining 1400 cc of clear yellow pleural fluid 1/2, fluid cultures negative to date
- Suspect patient's cough and shortness of breath were due to her recent coronavirus infection and malignant pleural effusion as repeat chest x-ray after her thoracentesis negative for pneumonia
- Left lower extremity Dopplers negative for DVT
- Appreciate ID input, antibiotics changed to Rocephin and clindamycin, s/p Ancef, s/p vancomycin and Zosyn
- Hold chemo, trend fever and white count
COVID-19 Positive
- Initially COVID-19 positive (and asymptomatic at that time) on 09/25/24.
- ? if current testing is recurrent infection versus persistent positivity (which seems more likely).
- Completed course of Paxlovid 09/25 - 09/30.
- Appreciate ID input, no need for any further retroviral therapy
- COVID-positive debility likely from prolonged viral shedding in the context of underlying immunosuppression
- Continue isolation precautions
Chronic hypoxic respiratory failure on 2 L at baseline
� Requiring 2 L, her baseline
BRCA+ Metastatic Breast Cancer
Cutaneous Changes secondary to the above
Malignant Right Pleural Effusion secondary to the above
- Hold chemo/olaparib
- Status post thoracentesis draining 1400 cc of clear yellow pleural fluid 1/2
- Oncology following, patient follows with Dr. Thalia Benito
Anemia of Chronic Disease
- Patient's chemo/olaparib can cause anemia
- Trend hemoglobin, transfuse for hemoglobin less than 7.5
Right lateral chest wall wound dressed
Left calf wound
� Continue wound care
Hyponatremia
� Monitor
DVT Prophylaxis: Lovenox
Code Status: Full
PT recommends short-term rehab
discussed with patient and patient's daughter Emilie
Total time spent to see the patient on the floor, examine the patient, review data and lab results, discuss treatment plan with patient, nursing staff around 40 minutes.
Physical Exam
General: Appears chronically ill, no acute distress
HEENT: Normocephalic, Atraumatic, EOMI, MMM
Respiratory: Clear to auscultation b/l
Cardiac: Normal S1/S2, Regular Rate and Rhythm
GI: Soft, Nontender, Nondistended, Normal Bowel Sounds
Extremities: No Clubbing, Cyanosis
Bilateral lower extremity edema noted
Severe right upper extremity lymphedema noted
Neuro: Nonfocal/Grossly Intact
Psych: Calm, Cooperative
Derm: Left calf wound dressed
Right lateral chest wall wound dressed
Anticipated Discharge: 24 - 48 hours
Subjective/Interval History
-
Date of Service: October 14, 2024
No acute distress resting comfortably in bed. On nasal cannula baseline supplementation. LLE compressive wrapping in place.
Objective Data
-
Labs:
Laboratory Results
10/14/24
06:00
WBC Pending
Hgb Pending
Hct Pending
Plt Count Pending
Vital Signs:
Vital Signs
Temp Pulse Resp BP Pulse Ox
97.9 F 81 17 120/56 96
10/14/24 03:42 10/14/24 03:42 10/14/24 03:42 10/14/24 03:42 10/14/24 03:42
I&O
10/12/24 10/13/24 10/14/24
06:59 06:59 06:59
Intake Total 1180 / 1180 1620 / 1620 480 / 480
Output Total 300 / 300 1350 / 1350 700 / 700
Balance 880 / 880 270 / 270 -220 / -220
[2024-10-14 06:00] VITALS: BMI 29.6
[2024-10-14] MEDS: CLEOCIN 50 IV ×3 (06:01→16:58)
[2024-10-14 07:28] LABS: Hematocrit 29.2 % (37.0-47.0); Hemoglobin 9.5 g/dL (12.0-16.0); Mean Corp Hgb Conc. 32.5 g/dL (33.0-37.0); Mean Corpuscular Hgb 30.3 pg (27.0-31.0); Mean Platelet Volume 8.9 fL (7.4-10.4); Platelet Count 349 10^3/uL (130-400); Red Blood Cell Count 3.14 10^6/uL (4.20-5.40); Red Cell Dist. Width 14.5 % (11.5-14.5); White Blood Cell Count 5.9 10^3/uL (4.8-10.8)
--- NOTE | 2024-10-14 08:19 | W.PN.ONC2 ---
Today's Communication / Plan
-
abx per ID
hold olaparib
Has follow up with Dr. Benito 10/25 145pm
Impression
Impression
Metastatic BRCA mutant right breast cancer, with malignant pleural effusion and extensive skin and soft tissue involvement of the right chest and arm
Malignant pleural effusion
Fever, leukocytosis -resolved
LLE cellulitis
Group A strep bacteremia
recent COVID-19 s/p paxlovid
Anemia. No iron, b12, or folate deficiency
Plan
Plan
Continue antibiotics per ID, monitor cultures
COVID precautions
Would hold olaparib in the setting of acute infection/illness, resume once clinically improved
anemia is a common side effect of olaparib
PRN thoracenteses
Subjective/Objective
Subjective
no new complaints
Vital Signs:
Vital Signs
Temp Pulse Resp BP Pulse Ox
97.9 F 81 17 120/56 96
10/14/24 03:42 10/14/24 03:42 10/14/24 03:42 10/14/24 03:42 10/14/24 03:42
Lab Results:
Laboratory Data
WBC 5.9 10^3/uL (4.8-10.8) 10/14/24 06:35
Hgb 9.5 g/dL (12.0-16.0) L 10/14/24 06:35
Plt Count 349 10^3/uL (130-400) 10/14/24 06:35
eGFR > 60.00 10/13/24 05:50
Physical Exam
General: No Apparent Distress, Comfortable, Conversant and Appears Chronically Ill
HEENT: Negative Jaundice
Pulmonary: Other (decreased)
Skin: Other (marked skin thickening/edema to right arm and right chest c/w malignant infilatration)
Psych: Calm and Intact Judgement/Insight
[2024-10-14 08:31] VITALS: BP 124/60
[2024-10-14] MEDS: PROTONIX 40 MG PO (08:52)
[2024-10-14] MEDS: VISBIOME 2 CAP PO (08:53)
[2024-10-14] MEDS: NSS (PRESERVATIVE FREE) IV (08:53)
[2024-10-14] MEDS: HYDROPHOR 1 APPLIC TOPICAL (08:57)
[2024-10-14] MEDS: STERILE WATER FOR INJECTION 20 ML IV (10:21)
[2024-10-14] MEDS: ROCEPHIN 2000 MG IV (10:22)
--- NOTE | 2024-10-14 13:07 | CM ---
Reviewed the chart notes and spoke with the patient's daughter via telephone. [facility] able to accept. Patient's daughter request a referral be sent to [facility]. Referrals and completed PASRR sent today. CM continues to be available
to patient/family and is monitoring medical plan for needs at discharge.
Plan: Discharge to SNF/rehab once bed secured and auth obtained.
[2024-10-14] MEDS: ANESTHETIC LOZENGE 1 LOZENGE PO ×2 (14:55→16:58)
[2024-10-14 15:35] VITALS: BP 110/53
[2024-10-14] MEDS: LOVENOX 40 MG SC (16:58)
[2024-10-14] MEDS: ULTRAM 50 MG PO (20:18)
[2024-10-14 23:46] VITALS: BP 103/54
[2024-10-15] MEDS: CLEOCIN 50 IV ×5 (00:29→23:11)
[2024-10-15 06:00] VITALS: BMI 29.1
--- NOTE | 2024-10-15 07:11 | W.PN.HOSP.TC ---
Today's Communication/Plan
-
cont abx as per ID
discharge planning SNF rehab
Assessment / Plan
Assessment / Plan
74y F with PMH significant for BRCA+ breast cancer with cutaneous involvement and malignant pleural effusion who presents to ED complaining of fever, cough and SOB.
Strep pyogenes bacteremia
Acute left lower extremity cellulitis
Sepsis secondary to the above
Pneumonia / Infected Pleural Effusion ruled out
- Patient presents with marked leukocytosis, tachycardia, tachypnea and fever to 101.9 with abnormal CXR, cough and SOB.
- Status post thoracentesis draining 1400 cc of clear yellow pleural fluid /, fluid cultures negative to date
- Suspect patient's cough and shortness of breath were due to her recent coronavirus infection and malignant pleural effusion as repeat chest x-ray after her thoracentesis negative for pneumonia
- Left lower extremity Dopplers negative for DVT
- Appreciate ID input, antibiotics changed to Rocephin and clindamycin, s/p Ancef, s/p vancomycin and Zosyn
- Hold chemo, trend fever and white count
COVID-19 Positive
- Initially COVID-19 positive (and asymptomatic at that time) on 09/25/24.
- Completed course of Paxlovid 09/25 - 09/30.
- Appreciate ID input, no need for any further retroviral therapy
- COVID-positive debility likely from prolonged viral shedding in the context of underlying immunosuppression
- Continue isolation precautions
Chronic hypoxic respiratory failure on 2 L at baseline
� Requiring 2 L, her baseline
BRCA+ Metastatic Breast Cancer
Cutaneous Changes secondary to the above
Malignant Right Pleural Effusion secondary to the above
- Hold chemo/olaparib
- Status post thoracentesis draining 1400 cc of clear yellow pleural fluid /2
- Oncology following, patient follows with Dr. Thalia Benito
Anemia of Chronic Disease
- Patient's chemo/olaparib can cause anemia
- Trend hemoglobin, transfuse for hemoglobin less than 7.5
Right lateral chest wall wound dressed
Left calf wound
� Continue wound care
Hyponatremia
� Monitor
DVT Prophylaxis: Lovenox
Code Status: Full
PT recommends short-term rehab
discussed with patient and patient's daughter Emilie
Total time spent to see the patient on the floor, examine the patient, review data and lab results, discuss treatment plan with patient, nursing staff around 40 minutes.
Physical Exam
General: no acute distress, appears comfortable at this time
HEENT: Normocephalic, Atraumatic, EOMI, MMM
Respiratory: Clear to auscultation b/l
Cardiac: Normal S1/S2, Regular Rate and Rhythm
GI: Soft, Nontender, Nondistended, Normal Bowel Sounds
Extremities: No Clubbing, Cyanosis
Bilateral lower extremity edema noted Severe right upper extremity lymphedema noted
Neuro: Nonfocal/Grossly Intact
Psych: Calm, Cooperative
Derm: Left calf wound dressed Right lateral chest wall wound dressed
Anticipated Discharge: 24 - 48 hours
Subjective/Interval History
-
Date of Service: October 15, 2024
No acute distress. Resting comfortably in bed. Notes some improvement in LLE swelling erythema.
Objective Data
-
Labs:
Laboratory Results
10/15/24
06:00
WBC Pending
Hgb Pending
Hct Pending
Plt Count Pending
Sodium Pending
Potassium Pending
Chloride Pending
Carbon Dioxide Pending
BUN Pending
Creatinine Pending
Glucose Pending
Calcium Pending
Vital Signs:
Vital Signs
Temp Pulse Resp BP Pulse Ox
98.1 F 86 17 103/54 97
10/14/24 23:46 10/14/24 23:46 10/14/24 23:46 10/14/24 23:46 10/14/24 23:46
I&O
10/14/24 10/15/24 10/16/24
06:59 06:59 06:59
Intake Total 960 / 960 1100 / 1100
Output Total 1400 / 1400 1550 / 1550
Balance -440 / -440 -450 / -450
[2024-10-15 07:35] VITALS: BP 118/62
[2024-10-15 08:21] LABS: Hematocrit 30.1 % (37.0-47.0); Hemoglobin 9.4 g/dL (12.0-16.0); Mean Corp Hgb Conc. 31.2 g/dL (33.0-37.0); Mean Corpuscular Hgb 29.7 pg (27.0-31.0); Mean Platelet Volume 8.8 fL (7.4-10.4); Platelet Count 371 10^3/uL (130-400); Red Blood Cell Count 3.17 10^6/uL (4.20-5.40); Red Cell Dist. Width 14.6 % (11.5-14.5); White Blood Cell Count 6.9 10^3/uL (4.8-10.8)
[2024-10-15 08:38] LABS: Blood Urea Nitrogen 13 mg/dl (7-17); Calcium 8.9 mg/dl (8.4-10.2); Carbon Dioxide 35 mmol/L (22-30); Chloride 99 mmol/L (98-107); Estimated Creatinine Clearance 82 ml/min; Glucose 102 mg/dl (70-99); Magnesium 1.9 mg/dl (1.6-2.3); Phosphorus 4.3 mg/dl (2.5-4.5); Potassium 4.7 mmol/L (3.5-5.1); Sodium 136 mmol/L (135-145); eGFR > 60.00
--- NOTE | 2024-10-15 08:50 | PTOTSP ---
Speech Language Pathology
Pt seen for clinical bedside swallow evaluation. Pt reported she has to be more cautious with eating/drinking. If she takes too much liquid at once, she will cough, and certain textures result in globus sensation. She stated this happened with
peas last night and localized this to level of the sternal notch. P.O. trials of puree, softened regular solids, and thin liquids. Adequate mastication of softened solids noted. Pt stated she would be unable to chew regular viridiana cracker given
limited dentition. No oral residue. No overt signs of aspiration.
PNA has been ruled out this admission, and pt tolerating P.O. at this time.
Recommend:
(1) Regular solids/thin liquids with pt choosing softer items
(2) Aspiration precautions: slow rate, sit upright, single sips, alternate solids and liquids
(3) Meds as tolerated
(4) TECHNICAL TRAINING SPECIALIST to continue to follow
[2024-10-15] MEDS: PROTONIX 40 MG PO (09:10)
[2024-10-15] MEDS: NSS (PRESERVATIVE FREE) IV (09:10)
[2024-10-15] MEDS: STERILE WATER FOR INJECTION 20 ML IV (09:11)
[2024-10-15] MEDS: ROCEPHIN 2000 MG IV (09:11)
[2024-10-15] MEDS: VISBIOME 2 CAP PO (09:11)
[2024-10-15] MEDS: HYDROPHOR 1 APPLIC TOPICAL (09:21)
--- NOTE | 2024-10-15 09:52 | W.PN.ONC ---
Today's Communication / Plan
-
Continue antibiotics per ID
COVID precautions
Would hold olaparib in the setting of acute infection/illness, resume once clinically improved
anemia is a common side effect of olaparib
PRN thoracenteses
d/c planning to SNF
Would ideally resume olaparib at the time of discharge (olaparib is targeted oral therapy, not chemotherapy)
Impression
Impression
LLE cellulitis
Group A strep bacteremia
Metastatic BRCA mutant right breast cancer, with malignant pleural effusion and extensive skin and soft tissue involvement of the right chest and arm
Fever, leukocytosis -resolved
recent COVID-19 s/p paxlovid, still testing positive
Anemia of chronic disease/infection/malignancy. No iron, b12, or folate deficiency
Plan
Plan
Continue antibiotics per ID
COVID precautions
Would hold olaparib in the setting of acute infection/illness, resume once clinically improved
anemia is a common side effect of olaparib
PRN thoracenteses
d/c planning to SNF
Would ideally resume olaparib at the time of discharge (olaparib is targeted oral therapy, not chemotherapy)
Subjective/Objective
Subjective/Objective
feeling a little better overall
reports that she is meditating in hopes of clearing her cancer and fluid retention
Vital Signs:
Vital Signs
Temp Pulse Resp BP Pulse Ox
97.4 F 80 16 118/62 98
10/15/24 07:35 10/15/24 07:35 10/15/24 07:35 10/15/24 07:35 10/15/24 07:35
Lab Results:
Laboratory Data
WBC 6.9 10^3/uL (4.8-10.8) 10/15/24 07:48
Hgb 9.4 g/dL (12.0-16.0) L 10/15/24 07:48
Plt Count 371 10^3/uL (130-400) 10/15/24 07:48
eGFR > 60.00 10/15/24 07:48
--- NOTE | 2024-10-15 10:45 | PTCARENOTE ---
Patient resting in bed this AM, appears comfortable. Responds appropriately. She is interested in the results of her assessment. She had a speech therapy consult and ordered breakfast. Able to make needs known.
--- NOTE | 2024-10-15 13:07 | CM ---
Reviewed the chart notes and received voice message from the patient's daughter requesting a referral be sent to [facility]. Referral sent, no bed available this week. Daughter upset that facilities will not take a Covid + patient who is 5 days out from
testing postive. Attempted to explain that we have no choice but to honor each facilities policies regarding who they admitted. Thus far, [facility] willing to accept. Precert will be required. CM continues to be available to
patient/family and is monitoring medical plan for needs at discharge.
Plan: Disharge to SNF/rehab once bed found and precert required.
--- NOTE | 2024-10-15 14:39 | W.PN.ID1 ---
Date of Service
Date of Service: October 15, 2024
Today's Communication
Continue antibiotics. See below�
Assessment / Plan
LLE cellulitis (new)
Group A strep bacteremia
Fever - resolved
Marked leukocytosis - resolved
Recent COVID-19
Stage IV breast cancer, recent initiation of Olaparib
Recurrent pleural effusion
Anemia
Anasarca
HTN
Fibromyalgia
Neuropathy
Recommendations:
Continue with ceftriaxone.
Continue 3 days clindamycin IV 900mg q6h as toxin inhibitor.
After completion of clindamycin, continue with ceftriaxone while inpatient, but transition to oral Keflex 500 mg 4 times daily at time of discharge. Would continue with 4 times daily Keflex through 10/23. Thereafter, would continue with Keflex
twice daily as prophylaxis to prevent recurrence.
Pleural fluid culture negative. Prior effusions positive for malignancy
Fever and leukocytosis resolved.
Patient is status post 5-day course of Paxlovid. No indication at present to initiate additional antiviral therapy.
Repeat testing noted to be positive, and may indicate prolonged viral shedding in the context of underlying immunosuppression.
Continue with novel respiratory virus isolation practices.
����������������������������������������������������������
Chief Complaint
-: Leukocytosis, Cellulitis and Bacteremia
Subjective / Review of Systems
Review of Systems: No Fever and No Chills
Vital Signs / Physical Exam
Vital Signs
Vital Signs
Temp Pulse Resp BP Pulse Ox
97.4 F 80 16 118/62 98
10/15/24 07:35 10/15/24 07:35 10/15/24 07:35 10/15/24 07:35 10/15/24 07:35
Physical Exam
Constitutional: No Acute Distress, Comfortable, Chronically Ill and Non-toxic
Eyes: No Conjunctival Hemorrhage and Sclera Anicteric
Cardiovascular: S1/S2; Negative S3/S4
Pulmonary: Non Labored
Gastrointestinal: Soft, Non Tender and Non Distended
Extremities: Edema (LLE 3+ edema.) and Erythema (LLE increase erythema from blackwell up to inner thigh. + warmth)
Skin: Rash (Tissue texture changes noted right upper extremity and onto right chest wall)
Neurological: AO x 3
Objective Data
Lab Data
Lab Results
10/15/24 07:48
10/15/24 07:48
Estimated Creat Clear 82 ml/min 10/15/24 07:48
Lactic Acid Cancelled 10/10/24 04:15
Total Bilirubin 0.7 mg/dl (0.2-1.3) 10/10/24 05:53
AST 60 U/L (14-36) H 10/10/24 05:53
ALT 21 U/L (0-35) 10/10/24 05:53
Alkaline Phosphatase 74 U/L (38-126) 10/10/24 05:53
Most recent labs reviewed.
Micro Results:
10/10/24 05:53 Blood Culture - Final
Blood/Venous No Growth - Final Report
10/10/24 00:22 Blood Culture - Final
Blood/Venous No Growth - Final Report
10/10/24 10:45 Body Fluid Culture - Final
Pleural Fluid No Growth After 72 Hours
Gram Stain - Final
10/10/24 02:12 Blood Culture - Preliminary
Blood/Venous Streptococcus pyogenes
Gram Stain - Preliminary
10/10/24 08:50 MRSA Screen - Final
Nose No Methicillin Resistant Staphylococcus aureus isolated.
10/10/24 00:17 Influenza Types A & B (SAMMY) - Final
Nasal Swab Negative for Influenza A & B, NAAT
Negative results must be combined with clinical observations
and patient history.
Nucleic Acid Amplification test (NAAT)performed on the
[employer] platform.
Imaging:
10/12/24 peripheral vascular US LLE: No sonographic evidence for left lower extremity deep venous thrombosis. Severe diffuse subcutaneous edema throughout the left lower leg.
10/10/2024 CXR (2 view): A large right pleural effusion with adjacent opacity that may represent either atelectasis or pneumonia is noted. No pneumothorax. Cardiomediastinal silhouette is stable.
10/10/2024 CXR (portable): Following thoracentesis and recovery of 1400 cc of clear yellow pleural fluid, there is no visualized pneumothorax. A tiny right pleural effusion is appreciated.
Care Review
Plan reviewed with: Physician (Hospitalist)
[2024-10-15 15:50] VITALS: BP 105/60
[2024-10-15] MEDS: LOVENOX 40 MG SC (17:32)
[2024-10-15] MEDS: ULTRAM 50 MG PO (23:11)
[2024-10-15 23:39] VITALS: BP 118/53
[2024-10-16] MEDS: CLEOCIN 50 IV (05:21)
[2024-10-16 07:00] VITALS: BP 141/70; BMI 29.9
--- NOTE | 2024-10-16 07:57 | W.PN.HOSP.TC ---
Today's Communication/Plan
-
cont abx
Assessment / Plan
Assessment / Plan
74y F with PMH significant for BRCA+ breast cancer with cutaneous involvement and malignant pleural effusion who presents to ED complaining of fever, cough and SOB.
Strep pyogenes bacteremia
Acute left lower extremity cellulitis
Sepsis secondary to the above
Pneumonia / Infected Pleural Effusion ruled out
- Patient presents with marked leukocytosis, tachycardia, tachypnea and fever to 101.9 with abnormal CXR, cough and SOB.
- Status post thoracentesis draining 1400 cc of clear yellow pleural fluid /, fluid cultures negative to date
- Suspect patient's cough and shortness of breath were due to her recent coronavirus infection and malignant pleural effusion as repeat chest x-ray after her thoracentesis negative for pneumonia
- Left lower extremity Dopplers negative for DVT
- Appreciate ID input, antibiotics changed to Rocephin and clindamycin, s/p Ancef, s/p vancomycin and Zosyn- clindamycin since completed Rocephin to convert to Keflex on discharge continued abx tx through 10/23
- Hold chemo, trend fever and white count
COVID-19 Positive
- Initially COVID-19 positive (and asymptomatic at that time) on 09/25/24.
- Completed course of Paxlovid 09/25 - 09/30.
- Appreciate ID input, no need for any further retroviral therapy
- COVID-positive debility likely from prolonged viral shedding in the context of underlying immunosuppression
- Continue isolation precautions
Chronic hypoxic respiratory failure on 2 L at baseline
� Requiring 2 L, her baseline
BRCA+ Metastatic Breast Cancer
Cutaneous Changes secondary to the above
Malignant Right Pleural Effusion secondary to the above
- Hold chemo/olaparib
- Status post thoracentesis draining 1400 cc of clear yellow pleural fluid 1/2
- Oncology following, patient follows with Dr. Thalia Benito
Anemia of Chronic Disease
- Patient's chemo/olaparib can cause anemia
- Trend hemoglobin, transfuse for hemoglobin less than 7.5
Right lateral chest wall wound dressed
Left calf wound
� Continue wound care
Hyponatremia
� Monitor
DVT Prophylaxis: Lovenox
Code Status: Full
PT recommends short-term rehab
Total time spent to see the patient on the floor, examine the patient, review data and lab results, discuss treatment plan with patient, nursing staff around 40 minutes.
Physical Exam
General: no acute distress, appears comfortable at this time
HEENT: Normocephalic, Atraumatic, EOMI, MMM
Respiratory: Clear to auscultation b/l
Cardiac: Normal S1/S2, Regular Rate and Rhythm
GI: Soft, Nontender, Nondistended, Normal Bowel Sounds
Extremities: No Clubbing, Cyanosis
Bilateral lower extremity edema noted Severe right upper extremity lymphedema noted
Neuro: Nonfocal/Grossly Intact
Psych: Calm, Cooperative
Derm: Left calf wound dressed Right lateral chest wall wound dressed
Anticipated Discharge: Within 24 hours
Subjective/Interval History
-
Date of Service: October 16, 2024
Left lower ext swelling tenderness persists though erythema has improved.
Objective Data
-
Vital Signs:
Vital Signs
Temp Pulse Resp BP Pulse Ox
98.7 F 87 17 118/53 96
10/15/24 23:39 10/15/24 23:39 10/15/24 23:39 10/15/24 23:39 10/15/24 23:39
I&O
10/15/24 10/16/24 10/17/24
06:59 06:59 06:59
Intake Total 1100 / 1100 1230 / 1230
Output Total 1550 / 1550 1550 / 1550
Balance -450 / -450 -320 / -320
[2024-10-16] MEDS: VISBIOME 2 CAP PO (09:29)
[2024-10-16] MEDS: PROTONIX 40 MG PO (09:29)
[2024-10-16] MEDS: ROCEPHIN 2000 MG IV (09:31)
[2024-10-16] MEDS: NSS (PRESERVATIVE FREE) IV (09:31)
[2024-10-16] MEDS: HYDROPHOR 1 APPLIC TOPICAL (09:31)
[2024-10-16] MEDS: STERILE WATER FOR INJECTION 20 ML IV (09:31)
[2024-10-16 10:10] VITALS: BP 142/67; PULSE 85; O2SAT 98
[2024-10-16 10:59] VITALS: BP 142/67; PULSE 88; O2SAT 98
[2024-10-16 11:00] VITALS: BP 153/84
--- NOTE | 2024-10-16 14:37 | W.PN.ID1 ---
Date of Service
Date of Service: October 16, 2024
Today's Communication
Continue antibiotics. See below�
Assessment / Plan
LLE cellulitis (new)
Group A strep bacteremia
Fever - resolved
Marked leukocytosis - resolved
Recent COVID-19
Stage IV breast cancer, recent initiation of Olaparib
Recurrent pleural effusion
Anemia
Anasarca
HTN
Fibromyalgia
Neuropathy
Recommendations:
Patient is s/p 3 days clindamycin as toxin inhibitor.
Continue with ceftriaxone while inpatient, but transition to oral Keflex 500 mg 4 times daily at time of discharge. Would continue with 4 times daily Keflex through 10/23. Thereafter, would continue with Keflex twice daily as prophylaxis to prevent
recurrence.
Pleural fluid culture negative. Prior effusions positive for malignancy
Fever and leukocytosis resolved.
Patient is status post 5-day course of Paxlovid. No indication at present to initiate additional antiviral therapy.
Repeat testing noted to be positive, and may indicate prolonged viral shedding in the context of underlying immunosuppression.
Continue with novel respiratory virus isolation practices.
����������������������������������������������������������
Chief Complaint
-: Leukocytosis, Cellulitis and Bacteremia
Subjective / Review of Systems
Review of Systems: No Fever and No Chills
Vital Signs / Physical Exam
Vital Signs
Vital Signs
Temp Pulse Resp BP Pulse Ox
97.8 F 64 16 153/84 96
10/16/24 11:00 10/16/24 11:00 10/16/24 11:00 10/16/24 11:00 10/16/24 11:00
Physical Exam
Constitutional: No Acute Distress, Comfortable, Chronically Ill and Non-toxic
Eyes: No Conjunctival Hemorrhage and Sclera Anicteric
Cardiovascular: S1/S2; Negative S3/S4
Pulmonary: Non Labored
Gastrointestinal: Soft, Non Tender and Non Distended
Extremities: Edema (LLE 3+ edema.) and Erythema (LLE increase erythema from blackwell up to inner thigh. + warmth)
Skin: Rash (Tissue texture changes noted right upper extremity and onto right chest wall)
Neurological: AO x 3
Objective Data
Lab Data
Lab Results
10/15/24 07:48
10/15/24 07:48
Estimated Creat Clear 82 ml/min 10/15/24 07:48
Lactic Acid Cancelled 10/10/24 04:15
Total Bilirubin 0.7 mg/dl (0.2-1.3) 10/10/24 05:53
AST 60 U/L (14-36) H 10/10/24 05:53
ALT 21 U/L (0-35) 10/10/24 05:53
Alkaline Phosphatase 74 U/L (38-126) 10/10/24 05:53
Most recent labs reviewed.
Micro Results:
10/10/24 02:12 Blood Culture - Final
Blood/Venous Streptococcus pyogenes
Gram Stain - Final
10/10/24 05:53 Blood Culture - Final
Blood/Venous No Growth - Final Report
10/10/24 00:22 Blood Culture - Final
Blood/Venous No Growth - Final Report
10/10/24 10:45 Body Fluid Culture - Final
Pleural Fluid No Growth After 72 Hours
Gram Stain - Final
10/10/24 08:50 MRSA Screen - Final
Nose No Methicillin Resistant Staphylococcus aureus isolated.
10/10/24 00:17 Influenza Types A & B (SAMMY) - Final
Nasal Swab Negative for Influenza A & B, NAAT
Negative results must be combined with clinical observations
and patient history.
Nucleic Acid Amplification test (NAAT)performed on the
[email or web address] platform.
Imaging:
10/12/24 peripheral vascular US LLE: No sonographic evidence for left lower extremity deep venous thrombosis. Severe diffuse subcutaneous edema throughout the left lower leg.
10/10/2024 CXR (2 view): A large right pleural effusion with adjacent opacity that may represent either atelectasis or pneumonia is noted. No pneumothorax. Cardiomediastinal silhouette is stable.
10/10/2024 CXR (portable): Following thoracentesis and recovery of 1400 cc of clear yellow pleural fluid, there is no visualized pneumothorax. A tiny right pleural effusion is appreciated.
[2024-10-16 15:27] VITALS: BP 130/70
--- NOTE | 2024-10-16 15:54 | CHAP ---
Emotional and spiritual support provided. Prayer blanket given. Will follow.
--- NOTE | 2024-10-16 16:20 | CM ---
Reviewed the chart notes and spoke with the patient's daughter Emilie via telephone. Per Emilie, patient would like to go to [facility] and daughter requests CM contact [facility] tomorrow for possible bed availability on Monday. [facility]
accepted the patient. Daughter and patient do not want [facility]. CM continues to be available to patient/family and is monitoring medical plan for needs at discharge.
Plan: Discharge to SNF/rehab once medically stable, bed found, and precert obtained.
[2024-10-16] MEDS: LOVENOX 40 MG SC (17:25)
[2024-10-16] MEDS: ULTRAM 50 MG PO (22:37)
[2024-10-16 23:06] VITALS: BP 114/60
[2024-10-17 05:59] VITALS: BMI 28.4
--- NOTE | 2024-10-17 06:39 | W.PN.HOSP.TC ---
Today's Communication/Plan
-
IV abx converted to PO
repeat CXR follow up pleural effusion
discharge planning SNF rehab
Assessment / Plan
Assessment / Plan
74y F with PMH significant for BRCA+ breast cancer with cutaneous involvement and malignant pleural effusion who presents to ED complaining of fever, cough and SOB.
Strep pyogenes bacteremia
Acute left lower extremity cellulitis
Sepsis secondary to the above
Pneumonia / Infected Pleural Effusion ruled out
- Patient presents with marked leukocytosis, tachycardia, tachypnea and fever to 101.9 with abnormal CXR, cough and SOB.
- Status post thoracentesis draining 1400 cc of clear yellow pleural fluid 1/2, fluid cultures negative to date
- Suspect patient's cough and shortness of breath were due to her recent coronavirus infection and malignant pleural effusion as repeat chest x-ray after her thoracentesis negative for pneumonia
- Left lower extremity Dopplers negative for DVT
- Appreciate ID input, antibiotics changed to Rocephin and clindamycin, s/p Ancef, s/p vancomycin and Zosyn- clindamycin since completed Rocephin to convert to Keflex on discharge continued abx tx through 10/23
- Hold chemo, trend fever and white count
COVID-19 Positive
- Initially COVID-19 positive (and asymptomatic at that time) on 09/25/24.
- Completed course of Paxlovid 09/25 - 09/30.
- Appreciate ID input, no need for any further retroviral therapy
- COVID-positive debility likely from prolonged viral shedding in the context of underlying immunosuppression
- Continue isolation precautions
Chronic hypoxic respiratory failure on 2 L at baseline
� Requiring 2 L, her baseline
BRCA+ Metastatic Breast Cancer
Cutaneous Changes secondary to the above
Malignant Right Pleural Effusion secondary to the above
- Hold chemo/olaparib
- Status post thoracentesis draining 1400 cc of clear yellow pleural fluid 1/2
- Oncology following, patient follows with Dr. Thalia Thong
Anemia of Chronic Disease
- Patient's chemo/olaparib can cause anemia
- Trend hemoglobin, transfuse for hemoglobin less than 7.5
Right lateral chest wall wound dressed
Left calf wound
� Continue wound care
Hyponatremia
� Monitor
DVT Prophylaxis: Lovenox
Code Status: Full
PT recommends short-term rehab
Total time spent to see the patient on the floor, examine the patient, review data and lab results, discuss treatment plan with patient, nursing staff around 40 minutes.
Physical Exam
General: no acute distress, appears comfortable at this time
HEENT: Normocephalic, Atraumatic, EOMI, MMM
Respiratory: Clear to auscultation b/l
Cardiac: Normal S1/S2, Regular Rate and Rhythm
GI: Soft, Nontender, Nondistended, Normal Bowel Sounds
Extremities: No Clubbing, Cyanosis
Bilateral lower extremity edema noted Severe right upper extremity lymphedema noted
Neuro: Nonfocal/Grossly Intact
Psych: Calm, Cooperative
Derm: Left calf wound dressed Right lateral chest wall wound dressed
Anticipated Discharge: Within 24 hours
Subjective/Interval History
-
Date of Service: October 17, 2024
patient and patient's daughter Emilie expressing concern regarding patient being able to tolerate oral abx. IV abx switched to PO trial before discharge tomorrow SNF rehab
Objective Data
-
Vital Signs:
Vital Signs
Temp Pulse Resp BP Pulse Ox
98.3 F 92 18 114/60 95
10/16/24 23:06 10/16/24 23:06 10/16/24 23:06 10/16/24 23:06 10/16/24 23:06
I&O
10/15/24 10/16/24 10/17/24
06:59 06:59 06:59
Intake Total 1100 / 1100 1230 / 1230 1360 / 1360
Output Total 1550 / 1550 1550 / 1550 1275 / 1275
Balance -450 / -450 -320 / -320 /
[2024-10-17 08:05] VITALS: BP 114/56
--- NOTE | 2024-10-17 08:18 | W.PN.ONC2 ---
Today's Communication / Plan
-
resume olaparib at the time of discharge
Impression
Impression
LLE cellulitis
Group A strep bacteremia
Metastatic BRCA mutant right breast cancer, with malignant pleural effusion and extensive skin and soft tissue involvement of the right chest and arm
Fever, leukocytosis -resolved
recent COVID-19 s/p paxlovid, still testing positive
Anemia of chronic disease/infection/malignancy. No iron, b12, or folate deficiency
Plan
Plan
Continue antibiotics per ID
COVID precautions
Would hold olaparib in the setting of acute infection/illness, resume once clinically improved
anemia is a common side effect of olaparib
PRN thoracenteses
d/c planning to SNF
Would ideally resume olaparib at the time of discharge (olaparib is targeted oral therapy, not chemotherapy)
Subjective/Objective
Subjective
no new complaints
Vital Signs:
Vital Signs
Temp Pulse Resp BP Pulse Ox
98.3 F 92 18 114/60 95
10/16/24 23:06 10/16/24 23:06 10/16/24 23:06 10/16/24 23:06 10/16/24 23:06
Lab Results:
Laboratory Data
WBC 6.9 10^3/uL (4.8-10.8) 10/15/24 07:48
Hgb 9.4 g/dL (12.0-16.0) L 10/15/24 07:48
Plt Count 371 10^3/uL (130-400) 10/15/24 07:48
eGFR > 60.00 10/15/24 07:48
[2024-10-17] MEDS: NSS (PRESERVATIVE FREE) IV (09:45)
[2024-10-17] MEDS: PROTONIX 40 MG PO (09:45)
[2024-10-17] MEDS: HYDROPHOR 1 APPLIC TOPICAL (09:45)
[2024-10-17] MEDS: VISBIOME 2 CAP PO (09:45)
[2024-10-17] MEDS: STERILE WATER FOR INJECTION 20 ML IV (09:50)
[2024-10-17] MEDS: ROCEPHIN 2000 MG IV (09:50)
[2024-10-17 11:42] VITALS: BMI 28.4
[2024-10-17] MEDS: KEFLEX 500 MG PO ×3 (14:00→21:38)
--- NOTE | 2024-10-17 15:13 | CM ---
Reviewed the chart notes and spoke with the patient's daughter Emilie via telephone. IMM reviewed. [facility] no beds available. Patient's daughter agreeable to [facility]. Will need updtd PT notes for auth for Monday. Patient's daughter
requesting air mattress and pure wick for patient. Information provided to Verenice Admissions Liaison with [facility]. CM continues to be available to patient/family and is monitoring medical plan for needs at discharge.
Plan: Discharge to [facility] once auth obtained. [facility] NPI# [id number]; Dr. Mishra NPI # [id number]
[2024-10-17 15:55] VITALS: BP 132/57
--- NOTE | 2024-10-17 16:10 | W.PN.ID1 ---
Date of Service
Date of Service: October 17, 2024
Today's Communication
Continue current course of keflex.
Assessment / Plan
LLE cellulitis (new)
Group A strep bacteremia
Fever - resolved
Marked leukocytosis - resolved
Recent COVID-19
Stage IV breast cancer, recent initiation of Olaparib
Recurrent pleural effusion
Anemia
Anasarca
HTN
Fibromyalgia
Neuropathy
Recommendations:
Patient is s/p 3 days clindamycin as toxin inhibitor.
Patient has been transitioned to oral Keflex 500 mg QID; continue through 10/23. Thereafter, continue with Keflex twice daily as prophylaxis to prevent recurrence.
Pleural fluid culture negative. Prior effusions positive for malignancy
Fever and leukocytosis resolved.
Patient is status post 5-day course of Paxlovid. No indication at present to initiate additional antiviral therapy.
Repeat testing noted to be positive, and may indicate prolonged viral shedding in the context of underlying immunosuppression.
Continue with novel respiratory virus isolation practices.
����������������������������������������������������������
Chief Complaint
-: Leukocytosis, Cellulitis and Bacteremia
Subjective / Review of Systems
Review of Systems: No Fever, No Chills, Cough and No Sputum Production
Vital Signs / Physical Exam
Vital Signs
Vital Signs
Temp Pulse Resp BP Pulse Ox
97.7 F 82 16 114/56 96
10/17/24 08:05 10/17/24 08:05 10/17/24 08:05 10/17/24 08:05 10/17/24 10:49
Physical Exam
Constitutional: No Acute Distress, Comfortable, Chronically Ill and Non-toxic
Eyes: No Conjunctival Hemorrhage and Sclera Anicteric
Cardiovascular: S1/S2; Negative S3/S4
Pulmonary: Non Labored
Gastrointestinal: Soft, Non Tender, Non Distended and Normal Bowel Sounds
Extremities: Edema (LLE 3+ edema.) and Erythema (LLE increase erythema from blackwell up to inner thigh. + warmth)
Skin: Rash (Tissue texture changes noted right upper extremity and onto right chest wall)
Neurological: AO x 3
Objective Data
Lab Data
Lab Results
10/15/24 07:48
10/15/24 07:48
Estimated Creat Clear 82 ml/min 10/15/24 07:48
Lactic Acid Cancelled 10/10/24 04:15
Total Bilirubin 0.7 mg/dl (0.2-1.3) 10/10/24 05:53
AST 60 U/L (14-36) H 10/10/24 05:53
ALT 21 U/L (0-35) 10/10/24 05:53
Alkaline Phosphatase 74 U/L (38-126) 10/10/24 05:53
Most recent labs reviewed.
Micro Results:
10/10/24 02:12 Blood Culture - Final
Blood/Venous Streptococcus pyogenes
Gram Stain - Final
10/10/24 05:53 Blood Culture - Final
Blood/Venous No Growth - Final Report
10/10/24 00:22 Blood Culture - Final
Blood/Venous No Growth - Final Report
10/10/24 10:45 Body Fluid Culture - Final
Pleural Fluid No Growth After 72 Hours
Gram Stain - Final
10/10/24 08:50 MRSA Screen - Final
Nose No Methicillin Resistant Staphylococcus aureus isolated.
10/10/24 00:17 Influenza Types A & B (SAMMY) - Final
Nasal Swab Negative for Influenza A & B, NAAT
Negative results must be combined with clinical observations
and patient history.
Nucleic Acid Amplification test (NAAT)performed on the
[employer] platform.
Imaging:
10/12/24 peripheral vascular US LLE: No sonographic evidence for left lower extremity deep venous thrombosis. Severe diffuse subcutaneous edema throughout the left lower leg.
10/10/2024 CXR (2 view): A large right pleural effusion with adjacent opacity that may represent either atelectasis or pneumonia is noted. No pneumothorax. Cardiomediastinal silhouette is stable.
10/10/2024 CXR (portable): Following thoracentesis and recovery of 1400 cc of clear yellow pleural fluid, there is no visualized pneumothorax. A tiny right pleural effusion is appreciated.
Care Review
Plan reviewed with: Physician
[2024-10-17] MEDS: LOVENOX 40 MG SC (17:27)
[2024-10-17] MEDS: ULTRAM 50 MG PO (21:33)
[2024-10-17 22:47] VITALS: BP 124/50
[2024-10-18] VITALS (7 sets, daily range): BP systolic 83–134; BP diastolic 51–64; PULSE 93; O2SAT 94–100; BMI 27.6
--- NOTE | 2024-10-18 00:02 | PTCARENOTE ---
chest xray completed tonight. Results back with large left pleural effusion, and moderate left side pleural effusion. housecalls nurse rosy Burgess made aware. Pt asymptomatic at this time.
--- NOTE | 2024-10-18 06:50 | W.PN.HOSP.TC ---
Today's Communication/Plan
-
Repeat Thoracentesis
cont abx
discharge planning SNF rehab
Assessment / Plan
Assessment / Plan
74y F with PMH significant for BRCA+ breast cancer with cutaneous involvement and malignant pleural effusion who presents to ED complaining of fever, cough and SOB.
Strep pyogenes bacteremia
Acute left lower extremity cellulitis
Sepsis secondary to the above
Pneumonia / Infected Pleural Effusion ruled out
- Patient presents with marked leukocytosis, tachycardia, tachypnea and fever to 101.9 with abnormal CXR, cough and SOB.
- Status post thoracentesis 10/10/24 draining 1400 cc
-Repeat Thoracentesis 10/18/24 draining 1300 cc
- cough and shortness of breath like due to recent coronavirus infection and malignant pleural effusion
- Left lower extremity Dopplers negative for DVT
- Appreciate ID input, antibiotics changed to Rocephin and clindamycin, s/p Ancef, s/p vancomycin and Zosyn- clindamycin since completed Rocephin to convert to Keflex on discharge continued abx tx through 10/23
- Hold chemo, trend fever and white count
COVID-19 Positive
- Initially COVID-19 positive (and asymptomatic at that time) on 09/25/24.
- Completed course of Paxlovid 09/25 - 09/30.
- Appreciate ID input, no need for any further retroviral therapy
- COVID-positive debility likely from prolonged viral shedding in the context of underlying immunosuppression
- Continue isolation precautions
Chronic hypoxic respiratory failure on 2 L at baseline
� Requiring 2 L, her baseline
BRCA+ Metastatic Breast Cancer
Cutaneous Changes secondary to the above
Malignant Right Pleural Effusion secondary to the above
- Hold chemo/olaparib to resume on discharge
- Status post thoracentesis x2 as above
- Oncology following, patient follows with Dr. Thalia Benito
Anemia of Chronic Disease
- Patient's chemo/olaparib can cause anemia
- H&H stable
Right lateral chest wall wound dressed
Left calf wound
� Continue wound care
Hyponatremia
� Monitor
DVT Prophylaxis: Lovenox
Code Status: Full
PT recommends short-term rehab
Total time spent to see the patient on the floor, examine the patient, review data and lab results, discuss treatment plan with patient, nursing staff around 40 minutes.
Physical Exam
General: no acute distress, appears comfortable at this time
HEENT: Normocephalic, Atraumatic, EOMI, MMM
Respiratory: Clear to auscultation b/l
Cardiac: Normal S1/S2, Regular Rate and Rhythm
GI: Soft, Nontender, Nondistended, Normal Bowel Sounds
Extremities: No Clubbing, Cyanosis
Bilateral lower extremity edema noted Severe right upper extremity lymphedema noted
Neuro: Nonfocal/Grossly Intact
Psych: Calm, Cooperative
Derm: Left calf wound dressed Right lateral chest wall wound dressed
Anticipated Discharge: Within 24 hours
Subjective/Interval History
-
Date of Service: October 18, 2024
No acute distress. Appears comfortable at this time. No new acute issues.
Objective Data
-
Vital Signs:
Vital Signs
Temp Pulse Resp BP Pulse Ox
97.9 F 89 18 124/50 97
10/17/24 22:47 10/17/24 22:47 10/17/24 22:47 10/17/24 22:47 10/17/24 22:47
I&O
10/16/24 10/17/24 10/18/24
06:59 06:59 06:59
Intake Total 1230 / 1230 1360 / 1360 980 / 980
Output Total 1550 / 1550 1275 / 1275 1900 / 1900
Balance -320 / -320 85 / 85 -920 / -920
[2024-10-18 08:26] LABS: Hematocrit 28.1 % (37.0-47.0); Mean Corpuscular Volume 93.7 fL (81.0-99.0); Mean Platelet Volume 8.6 fL (7.4-10.4); Platelet Count 400 10^3/uL (130-400); Red Cell Dist. Width 14.8 % (11.5-14.5); White Blood Cell Count 4.9 10^3/uL (4.8-10.8)
[2024-10-18] MEDS: NSS (PRESERVATIVE FREE) IV (08:33)
[2024-10-18] MEDS: PROTONIX 40 MG PO (08:33)
[2024-10-18] MEDS: KEFLEX 500 MG PO ×4 (08:33→22:37)
[2024-10-18] MEDS: VISBIOME 2 CAP PO (08:33)
[2024-10-18 09:02] LABS: Blood Urea Nitrogen 12 mg/dl (7-17); Carbon Dioxide 34 mmol/L (22-30); Chloride 98 mmol/L (98-107); Estimated Creatinine Clearance 80 ml/min; Glucose 120 mg/dl (70-99); Magnesium 1.8 mg/dl (1.6-2.3); Potassium 4.3 mmol/L (3.5-5.1); Sodium 135 mmol/L (135-145); eGFR > 60.00
[2024-10-18] MEDS: HYDROPHOR TOPICAL (10:13)
[2024-10-18 11:08] LABS: Body Fluid pH 7.52
[2024-10-18 11:22] LABS: Body Fluid Amylase 44 U/L; Body Fluid Glucose 108 mg/dl; Body Fluid LDH 333 U/L; Body Fluid Protein 3.6 g/dl
[2024-10-18 11:23] LABS: Body Fluid Polymorphonuclear 7.7 %; Body Fluid WBC 195 /CUMM
[2024-10-18 11:24] LABS: Body Fluid Mononuclear 92.3 %
[2024-10-18 11:25] LABS: Body Fluid Triglycerides < 30 mg/dl
[2024-10-18 12:01] LABS: Body Fluid Second Tech RP
--- NOTE | 2024-10-18 12:45 | W.PN.ID1 ---
Date of Service
Date of Service: October 18, 2024
Today's Communication
Continue current course of Keflex. See below�
Assessment / Plan
LLE cellulitis - improved
Group A strep bacteremia
Fever - resolved
Marked leukocytosis - resolved
Recent COVID-19
Stage IV breast cancer, recent initiation of Olaparib
Recurrent pleural effusion
Anemia
Anasarca
HTN
Fibromyalgia
Neuropathy
Recommendations:
Continue with oral Keflex 500 mg 4 times daily through 10/23. Thereafter transition to Keflex 500 mg twice daily x 6 months for suppression
Pleural fluid culture negative. Prior effusions positive for malignancy
Fever and leukocytosis resolved.
Patient is status post recent 5-day course of Paxlovid. No indication at present to initiate additional antiviral therapy.
Repeat testing noted to be positive, and may indicate prolonged viral shedding in the context of underlying immunosuppression.
Continue with novel respiratory virus isolation practices.
����������������������������������������������������������
Chief Complaint
-: Leukocytosis, Cellulitis and Bacteremia
Subjective / Review of Systems
Patient seen and examined. Reports she just returned from thoracentesis with recovery of 1400 cc fluid
Review of Systems: No Fever, No Chills and Cough
Vital Signs / Physical Exam
Vital Signs
Vital Signs
Temp Pulse Resp BP Pulse Ox
97.6 F 92 20 102/51 99
10/18/24 07:35 10/18/24 10:24 10/18/24 10:24 10/18/24 10:24 10/18/24 09:42
Physical Exam
Constitutional: No Acute Distress, Comfortable, Chronically Ill and Non-toxic
Eyes: No Conjunctival Hemorrhage and Sclera Anicteric
Cardiovascular: S1/S2; Negative S3/S4
Pulmonary: Non Labored
Gastrointestinal: Soft, Non Tender, Non Distended and Normal Bowel Sounds
Extremities: Edema (LLE 3+ edema.) and Erythema (LLE increase erythema from black[place] up to inner thigh. + warmth)
Skin: Rash (Tissue texture changes noted right upper extremity and onto right chest wall)
Neurological: AO x 3
Objective Data
Lab Data
Lab Results
10/18/24 07:25
10/18/24 07:25
Estimated Creat Clear 80 ml/min 10/18/24 07:25
Lactic Acid Cancelled 10/10/24 04:15
Total Bilirubin 0.7 mg/dl (0.2-1.3) 10/10/24 05:53
AST 60 U/L (14-36) H 10/10/24 05:53
ALT 21 U/L (0-35) 10/10/24 05:53
Alkaline Phosphatase 74 U/L (38-126) 10/10/24 05:53
Most recent labs reviewed.
Micro Results:
10/18/24 10:33 Body Fluid Culture - Pending
Pleural Fluid Gram Stain - Pending
10/10/24 02:12 Blood Culture - Final
Blood/Venous Streptococcus pyogenes
Gram Stain - Final
10/10/24 05:53 Blood Culture - Final
Blood/Venous No Growth - Final Report
10/10/24 00:22 Blood Culture - Final
Blood/Venous No Growth - Final Report
10/10/24 10:45 Body Fluid Culture - Final
Pleural Fluid No Growth After 72 Hours
Gram Stain - Final
10/10/24 08:50 MRSA Screen - Final
Nose No Methicillin Resistant Staphylococcus aureus isolated.
10/10/24 00:17 Influenza Types A & B (SAMMY) - Final
Nasal Swab Negative for Influenza A & B, NAAT
Negative results must be combined with clinical observations
and patient history.
Nucleic Acid Amplification test (NAAT)performed on the
[employer] platform.
Imaging:
10/12/24 peripheral vascular US LLE: No sonographic evidence for left lower extremity deep venous thrombosis. Severe diffuse subcutaneous edema throughout the left lower leg.
10/10/2024 CXR (2 view): A large right pleural effusion with adjacent opacity that may represent either atelectasis or pneumonia is noted. No pneumothorax. Cardiomediastinal silhouette is stable.
10/10/2024 CXR (portable): Following thoracentesis and recovery of 1400 cc of clear yellow pleural fluid, there is no visualized pneumothorax. A tiny right pleural effusion is appreciated.
--- NOTE | 2024-10-18 16:22 | CM ---
Reviewed the chart notes and spoke with the patient. [facility] reviewed. Patient approved for 5 days starting 10/19; NRD 10/23: call: [phone]; Auth # [id number].
Plan: Discharge to [facility].
Call report to: [phone]
Fax report to: [phone]
Medical necessity and transport forms on chart.
[2024-10-18] MEDS: LOVENOX 40 MG SC (18:15)
[2024-10-18] MEDS: ULTRAM 50 MG PO (22:37)
[2024-10-19 06:00] VITALS: BMI 27.1
[2024-10-19 06:56] VITALS: BP 110/49
--- NOTE | 2024-10-19 07:25 | W.PN.HOSP.TC ---
Today's Communication/Plan
-
pain control
prn antiemetic
prn Tylenol
cont abx
discharge planning SNF rehab
Assessment / Plan
Assessment / Plan
74y F with PMH significant for BRCA+ breast cancer with cutaneous involvement and malignant pleural effusion who presents to ED complaining of fever, cough and SOB.
Strep pyogenes bacteremia
Acute left lower extremity cellulitis
Sepsis secondary to the above
Pneumonia / Infected Pleural Effusion ruled out
- Patient presents with marked leukocytosis, tachycardia, tachypnea and fever to 101.9 with abnormal CXR, cough and SOB.
- Status post thoracentesis 10/10/24 draining 1400 cc
-Repeat Thoracentesis 10/18/24 draining 1300 cc
- cough and shortness of breath like due to recent coronavirus infection and malignant pleural effusion
- Left lower extremity Dopplers negative for DVT
- Appreciate ID input, antibiotics changed to Rocephin and clindamycin, s/p Ancef, s/p vancomycin and Zosyn- clindamycin since completed Rocephin to convert to Keflex on discharge continued abx tx through 10/23
- Hold chemo, trend fever and white count
COVID-19 Positive
- Initially COVID-19 positive (and asymptomatic at that time) on 09/25/24.
- Completed course of Paxlovid 09/25 - 09/30.
- Appreciate ID input, no need for any further retroviral therapy
- COVID-positive debility likely from prolonged viral shedding in the context of underlying immunosuppression
- Continue isolation precautions
Chronic hypoxic respiratory failure on 2 L at baseline
� Requiring 2 L, her baseline
BRCA+ Metastatic Breast Cancer
Cutaneous Changes secondary to the above
Malignant Right Pleural Effusion secondary to the above
- Hold chemo/olaparib to resume on discharge
- Status post thoracentesis x2 as above
- Oncology following, patient follows with Dr. Thalia Benito
Anemia of Chronic Disease
- Patient's chemo/olaparib can cause anemia
- H&H stable
Right lateral chest wall wound dressed
Left calf wound
� Continue wound care
Hyponatremia
� Monitor
DVT Prophylaxis: Lovenox
Code Status: Full
PT recommends short-term rehab
Total time spent to see the patient on the floor, examine the patient, review data and lab results, discuss treatment plan with patient, nursing staff around 40 minutes.
Physical Exam
General: no acute distress, appears comfortable at this time
HEENT: Normocephalic, Atraumatic, EOMI, MMM
Respiratory: Clear to auscultation b/l
Cardiac: Normal S1/S2, Regular Rate and Rhythm
GI: Soft, Nontender, Nondistended, Normal Bowel Sounds
Extremities: No Clubbing, Cyanosis
Bilateral lower extremity edema noted Severe right upper extremity lymphedema noted
Neuro: Nonfocal/Grossly Intact
Psych: Calm, Cooperative
Derm: Left calf wound dressed Right lateral chest wall wound dressed
Anticipated Discharge: Within 24 hours
Subjective/Interval History
-
Date of Service: October 19, 2024
reports back pain from thoracentesis site, nausea, headache, and general malaise.
Objective Data
-
Vital Signs:
Vital Signs
Temp Pulse Resp BP Pulse Ox
97.7 F 78 16 110/49 100
10/19/24 06:56 10/19/24 06:56 10/19/24 06:56 10/19/24 06:56 10/19/24 06:56
I&O
10/18/24 10/19/24 10/20/24
06:59 06:59 06:59
Intake Total 980 / 980 960 / 960
Output Total 1900 / 1900 850 / 850
Balance -920 / -920 110 / 110
[2024-10-19] MEDS: PROTONIX 40 MG PO (07:48)
[2024-10-19] MEDS: NSS (PRESERVATIVE FREE) IV (07:48)
[2024-10-19] MEDS: HYDROPHOR TOPICAL (07:48)
[2024-10-19] MEDS: KEFLEX 500 MG PO ×4 (07:48→21:00)
[2024-10-19] MEDS: VISBIOME 2 CAP PO (07:48)
[2024-10-19 16:00] VITALS: BP 117/64
[2024-10-19] MEDS: LOVENOX 40 MG SC (17:16)
[2024-10-19] MEDS: ULTRAM 50 MG PO (21:08)
[2024-10-19 23:16] VITALS: BP 113/53
[2024-10-20 06:00] VITALS: BMI 27.6
--- NOTE | 2024-10-20 06:53 | W.PN.HOSP.TC ---
Today's Communication/Plan
-
discharge
Assessment / Plan
Assessment / Plan
74y F with PMH significant for BRCA+ breast cancer with cutaneous involvement and malignant pleural effusion who presents to ED complaining of fever, cough and SOB.
Strep pyogenes bacteremia
Acute left lower extremity cellulitis
Sepsis secondary to the above
Pneumonia / Infected Pleural Effusion ruled out
- Patient presents with marked leukocytosis, tachycardia, tachypnea and fever to 101.9 with abnormal CXR, cough and SOB.
- Status post thoracentesis 10/10/24 draining 1400 cc
-Repeat Thoracentesis 10/18/24 draining 1300 cc
- cough and shortness of breath like due to recent coronavirus infection and malignant pleural effusion
- Left lower extremity Dopplers negative for DVT
- ID eval appreciated completed Rocephin, clindamycin, s/p Ancef, s/p vancomycin and Zosyn- continued Keflex 500 mg QID through 10/23 then reduce to 500 mg BID to continue for 6 months suppression
-resume home Olaparib on discharge
COVID-19 Positive
- Initially COVID-19 positive (and asymptomatic at that time) on 09/25/24. repeat COVID remains positive 10/10/24
- Completed course of Paxlovid 09/25 - 09/30.
- Appreciate ID input, no need for any further retroviral therapy
- COVID-positive debility likely from prolonged viral shedding in the context of underlying immunosuppression
- 10/20/24 last day for isolation precautions
Chronic hypoxic respiratory failure on 2 L at baseline
� Requiring 2 L, her baseline
BRCA+ Metastatic Breast Cancer
Cutaneous Changes secondary to the above
Malignant Right Pleural Effusion secondary to the above
- Hold chemo/olaparib to resume on discharge
- Status post thoracentesis x2 as above
- Oncology following, patient follows with Dr. Thalia Benito
Anemia of Chronic Disease
- Patient's chemo/olaparib can cause anemia
- H&H stable
Right lateral chest wall wound dressed
Left calf wound
� Continue wound care
Hyponatremia
� Monitor
DVT Prophylaxis: Lovenox
Code Status: Full
PT recommends short-term rehab
Medically stable for discharge SNF rehab with outpatient follow up recommendations.
Discussed with patient and patient's daughter Emilie
Total Time Preparing Discharge ___40____ minutes including examination of the patient, summary of the hospital stay, instructions for continuing care to all relevant caregivers; and preparation of discharge records, prescriptions, and referral
forms if necessary.
Physical Exam
General: no acute distress, appears comfortable at this time
HEENT: Normocephalic, Atraumatic, EOMI, MMM
Respiratory: Clear to auscultation b/l
Cardiac: Normal S1/S2, Regular Rate and Rhythm
GI: Soft, Nontender, Nondistended, Normal Bowel Sounds
Extremities: No Clubbing, Cyanosis
Right Upper Ext and Bilateral lower extremity edema
Neuro: Nonfocal/Grossly Intact
Psych: Calm, Cooperative
Derm: Left calf wound dressed Right lateral chest wall wound dressed
Anticipated Discharge: Today
Subjective/Interval History
-
Date of Service: October 20, 2024
Seen and examined at bedside in no acute distress resting comfortably in bed. No new acute issues. Pain well controlled at this time.
Objective Data
-
Vital Signs:
Vital Signs
Temp Pulse Resp BP Pulse Ox
98.1 F 84 18 113/53 98
10/19/24 23:16 10/19/24 23:16 10/19/24 23:16 10/19/24 23:16 10/19/24 23:16
I&O
10/18/24 10/19/24 10/20/24
06:59 06:59 06:59
Intake Total 980 / 980 960 / 960 240 / 240
Output Total 1900 / 1900 850 / 850 1300 / 1300
Balance -920 / -920 110 / 110 -1060 / -1060
[2024-10-20 08:00] VITALS: BP 147/80
[2024-10-20] MEDS: HYDROPHOR TOPICAL (08:36)
[2024-10-20] MEDS: PROTONIX 40 MG PO (08:45)
[2024-10-20] MEDS: VISBIOME 2 CAP PO (08:45)
[2024-10-20] MEDS: KEFLEX 500 MG PO ×4 (08:45→22:17)
[2024-10-20] MEDS: NSS (PRESERVATIVE FREE) IV (08:46)
--- NOTE | 2024-10-20 11:14 | W.DCSUMMARY ---
Discharge Summary
Discharge Data
Date of Admission: 10/10/24
Date of Discharge: 10/20/24
-
Pending Results: Yes
Additional Pending Results:
official culture results
Discharge Plan
-
Patient Disposition: Residential/SNF
Discharge Diagnosis/Procedures: Sepsis
Strep pyogenes bacteremia
Acute left lower extremity cellulitis
Malignant Pleural effusion status post Thoracentesis x2
COVID-19 Positive
Chronic hypoxic respiratory failure on 2 L at baseline
BRCA+ Metastatic Breast Cancer
Chronic right upper and bilateral lower extremity edema
Anemia of Chronic Disease
Condition: Fair
Diet: Regular
Activity: With assistance and As tolerated
Driving Restrictions: No driving
Bathing Restrictions: None
Blood Work: repeat CBC CMP with primary care provider in 1 week of discharge
Others Tests: repeat Chest X-ray with primary care provider in 1 week of discharge.
Other Services: PT and OT
Activity Restrictions/Additional Instructions:
Please follow up with primary care provider in 1 week of discharge, keep your appointment with Oncology, and follow up with Infectious disease in 1 month of discharge.
Wound Care Instructions Aquaphor to right arm skin PRN
Left lower leg- Clean with normal saline or soap and water. Apply adaptic and cover with alginate, ABD and wrap with paulo. Change daily and PRN drainage.
For strep bacteremia, Keflex has been prescribed 500 mg four time as day to continue through 10/23/24. Then reduce to twice a day and continue for six months suppression.
Probiotic has been prescribed to promote gut health while on antibiotics as above.
Hydrophor/Aquaphor prescribed as above
Please take medications as prescribed/recommended and follow up with primary care provider and/or other healthcare provider involved in your care for refills and/or further adjustment to your medication regimen as necessary.
Referrals:
Akin Glover I., DO [Family Provider] - in one week
Thalia Benito MD [Active] - 10/25/24 1:45 pm
Arvind Kraft, DO [Active] - in one month
Prescriptions:
New
white petrolatum [Hydrophor] 42 % Ointment
1 applic topical DAILY Qty: 454 0RF
cephalexin 500 mg Capsule
500 mg PO QID Qty: 90 0RF
Rx Instructions:
4 times a day through 10/23/24 then twice a day for 6 months
Lactobac/Bifidobac [Visbiome]
2 cap PO DAILY Qty: 60 0RF
tramadol 50 mg Tablet
50 mg PO Q6HPRN PRN (Reason: Moderate severe pain) Qty: 12 0RF
Continued
olaparib 150 mg tablet
See Rx Instructions .ROUTE .COMPLEX Qty: 60 0RF
Rx Instructions:
As prescribed per your oncologist.
magnesium citrate
5 ml PO DAILY MDD 10 ml
Discontinued
tramadol 50 mg Tablet
50 mg PO Q6HPRN PRN (Reason: MOd-severe pain) 3 Days Qty: 12 0RF
Paxlovid 300 mg (150 mg x 2)-100 mg tablets,dose pack
See Rx Instructions .ROUTE .COMPLEX Qty: 30 0RF
Rx Instructions:
take TWO 150 mg tablets of nirmatrelvir with ONE 100 mg tablet of ritonavir for 1 more dose tonight
Discharge Orders:
Discharge Patient (As Directed); Ordered 10/21/24
Ordered By: Whitney Blakely
Discharge Date and Time
Print Language: ITALIAN
--- NOTE | 2024-10-20 11:51 | CM ---
Addendum entered by Yancy Farah 10/20/24 12:15:
CM received f/u call from [facility]. Discussed CV+ test date at length.
CV + on 10/10 @ 0017, last day of iso was 10/19 however facility is stating pt can not return until tomorrow as they view date of test as 'day zero.'
Transport cancelled for today.
Requested for Saturday 10/21 @ 0930- CM/SW will need to follow up in AM with all parties.
Original Note:
CM noted DC order. [facility] Arlette who concerned bed for pt today.
Plan: Discharge to [facility]
Call report to: [phone]
Fax report to: [phone]
[facility] transport
Medical necessity and transport forms on chart
Full chart copy at dc
Will discuss with Hse Coordinator
[2024-10-20 15:45] VITALS: BP 119/76
--- NOTE | 2024-10-20 17:08 | PTCARENOTE ---
Patient had episode of epistaxis this shift; resolved; no further issues.
[2024-10-20] MEDS: LOVENOX 40 MG SC (18:08)
[2024-10-20] MEDS: ULTRAM 50 MG PO (22:17)
[2024-10-20 22:58] VITALS: BP 122/57
[2024-10-21 05:15] VITALS: BMI 26.7
[2024-10-21 07:35] VITALS: BP 109/51
--- NOTE | 2024-10-21 08:35 | W.PN.HOSP.TC ---
Today's Communication/Plan
-
Discharge to short-term rehab today
Assessment / Plan
Assessment / Plan
74y F with PMH significant for BRCA+ breast cancer with cutaneous involvement and malignant pleural effusion who presents to ED complaining of fever, cough and SOB.
Strep pyogenes bacteremia
Acute left lower extremity cellulitis
Sepsis secondary to the above
Pneumonia / Infected Pleural Effusion ruled out
- Patient presents with marked leukocytosis, tachycardia, tachypnea and fever to 101.9 with abnormal CXR, cough and SOB.
- Status post thoracentesis 10/10/24 draining 1400 cc
-Repeat Thoracentesis 10/18/24 draining 1300 cc
- cough and shortness of breath like due to recent coronavirus infection and malignant pleural effusion
- Left lower extremity Dopplers negative for DVT
- ID eval appreciated completed Rocephin, clindamycin, s/p Ancef, s/p vancomycin and Zosyn- continued Keflex 500 mg QID through 10/23 then reduce to 500 mg BID to continue for 6 months suppression
-resume home Olaparib on discharge
COVID-19 Positive
- Initially COVID-19 positive (and asymptomatic at that time) on 09/25/24. repeat COVID remains positive 10/10/24
- Completed course of Paxlovid 09/25 - 09/30.
- Appreciate ID input, no need for any further retroviral therapy
- COVID-positive debility likely from prolonged viral shedding in the context of underlying immunosuppression
- 10/20/24 last day for isolation precautions
Chronic hypoxic respiratory failure on 2 L at baseline
� Requiring 2 L, her baseline
BRCA+ Metastatic Breast Cancer
Cutaneous Changes secondary to the above
Malignant Right Pleural Effusion secondary to the above
- Hold chemo/olaparib to resume on discharge
- Status post thoracentesis x2 as above
- Oncology following, patient follows with Dr. Thalia Benito
Anemia of Chronic Disease
- Patient's chemo/olaparib can cause anemia
- H&H stable
Right lateral chest wall wound dressed
Left calf wound
� Continue wound care
Hyponatremia
� Monitor
DVT Prophylaxis: Lovenox
Code Status: Full
PT recommends short-term rehab
Medically stable for discharge SNF rehab with outpatient follow up recommendations.
Physical Exam
General: no acute distress, appears comfortable at this time
HEENT: Normocephalic, Atraumatic, EOMI, MMM
Respiratory: Clear to auscultation b/l
Cardiac: Normal S1/S2, Regular Rate and Rhythm
GI: Soft, Nontender, Nondistended, Normal Bowel Sounds
Extremities: No Clubbing, Cyanosis
Right Upper Ext and Bilateral lower extremity edema
Neuro: Nonfocal/Grossly Intact
Psych: Calm, Cooperative
Derm: Left calf wound dressed Right lateral chest wall wound dressed
Anticipated Discharge: Today
Subjective/Interval History
-
Date of Service: October 21, 2024
Patient reports feeling weak, complains of right-sided abdominal pain. No nausea, no vomiting. She does not want any Tylenol for her pain. No fever.
Objective Data
-
Vital Signs:
Vital Signs
Temp Pulse Resp BP Pulse Ox
97.6 F 86 18 109/51 93
10/21/24 07:35 10/21/24 07:35 10/21/24 07:35 10/21/24 07:35 10/21/24 07:35
I&O
10/20/24 10/21/24 10/22/24
06:59 06:59 06:59
Intake Total 240 / 240 1020 / 1020
Output Total 1300 / 1300 1450 / 1450
Balance -1060 / -1060 -430 / -430
[2024-10-21] MEDS: VISBIOME 2 CAP PO (09:35)
[2024-10-21] MEDS: PROTONIX 40 MG PO (09:36)
[2024-10-21] MEDS: NSS (PRESERVATIVE FREE) IV (09:36)
[2024-10-21] MEDS: KEFLEX 500 MG PO (09:37)
[2024-10-21] MEDS: HYDROPHOR 1 APPLIC TOPICAL (09:38)
--- NOTE | 2024-10-21 10:25 | PTCARENOTE ---
Report called to [facility], no answer - voicemail left with callback number. Transport set to pick pt up at 1030 this AM.
--- NOTE | 2024-10-21 11:22 | CM ---
Reviewed the chart notes. IMM reviewed.
Plan: Discharge to [facility].
Call report to: [phone]
Fax report to: [phone]
Medical necessity and transport forms on chart.
== END 2024-10-21 11:18 | DRG 871 ==
LOC: 2 NORTH 04:24
PROVIDERS: Internal Medicine; Radiology Vascular & Interventional Radiology; ADMITTING PHYSICIAN Hospitalist; ATTENDING PHYSICIAN Family Medicine; EMERGENCY PHYSICIAN Emergency Medicine; FAMILY PHYSICIAN Internal Medicine; OTHER PHYSICIAN Internal Medicine Hematology & Oncology; OTHER PHYSICIAN Internal Medicine Infectious Disease
PROC: 0W993ZZ Drainage of Right Pleural Cavity, Percutaneous Approach (ICD-10-PCS; 2024-10-10)
DX: A40.0 Sepsis due to streptococcus, group A (principal); J18.9 Pneumonia, unspecified organism; U07.1 COVID-19; J96.11 Chronic respiratory failure with hypoxia; J91.0 Malignant pleural effusion; E87.1 Hypo-osmolality and hyponatremia; L03.116 Cellulitis of left lower limb; Z87.891 Personal history of nicotine dependence; C50.911 Malignant neoplasm of unspecified site of right female breast; D63.8 Anemia in other chronic diseases classified elsewhere
CPT/HCPCS: 32555; 71045; 71046; 80048; 80053; 82150; 82248; 82607; 82728; 82746; 82945; 83540; 83550; 83605; 83615; 83735; 83986; 84100; 84157; 84478; 85025; 85027; 87015; 87040; 87070; 87077; 87147; 87205; 87502; 87811; 89051; 92610; 93005; 93971; 94760; 96365; 96366; 96375; 97116; 97163; 97167; 97530; 97535; 99285

== ENCOUNTER 2024-11-08 09:25 | Outpatient (RCR) | payer OTHER, SELFPAY | END 2024-11-08 23:59 | disposition home or self-care (01) | LOC: RPT 09:25 | PROVIDERS: ATTENDING PHYSICIAN Internal Medicine Hematology & Oncology; FAMILY PHYSICIAN Internal Medicine | DX: I89.0 Lymphedema, not elsewhere classified (principal); C50.911 Malignant neoplasm of unspecified site of right female breast; Z73.6 Limitation of activities due to disability | CPT/HCPCS: 97163; 97530 ==

== ENCOUNTER 2025-05-01 18:01 | Inpatient (IN) | payer OTHER, SELFPAY ==
[2025-05-01] VITALS (10 sets, daily range): BP systolic 114–140; BP diastolic 57–77; BMI 25.2
--- NOTE | 2025-05-01 12:44 | ED.GENMED ---
History of Present Illness
General
Chief Complaint: Urinary Symptoms
Source: patient, records and family
Time Seen by Provider: 05/01/25 12:26
History of Present Illness
History of Present Illness:
This patient is a 74-year-old female presents emergency department with a 2-day history of anorexia, constipation, and difficulty urinating. She has a sensation that she needs to urinate but says only a few drops comes out. She denies burning with
urination or blood in her urine. She denies fever, chills, chest pain, shortness of breath that is new. She also notes that she has right lower extremity swelling that only developed 2 days ago. She is having episodes of discomfort in the right
groin area as well as her right mid to upper quadrant of her abdomen. She had an episode of vomiting last night and now continues with 'dry heaves'.
Past History
Past History
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
ED Past Surgical History: Tonsilectomy
Social History
Tobacco: Non-smoker
Alcohol: None
Drug: None
Phy Exam
Physical Exam
Physical Exam:
GENERAL: Alert , appears uncomfortable (but declines pain medication in the ER)
EYE: pupils equal and reactive, conjunctiva pink
NECK: Supple, no significant adenopathy.
ENT: o/p clr, mm slightly dry
CARDIAC: Regular rate and rhythm .
LUNGS: Clear breath sounds bilaterally, no acute respiratory distress, no wheezes/rales/rhonchi
ABDOMEN: Soft, mild Rmq/ruq tenderness, no r/g, no cvat
NEUROLOGICAL: Alert and oriented, no focal neuro deficits
SKIN: Warm and dry, skin intact.
MUSCULOSKELETAL: 2-3+ RLE edema with mild scattered areas of erythema at ant tib/fib area, no warmth, no fluctuance, no drainage, well perfused. (doppler bedside of DP noted)
PSYCH: Normal and appropriate interaction.
Course
Orders/Labs/Results
Orders:
Orders
05/01/25 12:44
US Periph Venous LOWER Ext RT Urgent
Comment:
Reason For Exam: hx cancer, swelling
05/01/25 12:48
Electrocardiogram (*1) Stat
Reason for Study: Other
Other Reason for Exam: chest pain
Cardiac Monitoring- Treatment ONCE
EKG- Treatment ONCE
0.9% Sodium Chloride 500 ml [Nss] 500 ml IV BOLUS
Pulse Ox/cont/shift [RESP] Stat
Quantity: 1
05/01/25 12:50
Complete Blood Count/No Diff Urgent
Comprehensive Metabolic Panel Urgent
Lipase Urgent
PTT Urgent
Prothrombin Time Urgent
Troponin I Urgent
05/01/25 13:35
CT Abd/pel Without Iv Or Oral Urgent
Comment:
Reason For Exam: hx active breast cancer, new renal failure
Albuterol Sulfate [Ventolin Nebules] 10 mg INH R NOW STA
Dextrose 50%-Water [Dextrose 50% Syringe] 12.5 grams IV [id number] PRN
Dextrose 50%-Water [Dextrose 50% Syringe] 25 grams IV NOW STA
Insulin Human Regular [Novolin R] 10 units IV NOW STA
Sodium Zirconium Cyclosilicate [Lokelma] 10 gram PO NOW STA
05/01/25 13:36
Bedside Glucose PRE IV Insulin- HyperK+ NOW
05/01/25 15:06
Bedside Glucose POST IV Insulin- HyperK+ Q1HX2,Q2HX2
05/01/25 15:24
Morphine Sulfate 4 mg IV NOW STA
05/01/25 16:06
Potassium Urgent
Comment: draw 2 hours after regular insulin IV administration
Abnormal Lab Results
05/01/25 05/01/25
12:50 15:31
RBC 2.93 L 10^6/uL
(4.20-5.40)
Hgb 9.9 L g/dL
(12.0-16.0)
Hct 28.9 L %
(37.0-47.0)
MCH 33.8 H pg
(27.0-31.0)
RDW 15.4 H %
(11.5-14.5)
PT 14.7 H Sec
(11.4-14.6)
Sodium 131 L mmol/L
(135-145)
Potassium 5.9 H mmol/L
(3.5-5.1)
Chloride 94 L mmol/L
(98-107)
BUN 66 H mg/dl
(7-17)
Creatinine 6.8 H* mg/dL
(0.6-1.0)
Glucose 105 H mg/dl
(70-99)
AST 48 H U/L
(14-36)
POC Glucose 110 H mg/dl
(70-99)
05/01/25 12:50
Vital Signs
Initial and Last Documented VS:
Initial Vital Signs
Pulse Resp BP Pulse Ox
89 16 124/77 98
05/01/25 11:59 05/01/25 11:59 05/01/25 11:59 05/01/25 11:59
Last Documented Vital Signs
Pulse Resp BP Pulse Ox
86 19 139/71 100
05/01/25 15:19 05/01/25 14:45 05/01/25 14:17 05/01/25 14:45
*Pulse Oximetry
SaO2: 98
Nasal Cannula flow liters per minute: 2
Update Note
Update Note:
Patient presents to the Emergency Department with ____right leg swelling, anorexia, difficulty urinating, constipation
Number and Complexity of Problems Addressed at the Encounter
� Chronic conditions affecting care:
� Acute Exacerbation and/or Progression of Chronic Illness:
� Differential Diagnosis includes: But not limited to DVT in right lower extremity, pelvic DVT, urinary retention, UTI, etc. etc. etc.
Amount and/or Complexity of Data to be Reviewed and Analyzed
� I performed an independent evaluation of and my interpretation is:
EKG: Read by me, normal sinus rhythm, normal rate, normal axis, no acute ischemia
CT:Moderate retroperitoneal lymphadenopathy on the right as described above. Significantly progressed despite the limited evaluation without oral and IV contrast.
Mild right hydronephrosis. New. No obstructing radiopaque stone identified. Probably due to the progressed lymphadenopathy.
Incompletely imaged moderate left axillary lymphadenopathy.
Findings suggesting mild volume overload or third spacing. Improved
Large loculated right pleural effusion. Significantly increased.
Moderate right lower lobe consolidation. This may represent atelectasis or pneumonia. New
Tiny nonobstructing left renal stones. New
T12 and L1 compression fractures. Stable
Xrays:
Laboratory Studies: New onset renal failure with elevated potassium at 5.9, baseline anemia
Other:
� Review of other/old records reveals:
� Clinical information was obtained by an independent historian: Cousin who is bedside
� Prescriptions/Medications Considered but not given:
� Further testing considered but not performed:
Risk of Complications and/or Morbidity or Mortality of Patient Management
� Social determinants of health affecting care:
� Discussion with other providers (PCP, Hospitalists, Consultants, etc):
� Escalation of care including admission/observation vs risk of discharge considered: Suspect progressive lymphadenopathy the precipitating factor for her new onset renal failure. Case discussed with Dr. Nadine Sales from renal.
Case discussed with hospitalist. Will start heparin drip, nephrology consult, antibiotics given presence of pneumonia.
ED Attending Note
-
Portions of this chart may have been created with voice recognition software.� Occasional wrong word or��sound alike� substitutions may have occurred due to the inherent limitations of voice recognition software.
Discharge Plan
Departure
Patient Disposition: Admit
Date of Disposition: 05/01/25
Time of Disposition: 16:29
Presentation/result/management discussed w/ accepting MD/DO: Hospitalist
Discharge Problem:
Acute renal failure, DVT (deep venous thrombosis)
Prescriptions:
No Action
magnesium oxide 400 mg magnesium Tablet
400 mg PO DAILY Qty: 0
Lynparza 150 mg tablet
See Rx Instructions .ROUTE .COMPLEX
Rx Instructions:
As prescribed per your oncologist.
acetaminophen [Tylenol] 325 mg Tablet
650 mg PO Q6HPRN PRN (Reason: mild pain)
Visbiome 112.5 billion cell Capsule
1 cap PO BID
Referrals:
PRIVATE,PHYSICIAN [Family Provider, Internal Medicine]
Interventions
Interventions:
*Risk Screen - Suicide Last Done: 05/01/25 11:59
*Neglect/Abuse Screening Last Done: 05/01/25 11:59
ED-Female Genitourinary Assessment Last Done: 05/01/25 15:20
Discharge Date and Time
Print Language: YORUBA
[2025-05-01] MEDS: NSS 500 IV (12:50)
[2025-05-01 13:00] LABS: Hematocrit 28.9 % (37.0-47.0); Hemoglobin 9.9 g/dL (12.0-16.0); Mean Corp Hgb Conc. 34.3 g/dL (33.0-37.0); Mean Corpuscular Volume 98.6 fL (81.0-99.0); Platelet Count 305 10^3/uL (130-400); Red Cell Dist. Width 15.4 % (11.5-14.5)
[2025-05-01 13:15] LABS: APTT 27.8 Sec (23.4-35.0); INR 1.10; PT 14.7 Sec (11.4-14.6)
[2025-05-01 13:18] LABS: ALT (SGPT) 34 U/L (0-35); AST (SGOT) 48 U/L (14-36); Albumin 3.9 g/dl (3.5-5.0); Alkaline Phosphatase 94 U/L (38-126); Blood Urea Nitrogen 66 mg/dl (7-17); Calcium 9.6 mg/dl (8.4-10.2); Carbon Dioxide 28 mmol/L (22-30); Glucose 105 mg/dl (70-99); Lipase 236 U/L (23-300); Total Protein 7.4 g/dl (6.3-8.2); eGFR 5.93
[2025-05-01 13:25] LABS: Troponin I < 0.012 ng/ml
[2025-05-01 13:29] LABS: Chloride 94 mmol/L (98-107); Potassium 5.9 mmol/L (3.5-5.1); Sodium 131 mmol/L (135-145)
[2025-05-01 13:53] LABS: Glucose - Point of Care 90 mg/dl (70-99)
[2025-05-01] MEDS: LOKELMA 10 GRAM PO ×2 (14:17→22:12)
[2025-05-01] MEDS: DEXTROSE 50% SYRINGE 25 GRAMS IV (14:19)
[2025-05-01] MEDS: VENTOLIN NEBULES 10 MG INH (14:21)
[2025-05-01] MEDS: NOVOLIN R 10 UNITS IV (14:29)
[2025-05-01] MEDS: MORPHINE SULFATE 4 MG IV ×3 (15:31→22:48)
[2025-05-01 15:32] LABS: Glucose - Point of Care 110 mg/dl (70-99)
--- NOTE | 2025-05-01 16:40 | W.CON.NEPH ---
Consultation
-
Date/Time Consultation Requested: May 01, 2025 4:30 PM
Date/Time Consultation Performed: May 01, 2025 440 PM
Requesting Provider: Dr. Whittaker
Performing Provider: Dr. Ariza
Reason for Consultation: Acute kidney injury/hyperkalemia
Medical History
-
Chief Complaint: Acute kidney injury
History of Present Illness:
The patient is a 74-year-old female with a past medical history of breast cancer (on Lynparza) The patient presented to the emergency department with a 2-day history of anorexia constipation and difficulty urinating. She has the need to urinate
but is only minimally effective at passing her urine. She denies any macroscopic hematuria or burning within her urination. She denies any fevers chills chest pain or shortness of breath. She did note right lower extremity swelling which
developed 2 days prior. She is also had associated right groin discomfort which extends to the mid and upper quadrant of her abdomen. She also had an episode of vomiting last night and continues to be nauseous. Nephrology was consulted as her
creatinine was elevated to 6.8 on presentation today off her previous baseline of 0.5 from October 18, 2024. She was also hyperkalemic with a potassium of 5.9.
Past Medical History
(Breast cancer, metastatic cancer to the lymph nodes, lymphedema, pleural effusion, neuropathy, traumatic brain injury)
Social History
Tobacco: Non-Smoker
Alcohol: None
Drug: None
Family History
Family History: Not Pertinent
Allergies / Home Medications
Allergy/AdvReac Type Severity Reaction Status Date / Time
Sulfa (Sulfonamide AdvReac yeast Verified 10/10/24 00:07
Antibiotics) infections
Tetracyclines AdvReac yeast Verified 10/10/24 00:07
infections
�Medication �Instructions �Recorded �Confirmed �Type
magnesium oxide 400 mg PO DAILY ##0 10/14/24 05/01/25 History
Lactobac no.2-Bifidobac no.1-S. 1 cap PO BID 05/01/25 05/01/25 History
thermo 112.5 billion cell capsule
(Visbiome)
acetaminophen 325 mg tablet 650 mg PO Q6HPRN PRN mild pain 05/01/25 05/01/25 History
(Tylenol)
olaparib 150 mg tablet (Lynparza) See Rx Instructions .ROUTE .COMPLEX 05/01/25 05/01/25 History
Review of Systems
-
History Source: Patient
All other systems: Negative unless noted
Constitutional: Weight Gain and Fatigue
Abdomen/GI: Abdominal Pain and Nausea
: Other (Urine output massively decreasing over the past 2 days)
Musculoskeletal: Edema and Other (Extensive pain from right groin down through leg)
Skin: Other (Cellulitic changes along lower extremities right greater than left with what appears to be petechiae as well)
Physical Exam
Vital Signs
Vital Signs
Pulse Resp BP Pulse Ox
86 19 139/71 100
05/01/25 15:19 05/01/25 14:45 05/01/25 14:17 05/01/25 14:45
Lab Results
05/01/25 12:50
05/01/25 12:50
WBC 8.1 10^3/uL (4.8-10.8) 05/01/25 12:50
RBC 2.93 10^6/uL (4.20-5.40) L 05/01/25 12:50
Hgb 9.9 g/dL (12.0-16.0) L 05/01/25 12:50
Hct 28.9 % (37.0-47.0) L 05/01/25 12:50
Plt Count 305 10^3/uL (130-400) 05/01/25 12:50
Sodium 131 mmol/L (135-145) L 05/01/25 12:50
Chloride 94 mmol/L (98-107) L 05/01/25 12:50
Carbon Dioxide 28 mmol/L (22-30) 05/01/25 12:50
BUN 66 mg/dl (7-17) H 05/01/25 12:50
Creatinine 6.8 mg/dL (0.6-1.0) H* 05/01/25 12:50
eGFR 5.93 05/01/25 12:50
Glucose 105 mg/dl (70-99) H 05/01/25 12:50
Calcium 9.6 mg/dl (8.4-10.2) 05/01/25 12:50
Albumin 3.9 g/dl (3.5-5.0) 05/01/25 12:50
Physical Exam
GENERAL: Alert , appears uncomfortable (but declines pain medication in the ER), chronically ill-appearing
EYE: pupils equal and reactive, conjunctiva pink, poor dentition
NECK: Supple, no significant adenopathy.
CARDIAC: Regular rate and rhythm .
Chest: Right breast and chest wall wound extensions
LUNGS: Clear breath sounds bilaterally, no acute respiratory distress, no wheezes/rales/rhonchi
ABDOMEN: Soft, mildly tender with deep palpation positive bowel sound
NEUROLOGICAL: Alert and oriented, no focal neuro deficits,no asterixis
SKIN: Warm and dry, skin intact.
MUSCULOSKELETAL: 2-3+ RLE edema with mild scattered areas of erythema at ant tib/fib area, no warmth, no fluctuance, no drainage, well perfused. (doppler bedside of DP noted)
PSYCH: Normal and appropriate interaction.
Data Reviewed
-
CT Scan: Report Reviewed by me (Moderate retroperitoneal lymphadenopathy on the right as described above. Significantly progressed despite the limited evaluation without oral and IV contrast. Mild right hydronephrosis. New. No obstructing
radiopaque stone identified. Probably due to the progressed lymphadenopathy.)
Medical Tests (Nuc Med, Echo etc): Other (EKG report notes normal sinus rhythm at 82 bpm)
Labs: Labs Reviewed by me (BMP CBC urine study)
Old Records: Reviewed (Creatinine reviewed and old electronic medical record from 10/18/2024 creatinine 0.5)
Assessment/Plan
-
Impression:
Acute kidney injury
Hyperkalemia
Anemia
Large loculated right pleural effusion with associated right lower lung consolidation (history of malignant pleural effusion)
Mild right hydronephrosis associated with retroperitoneal lymph and adenopathy
Extensive thrombus formation of right saphenofemoral junction\\greater saphenous vein common femoral vein superficial femoral vein popliteal vein and posterior tibial vein
Metastatic breast cancer
Chronic hypoxic respiratory failure on nasal cannula
Chronic hyponatremia
Plan:
TRELL:
- Suspect Extrinsic obstruction likely due to underlying etiology of renal failure given extensive retroperitoneal lymphadenopathy and noted mild right hydronephrosis
-Urology could be consulted in the morning to reassess
- Lokelma (10 grams TID) for hyperkalemia, insulin D50 and alkaline IV fluids to be provide
- Given what appears to be advanced metastatic disease patient would not be a suitable dialysis candidate I did discuss this with patient who agrees that she would not pursue dialysis given the extensive burden of her terminal disease
-Half-normal with 75 mill equivalents of sodium bicarbonate per liter at 100 cc/hr
-Place Whittaker catheter
- Obtain urinalysis urine sodium,urine creatinine
- Would also obtain kidney and bladder ultrasound in a.m.
- Patient to be started on unfractionated heparin for extensive lower extremity DVTs
--- NOTE | 2025-05-01 16:40 | HPS.HSE ---
Family Physician
-
Family Physician: PHYSICIAN PRIVATE
Chief Complaint
-
Right thigh to right lower extremity edema, anorexia, unable to urinate x 2 days, nausea and headaches
History of Present Illness
74-year-old female from [facility] complaining of 2-day history of anorexia, constipation and difficulty urinating only able to produce drops of urine yet she is drinking. She does complain of nausea on and off for the past few
weeks with occasional headaches. She also reports right lower extremity swelling over the last 2 days with discomfort in her right groin and right upper quadrant of her abdomen she has had limited urine output over the past 2 days with only small
drops of urine coming out. She also reports dry heaves and vomiting last night. She has had right posterior shoulder blade under right breast lymphadenopathy that weeps serous fluid she has what appears to be a fungal rash under her right and left
breast folds. She denies current headache, fever, chills, chest pain, palpitations, cough, shortness of breath, diarrhea. She was made aware she is in acute renal failure due to compressive adenopathy in her abdomen. At this time she is not
interested in dialysis she would like to explore hospice and to be comfortable with Dr. Ariza nephrology present at bedside
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 Thlaia Benito, History multiple thoracentesis draining average 1300 cc - 1400 cc
10/18/2024, 10/21/2024, chronic anemia, HTN, peripheral neuropathy, spinal cord injury/TBI in 1990, fibromyalgia,Strep pyogenes bacteremia left lower extremity cellulitis October 2024, COVID-19 positive treated with Paxlovid 09/25 - 09/30/2025 was
still + 10/10/2024, Chronic hypoxic respiratory failure.
Medical History
Past Medical History
Past Medical History: Reports Other
Additional Past Medical History:
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
strep pyogenes bacteremia left lower extremity cellulitis October 2024Hypertension
Peripheral Neuropathy
Spinal Cord Injury / TBI (1990)
Peripheral Neuropathy
Fibromyalgia
COVID-19 positive treated with Paxlovid 09/25 - 09/30/2025 was still + 10/10/2024
Chronic hypoxic respiratory failure
Past Surgical History: Reports Other
Additional Past Surgical History:
T&A
Left Subclavian Lymph Node Biopsy
Multiple Thoracenteses average 4829-2576 cc drainage
Social History
Tobacco: Non-smoker
Alcohol: None
Drug: None
Personal:
Living: Alone
Employment: Retired
Family History
Family History: Other (Sister: Ovarian cancer, at age 36)
Allergies / Home Medications
Allergies reflects when Allergies were last updated in [facility].
Home Medications with original date entered in [facility]
Allergy/Medication List:
Allergies
Allergy/AdvReac Type Severity Reaction Status Date / Time
Sulfa (Sulfonamide AdvReac yeast Verified 10/10/24 00:07
Antibiotics) infections
Tetracyclines AdvReac yeast Verified 10/10/24 00:07
infections
Home Medications
guaifenesin 100 mg/5 mL oral liquid 200 mg (10 mL) PO Q4HPRN PRN cough #0 mL 08/30/24
acetaminophen 325 mg tablet (Tylenol) 650 mg PO Q4HPRN PRN mild pain 09/15/24
bisacodyl 10 mg rectal suppository (Dulcolax (bisacodyl)) 10 mg ME DAILYPRN PRN if no bm aftr mom 09/15/24
magnesium hydroxide 400 mg/5 mL oral suspension (Milk of Magnesia) 2,400 mg PO DAILYPRN PRN if no bm on 3d day 09/15/24
sodium phosphates 19 gram-7 gram/197 mL enema (Fleet Enema Extra) 118 ml ME DAILYPRN PRN if no bm aftr dulcolax 09/15/24
benzocaine 6 mg-menthol 10 mg lozenges (Chloraseptic Sore Throat) 1 carlos PO Q4HPRN PRN sore throat #18 ea 09/28/24
olaparib 150 mg tablet See Rx Instructions .Route .COMPLEX #60 tabs 09/28/24
tramadol 50 mg tablet 50 mg PO Q6HPRN PRN MOd-severe pain 3 days #12 tabs 09/28/24
Review of Systems
-
History Source: Patient
A 12 point ROS was completed and negative except as noted: Yes
Constitutional: Reports Fatigue; Denies Fever or Chills
EENT: Denies Sore Throat or Runny Nose
Respiratory: Denies Cough or Trouble Breathing
Cardiac: Denies Chest Pain, Diaphoresis, Palpitations or Syncope
Abdomen/GI: Reports Abdominal Pain (Right sided, right flank), Nausea, Constipated and Other; Denies Vomiting or Diarrhea
: Reports Flank Pain (Right) and Other (Anuria); Denies Dysuria
Musculoskeletal: Reports Edema (Right groin down entire right leg +3 edema, chronic +3 edema right upper extremity right scapula to right breast); Denies Joint Pain
Skin: Reports Rash (Fungal rash under breasts, weeping tissue right posterior scapula/right breast); Denies Itching
Neurological: Reports Weakness (Generalized); Denies Dizzy or Headache
Psych: Reports Calm
Physical Exam
Vital Signs
Vital Signs
Pulse Resp BP Pulse Ox
86 19 139/71 100
05/01/25 15:19 05/01/25 14:45 05/01/25 14:17 05/01/25 14:45
Physical Exam
General: Conversant and Appears Chronically Ill; No Fever or Chills
HEENT: NormoCephalic, Anicteric, PERRLA and No Ptosis
Respiratory: Clear; No Wheezes or Rales
Cardiac: S1/S2, Regular Rhythm and Peripheral Edema (Right groin down entire right leg +3 edema with erythema right lower extremity due to swelling); No Murmur, Rub or Gallop
GI: Soft, Non Distended, Normal Bowel Sounds and Tender (Right side flank)
Rectal: Deferred by Provider
Musculoskeletal: No Clubbing, No Cyanosis and Edema, Right Upper Extremity (Fungal rash under breasts, weeping tissue right posterior scapula/right breast)
Skin: Warm, Dry and Rash (Fungal rash under bilateral breastsFungal rash under breasts, weeping tissue right posterior scapula/right breast)
Neuro: AO x 3, Nonfocal/grossly intact, Cranial Nerves Intact and No Sensory Deficits; No Slurred Speech, Facial Droop, Tremors or Sedated
Psych: Calm
Laboratory Results
-
05/01/25 12:50
Laboratory Results
PT 14.7 Sec (11.4-14.6) H 05/01/25 12:50
INR 1.10 05/01/25 12:50
APTT 27.8 Sec (23.4-35.0) 05/01/25 12:50
Total Bilirubin 0.6 mg/dl (0.2-1.3) 05/01/25 12:50
AST 48 U/L (14-36) H 05/01/25 12:50
ALT 34 U/L (0-35) 05/01/25 12:50
Alkaline Phosphatase 94 U/L (38-126) 05/01/25 12:50
Troponin I < 0.012 ng/ml 05/01/25 12:50
Lipase 236 U/L (23-300) 05/01/25 12:50
Impression/Plan
-
Impression/plan:
Admit to telemetry
#Acute Renal failure likely due to lymphadenopathy intra-abdominal right side only although
Creat 6.8 prior baseline 0.5 on 10/18/2024
- Consult nephro Dr. Ariza aware currently patient not interested in dialysis
- Will place Whittaker catheter for critical I&O's
- IV 1/2 NSS with 75 mEq bicarb at 100 cc an hour
- Follow BMP and urine output
- Consider consultation with hospice before placing IR consult to drain right pleural effusion and right PCN patient is stable hemodynamically
- Discussed case with Dr. Lovelace who states would consider IR consult for PCN placement if patient interested
- Patient requesting hospice consult
- IV Morphine as needed pain
- urinalysis urine sodium,urine creatinine
- Per nephrology obtain kidney and bladder ultrasound in a.m.
CT abdomen pelvis without IV or oral contrast
Moderate retroperitoneal lymphadenopathy on the right as described above. Significantly progressed despite the limited evaluation without oral and IV contrast.
Mild right hydronephrosis. New. No obstructing radiopaque stone identified. Probably due to the progressed lymphadenopathy.
Incompletely imaged moderate left axillary lymphadenopathy.
Findings suggesting mild volume overload or third spacing. Improved
Large loculated right pleural effusion. Significantly increased.
Moderate right lower lobe consolidation. This may represent atelectasis or pneumonia. New
Tiny nonobstructing left renal stones. New
T12 and L1 compression fractures. Stable
#Acute hyperkalemia in setting of acute renal failure
- K 6.8
Lokelma 10 grams now, IV insulin IV dextrose
-Lokelma 10 g -3 times daily
- Follow BMP
#Right lower extremity DVT new onset
-IV heparin drip
Right lower extremity ultrasound:Extensive thrombus formation in the right saphenofemoral junction/greater saphenous vein, common femoral vein, superficial femoral vein, popliteal vein and posterior tibial vein.
These vessels are noncompressible.
#Acute on chronic anemia
Hgb 9.9, MCV 98.6
- Follow CBC
#Recurrent large loculated right pleural effusion
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
#History multiple thoracentesis draining average 1300 cc - 1400 cc 10/18/2024, 10/21/2024
- Consult oncology Dr. Benito aware
- Consider consultation with hospice before placing IR consult to drain right pleural effusion and right PCN patient is stable hemodynamically
#Hypertension
BP 139/71
#Peripheral Neuropathy
#Spinal Cord Injury / TBI (1990)
#Fibromyalgia
Other PMH:
Strep pyogenes bacteremia left lower extremity cellulitis October 2024
COVID-19 positive treated with Paxlovid 09/25 - 09/30/2025 was still + 10/10/2024
Chronic hypoxic respiratory failure
DVT prophylaxis
Current DVT right lower extremity on IV heparin drip
DNR/DNI
[2025-05-01 16:48] LABS: Glucose - Point of Care 111 mg/dl (70-99)
[2025-05-01] MEDS: ZOSYN 100 IV (17:01)
[2025-05-01] MEDS: HEPARIN 25000 UNITS/250 ML IV (17:52)
[2025-05-01 17:55] LABS: Potassium 5.3 mmol/L (3.5-5.1)
--- NOTE | 2025-05-01 18:16 | W.PN.UPDATE ---
Update Note
Progress Note Update
This is an addendum to H&P written by Amber Roy on 05/01/2025. Patient seen and examined independently with [employer].
74-year-old female past medical history of BRCA positive breast cancer diagnosed this year October on with cutaneous changes/weeping, malignant right pleural effusion status post thoracentesis, hypertension, peripheral neuropathy, spinal
cord injury/TBI in 1980, fibromyalgia, prior strep pyogenes bacteremia from left lower extremity cellulitis, presenting with abrupt cessation of urination 2 days ago, as well as right lower extremity swelling.
Labs show creatinine of 6.8. Potassium 5.9. Sodium 131. Stable anemia of 9.9.
Venous ultrasound right lower extremity shows extensive thrombus formation of the right saphenofemoral junction/greater saphenous vein, common femoral vein, superficial femoral vein, popliteal vein, posterior tibial vein.
CT abdomen pelvis shows moderate retroperitoneal lymphadenopathy in the right significantly progressed. Mild right hydronephrosis probably due to progressive lymphadenopathy. Mild volume overload with third spacing. Large loculated right pleural
effusion significantly increased. Moderate right lower lobe consolidation representing atelectasis or pneumonia.
Patient with right lower extremity DVT. Heparin drip started for this.
Patient with severe TRELL and hyperkalemia which is not completely explained by right hydronephrosis likely from lymphadenopathy. Whittaker catheter placed. Bicarb drip. Lokelma started. Nephrology thinks she is not an ideal candidate for dialysis and
patient declines dialysis as well. Patient would like to discuss with hospice. Urology notified and recommended IR for PCN placement.\\
The source of the retroperitoneal lymphadenopathy also appears to be secondary to breast cancer.
Patient also with worsening large loculated right pleural effusion with ongoing dyspnea with exertion. Clinically consolidation does not seem to represent pneumonia. Check chest x-ray. Would need IR for thoracentesis.
Patient interested in hospice and and so hospice to be consulted prior to IR consult for thoracentesis and PCN.
[2025-05-01] MEDS: SODIUM BICARBONATE 1075 MEQ IV (18:35)
[2025-05-01 18:46] LABS: Glucose - Point of Care 96 mg/dl (70-99)
[2025-05-01] MEDS: VISBIOME 1 CAP PO (22:11)
[2025-05-02] VITALS (7 sets, daily range): BP systolic 120–156; BP diastolic 60–83; BMI 25.2
[2025-05-02 02:48] LABS: APTT 38.2 Sec (23.4-35.0)
[2025-05-02] MEDS: HEPARIN 5500 UNITS IV (02:57)
[2025-05-02] MEDS: MORPHINE SULFATE 4 MG IV ×2 (03:04→09:48)
[2025-05-02] MEDS: SODIUM BICARBONATE 1075 MEQ IV ×2 (05:35→17:46)
[2025-05-02] MEDS: LOKELMA 10 GRAM PO ×3 (05:36→17:45)
--- NOTE | 2025-05-02 07:50 | CON.ONC ---
Consultation
-
Date Consultation Performed: 05/02/25
Performing Provider: Pushpa Horne
Impression
Impression
Metastatic breast cancer now with large loculated right pleural effusion (history of malignant pleural effusion) and right hydronephrosis associated with retroperitoneal lymph and adenopathy
Acute kidney injury likely from progressed lymphadenopathy
Hyperkalemia - nephrology deemed patient not a candidate for HD
Chronic Anemia
Extensive DVT Right LE
Plan
Plan
Hospice consult placed by primary team
Defer to IR and nephro on recommendations for thoracentesis and PNC if patient chooses to receive interventions
DVT in the setting of metastatic cancer, likely d/t hypercoaguable state. Continue on heparin, would recommend standard transition to DOAC upon discharge
Patient History
History of Present Illness
74-year-old female from [facility] BRCA+ Right breast cancer, chronic anemia, HTN, hx of TBI/spinal cord injury (1990) presenting to ED with 2-day history of anorexia, malaise and difficulty urinating.
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 Patient is currently on Lynparza started October 2024. Patient follows with Dr. Thalia Benito. Patient has had
numerous thoracentesis before, which revealed a malignant right pleural effusion.
In the ED, patient had a CT AP which revealed progressed retroperitoneal adenopathy w/ R hydronephrosis. Labs notable for a Cr of 6.8. Nephrology deemed patient not a good candidate for HD, and patient also refused.
Chest xray reveals moderate right pleural effusion, known to be malignant from previous thoracenteses.
US of LE revealed extensive thrombus formation in the right saphenofemoral junction/greater saphenous vein, common femoral vein, superficial femoral vein, popliteal vein and posterior tibial vein.
Patient at baseline is on 2L NC, but due to recent SOB on exertion, she was placed on 4L. She was also started on a heparin drip for the DVT. Patient was also started on morphine 2 and 4 mg [id number] PRN. Started on lokelma for hyperkalemia.
Patient seen this morning at the bedside. Patient is feeling 'crummy' and concerned that she hasn't urinated since Monday. Patient is also complaining of right shoulder pain from the weeping skin lesions that she notes for the last month. Patient
said that the morphine is helping control her pain. Patient was able to eat a yogurt this morning, which is more than shes been able to hold down recently. We discussed hospice and palliative care options- she would like to talk with them today
before deciding to do another thoracentesis or PCN. Patient notes that her POA plans to be here today and she would like her to listen to the hospice nurse when she comes for the consult.
Past-Medical/Surgical History
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
chronic anemia
HTN
peripheral neuropathy
hx of TBI/spinal cord injury (1990)
Patient Medication
�Medication �Instructions �Recorded �Confirmed �Last Taken �Type
magnesium oxide 400 mg PO DAILY Supplement ##0 10/14/24 05/01/25 04/30/25 History
Lactobac no.2-Bifidobac no.1-S. 1 cap PO BID Gastrointestinal Issue 05/01/25 05/01/25 05/01/25 History
thermo 112.5 billion cell capsule
(Visbiome)
acetaminophen 325 mg tablet 650 mg PO Q6HPRN PRN mild pain 05/01/25 05/01/25 04/30/25 History
(Tylenol)
olaparib 150 mg tablet (Lynparza) See Rx Instructions .ROUTE .COMPLEX 05/01/25 05/01/25 Unknown History
Active Medications
Generic Name Dose Route Start Last Admin
Trade Name Freq PRN Reason Stop Dose Admin
Acetaminophen 650 mg 05/01/25 20:58
Acetaminophen 325 Mg Tablet PO 05/29/25 20:57
Q4HPRN PRN
mild pain/SANDOVAL/temp> 100.4F
Bisacodyl 10 mg 05/01/25 20:58
Bisacodyl 10 Mg Rectal Suppository RECTAL 05/29/25 20:57
[id number] PRN
constipation
Dextrose 12.5 grams 05/01/25 13:35
Dextrose 50% (0.5 Grams/Ml) 50 Ml Syringe IV 05/29/25 13:34
[id number] PRN
hypoglycemia (BG < 70 mg/dL)
Protocol
Heparin Sodium 5,500 units 05/01/25 17:23 05/02/25 02:57
Heparin 80 Units/Kg Iv Rebolus IV 05/29/25 17:22 5,500 units
PRN PRN Administration
PTT < OR = 64 seconds
Heparin Sodium 2,800 units 05/01/25 17:24
Heparin 40 Units/Kg Iv Rebolus IV 05/29/25 17:23
PRN PRN
PTT = 64.1 to 72.9 seconds
Heparin Sodium 25,000 units in 250 mls @ 0 mls/hr 05/01/25 16:45 05/01/25 17:52
Heparin 90354 Units/250 Ml IV 250 mls
PER PROTOCOL CHERRI Administration
Protocol
Per Protocol
Sodium Bicarbonate 75 meq/ 1,075 mls @ 100 mls/hr 05/01/25 17:30 05/02/25 05:35
Sodium Chloride IV 1,075 mls
.[id number] CHERRI Administration
Lactobacillus/Bifidobacterium 1 cap 05/01/25 20:58 05/01/25 22:11
Lactobac/Bifidobac (Visbiome) PO 05/29/25 20:57 1 cap
BID CHERRI Administration
Magnesium 84 mg 05/02/25 08:00
Magnesium Lactate 84 Mg Tablet PO 05/30/25 07:59
DAILY CHERRI
Morphine Sulfate 2 mg 05/01/25 20:58
Morphine 2 Mg/Ml Syringe IV 05/15/25 20:57
Q4HPRN PRN
mod pain
Morphine Sulfate 4 mg 05/01/25 20:58 05/02/25 03:04
Morphine 4 Mg/Ml Injection IV 05/15/25 20:57 4 mg
Q4HPRN PRN Administration
severe pain
Ondansetron HCl 4 mg 05/01/25 20:58
Ondansetron 4 Mg/2 Ml Vial IV 05/29/25 20:57
Q6HPRN PRN
NAUSEA/VOMITING
Polyethylene Glycol 17 grams 05/01/25 20:58
Polyethylene Glycol Powder 17 Grams Packet PO 05/29/25 20:57
DAILYPRN PRN
constipation
Senna/Docusate Sodium 1 tablet 05/01/25 20:58
Docusate W/Senna (Natacha-Colace) Tablet PO 05/29/25 20:57
BIDPRN PRN
constipation
Sodium Chloride 0 flush 05/01/25 19:00
Sodium Chloride 0.9% (Flush) Syringe IV 05/29/25 18:59
PER PROTOCOL CHERRI
Sodium Zirconium Cyclosilicate 10 gram 05/01/25 22:00 05/02/25 05:36
Sodium Zirconium Cyclosilicate (Lokelma) 10 Gram Powder Packet PO 05/03/25 14:01 10 gram
TID@0600,1400,1800 CHERRI Administration
Review of Systems
-
History Source: Patient
Constitutional: Reports No Appetite, Fatigue and Weakness
Respiratory: Reports Trouble Breathing
Cardiac: Reports No Symptoms
GI: Reports Nausea and Constipated
: Reports Difficulty Voiding
Skin: Reports Other (back and right shoulder painful skin lesions as well as cutaneous involvement of the breast)
Physical Exam
-
General: No Apparent Distress
Cardiology: Normal Sinus Rhythm
Pulmonary: Clear
Musculoskeletal: Edema, Right Lower Extrem
Labs
Lab Results
WBC 8.1 10^3/uL (4.8-10.8) 05/01/25 12:50
RBC 2.93 10^6/uL (4.20-5.40) L 05/01/25 12:50
Hgb 9.9 g/dL (12.0-16.0) L 05/01/25 12:50
Hct 28.9 % (37.0-47.0) L 05/01/25 12:50
MCV 98.6 fL (81.0-99.0) 05/01/25 12:50
MCH 33.8 pg (27.0-31.0) H 05/01/25 12:50
MCHC 34.3 g/dL (33.0-37.0) 05/01/25 12:50
RDW 15.4 % (11.5-14.5) H 05/01/25 12:50
Plt Count 305 10^3/uL (130-400) 05/01/25 12:50
MPV 8.7 fL (7.4-10.4) 05/01/25 12:50
Creatinine 6.8 mg/dL (0.6-1.0) H* 05/01/25 12:50
Vital Signs
Vital Signs
Temp Pulse Resp BP Pulse Ox
98.4 F 87 16 156/70 100
05/02/25 03:13 05/02/25 03:13 05/02/25 03:13 05/02/25 03:13 05/02/25 03:13
[2025-05-02 08:56] LABS: Hematocrit 25.3 % (37.0-47.0); Hemoglobin 8.5 g/dL (12.0-16.0); Mean Corp Hgb Conc. 33.6 g/dL (33.0-37.0); Mean Corpuscular Volume 98.4 fL (81.0-99.0); Nucleated Red Blood Cells % 0 %; Platelet Count 300 10^3/uL (130-400); Red Cell Dist. Width 15.5 % (11.5-14.5)
[2025-05-02 09:26] LABS: APTT > 200.0 Sec (23.4-35.0)
[2025-05-02] MEDS: VISBIOME PO (10:06)
[2025-05-02] MEDS: MAG-TAB SR PO (10:06)
--- NOTE | 2025-05-02 10:34 | CM ---
Case Management Consult for Hospice Referral received. Per Attending, consult was ordered on admission at patient's request.
Patient's POA called case therapist for status update this morning. She reported that she spoke with a thermoforming operator from the Assisted Living facility where patient resides
POA in on her way to the hospital to visit patient an will call [employer] Consult[employer] to discuss hospice consult referral after she discusses with patient.
[2025-05-02 11:19] LABS: ALT (SGPT) 23 U/L (0-35); AST (SGOT) 39 U/L (14-36); Albumin 3.3 g/dl (3.5-5.0); Alkaline Phosphatase 74 U/L (38-126); Blood Urea Nitrogen 70 mg/dl (7-17); Calcium 8.7 mg/dl (8.4-10.2); Carbon Dioxide 26 mmol/L (22-30); Chloride 93 mmol/L (98-107); Estimated Creatinine Clearance 6 ml/min; Glucose 117 mg/dl (70-99); Magnesium 3.7 mg/dl (1.6-2.3); Potassium 5.2 mmol/L (3.5-5.1); Sodium 127 mmol/L (135-145); Total Protein 6.3 g/dl (6.3-8.2); eGFR 5.82
--- NOTE | 2025-05-02 12:41 | W.PN.HOSP.TC ---
Today's Communication/Plan
-
Hospice consult
Clinical Services Manager consult
Lidocaine patch for right neck shoulder pain
As needed Ativan
Assessment / Plan
Assessment / Plan
Ms Thomas is a 74-year-old female from [facility] complaining of 2-day history of anorexia, constipation and difficulty urinating only able to produce drops of urine yet she is drinking. She has past medical history of BRCA+ Right
Breast Cancer with Cutaneous Involvement and Malignant Right Pleural Effusion Dx in October currently on Lynparza by Dr. Thalia Benito, History multiple thoracentesis draining average 1300 cc - 1400 cc 10/18/2024, 10/21/2024, chronic anemia, HTN,
peripheral neuropathy, spinal cord injury/TBI in 1990, fibromyalgia,Strep pyogenes bacteremia left lower extremity cellulitis October 2024, COVID-19 positive treated with Paxlovid 09/25 - 09/30/2025 was still + 10/10/2024, Chronic hypoxic respiratory
failure. She was admitted for acute renal failure due to intra-abdominal lymphadenopathy.
#Acute Renal failure likely due to lymphadenopathy intra-abdominal right side
#BRCA+ Right Breast Cancer with Cutaneous Involvement
Creat 6.8 prior baseline 0.5 on
- Consult nephro, patient not interested in dialysis
- Whittaker catheter for critical I&O's
- IV 1/2 NSS with 75 mEq bicarb at 100 cc an hour
- Follow BMP and urine output
- hospice consult
- Clinical Services Manager consult
- IV Morphine as needed pain
- Ativan as needed for anxiety
- obtain kidney and bladder ultrasound per goals of care
#Acute hyperkalemia in setting of acute renal failure
- K 5.9 on admission, 5.2
-Lokelma 10 g -3 times daily
- Follow BMP
#Right lower extremity DVT
Peripheral ultrasound shows DVT
-IV heparin drip
# Right neck pain
# Right shoulder pain
Lidocaine patch as needed
#Recurrent large loculated right pleural effusion
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
#History multiple thoracentesis draining average 1300 cc - 1400 cc 10/18/2024, 10/21/2024
Patient was on olaparib
- Consult oncology Dr. Benito aware
#Acute on chronic anemia
Hgb 9.9, MCV 98.6
- Follow CBC
DVT prophylaxis
Heparin drip
CODE STATUS
DNR/DNI
Anticipated Discharge: 24 - 48 hours
Subjective/Interval History
-
Date of Service: May 02, 2025
Objective Data
-
Labs:
Laboratory Results
05/02/25 05/02/25 05/02/25
01:02 08:48 17:30
WBC 8.5
Hgb 8.5 L
Hct 25.3 L
Plt Count 300
APTT 38.2 H > 200.0 H* Pending
Sodium 127 L
Potassium 5.2 H
Chloride 93 L
Carbon Dioxide 26
BUN 70 H
Creatinine 6.9 H*
Glucose 117 H
Calcium 8.7
Total Bilirubin 0.6
AST 39 H
ALT 23
Alkaline Phosphatase 74
Vital Signs:
Vital Signs
Temp Pulse Resp BP Pulse Ox
98.4 F 76 17 120/61 98
05/02/25 11:49 05/02/25 11:49 05/02/25 11:49 05/02/25 11:49 05/02/25 11:49
I&O
05/01/25 05/02/25 05/03/25
06:59 06:59 06:59
Intake Total 600 / 600
Balance 600 / 600
Review of Systems
-
History Source: Patient
Constitutional: Reports No Appetite and Fatigue; Denies Fever
EENT: Reports Runny Nose; Denies Sore Throat
Respiratory: Reports No Symptoms; Denies Cough or Wheezing
Cardiac: Reports No Symptoms; Denies Chest Pain
Abdomen/GI: Reports Nausea and Anorexia; Denies Vomiting or Diarrhea
Genitourinary: Reports Other (Oliguria); Denies Dysuria
Musculoskeletal: Reports Joint Pain (Right shoulder pain, neck pain) and Edema (Right lower extremity right upper extremity)
Skin: Reports Rash (Right breast) and Skin Thickening (Right arm)
Neuro: Reports Weakness; Denies Headache
Hematologic / Lymphatic: Reports Swollen Glands (Right lower thoracic lymph nodes, weeping) and Lymphedema
Psych: Reports Anxious
Physical Exam
-
General: Conversant, Appears Chronically Ill and Cachectic
HEENT: Normocephalic, Atraumatic and Oxygen (4 L nasal cannula)
Respiratory: Clear to Auscultation (Left lung kevin) and Decreased Breath Sounds (Right lung kevin)
Cardiac: Regular Rhythm and S1/S2; Negative Murmur
Breast: Puckering (Right breast), Skin Changes (Erythema, red rash, peau d'orange appearance) and Other (Weeping right axillary, thoracic lymph nodes with serous fluid)
GI: Soft, Nontender, Nondistended and Normal Bowel Sounds
Musculoskeletal: No Cyanosis, Edema, Right Upper Extrem (Hardened lymphedema) and Edema, Right Lower Extrem (With patchy erythema extending to knee)
Skin: Decubitus Ulcers (Bilateral heel ulcers, pressure, wound dressing bilateral)
Neuro: Awake, Alert and Oriented
Psych: Anxious
--- NOTE | 2025-05-02 15:37 | WOUNDNOTE ---
WO RN NOTE: Reviewed chart and met with patient. Patient receives wound care to right axilla and back at assisted living. Although patient was medicated for pain prior to assessment, patient demonstrated and reported she was very uncomfortable.
Patient given many breaks and needed support during assessment. No open areas were noted and skin appears to have improved since prior admission. No open wounds noted on LE. Right LE with erythema due to DVT and cellulitis. Skin assessed as patient
was able to tolerate and all dressings were maintained. Sacrum and heels intact. Sacral foam maintained. Air overlay added to bed. Patient would like to continue with current appropriate wound care to axilla and back (saline, Xeroform and ABD).
Patient currently deciding on hospice care at [facility]. Will follow as needed.
[2025-05-02] MEDS: LIDOCAINE 4% PATCH 1 PATCH TOPICAL (15:39)
[2025-05-02] MEDS: HEPARIN 25000 UNITS/250 ML IV (15:39)
--- NOTE | 2025-05-02 16:17 | HOSPNOTE ---
Long discussion with patient about hospice and the philosophy. If the patient returns to [facility] it is out of our territory and another hospice agency [facility] [phone] was referred. The patient may qualify for inpatient
hospice for shortness of breath and pain if the patient decides hospice. We will continue to follow and be available. I will follow up on Monday no decisions were made at this time.
[2025-05-02 17:54] LABS: APTT 89.0 Sec (23.4-35.0)
[2025-05-02] MEDS: VISBIOME 1 CAP PO (20:04)
[2025-05-02] MEDS: REMOVE LIDOCAINE PATCH 1 PATCH REMOVE (20:06)
[2025-05-03 00:02] LABS: APTT 68.3 Sec (23.4-35.0)
[2025-05-03] MEDS: HEPARIN 2800 UNITS IV (00:16)
[2025-05-03 03:40] VITALS: BP 123/66
[2025-05-03] MEDS: SODIUM BICARBONATE 1075 MEQ IV ×2 (04:35→14:46)
[2025-05-03] MEDS: LOKELMA 10 GRAM PO ×2 (05:34→13:16)
[2025-05-03 05:56] VITALS: BMI 26.8
[2025-05-03] MEDS: MORPHINE SULFATE 4 MG IV ×2 (06:18→23:15)
[2025-05-03] MEDS: FLUSH (NSS) 2 FLUSH IV ×3 (06:20→23:16)
[2025-05-03 06:29] LABS: Hematocrit 24.0 % (37.0-47.0); Hemoglobin 8.0 g/dL (12.0-16.0); Mean Corp Hgb Conc. 33.3 g/dL (33.0-37.0); Mean Corpuscular Volume 97.6 fL (81.0-99.0); Nucleated Red Blood Cells % 0 %; Platelet Count 276 10^3/uL (130-400); Red Cell Dist. Width 15.3 % (11.5-14.5)
[2025-05-03 06:45] LABS: APTT 96.0 Sec (23.4-35.0)
[2025-05-03 07:15] VITALS: BP 121/60
[2025-05-03 07:34] LABS: ALT (SGPT) 19 U/L (0-35); AST (SGOT) 36 U/L (14-36); Albumin 3.0 g/dl (3.5-5.0); Alkaline Phosphatase 66 U/L (38-126); Blood Urea Nitrogen 72 mg/dl (7-17); Calcium 8.2 mg/dl (8.4-10.2); Carbon Dioxide 27 mmol/L (22-30); Chloride 92 mmol/L (98-107); Estimated Creatinine Clearance 6 ml/min; Glucose 88 mg/dl (70-99); Potassium 4.9 mmol/L (3.5-5.1); Sodium 126 mmol/L (135-145); Total Protein 5.8 g/dl (6.3-8.2); eGFR 5.35
[2025-05-03] MEDS: LIDOCAINE 4% PATCH 1 PATCH TOPICAL (09:16)
[2025-05-03] MEDS: VISBIOME 1 CAP PO ×2 (09:17→19:39)
[2025-05-03] MEDS: MAG-TAB SR 84 MG PO (09:17)
--- NOTE | 2025-05-03 09:27 | W.PN.HOSP.TC ---
Today's Communication/Plan
-
Continue current management
Continue with morphine and Ativan
Plan to de-escalate care once discharged to OP hospice setting
Assessment / Plan
Assessment / Plan
Ms Thomas is a 74-year-old female from [facility] complaining of 2-day history of anorexia, constipation and difficulty urinating only able to produce drops of urine yet she is drinking. She has past medical history of BRCA+ Right
Breast Cancer with Cutaneous Involvement and Malignant Right Pleural Effusion Dx in October currently on Lynparza by Dr. Thalia Benito, History multiple thoracentesis draining average 1300 cc - 1400 cc 10/18/2024, 10/21/2024, chronic anemia, HTN,
peripheral neuropathy, spinal cord injury/TBI in 1990, fibromyalgia,Strep pyogenes bacteremia left lower extremity cellulitis October 2024, COVID-19 positive treated with Paxlovid 09/25 - 09/30/2025 was still + 10/10/2024, Chronic hypoxic respiratory
failure. She was admitted for acute renal failure due to intra-abdominal lymphadenopathy.
#Acute Renal failure likely due to lymphadenopathy intra-abdominal right side
#BRCA+ Right Breast Cancer with Cutaneous Involvement
Creat 6.8 prior baseline 0.5 on
- Consult nephro, patient not interested in dialysis
- Whittaker catheter for critical I&O's
- IV 1/2 NSS with 75 mEq bicarb at 100 cc an hour
- Follow BMP and urine output
- hospice consult
- [employer] Officer consult
- IV Morphine as needed pain
- Ativan as needed for anxiety
- obtain kidney and bladder ultrasound per goals of care
#Acute hyperkalemia in setting of acute renal failure
- K 5.9 on admission, 5.2 -> 4.9
-Lokelma 10 g -3 times daily
-Follow BMP
#Right lower extremity DVT
Peripheral ultrasound shows DVT
-IV heparin drip, plan for DOAC on comfort basis at DC
# Right neck pain
# Right shoulder pain
-Lidocaine patch as needed
#Recurrent large loculated right pleural effusion
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
#History multiple thoracentesis draining average 1300 cc - 1400 cc 10/18/2024, 10/21/2024
-Patient was on olaparib
- Consult oncology Dr. Benito aware
#Acute on chronic anemia
Hgb 9.9, MCV 98.6, downtrending with acute on chronic illness
- Follow CBC
DVT prophylaxis
Heparin drip
CODE STATUS
DNR/DNI
Anticipated Discharge: 24 - 48 hours
Subjective/Interval History
-
Date of Service: May 03, 2025
Seen and examined at the bedside. No acute events overnight. AFVSS this morning
Sodium downtrending, renal function continuing to worsen. Requesting lidocaine patch for her neck though otherwise comfortable, denies any complaints this morning
Had a long discussion with her yesterday afternoon in regards to her goals of care. States that she accepts her current condition and is ready to transition to hospice. Very thankful for the care she is receiving
Objective Data
-
Labs:
Laboratory Results
05/02/25 05/03/25 05/03/25
23:40 06:15 12:30
WBC 7.7
Hgb 8.0 L
Hct 24.0 L
Plt Count 276
APTT 68.3 H 96.0 H Pending
Sodium 126 L
Potassium 4.9
Chloride 92 L
Carbon Dioxide 27
BUN 72 H
Creatinine 7.4 H*
Glucose 88
Calcium 8.2 L
Total Bilirubin 0.5
AST 36
ALT 19
Alkaline Phosphatase 66
Vital Signs:
Vital Signs
Temp Pulse Resp BP Pulse Ox
98.4 F 81 18 121/60 99
05/03/25 07:15 05/03/25 07:15 05/03/25 07:15 05/03/25 07:15 05/03/25 07:15
I&O
05/02/25 05/03/25 05/04/25
06:59 06:59 06:59
Intake Total 600 / 600 1919
Output Total 0 / 0
Balance 600 / 600 1919
Review of Systems
-
History Source: Patient
All other systems: Reviewed and negative
Physical Exam
-
General: Well Developed, No Apparent Distress and Appears Chronically Ill
HEENT: Normocephalic, Atraumatic and Moist Mucous Membranes
Respiratory: Non Labored Respirations and Decreased Breath Sounds
Cardiac: Regular Rhythm and S1/S2; Negative Murmur or Rub
GI: Soft, Nontender, Nondistended and Normal Bowel Sounds
Musculoskeletal: No Clubbing and No Cyanosis
Skin: Warm and Dry; Negative Rash
Neuro: AO x 3, Nonfocal/Grossly Intact and Central Nerve's Intact; Negative Tremors
Psych: Calm
Data Reviewed
-
Labs: Labs Reviewed by me and Discussed with Patient
[2025-05-03 11:05] VITALS: BP 131/62
[2025-05-03 13:07] LABS: APTT 53.1 Sec (23.4-35.0)
--- NOTE | 2025-05-03 13:25 | CM ---
Received message from Yancy Burgess/[facility] clinical rehabilitation liaison. Per Yancy, patient's POA, Rose, informed her that patient is wanting to discharge to [facility] on Monday morning and will need transport arranged. [facility] hospice will sign
on w/ patient and get orders from facility
[2025-05-03] MEDS: HEPARIN 5500 UNITS IV (13:43)
[2025-05-03] MEDS: HEPARIN 25000 UNITS/250 ML IV (14:41)
[2025-05-03 15:10] VITALS: BP 129/58
[2025-05-03 19:32] VITALS: BP 131/61
[2025-05-03] MEDS: REMOVE LIDOCAINE PATCH 1 PATCH REMOVE (19:39)
[2025-05-03 21:16] LABS: APTT > 200 Sec (23.4-35.0)
[2025-05-03 23:10] VITALS: BP 130/62
[2025-05-04] MEDS: SODIUM BICARBONATE 1075 MEQ IV ×3 (00:30→21:35)
[2025-05-04 03:15] VITALS: BP 126/56
[2025-05-04 06:00] VITALS: BMI 28.3
[2025-05-04 06:16] LABS: APTT 99.3 Sec (23.4-35.0)
[2025-05-04 06:18] LABS: Hematocrit 23.4 % (37.0-47.0); Hemoglobin 7.8 g/dL (12.0-16.0); Mean Corp Hgb Conc. 33.3 g/dL (33.0-37.0); Mean Corpuscular Volume 98.3 fL (81.0-99.0); Nucleated Red Blood Cells % 0 %; Platelet Count 288 10^3/uL (130-400); Red Cell Dist. Width 15.3 % (11.5-14.5)
[2025-05-04 07:11] VITALS: BP 127/63
[2025-05-04] MEDS: LIDOCAINE 4% PATCH 1 PATCH TOPICAL ×2 (08:41→12:53)
[2025-05-04] MEDS: SENOKOT-S 1 TABLET PO (08:41)
[2025-05-04] MEDS: MAG-TAB SR 84 MG PO (08:41)
[2025-05-04] MEDS: VISBIOME 1 CAP PO ×2 (08:42→19:24)
[2025-05-04] MEDS: FLUSH (NSS) 2 FLUSH IV (08:42)
[2025-05-04 08:46] LABS: ALT (SGPT) 16 U/L (0-35); AST (SGOT) 45 U/L (14-36); Albumin 2.8 g/dl (3.5-5.0); Alkaline Phosphatase 70 U/L (38-126); Blood Urea Nitrogen 75 mg/dl (7-17); Carbon Dioxide 31 mmol/L (22-30); Chloride 89 mmol/L (98-107); Estimated Creatinine Clearance 7 ml/min; Glucose 95 mg/dl (70-99); Sodium 126 mmol/L (135-145); Total Protein 5.4 g/dl (6.3-8.2); eGFR 5.19
[2025-05-04 09:21] LABS: Calcium 7.6 mg/dl (8.4-10.2); Potassium 4.3 mmol/L (3.5-5.1)
[2025-05-04] MEDS: HEPARIN 25000 UNITS/250 ML IV (10:19)
--- NOTE | 2025-05-04 10:23 | CM ---
Provided Hospice Referral to Agency so that DME could be delivered today.
Pt to dc to [facility] Hospice tomorrow, Monday.
CM/SW covering will need to confirm dc time with [facility] in AM; Hospice agency requested 11-12noon if possible.
Will continue to follow.
[2025-05-04 11:30] VITALS: BP 137/63
[2025-05-04 12:27] LABS: APTT 93.3 Sec (23.4-35.0)
--- NOTE | 2025-05-04 13:25 | W.PN.HOSP.TC ---
Today's Communication/Plan
-
Continue IV heparin drip/IV fluids/medical measures pending hospice meeting Monday
Continue with comfort based medications as well (ordered additional lidocaine patch)
Likely to formally sign on hospice morning of 05/05
Assessment / Plan
Assessment / Plan
Ms Thomas is a 74-year-old female from [facility] complaining of 2-day history of anorexia, constipation and difficulty urinating only able to produce drops of urine yet she is drinking. She has past medical history of BRCA+ Right
Breast Cancer with Cutaneous Involvement and Malignant Right Pleural Effusion Dx in October currently on Lynparza by Dr. Thalia Benito, History multiple thoracentesis draining average 1300 cc - 1400 cc 10/18/2024, 10/21/2024, chronic anemia, HTN,
peripheral neuropathy, spinal cord injury/TBI in 1990, fibromyalgia,Strep pyogenes bacteremia left lower extremity cellulitis October 2024, COVID-19 positive treated with Paxlovid 09/25 - 09/30/2025 was still + 10/10/2024, Chronic hypoxic respiratory
failure. She was admitted for acute renal failure due to intra-abdominal lymphadenopathy.
#Acute Renal failure likely due to lymphadenopathy intra-abdominal right side
#BRCA+ Right Breast Cancer with Cutaneous Involvement
Creat 6.8 prior baseline 0.5 on
- Consult nephro, patient not interested in dialysis
- Whittaker catheter for critical I&O's
- IV 1/2 NSS with 75 mEq bicarb at 100 cc an hour
- Follow BMP and urine output
- hospice consult
- Overnight Associate consult
- IV Morphine as needed pain
- Ativan as needed for anxiety
- obtain kidney and bladder ultrasound per goals of care
#Acute hyperkalemia in setting of acute renal failure
- K 5.9 on admission, 5.2 -> 4.9
-Lokelma 10 g -3 times daily
-Follow BMP
#Right lower extremity DVT
Peripheral ultrasound shows DVT
-IV heparin drip, plan for DOAC on comfort basis at DC
# Right neck pain
# Right shoulder pain
-Lidocaine patch as needed
#Recurrent large loculated right pleural effusion
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
#History multiple thoracentesis draining average 1300 cc - 1400 cc 10/18/2024, 10/21/2024
-Patient was on olaparib
- Consult oncology Dr. Benito aware
#Acute on chronic anemia
Hgb 9.9, MCV 98.6, downtrending with acute on chronic illness
- Follow CBC
DVT prophylaxis
Heparin drip
CODE STATUS
DNR/DNI
Anticipated Discharge: 24 - 48 hours
Subjective/Interval History
-
Date of Service: May 04, 2025
Seen and examined at the bedside. No acute events reported overnight. AFVSS on baseline O2
Patient appears comfortable, denies any new complaints
Objective Data
-
Labs:
Laboratory Results
05/04/25 05/04/25 05/04/25
05:58 07:34 12:06
WBC 8.0
Hgb 7.8 L
Hct 23.4 L
Plt Count 288
APTT 99.3 H 93.3 H
Sodium Cancelled 126 L
Potassium Cancelled 4.3
Chloride Cancelled 89 L
Carbon Dioxide Cancelled 31 H
BUN Cancelled 75 H
Creatinine Cancelled 7.6 H*
Glucose Cancelled 95
Calcium Cancelled 7.6 L
Total Bilirubin Cancelled 0.5
AST Cancelled 45 H
ALT Cancelled 16
Alkaline Phosphatase Cancelled 70
Vital Signs:
Vital Signs
Temp Pulse Resp BP Pulse Ox
98.1 F 79 18 137/63 98
05/04/25 11:30 05/04/25 11:30 05/04/25 11:30 05/04/25 11:30 05/04/25 11:52
I&O
05/03/25 05/04/25 05/05/25
06:59 06:59 06:59
Intake Total 1919 / 2399
Output Total 0 / 0
Balance 1919
Review of Systems
-
History Source: Patient
All other systems: Reviewed and negative
Physical Exam
-
General: Well Developed, No Apparent Distress and Appears Chronically Ill
HEENT: Normocephalic, Atraumatic, Moist Mucous Membranes and Anicteric
Respiratory: Non Labored Respirations and Decreased Breath Sounds; Negative Accessory Resp Muscle Use
Cardiac: Regular Rhythm and S1/S2; Negative Murmur, Rub or Gallop
GI: Soft, Nontender, Nondistended and Normal Bowel Sounds
Musculoskeletal: No Clubbing and No Cyanosis
Skin: Warm and Dry; Negative Rash
Neuro: AO x 3 and Nonfocal/Grossly Intact
Psych: Calm
[2025-05-04 15:10] VITALS: BP 126/56
[2025-05-04] MEDS: MORPHINE SULFATE 4 MG IV ×2 (15:17→19:25)
[2025-05-04] MEDS: REMOVE LIDOCAINE PATCH 1 PATCH REMOVE ×2 (19:26)
[2025-05-04] MEDS: DILAUDID 1 MG IV (22:07)
[2025-05-04 23:09] VITALS: BP 130/61
[2025-05-05] MEDS: MORPHINE SULFATE 4 MG IV (00:23)
[2025-05-05 05:53] VITALS: BMI 29.5
[2025-05-05] MEDS: HEPARIN 25000 UNITS/250 ML IV (05:56)
[2025-05-05 07:13] LABS: APTT 71.2 Sec (23.4-35.0)
[2025-05-05 07:25] VITALS: BP 148/69
[2025-05-05] MEDS: LIDOCAINE 4% PATCH 1 PATCH TOPICAL ×2 (09:03)
[2025-05-05] MEDS: MAG-TAB SR 84 MG PO (09:03)
[2025-05-05] MEDS: VISBIOME 1 CAP PO (09:03)
[2025-05-05] MEDS: SENOKOT-S 1 TABLET PO (09:03)
[2025-05-05] MEDS: MIRALAX 17 GRAMS PO (09:03)
[2025-05-05] MEDS: MORPHINE SULFATE 2 MG IV (09:18)
[2025-05-05] MEDS: SODIUM BICARBONATE IV (11:08)
--- NOTE | 2025-05-05 11:25 | HOSPNOTE ---
Patient will be admitted inpatient hospice today.
--- NOTE | 2025-05-05 11:45 | CM ---
Patient seen at bedside and patient now asking for GIP hospice and patient POA is aware. Patient is for change to inpatient GIP. CM will continue to follow for discharge planning needs.
Plan; Inpatient hospice.
--- NOTE | 2025-05-05 12:49 | HOSPNOTE ---
Patient will be admitted inpatient hospice.
--- NOTE | 2025-05-05 18:08 | W.DCSUMMARY ---
Addendum entered and electronically signed by Cate Beltre MD 05/05/25 21:13:
Read, reviewed, and agree. See same day progress note for additional details. Time spent coordinating care, DC planning, review of DC plan of care with resident, transition of care, review of records in EMR, med rec, consults, notes, d/w
consultants, nursing, family, and CM = 33 minutes
Original Note:
Discharge Summary
Discharge Data
Date of Admission: 05/01/25
Date of Discharge: 05/05/25
-
Pending Results: No
Hospital Course
Discharging Physician : Yuniel Lake MD/SOBIA
Disposition : Inpatient hospice service
Primary care physician : Private physician
Principal Discharge diagnosis : Terminal breast cancer
Chronic Discharge diagnosis : Terminal breast cancer
Hospital Course : Ms. Thomas is a 74-year-old female from with bright BRCA positive breast cancer who presented to the ED on 05/01/2025 with worsening of cancer sequela including anorexia, constipation, right lower extremity DVT, and acute renal
failure. Dx in October currently on Lynparza by Dr. Thalia Benito. History of multiple thoracentesis draining average 1300 cc - 1400 cc 10/18/2024, 10/21/2024, chronic anemia, HTN, peripheral neuropathy, spinal cord injury/TBI in 1990,
fibromyalgia,Strep pyogenes bacteremia left lower extremity cellulitis October 2024, COVID-19 positive treated with Paxlovid 09/25 - 09/30/2025 was still + 10/10/2024, Chronic hypoxic respiratory failure. She was admitted for acute renal failure due
to intra-abdominal lymphadenopathy.
In the ED, lab showed creatinine of 6.8. Potassium 5.9. Sodium 131. Stable anemia of 9.9. Venous ultrasound right lower extremity showed extensive thrombus formation of the right saphenofemoral junction/greater saphenous vein, common femoral
vein, superficial femoral vein, popliteal vein, posterior tibial vein. CT abdomen pelvis showed moderate retroperitoneal lymphadenopathy in the right significantly progressed. Mild right hydronephrosis probably due to progressive lymphadenopathy.
Mild volume overload with third spacing. Her large loculated right pleural effusion significantly increased with moderate right lower lobe consolidation representing atelectasis or pneumonia. She had right lower extremity DVT for which heparin
drip started for this. This was later transitioned to Eliquis 10 mg twice daily for 7 days then 5 mg twice daily.
Moreover she had progressive weakness and pain involving adenopathy. Labs also showed new TRELL and imaging showed obstructive uropathy due to adenopathy. Nephrology was consulted and recommended dialysis in setting of acute renal failure but
patient was not interested in this. She also had hyperkalemia with potassium 5.9 on admission which was managed with Lokelma 10 g 3 times daily and trending BMP. A Whittaker catheter was placed on 05/01/2025 to monitor I's and O's but she was not making
any urine so it was removed on 05/05/2025. Throughout hospital course she also had increasing pain, mostly managed with increasing IV morphine and lidocaine patches specifically for the neck pain. She requested comfort care and hospice to be
consulted. IV morphine was started and managed pain well as she was fairly opiate na�ve. During the hospital course she also developed more more anxiety described as increasing chest pressure as well as back pressure. This was treated with Ativan
as needed for anxiety.
Dr. Benito was made aware of her status while inpatient. While inpatient she met with the dumper mold cleaner as well as the patient case coordinator and hospice team. Given her increasing need for opioids for pain management and patient's labored breathing, it was
decided in discussion with the patient that we would be transitioning her to inpatient hospice on 05/05/2025 with all comfort care measures in place per her wishes.
Important imaging findings : PROCEDURE: US Periph Venous LOWER Ext RT
CLINICAL INDICATION: Swelling
TECHNIQUE: Grayscale, color and Doppler imaging of the right lower extremity was performed.
COMPARISON: 07/10/2007.
FINDINGS: There is extensive thrombus formation in the right saphenofemoral junction/greater saphenous vein, common femoral vein, superficial femoral vein, popliteal vein and posterior tibial vein. These vessels are noncompressible.
IMPRESSION: Severe acute DVT of the entire right leg as described above.
Exams: CT Abd/pel Without Iv Or Oral
EXAMINATION: CT of the abdomen and pelvis with no contrast.
INDICATION: Breast cancer. New renal failure.
TECHNIQUE: Contiguous helical acquisition from the bases of the lungs through the pubic symphysis with no contrast. Automated dose reduction technique was utilized. Axial reconstructions and sagittal and coronal reformats provided.
COMPARISON: Chest x-ray 10/18/2024, CT the abdomen and pelvis 08/24/2024, chest x-ray 10/17/2024.
FINDINGS:
Lung Bases: There is a large loculated right pleural effusion. There is moderate right lower lung consolidation. There is mild right middle lobe consolidation.
There is an incompletely imaged enlarged left axillary lymph node seen best on image #1 series 201. It measures 3.3 x 1.5 cm.
Bone: Osseous structures of the abdomen and pelvis show a scoliosis and mild degenerative disease as well as osteopenia. There is a moderate compression fracture of T12. There is a mild compression fracture L1
Abdomen and pelvis: The unenhanced liver, spleen, gallbladder and pancreas are unremarkable. The adrenal are unremarkable. There are 2 1 mm nonobstructing left renal stones. There is mild right hydronephrosis. An obstructing mass is not identified.
However, examination is limited without oral and IV contrast. No radiopaque stone is noted.
There is the appearance of moderate retroperitoneal lymphadenopathy. The largest lymph node is probably right para-aortic on image 60 series 201 measuring approximately 2.8 x 2.1 cm. The lymphadenopathy appears to extend inferiorly into the right
common iliac chain, right external iliac chain and right groin. The largest lymph node is in the groin and measures 3.2 x 2.6 x 4.0 cm.
The abdominal aorta is normal caliber. Bowel loops are normal caliber. There is mild diverticulosis.
There is mild increased density to the subcutaneous tissues diffusely suggesting volume overload or third spacing.
No free fluid is noted. The urinary bladder is not distended and therefore not evaluated.
IMPRESSION: Moderate retroperitoneal lymphadenopathy on the right as described above. Significantly progressed despite the limited evaluation without oral and IV contrast.
Mild right hydronephrosis. New. No obstructing radiopaque stone identified. Probably due to the progressed lymphadenopathy.
Incompletely imaged moderate left axillary lymphadenopathy.
Findings suggesting mild volume overload or third spacing. Improved
Large loculated right pleural effusion. Significantly increased.
Moderate right lower lobe consolidation. This may represent atelectasis or pneumonia. New
Tiny nonobstructing left renal stones. New
T12 and L1 compression fractures. Stable
PROCEDURE: CR Chest Portable - 1 View
CLINICAL INDICATION: sob
TECHNIQUE: Portable frontal semi-erect view of the chest.
COMPARISON: 10/18/2024
FINDINGS:
Lines and tubes: None.
Lungs: Moderate right pleural effusion with associated consolidation. Left lung is clear. No visualized pneumothorax.
Heart: Cardiac and mediastinal contours are unremarkable. No overt pulmonary vascular congestion.
Osseous structures: No acute abnormalities.
IMPRESSION:
Moderate right pleural effusion with associated atelectasis and/or pneumonia.
Procedure findings: N/A
Discharge Plan
-
Patient Disposition: Hospice - Inpatient DH
Discharge Orders:
Discharge Patient (As Directed); Ordered 05/05/25
Ordered By: Dave El
Discharge Date and Time
Discharge Date/Time: 05/05/25 11:38
Print Language: FRENCH
--- NOTE | 2025-05-05 18:12 | W.PN.HOSP.TC ---
Addendum entered and electronically signed by Cate Beltre MD 05/05/25 20:26:
I saw and evaluated the patient independently. I reviewed the resident�s note and agree with findings and plan as documented by Dr. Lake.
GENERAL: chronically ill, frail appearing female in no apparent distress
HEENT: NC/AT-- 4L O2 NC
HEART: regular rate and rhythm, +S1, +S2
LUNGS : decreased breath sounds right lung field
ABDOM: soft, nontender, nondistended, + bowel sounds
EXT: no cyanosis, clubbing--right arm edema
NEUROLOGIC: grossly intact
: blankenship cath
Acute Renal failure likely due to lymphadenopathy intra-abdominal right side--not interested in HD--not making urine--blankenship removed--stop IVF
BRCA+ Right Breast Cancer with Cutaneous Involvement--recurrent pleural effusion--pt in pain and SOB--discussed that she meets inpt hospice criteria--she agrees--d/c to inpt hospice--remove blankenship, start morphine drip, wean O2 to off
Acute hyperkalemia in setting of acute renal failure--stop Lokelma
Right lower extremity DVT --confirmed by US--stop IV heparin drip
Right neck pain/Right shoulder pain--lidocaine--morphine drip
Acute on chronic anemia--Hgb 9.9, MCV 98.6, downtrending with acute on chronic illness
DVT proph
CODE STATUS--DNR/DNI
Original Note:
Today's Communication/Plan
-
Plan to discharge and admit to inpatient hospice
Assessment / Plan
Assessment / Plan
Ms Thomas is a 74-year-old female from with bright BRCA positive breast cancer admitted for worsening of cancer sequela including anorexia, constipation, right lower extremity DVT, and acute renal failure. She has malignant Right Pleural Effusion Dx
in October currently on Lynparza by Dr. Thalia Benito, History multiple thoracentesis draining average 1300 cc - 1400 cc 10/18/2024, 10/21/2024, chronic anemia, HTN, peripheral neuropathy, spinal cord injury/TBI in 1990, fibromyalgia, Strep pyogenes
bacteremia left lower extremity cellulitis October 2024, COVID-19 positive treated with Paxlovid 09/25 - 09/30/2025 was still + 10/10/2024, Chronic hypoxic respiratory failure. She was admitted for acute renal failure due to intra-abdominal
lymphadenopathy. Given her disease and terminal status, we discussed transition to hospice with her and she was agreeable to inpatient hospice today.
#Acute Renal failure likely due to lymphadenopathy intra-abdominal right side
#BRCA+ Right Breast Cancer with Cutaneous Involvement
Creat 6.8 prior baseline 0.5 on
- Consult nephro, patient not interested in dialysis
- Blankenship catheter for critical I&O's
--She is not making urine, so Blankenship was removed today
- IV 1/2 NSS with 75 mEq bicarb at 100 cc an hour
- Discontinue all labs
- Hospice consult placed 05/05/2025, she will be admitted to inpatient hospice
- Curtain Worker consult done previously
- IV Morphine drip as needed pain
- Ativan as needed for anxiety
#Acute hyperkalemia in setting of acute renal failure
-Lokelma 10 g -3 times daily
-Follow BMP
#Right lower extremity DVT
Peripheral ultrasound shows DVT
-IV heparin drip, plan for DOAC on comfort basis at DC
# Right neck pain
# Right shoulder pain
- Continue lidocaine patches as needed
#Recurrent large loculated right pleural effusion
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
#History multiple thoracentesis draining average 1300 cc - 1400 cc 10/18/2024, 10/21/2024
-Patient was on olaparib
-Consult oncology Dr. Benito aware
#Acute on chronic anemia
Hgb 9.9, MCV 98.6, downtrending with acute on chronic illness
- Follow CBC
DVT prophylaxis
Heparin drip
CODE STATUS
DNR/DNI
Anticipated Discharge: Today
Subjective/Interval History
-
Date of Service: May 05, 2025
Ms. Thomas is a 74-year-old female with right BRCA positive breast cancer on anti-BRCA therapy (Lynpraza), recurrent large loculated right pleural effusion, acute on chronic anemia, right neck pain, hypertension, peripheral neuropathy, fibromyalgia,
strep pyogenes bacteremia left lower extremity cellulitis Oct 2024, that was admitted 4 days ago for management of worsening sequela including right lower extremity DVT, worsening malignant pleural effusion, and acute renal failure with worsening
hypoxia and cancer sequela with plan to transition to inpatient hospice today.
- Overnight:
-She reported increased pain, and required 2 pushes of IV morphine 2 mg overnight.
- This morning she said she feels more pressure on her chest and back and has difficulty breathing on 4 L of nasal cannula.
- During rounds we discussed with her her preference of inpatient versus outpatient hospice as we felt that her condition has worsened quite abruptly. In agreement with our team she felt that inpatient hospice is a better option for her and so
today's plan will include discharging her from the service and admitting her to the hospice service.
- She does not make urine. The Blankenship has been in for the last 4 days. We will removed today prior to admission to the hospice service.
Objective Data
-
Labs:
Laboratory Results
05/05/25
06:50
APTT 71.2 H
Vital Signs:
Vital Signs
Temp Pulse Resp BP Pulse Ox
98.9 F 99 16 148/69 98
05/05/25 07:25 05/05/25 07:25 05/05/25 07:25 05/05/25 07:25 05/05/25 07:25
I&O
05/04/25 05/05/25 05/06/25
06:59 06:59 06:59
Intake Total 2400 / 2400 1560 / 1560
Balance 2400 / 2400 1560 / 1560
Review of Systems
-
Constitutional: Reports Weight Loss, No Appetite and Fatigue
EENT: Reports Hearing Loss
Respiratory: Reports Trouble Breathing
Cardiac: Reports Other (Chest pressure)
Abdomen/GI: Reports Anorexia
Genitourinary: Reports Other (Does not make urine in setting of renal failure in setting of terminal disease)
Musculoskeletal: Reports Muscle Pain
Physical Exam
-
General: Respiratory Distress, Appears in Distress, Pain, Appears Chronically Ill and Cachectic
Respiratory: Accessory Resp Muscle Use and Decreased Breath Sounds (Absent breath sounds on the left lung base)
Cardiac: Regular Rhythm
GI: Soft and Nontender
Skin: Warm and Dry
Neuro: Awake and AO x 3
Psych: Calm
Data Reviewed
-
Labs: Discussed with Physician
== END 2025-05-05 11:38 | disposition hospice, inpatient (51) | DRG 300 ==
LOC: 2 NORTH 18:01
PROVIDERS: Clinical Nurse Specialist Family Health; Internal Medicine; ADMITTING PHYSICIAN Hospitalist; ATTENDING PHYSICIAN Internal Medicine; CONSULT PHYSICIAN Internal Medicine Hematology & Oncology; CONSULT PHYSICIAN Specialist; EMERGENCY PHYSICIAN Emergency Medicine
DX: I82.411 Acute embolism and thrombosis of right femoral vein (principal); C78.6 Secondary malignant neoplasm of retroperitoneum and peritoneum; N17.9 Acute kidney failure, unspecified; J91.0 Malignant pleural effusion; J96.11 Chronic respiratory failure with hypoxia; N13.30 Unspecified hydronephrosis; E87.1 Hypo-osmolality and hyponatremia; I82.431 Acute embolism and thrombosis of right popliteal vein; I82.811 Embolism and thrombosis of superficial veins of right lower extremity; I82.4Y1 Acute embolism and thrombosis of unspecified deep veins of right proximal lower extremity; I82.441 Acute embolism and thrombosis of right tibial vein; C50.911 Malignant neoplasm of unspecified site of right female breast; E87.5 Hyperkalemia; Z66 Do not resuscitate; I10 Essential (primary) hypertension; G62.9 Polyneuropathy, unspecified; M54.2 Cervicalgia; M25.511 Pain in right shoulder; Z15.01 Genetic susceptibility to malignant neoplasm of breast; Z51.5 Encounter for palliative care; Z79.899 Other long term (current) drug therapy; Z79.01 Long term (current) use of anticoagulants
CPT/HCPCS: 71045; 74176; 80053; 82962; 83690; 83735; 84132; 84484; 85025; 85027; 85610; 85730; 87070; 93005; 93971; 94640; 94760; 96361; 96365; 96375; 99285; J7030

== ENCOUNTER 2025-05-05 11:39 | Inpatient (IN) | payer OTHER, SELFPAY ==
[2025-05-05 08:00] VITALS: BP 148/69
[2025-05-05 12:05] VITALS: BMI 29.5
--- NOTE | 2025-05-05 12:13 | PTCARENOTE ---
Patients chart flipped to inpatient hospice. Patient updated at bedside. Call mcnamara within reach.
--- NOTE | 2025-05-05 13:04 | CM ---
Patient seen at bedside in [facility] now accepted to [facility] hospice for [facility]. CM spoke with [facility] sales representative graphic art and to the POA for patient both aware and in agreement with plan. CM sent referral to Hospice and await confirmation of
acceptance as per liaison earlier.
Plan [facility] hospice.
[2025-05-05] MEDS: MORPHINE SULFATE 2 MG IV ×3 (13:26→19:33)
[2025-05-05] MEDS: MORPHINE 100 IV (13:56)
--- NOTE | 2025-05-05 16:14 | HOSPNOTE ---
Patient is admitted inpatient hospice for pain management and shortness of breath. Patient will be seen daily by hospice. Patient is on a morphine drip stpep 2.
--- NOTE | 2025-05-05 19:25 | HPS.HSE ---
Addendum entered and electronically signed by Cate Beltre MD 05/05/25 20:58:
I personally performed a history and physical exam of the patient and discussed management with the resident. I reviewed the resident's note and agree with the documented findings and plan of care HPI/CC.
GENERAL: chronically ill, frail appearing female in no apparent distress
HEENT: NC/AT-- 4L O2 NC
HEART: regular rate and rhythm, +S1, +S2
LUNGS : decreased breath sounds right lung field
ABDOM: soft, nontender, nondistended, + bowel sounds
EXT: no cyanosis, clubbing--right arm edema
NEUROLOGIC: grossly intact
: blankenship cath
Acute Renal failure likely due to lymphadenopathy intra-abdominal right side/BRCA+ Right Breast Cancer with Cutaneous Involvement--recurrent pleural effusion--pt in pain and SOB--discussed that she meets inpt hospice criteria--she agrees--d/c to
inpt hospice--remove blankenship, start morphine drip, wean O2 to off
Acute hyperkalemia
Right lower extremity DVT
Right neck pain/Right shoulder pain--lidocaine--morphine drip
Acute on chronic anemia
DVT proph
CODE STATUS--DNR/DNI
Original Note:
Family Physician
-
Family Physician: INTERVIEWE UNKNOWN - PT NOT
Chief Complaint
-
Terminal breast cancer
History of Present Illness
Ms. Thomas is a 74-year-old female from with bright BRCA positive breast cancer who presented to the ED on 05/01/2025 with worsening of cancer sequela including anorexia, constipation, right lower extremity DVT, and acute renal failure. Dx in October
currently on Lynparza by Dr. Thalia Benito. History of multiple thoracentesis draining average 1300 cc - 1400 cc 10/18/2024, 10/21/2024, chronic anemia, HTN, peripheral neuropathy, spinal cord injury/TBI in 1990, fibromyalgia,Strep pyogenes
bacteremia left lower extremity cellulitis October 2024, COVID-19 positive treated with Paxlovid 09/25 - 09/30/2025 was still + 10/10/2024, Chronic hypoxic respiratory failure. She was admitted to the general medicine team 05/01/2025 to 05/05/2025 for
acute renal failure due to intra-abdominal lymphadenopathy.
In the ED, lab showed creatinine of 6.8. Potassium 5.9. Sodium 131. Stable anemia of 9.9. Venous ultrasound right lower extremity showed extensive thrombus formation of the right saphenofemoral junction/greater saphenous vein, common femoral
vein, superficial femoral vein, popliteal vein, posterior tibial vein. CT abdomen pelvis showed moderate retroperitoneal lymphadenopathy in the right significantly progressed. Mild right hydronephrosis probably due to progressive lymphadenopathy.
Mild volume overload with third spacing. Her large loculated right pleural effusion significantly increased with moderate right lower lobe consolidation representing atelectasis or pneumonia. She had right lower extremity DVT for which heparin
drip started for this. This was later transitioned to Eliquis 10 mg twice daily for 7 days then 5 mg twice daily.
Moreover she had progressive weakness and pain involving adenopathy. Labs also showed new TRELL and imaging showed obstructive uropathy due to adenopathy. Nephrology was consulted and recommended dialysis in setting of acute renal failure but
patient was not interested in this. She also had hyperkalemia with potassium 5.9 on admission which was managed with Lokelma 10 g 3 times daily and trending BMP. A Blankenship catheter was placed on 05/01/2025 to monitor I's and O's but she was not making
any urine so it was removed on 05/05/2025. Throughout hospital course she also had increasing pain, mostly managed with increasing IV morphine and lidocaine patches specifically for the neck pain. She requested comfort care and hospice to be
consulted. IV morphine was started and managed pain well as she was fairly opiate na�ve. During the hospital course she also developed more more anxiety described as increasing chest pressure as well as back pressure. This was treated with Ativan
as needed for anxiety.
Dr. Benito was made aware of her status while inpatient. While inpatient she met with the barge pilot as well as the telephonic case manager and hospice team. Given her increasing need for opioids for pain management and patient's labored breathing, it was
decided in discussion with the patient that we would be transitioning her to inpatient hospice on 05/05/2025 with all comfort care measures in place per her wishes.
Medical History
Past Medical History
Past Medical History: Reports Cancer (BRCA positive right breast cancer with cutaneous involvement and malignant right pleural effusion) and Fibromyalgia
Additional Past Medical History:
COVID-19 treated with Paxlovid, chronic hypoxic respiratory failure, spinal cord injury/TBI, peripheral neuropathy, strep pyogenes bacteremia left lower extremity cellulitis, chronic anemia, hypertension
Past Surgical History: Reports Other (Lymph node biopsy, T&A)
Additional Past Surgical History:
Left subclavian lymph node biopsy, T&A, multiple thoracentesis
Social History
Tobacco: Non-smoker
Alcohol: None
Drug: None
Personal:
Living: Alone
Employment: Retired
Family History
Family History: Cancer (Ovarian cancer in sister, she at age 36)
Allergies / Home Medications
Allergies reflects when Allergies were last updated in [employer].
Home Medications with original date entered in [employer]
Allergy/Medication List:
Sulfa antibiotics, reaction is yeast infection
Tetracycline, reaction is yeast infections
Review of Systems
-
Constitutional: Reports See HPI, Weight Loss, Fatigue and Sleep Disturbance
Respiratory: Reports See HPI and Trouble Breathing
Cardiac: Reports See HPI and Chest Pain
Abdomen/GI: Reports See HPI, Anorexia and Pain
: Reports See HPI, Difficulty Voiding and Other (Not producing urine, acute renal failure)
Musculoskeletal: Reports Muscle Pain
Neurological: Reports Weakness
Psych: Reports Calm
Physical Exam
Vital Signs
Vital Signs
Temp Pulse Resp BP Pulse Ox
98.9 F 99 16 148/69 98
05/05/25 08:00 05/05/25 08:00 05/05/25 08:00 05/05/25 08:00 05/05/25 08:00
Physical Exam
General: Respiratory Distress, Appears Chronically Ill and Cachectic
HEENT: NormoCephalic and PERRLA
Respiratory: Accessory Resp Muscle Use and Decreased Breath Sounds (Absent in the left lung base)
Cardiac: S1/S2 and Regular Rhythm
GI: Non Tender and Flat
Skin: Warm and Dry
Neuro: Awake, Alert and Oriented
Hematologic/Lymphatic: Lymphadenopathy
Psych: Calm
Data Reviewed
-
Lab Data: Discussed with Physician
Impression/Plan
-
Ms. Thomas is a 74-year-old female from with bright BRCA positive breast cancer who presented to the ED on 05/01/2025 with worsening of cancer sequela including anorexia, constipation, right lower extremity DVT, and acute renal failure. She was
admitted to the general medicine team 05/01/2025 to 05/05/2025 for acute renal failure due to intra-abdominal lymphadenopathy but unfortunately failed all treatment and requested transition to hospice. This was deemed appropriate by hospice team and
she was admitted to inpatient hospice on 05/05/2025 with plan to prioritize comfort.
Management for her includes:
- Morphine drip at 100 mg in 100 mLs per protocol
- Glycopyrrolate 0.2 mg IV every 4 hours as needed
- Zofran 4 mg IV every 6 hours as needed
- Compazine 5 mg IV every 6 hours as needed
- Haldol 0.5 mg every 4 Hours as needed
- Milk of magnesia 30 mL p.o. as needed
- Dulcolax 10 mg rectal daily as needed
- Maalox 30 mL up milliliters p.o. every 6 hours as needed
- Tylenol 650 mg rectal every 4 hours as needed
[2025-05-05 19:46] VITALS: BP 140/65
[2025-05-06] MEDS: MORPHINE SULFATE 2 MG IV ×4 (02:06→11:28)
--- NOTE | 2025-05-06 09:56 | HOSPNOTE ---
HAZARDOUS MATERIALS DRIVER VISITED 74 YEAR OLD PATIENT TO CONDUCT INITIAL WAX BALL MOLDER ASSESSMENT. PATIENT RECENTLY ADMITTED ONTO HOSPICE SERVICES AND GIP LEVEL OF CARE WITH THE PRIMARY DIAGNOSIS OF BILE DUCT CANCER. WAX BALL MOLDER GREETED PATIENT WHILE ENTERING PATIENT'S
ROOM, PATIENT APPEARED ASLEEP AND RESTING COMFORTABLY, PATIENT RESPONDED 'I DON'T KNOW WHAT DAY IT IS', WAX BALL MOLDER RESPONDED MONDAY. PATIENT REPORTED NO APPETITE, SLEEPING OKAY, AND PAIN IN RIGHT SHOULDER, NO PAIN RATE GIVEN. PATIENT REPORTED SHE DOESN'T
KNOW WHETHER IT'S DAY OR NIGHT, WAX BALL MOLDER ENCOURAGED PATIENT TO TURN TO LEFT AND LOOK OUT THE WINDOW AND SEE THE SUN SHINING, NO RESPONSE, WAX BALL MOLDER INFORMED PATIENT IT WAS DAYTIME. WAX BALL MOLDER ASKED PATIENT WHERE SHE WAS, PATIENT RESPONDED IN THE HOSPITAL AND SHE
DOESN'T KNOW HOW LONG SHE'S BEEN HERE. NO FAMILY MEMBERS PRESENT AT PATIENT'S BEDSIDE. WAX BALL MOLDER ASKED PATIENT WHO MINESH IS, PATIENT RESPONDED HER COUSIN. 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 PATIENT
RESPONDED SHE CAN'T REMEMBER HER HOBBIES AND INTEREST. PATIENT CLOSED HER EYES, WAX BALL MOLDER ASKE PATIENT WHAT WAS ON HER MIND AND IF SHE NEEDED ANYTHING, PATIENT RESPONDED SHE DIDN'T NEED ANYTHING. WAX BALL MOLDER PRAYED WITH PATIENT AND SANG TO PATIENT, PATIENT
RESPONDED AMEN AND BECAME VERY EMOTIONAL. NO SIGNS OF DISTRESS OBSERVED. MUCH EMOTIONAL SUPPORT PROVIDED. NURSE REPORTED PATIENT RESTING, WAX BALL MOLDER INFORMED NURSE PATIENT REPORTED PAIN IN RIGHT SHOULDER, NO RATE GIVEN. WAX BALL MOLDER CONTACTED PATIENT'S COUSIN MINESH
TO CHECK ON HER AND PROVIDE UPDATES FROM TODAY'S VISIT. MINESH REPORTED SHE'S DOING FINE, SHE LEFT PATIENT AROUND 5:00 A.M. BECAUSE SHE COULDN'T SLEEP ON THE COUCH AND WENT TO THE HOTEL TO GET SOME REST. MINESH IS POA AND EXECUTER OF PATIENT'S WILL.
MINESH REPORTED PATIENT HAS BEEN ESTRANGED FROM HER FAMILY FOR 10 YEARS AND THAT AREN'T AWARE OF PATIENT'S CURRENT MEDICAL STATUS. MINESH REPORTED ONLY A FEW PEOPLE ARE AWARE OF PATIENT'S MEDICAL STATUS THEREFORE SHE WON'T HAVE MANY VISITORS.
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 SHE WANTED TO BE A DOCTOR SINCE SHE WAS KID. 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 PATIENT LOVES ART, MADE JEWELRY, AND KAYAKING AFTER PASSED IN
2011. 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 CONSERVATION AND ENVIRONMENTAL ISSUES WERE IMPORTANT TO HER. PATIENT RAISED MORMON AND CONVERTED TO
PENTECOSTAL, SHE WAS VERY SPIRITUAL. HER WISHES ARE TO BE CREMATED AND ASHES SCATTERED AT [facility], FAMILY IS UTILIZING [facility] [place] [facility] FOR THESE ARRANGEMENTS. FAMILY APPEARS TO BE COPING APPROPRIATELY. BEREAVEMENT
SERVICES DECLINED AT THIS TIME. MUCH EMOTIONAL SUPPORT PROVIDED.
PATIENT MEETS GIP CRITERIA FOR SN ASSESSMENTS, MANAGEMENT OF PAIN, AND SHORTNESS OF BREATH REQUIRING IV MEDICATIONS THAT COULD NOT BE MANAGED AT HOME AND/OR IN AN OUTPATIENT SETTING. DISCHARGE PLANNING CONTINUES.
WAX BALL MOLDER WILL CONDUCT VISITS ONCE A WEEK WHILE ON GIP LEVEL OF CARE TO PROVIDE SUPPORTIVE SERVICES AND MONITOR FOR ADDITIONAL SERVICES.
[2025-05-06 11:38] VITALS: BP 128/68
--- NOTE | 2025-05-06 12:45 | HOSPNOTE ---
Rec'd patient minimally responsive in bed. Continuous Morphine infusion at 2MG/HR. Patient did require 2 breakthrough doses for pain before and after care. Patient remains GIP appropriate for managment of pain and dyspnea that can not be managed
in an outpatient setting. Will continue to follow with daily visits. Discharge planning to commence when symptoms are managed.
--- NOTE | 2025-05-06 14:14 | PTCARENOTE ---
Addendum entered by Holly Barakat RN 05/06/25 19:18:
Patient with apneic, irregular breathing, medicated with PRN morphine x3, morphine gtt increased per protocol to step 4 at 6mg/hr - see MAR and charting. Morphine gtt verified with oncoming caustic cresylate shift superintendent RN.
Original Note:
Patient waking to verbal/tactile stimuli this AM, drowsy, slow soft speech, flat affect, able to communicate to this RN she is in pain and would like medication. PRN IV morphine dose given x3 this AM, morphine gtt increased to step 3 per protocol,
infusing at 4mg/hr through L wrist IV - see MAR. Patient medicated for verbal complaints of pain, grimacing, moaning/discomfort with care, occasional dyspnea and apnea noted throughout AM. O2 removed. Bed bath/mouth care provided, open wound under R
breast cleansed and fresh ABDs applied. Sacrum foam intact, B/L heel foams placed. Family member at bedside updated on plan of care this AM.
[2025-05-06] MEDS: MORPHINE SULFATE 4 MG IV ×3 (16:35→18:37)
--- NOTE | 2025-05-06 16:36 | CM ---
Patient seen at bedside with physician on . Patient on GIP hospice and patient CM will continue to follow for discharge planning needs.
Plan; [facility] hospice
[2025-05-06] MEDS: ROBINUL 0.2 MG IV (16:43)
[2025-05-06] MEDS: ATIVAN 1 MG PO (16:43)
--- NOTE | 2025-05-06 16:44 | W.PN.HOSP.TC ---
Addendum entered and electronically signed by Cate Beltre MD 05/06/25 19:44:
I saw and evaluated the patient independently. I reviewed the resident�s note and agree with findings and plan as documented by Dr. Lake.
GENERAL: chronically ill, frail appearing female in no apparent distress--not responsive
HEENT: NC/AT-- 2L O2 NC--apneic
HEART: regular rate and rhythm, +S1, +S2
LUNGS : decreased breath sounds right lung field
ABDOM: soft, nontender, nondistended, + bowel sounds
EXT: no cyanosis, clubbing--right arm edema
NEUROLOGIC: grossly intact
Acute Renal failure likely due to lymphadenopathy intra-abdominal right side/BRCA+ Right Breast Cancer with Cutaneous Involvement--recurrent pleural effusion--pt in pain and SOB-- meets inpt hospice criteria--cont morphine drip, wean O2 to off
Acute hyperkalemia
Right lower extremity DVT
Right neck pain/Right shoulder pain--lidocaine--morphine drip
Acute on chronic anemia
DVT proph
CODE STATUS--DNR/DNI
Original Note:
Today's Communication/Plan
-
- Continue on Step 3 Hospice Protocol
- Continue to wean O2
Assessment / Plan
Assessment / Plan
Ms. Thomas is a 74-year-old female from with bright BRCA positive breast cancer who presented to the ED on 05/01/2025 with worsening of cancer sequela including anorexia, constipation, right lower extremity DVT, and acute renal failure.� She was
admitted to the general medicine team 05/01/2025 to 05/05/2025 for acute renal failure due to intra-abdominal lymphadenopathy but unfortunately failed all treatment and requested transition to hospice.� This was deemed appropriate by hospice team and
she was admitted to inpatient hospice on 05/05/2025 with plan to prioritize comfort.
Management for her includes:
- Morphine drip at 100 mg in 100 mLs on step 2 protocol
--- Escalated to Step 3 protocol today
- Continue to wean O2, currently on 2L NC
- Glycopyrrolate 0.2 mg IV every 4 hours as needed
- Zofran 4 mg IV every 6 hours as needed
- Compazine 5 mg IV every 6 hours as needed
- Haldol 0.5 mg every 4 Hours as needed
- Milk of magnesia 30 mL p.o. as needed
- Dulcolax 10 mg rectal daily as needed
- Maalox 30 mL up milliliters p.o. every 6 hours as needed
- Tylenol 650 mg rectal every 4 hours as needed
Anticipated Discharge: 24 - 48 hours
Subjective/Interval History
-
Date of Service: May 06, 2025
Ms. Thomas is a 74-year-old female from with bright BRCA positive breast cancer who presented to the ED on 05/01/2025 with worsening of cancer sequela including anorexia, constipation, right lower extremity DVT, and acute renal failure. She was
admitted to the general medicine team 05/01/2025 to 05/05/2025 management but continued to worsen, and the decision was made with Ms. Thomas to be admitted to inpatient hospice.
Overnight:
- Per nurse, was not asking for prn pain medications as she did not want to bother anyone
- This morning, Ms. Thomas reported ongoing pain and when asked if she'd like to increase her pain medication dose, she said yes
- By rounds, hospice nursing team escalated her therapy to Step 3 and weaned O2 to 2L NC
Objective Data
-
Vital Signs:
Vital Signs
Temp Pulse Resp BP Pulse Ox
98.1 F 97 16 128/68 92
05/06/25 11:38 05/06/25 11:38 05/06/25 11:38 05/06/25 11:38 05/06/25 11:38
I&O
05/05/25 05/06/25 05/07/25
06:59 06:59 06:59
Intake Total 180 / 180
Balance 180 / 180
Review of Systems
-
Constitutional: Reports Weight Loss, No Appetite, Chills and Weakness
Respiratory: Reports Trouble Breathing and Other (Apneic)
Physical Exam
-
General: Respiratory Distress, Pain, Appears Chronically Ill and Cachectic
HEENT: Normocephalic and Other (Dry MMM)
Respiratory: Accessory Resp Muscle Use (Increasing Apnea) and Decreased Breath Sounds (Left Lung Base )
Cardiac: Regular Rhythm and S1/S2
GI: Nontender
[2025-05-06 19:23] VITALS: BP 72/42
[2025-05-06] MEDS: MORPHINE 100 IV (20:20)
--- NOTE | 2025-05-06 22:35 | PTCARENOTE ---
Patient with no resp/ no BP/ absent HR. CALE Beckman made aware of patient passing.
--- NOTE | 2025-05-06 23:52 | W.PN.DEATH ---
Pronouncement of
-
Called to see patient to pronounce.
No spontaneous heart tones or respirations noted.
Patient not responsive to verbal stimuli.
Patient is pronounced .
Family at the bedside
Time of : 22:30
Date of : 05/06/25
Family Notified: Yes
--- NOTE | 2025-05-07 19:00 | W.DCSUMMARY ---
Addendum entered and electronically signed by Cate Beltre MD 05/07/25 19:12:
Read, reviewed, and agree. See same day progress note for additional details. Time spent coordinating care, DC planning, review of DC plan of care with resident, transition of care, review of records in EMR, med rec, consults, notes, d/w
consultants, nursing, family, and CM = 25 minutes
Original Note:
Discharge Summary
Discharge Data
Date of Admission: 05/05/25
Date of Discharge: 05/07/25
-
Pending Results: No
Hospital Course
Discharging Physician : Yuniel Lake MD/SOBIA
Principal Discharge diagnosis : Terminal Breast Cancer
Hospital Course :
Ms. Thomas was a 74-year-old female from with bright BRCA positive breast cancer who presented to the ED on 05/01/2025 with worsening of cancer sequela including anorexia, constipation, right lower extremity DVT, and acute renal failure.� She was
admitted to the general medicine team 05/01/2025 to 05/05/2025 for acute renal failure due to intra-abdominal lymphadenopathy. In the ED, lab showed creatinine of 6.8.� Potassium 5.9.� Sodium 131.� Stable anemia of 9.9. Venous ultrasound right lower
extremity showed extensive thrombus formation of the right saphenofemoral junction/greater saphenous vein, common femoral vein, superficial femoral vein, popliteal vein, posterior tibial vein. CT abdomen pelvis showed moderate retroperitoneal
lymphadenopathy in the right significantly progressed.� Mild volume overload with third spacing.� Her large loculated right pleural effusion significantly increased with moderate right lower lobe consolidation representing atelectasis or pneumonia.
She had�a righy lower extremity DVT for which heparin drip started for this.� This was later transitioned to Eliquis 10 mg twice daily for 7 days then 5 mg twice daily. Moreover she had progressive weakness and pain involving adenopathy.� Labs also
showed new TRELL and imaging showed obstructive uropathy due to adenopathy.� Nephrology was consulted and recommended dialysis in setting of acute renal failure but Ms. Thomas declined this.� She also had hyperkalemia with potassium 5.9 on admission
which was managed with Lokelma 10 g 3 times daily and trending BMP. A Whittaker catheter was placed on 05/01/2025 to monitor I's and O's but she was not making any urine so it was removed on 05/05/2025.� Throughout hospital course she also had increasing
pain and anxiety, which was managed with IV morphine, lidocaine patches specifically for the neck pain, and Ativan.� Her pain continued to worsen and she requested comfort care.�Dr. Benito was made aware of her status while inpatient.� While
inpatient she met with the fret saw operator as well as the case work aide and hospice team.� Given her increasing need for opioids for pain management and patient's labored breathing, it was decided in discussion with her that we would be transitioning her to
inpatient hospice on 05/05/2025 with all comfort care measures in place per her wishes. She was started on step 2 protocol with continued discomfort throughout the evening and morning of 05/06/2025, at which time she was escalated to step 3 protocol.
During rounds that day, she was sleeping comfortably in her bed, although noted to be more apneic with slowed respirations. Ms. Thomas that evening with all comfort care measures in place.
Discharge Plan
-
Patient Disposition:
Date/Time
Date/Time: 05/06/25 22:30
Discharge Date and Time
Discharge Date/Time: 05/06/25 22:30
Print Language: JORDANIAN
== END 2025-05-06 22:30 | disposition expired | DRG 951 ==
LOC: 2 NORTH 11:39
PROVIDERS: ADMITTING PHYSICIAN Internal Medicine
DX: Z51.5 Encounter for palliative care (principal); J18.9 Pneumonia, unspecified organism; N17.9 Acute kidney failure, unspecified; J96.11 Chronic respiratory failure with hypoxia; J91.0 Malignant pleural effusion; I82.411 Acute embolism and thrombosis of right femoral vein; I82.431 Acute embolism and thrombosis of right popliteal vein; I82.441 Acute embolism and thrombosis of right tibial vein; N13.30 Unspecified hydronephrosis; J98.11 Atelectasis; C50.911 Malignant neoplasm of unspecified site of right female breast; R59.0 Localized enlarged lymph nodes; E87.5 Hyperkalemia; M54.2 Cervicalgia; M25.511 Pain in right shoulder; D63.0 Anemia in neoplastic disease; Z66 Do not resuscitate; K59.00 Constipation, unspecified; I10 Essential (primary) hypertension; G62.9 Polyneuropathy, unspecified; M79.7 Fibromyalgia; E87.70 Fluid overload, unspecified; F41.9 Anxiety disorder, unspecified; Z87.820 Personal history of traumatic brain injury; Z15.01 Genetic susceptibility to malignant neoplasm of breast